=== PATIENT | female | born 1955 | race Caucasian/White ===

== ENCOUNTER 2016-08-05 02:07 | Inpatient (IN) ==
[2016-08-05 04:13] LABS: Basophils # 0.1 K/mcL (0.0-0.2); Basophils % 0.7 %; Eosinophils # 0.3 K/mcL (0.0-0.6); Eosinophils % 2.8 %; Hematocrit 41.5 % (35.3-44.9); Hemoglobin 14.1 g/dL (11.5-15.4); Immature Granulocytes % 0.6 % (0-4); Lymphocytes # 2.3 K/mcL (0.6-4.6); Lymphocytes % 19.7 %; Mean Corpuscular Hemoglobin 31.7 pg (28.0-33.3); Mean Corpuscular Volume 93.3 fL (83.0-100.0); Monocytes # 0.6 K/mcL (0.0-1.3); Monocytes % 5.1 %; Neutrophils # 8.1 K/mcL (1.6-8.9); Platelet Count 362 K/mcL (140-400); Red Blood Count 4.45 M/mcL (3.82-4.97); Red Cell Distribution Width 11.8 % (11.5-14.5); Segmented Neutrophils % 71.1 %
[2016-08-05 04:19] LABS: Prothrombin Time 10.9 Seconds (9.4-12.1)
[2016-08-05 04:21] LABS: Activated Partial Thrombo Time 27.7 Seconds (26.0-36.0)
[2016-08-05 04:28] LABS: Calcium 9.6 mg/dL (8.6-10.8); Potassium 3.6 mEq/L (3.5-4.5)
[2016-08-05] MEDS ORDERED: Ondansetron 4 MG/2 ML VIAL IVP ONE (05:15)
--- NOTE | 2016-08-05 06:29 | Emergency Department Note ---
Disposition Clinical Impression: Hematochezia, Abdominal pain, Pancreatitis, Hyponatremia, Acute kidney injury Diarrhea Qualifiers: Diarrhea type: unspecified type Qualified Code(s): R19.7 - Diarrhea, unspecified Disposition: Admitted As Inpatient Condition: Good Referrals: Kodak Bates DO [Primary Care Provider] - Forms: Work/School Release, ED Satisfaction Letter Abdominal Pain HPI - General Chief Complaint: ED Abdominal Pain Stated Complaint: BLOODY DIARRHEA Time Seen by Provider: 08/05/16 04:47 Source: patient Nursing Notes Reviewed: Yes Vital Signs Reviewed: Yes - History of Present Illness HPI Narrative: Ms. Castle, a 61-year-old female, presents from home by POV with chief complaint diarrhea with blood. Onset 1 week ago. Describes 4-7 loose bowel movements per day with gross blood in the bowl as well as bright red blood with clots on toilet tissue. States the bowel movements are foul odor, non-mucus. Associated with mild epigastric pain. Patient denies fever, chills, nausea, vomiting, dyspnea, chest pain, palpitations, lightheadedness. Denies recent antibiotic use. Patient states this has happened one time in the past in early February 2016; states she was admitted and given IV antibiotics. Patient denies current use of anticoagulation. PMH: Diabetes, hypertension, history of DKA. Pain Scale: 9 - Related Data Home Medications Medication Instructions Recorded Confirmed Alprazolam [Xanax] 0.25 mg PO QID 04/20/15 02/18/16 Aspirin Enteric Coated [Aspirin EC] 81 mg PO DAILY 04/20/15 02/18/16 Celecoxib [Celebrex] 200 mg PO BID 04/20/15 02/18/16 Enalapril Maleate [Vasotec] 10 mg PO BID 04/20/15 02/18/16 Furosemide [Lasix] 40 mg PO BID 04/20/15 02/18/16 Hydrocodone/Acetaminophen [[place] 1 tab PO Q8H 04/20/15 02/18/16 10-325 Tablet] Levothyroxine [Synthroid] 100 mcg PO QAM 04/20/15 02/18/16 [place]-3S/Dha/Epa/Fish Oil [Fish 1,200 mg PO DAILY 04/20/15 02/18/16 Oil 1,200 mg Softgel] Omeprazole [PriLOSEC] 20 mg PO DAILY 04/20/15 02/18/16 Ranitidine HCl [Zantac] 150 mg PO BID 04/20/15 02/18/16 Simvastatin [Zocor] 40 mg PO HS 04/20/15 02/18/16 SitaGLIPtin [Januvia] 100 mg PO DAILY 04/20/15 02/18/16 Spironolactone [Aldactone] 50 mg PO BID 04/20/15 02/18/16 Tizanidine [Zanaflex] 4 mg PO Q8H 04/20/15 02/18/16 Lidocaine Patch [Lidoderm 5% patch] 1 patch TP DAILY 08/30/15 02/18/16 Cyclobenzaprine HCl 5 mg PO TID 02/18/16 02/18/16 Diclofenac Sodium [Voltaren] 1 appl TP BID 02/18/16 02/18/16 Diphenoxylate/Atropine [Lomotil 1 tab PO QID 02/18/16 02/18/16 2.5 mg/0.025 mg] Gabapentin [Neurontin] 400 mg PO TID 02/18/16 02/18/16 GlipiZIDE XL (24 HR) [Glucotrol XL] 10 mg PO 0800 02/18/16 02/18/16 Insulin ASPART [Novolog Flexpen] 0 unit SQ TID 02/18/16 02/18/16 Insulin Glargine,Hum.rec.anlog 40 unit SQ BID 02/18/16 02/18/16 [Lantus Solostar] Naproxen [Naprosyn] 500 mg PO BID 02/18/16 02/18/16 Ondansetron HCl [Zofran] 4 mg PO Q4-6H PRN 02/18/16 02/18/16 Previous Rx's Medication Instructions Recorded Lidocaine Patch [Lidoderm 5% patch] 2 each TP DAILY adh..patch 02/20/16 MetroNIDAZOLE [Flagyl] 500 mg PO TID #12 tablet MDD 4 days 02/20/16 Sulfamethoxazole/Trimeth DS 1 each PO BID #8 tablet MDD 4 days 02/20/16 [Bactrim DS] Allergies Allergy/AdvReac Type Severity Reaction Status Date / Time Penicillins [PCN] Allergy Hives Verified 08/05/16 02:17 Cefadroxil AdvReac unknown Verified 08/05/16 02:17 per patient ciprofloxacin [From Cipro] AdvReac Made sugar Verified 08/05/16 02:17 jump and made patient feel drunk. ibuprofen AdvReac tacycardia Verified 08/05/16 02:17 Iodinated Contrast Media - AdvReac shortness Verified 08/05/16 02:17 Oral and of breath All systems ED: reviewed and negative except as stated. Constitutional: Denies: fever, chills Cardiovascular: Denies: chest pain, palpitations, dyspnea on exertion, edema Respiratory: Denies: cough, dyspnea, wheezes Gastrointestinal: Reports: abdominal pain, diarrhea, hematochezia. Denies: nausea, vomiting, constipation, hematemesis, melena Genitourinary: Denies: urgency, dysuria Musculoskeletal: Denies: back pain Neurological: Denies: headache, weakness, numbness, paresthesias, confusion Endocrine: Denies: fatigue Abdominal Pain PMH - Past Medical History Medical history: Reports: asthma, atrial fibrillation, COPD, diabetes, GERD, GI bleed, hypertension Female Surgical History: Reports: cholecystectomy, herniorrhaphy, hysterectomy, orthopedic, other Psychiatric history: Reports: anxiety, depression - Social History Smoking status: Current every day smoker Alcohol use: Reports: none Drug use: Reports: none, other Physical Exam General: Patient is alert, oriented, and in no acute distress. HEENT: No facial asymmetry. Head is normocephalic and atraumatic. Trachea midline. Cardiovascular: Heart regular rate and rhythm without clicks, rubs, gallops, or murmurs. No JVD. PMI nondisplaced. Respiratory: Symmetric chest rise with good respiratory effort. Prolonged expiratory phase. Bilateral breath sounds with diffuse wheezing. No crackles or rhonchi. Abdomen: Bowel sounds present normoactive -4 quadrants. Abdomen is soft, nondistended, and nontender. No organomegaly noted. Psych: Patient's affect is appropriate for situation. - General Limitations: no limitations General appearance: alert, in no apparent distress Course Course Narrative: CT abdomen. Chart check shows patient was admitted in early February for DKA with superimposed septic viral gastroenteritis which did present with profuse diarrhea. C. difficile negative at that time. Vital Signs Temperature 98.3 F 08/05/16 02:12 Pulse Rate 112 08/05/16 02:12 Respiratory Rate 18 08/05/16 02:12 Blood Pressure 134/83 08/05/16 02:12 O2 Sat by Pulse Oximetry 93 L 08/05/16 02:12 Temperature 98.3 F 08/05/16 02:12 Pulse Rate 98 08/05/16 07:35 Respiratory Rate 16 08/05/16 07:35 Blood Pressure 135/85 08/05/16 07:35 O2 Sat by Pulse Oximetry 95 08/05/16 07:35 Oxygen Delivery Oxygen Delivery Room Air Abdominal Pain - Lab Data Result diagrams: 08/05/16 03:01 08/05/16 03:01 Lab Results 08/05/16 08/05/16 08/05/16 Range/Units 03:01 03:01 03:01 WBC 11.4 H (4.3-11.1) K/mcL RBC 4.45 (3.82-4.97) M/mcL Hgb 14.1 (11.5-15.4) g/dL Hct 41.5 (35.3-44.9) % MCV 93.3 (83.0-100.0) fL MCH 31.7 (28.0-33.3) pg MCHC 34.0 (31.6-35.5) g/dL RDW 11.8 (11.5-14.5) % Plt Count 362 (140-400) K/mcL MPV 11.0 (9.4-12.4) fL Immature Gran % 0.6 (0-4) % Seg Neutrophils % 71.1 % Lymphocytes % 19.7 % Monocytes % 5.1 % Eosinophils % 2.8 % Basophils % 0.7 % Neutrophils # 8.1 (1.6-8.9) K/mcL Lymphocytes # 2.3 (0.6-4.6) K/mcL Monocytes # 0.6 (0.0-1.3) K/mcL Eosinophils # 0.3 (0.0-0.6) K/mcL Basophils # 0.1 (0.0-0.2) K/mcL PT 10.9 (9.4-12.1) Seconds INR 1.0 APTT 27.7 (26.0-36.0) Seconds Sodium 129 L (136-145) mEq/L Potassium 3.6 (3.5-4.5) mEq/L Chloride 91 L (98-109) mEq/L Carbon Dioxide 23 (19-29) mEq/L BUN 22 H (7-20) mg/dL Creatinine 1.34 H (0.57-1.11) mg/dL Est GFR ( Amer) 49 L (> 60) Est GFR (Non-Af Amer) 40 L (> 60) BUN/Creatinine Ratio 16 (6-26) Glucose 323 H (70-99) mg/dL Calculated Osmolality 284 (280-300) Lactic Acid (0.5-2.2) mmol/L Calcium 9.6 (8.6-10.8) mg/dL Stool Occult Blood (Negative) Blood Type Antibody Screen 08/05/16 08/05/16 08/05/16 Range/Units 03:01 06:48 07:14 WBC (4.3-11.1) K/mcL RBC (3.82-4.97) M/mcL Hgb (11.5-15.4) g/dL Hct (35.3-44.9) % MCV (83.0-100.0) fL MCH (28.0-33.3) pg MCHC (31.6-35.5) g/dL RDW (11.5-14.5) % Plt Count (140-400) K/mcL MPV (9.4-12.4) fL Immature Gran % (0-4) % Seg Neutrophils % % Lymphocytes % % Monocytes % % Eosinophils % % Basophils % % Neutrophils # (1.6-8.9) K/mcL Lymphocytes # (0.6-4.6) K/mcL Monocytes # (0.0-1.3) K/mcL Eosinophils # (0.0-0.6) K/mcL Basophils # (0.0-0.2) K/mcL PT (9.4-12.1) Seconds INR APTT (26.0-36.0) Seconds Sodium (136-145) mEq/L Potassium (3.5-4.5) mEq/L Chloride (98-109) mEq/L Carbon Dioxide (19-29) mEq/L BUN (7-20) mg/dL Creatinine (0.57-1.11) mg/dL Est GFR ( Amer) (> 60) Est GFR (Non-Af Amer) (> 60) BUN/Creatinine Ratio (6-26) Glucose (70-99) mg/dL Calculated Osmolality (280-300) Lactic Acid 0.9 (0.5-2.2) mmol/L Calcium (8.6-10.8) mg/dL Stool Occult Blood Positive A (Negative) Blood Type A POSITIVE Antibody Screen NEGATIVE SNav - Sheron Transition of Care: To Dr. Chang Situation: Demographics, MOA Background: Presenting Complaint, Relevant PMH, Meds, & Allergies Assessment: Vital Signs, Course and respsone to treatment, Exam Concerns, Outstanding Labs Recommendation: Barrier(s) to disposition, Recommendation based on pending studies, treatments, or consults S.B.Jason Report Given to: Dr. Charlene Holbrook Repor Time: 07:16 Attestation Statement - Attestation Attestation: I, Mauricio Subramanian MD, personally performed a history and physical exam of the patient and discussed their management with the resident. I reviewed the resident's note and agree with the documented findings, medical decision making , and plan of care. 61-year-old female presents to the emergency department with a complaint of having bloody diarrhea for 1 week prior to arrival. She describes the blood as bright red in the toilet and on the toilet tissue when she wipes. There has been some nausea but only one episode of vomiting. There is no blood in the emesis. She does complain of some epigastric abdominal pain. She has not really noticed any fever. No urinary symptoms. She does have a history of diverticulitis and some chronic diarrhea with bleeding. On examination patient is a well-developed obese female in no acute distress. She is alert and oriented 3. There is no cyanosis or diaphoresis. Breath sounds are clear and equal bilaterally. Heart regular rate and rhythm. Abdomen is soft with increased bowel sounds. There is mild epigastric tenderness. At shift change the patient is being signed out to the oncoming dayshift team, Dr. Dunn and Dr. Chang. Patient awaiting labs and CT results.
[2016-08-05] MEDS ORDERED: *HR* HYDROmorphone (PF) 1 MG/ML SYRINGE IVP ONE (07:35)
[2016-08-05] MEDS ORDERED: Ondansetron 4 MG/2 ML VIAL IV ONE (07:35)
[2016-08-05] MEDS ORDERED: 0.9 % Sodium Chloride 1,000 ML IV ONE (07:35)
--- NOTE | 2016-08-05 07:52 | Emergency Department Note ---
Disposition Clinical Impression: Hematochezia, Hyponatremia, Acute kidney injury Diarrhea Qualifiers: Diarrhea type: unspecified type Qualified Code(s): R19.7 - Diarrhea, unspecified Abdominal pain Qualifiers: Abdominal location: unspecified location Qualified Code(s): R10.9 - Unspecified abdominal pain Pancreatitis Qualifiers: Pancreatitis type: unspecified pancreatitis type Acute pancreatitis complication: unspecified Disposition: Admitted As Inpatient Condition: Good Referrals: Kodak Bates DO [Primary Care Provider] - Forms: ED Satisfaction Letter, Work/School Release Time of Disposition: 07:55 Abdominal Pain HPI - General Chief Complaint: ED Abdominal Pain Stated Complaint: BLOODY DIARRHEA Time Seen by Provider: 08/05/16 04:47 Source: patient - History of Present Illness Pain Scale: 0 - Related Data Home Medications Medication Instructions Recorded Confirmed Alprazolam [Xanax] 0.25 mg PO QID 04/20/15 02/18/16 Aspirin Enteric Coated [Aspirin EC] 81 mg PO DAILY 04/20/15 02/18/16 Celecoxib [Celebrex] 200 mg PO BID 04/20/15 02/18/16 Enalapril Maleate [Vasotec] 10 mg PO BID 04/20/15 02/18/16 Furosemide [Lasix] 40 mg PO BID 04/20/15 02/18/16 Hydrocodone/Acetaminophen [[place] 1 tab PO Q8H 04/20/15 02/18/16 10-325 Tablet] Levothyroxine [Synthroid] 100 mcg PO QAM 04/20/15 02/18/16 [place]-3S/Dha/Epa/Fish Oil [Fish 1,200 mg PO DAILY 04/20/15 02/18/16 Oil 1,200 mg Softgel] Omeprazole [PriLOSEC] 20 mg PO DAILY 04/20/15 02/18/16 Ranitidine HCl [Zantac] 150 mg PO BID 04/20/15 02/18/16 Simvastatin [Zocor] 40 mg PO HS 04/20/15 02/18/16 SitaGLIPtin [Januvia] 100 mg PO DAILY 04/20/15 02/18/16 Spironolactone [Aldactone] 50 mg PO BID 04/20/15 02/18/16 Tizanidine [Zanaflex] 4 mg PO Q8H 04/20/15 02/18/16 Lidocaine Patch [Lidoderm 5% patch] 1 patch TP DAILY 08/30/15 02/18/16 Cyclobenzaprine HCl 5 mg PO TID 02/18/16 02/18/16 Diclofenac Sodium [Voltaren] 1 appl TP BID 02/18/16 02/18/16 Diphenoxylate/Atropine [Lomotil 1 tab PO QID 02/18/16 02/18/16 2.5 mg/0.025 mg] Gabapentin [Neurontin] 400 mg PO TID 02/18/16 02/18/16 GlipiZIDE XL (24 HR) [Glucotrol XL] 10 mg PO 0800 02/18/16 02/18/16 Insulin ASPART [Novolog Flexpen] 0 unit SQ TID 02/18/16 02/18/16 Insulin Glargine,Hum.rec.anlog 40 unit SQ BID 02/18/16 02/18/16 [Lantus Solostar] Naproxen [Naprosyn] 500 mg PO BID 02/18/16 02/18/16 Ondansetron HCl [Zofran] 4 mg PO Q4-6H PRN 02/18/16 02/18/16 Previous Rx's Medication Instructions Recorded Lidocaine Patch [Lidoderm 5% patch] 2 each TP DAILY adh..patch 02/20/16 MetroNIDAZOLE [Flagyl] 500 mg PO TID #12 tablet MDD 4 days 02/20/16 Sulfamethoxazole/Trimeth DS 1 each PO BID #8 tablet MDD 4 days 02/20/16 [Bactrim DS] Allergies Allergy/AdvReac Type Severity Reaction Status Date / Time Penicillins [PCN] Allergy Hives Verified 08/05/16 02:17 Cefadroxil AdvReac unknown Verified 08/05/16 02:17 per patient ciprofloxacin [From Cipro] AdvReac Made sugar Verified 08/05/16 02:17 jump and made patient feel drunk. ibuprofen AdvReac tacycardia Verified 08/05/16 02:17 Iodinated Contrast Media - AdvReac shortness Verified 08/05/16 02:17 Oral and of breath Constitutional: Denies: fever, chills Cardiovascular: Denies: chest pain, palpitations, dyspnea on exertion, edema Respiratory: Denies: cough, dyspnea, wheezes Gastrointestinal: Reports: abdominal pain, diarrhea, hematochezia. Denies: nausea, vomiting, constipation, hematemesis, melena Genitourinary: Denies: urgency, dysuria Musculoskeletal: Denies: back pain Neurological: Denies: headache, weakness, numbness, paresthesias, confusion Endocrine: Denies: fatigue Abdominal Pain PMH - Past Medical History Medical history: Reports: asthma, atrial fibrillation, COPD, diabetes, GERD, GI bleed, hypertension Female Surgical History: Reports: cholecystectomy, herniorrhaphy, hysterectomy, orthopedic, other Psychiatric history: Reports: anxiety, depression - Social History Smoking status: Current every day smoker Alcohol use: Reports: none Drug use: Reports: none, other Physical Exam - General Limitations: no limitations General appearance: alert, in no apparent distress - Respiratory Respiratory exam: Present: normal lung sounds bilaterally - Cardiovascular Cardiovascular exam: Present: regular rate, normal rhythm, normal heart sounds - Abdominal Exam Abdominal exam: Present: soft, tenderness. Absent: Non-Tender, distention, guarding, rebound, rigidity, Tompkins's sign, Rovsing's sign, tenderness at McBurney's Point, ascites - Extremities Exam Extremities exam: Present: normal inspection, full ROM, normal capillary refill. Absent: tenderness, pedal edema Course Course Narrative: Patient signed out at [address] Limon and Dr. Subramanian. Detailed review the patient's presentation symptoms and intervention that was started prior to my arrival were discussed. Patient presents here today with complaint of diarrhea for approximately 1 week. She is saying that she has proximal 27 bowel movements a day. She also complains of generalized weakness abdominal discomfort and feels like she cannot take care of herself at home any longer. She denies fevers chills nausea vomiting chest pain shortness of breath headache or vision changes may complaint is diarrhea and blood in her stool. Hemoccult was sent down during the prior evaluation is positive. Patient's labs show a hemoglobin that is stable at 14.9. She does have a mildly elevated creatinine nothing significant at this point. The rest of the laboratory workup is indeterminate. Patient to have lipase ordered as well as lactic acid secondary to her abdominal discomfort. CT imaging was pending on my arrival. CT confirms what appears to be inflammation and swelling to the pancreatic head. This is consistent with pancreatitis. Patient does not have a gallbladder. She has had a history of pancreatitis 3 times in the past and this feels similar but not as bad as it typically is. Patient will be provided with fluids and nausea medication made nothing by mouth and then will be discussed with the hospitalist for admission. No other acute intervention needed at this time disposition pending this workup and evaluation. Vital signs are stable she is afebrile - Reevaluation(s) Reevaluation #1: Patient was discussed with the hospitalist Dr. Ca. He and I reviewed the entire course of intervention as well as medical presentation. He agrees at this time patient will be brought in for pain control nothing by mouth status and resolution of the pancreatic inflammation. Lipase is still pending but does not change the disposition based on CT scan of the abdomen. Patient is resting comfortably in bed this time for this pain medication given. We will continue to monitor until the admission process is completed. Time: 07:53 Vital Signs Temperature 98.3 F 08/05/16 02:12 Pulse Rate 112 08/05/16 02:12 Respiratory Rate 18 08/05/16 02:12 Blood Pressure 134/83 08/05/16 02:12 O2 Sat by Pulse Oximetry 93 L 08/05/16 02:12 Temperature 98.3 F 08/05/16 02:12 Pulse Rate 98 08/05/16 07:35 Respiratory Rate 16 08/05/16 07:35 Blood Pressure 135/85 08/05/16 07:35 O2 Sat by Pulse Oximetry 95 08/05/16 07:35 Oxygen Delivery Oxygen Delivery Room Air Abdominal Pain - MDM Narrative Medical decision making narrative: Pancreatitis, diarrhea, abdominal bowel pain, acute kidney injury, hyponatremia - Medical Records Medical records reviewed: Yes I reviewed the patient's medical records. - Lab Data Lab results reviewed: Yes I reviewed the patient's lab results. Result diagrams: 08/05/16 03:01 08/05/16 03:01 Lab Results 08/05/16 08/05/16 08/05/16 Range/Units 03:01 03:01 03:01 WBC 11.4 H (4.3-11.1) K/mcL RBC 4.45 (3.82-4.97) M/mcL Hgb 14.1 (11.5-15.4) g/dL Hct 41.5 (35.3-44.9) % MCV 93.3 (83.0-100.0) fL MCH 31.7 (28.0-33.3) pg MCHC 34.0 (31.6-35.5) g/dL RDW 11.8 (11.5-14.5) % Plt Count 362 (140-400) K/mcL MPV 11.0 (9.4-12.4) fL Immature Gran % 0.6 (0-4) % Seg Neutrophils % 71.1 % Lymphocytes % 19.7 % Monocytes % 5.1 % Eosinophils % 2.8 % Basophils % 0.7 % Neutrophils # 8.1 (1.6-8.9) K/mcL Lymphocytes # 2.3 (0.6-4.6) K/mcL Monocytes # 0.6 (0.0-1.3) K/mcL Eosinophils # 0.3 (0.0-0.6) K/mcL Basophils # 0.1 (0.0-0.2) K/mcL PT 10.9 (9.4-12.1) Seconds INR 1.0 APTT 27.7 (26.0-36.0) Seconds Sodium 129 L (136-145) mEq/L Potassium 3.6 (3.5-4.5) mEq/L Chloride 91 L (98-109) mEq/L Carbon Dioxide 23 (19-29) mEq/L BUN 22 H (7-20) mg/dL Creatinine 1.34 H (0.57-1.11) mg/dL Est GFR ( Amer) 49 L (> 60) Est GFR (Non-Af Amer) 40 L (> 60) BUN/Creatinine Ratio 16 (6-26) Glucose 323 H (70-99) mg/dL Calculated Osmolality 284 (280-300) Lactic Acid (0.5-2.2) mmol/L Calcium 9.6 (8.6-10.8) mg/dL Lipase (8-78) Units/L Stool Occult Blood (Negative) Blood Type Antibody Screen 08/05/16 08/05/16 08/05/16 Range/Units 03:01 06:48 07:14 WBC (4.3-11.1) K/mcL RBC (3.82-4.97) M/mcL Hgb (11.5-15.4) g/dL Hct (35.3-44.9) % MCV (83.0-100.0) fL MCH (28.0-33.3) pg MCHC (31.6-35.5) g/dL RDW (11.5-14.5) % Plt Count (140-400) K/mcL MPV (9.4-12.4) fL Immature Gran % (0-4) % Seg Neutrophils % % Lymphocytes % % Monocytes % % Eosinophils % % Basophils % % Neutrophils # (1.6-8.9) K/mcL Lymphocytes # (0.6-4.6) K/mcL Monocytes # (0.0-1.3) K/mcL Eosinophils # (0.0-0.6) K/mcL Basophils # (0.0-0.2) K/mcL PT (9.4-12.1) Seconds INR APTT (26.0-36.0) Seconds Sodium (136-145) mEq/L Potassium (3.5-4.5) mEq/L Chloride (98-109) mEq/L Carbon Dioxide (19-29) mEq/L BUN (7-20) mg/dL Creatinine (0.57-1.11) mg/dL Est GFR ( Amer) (> 60) Est GFR (Non-Af Amer) (> 60) BUN/Creatinine Ratio (6-26) Glucose (70-99) mg/dL Calculated Osmolality (280-300) Lactic Acid 0.9 (0.5-2.2) mmol/L Calcium (8.6-10.8) mg/dL Lipase (8-78) Units/L Stool Occult Blood Positive A (Negative) Blood Type A POSITIVE Antibody Screen NEGATIVE 08/05/16 Range/Units 07:14 WBC (4.3-11.1) K/mcL RBC (3.82-4.97) M/mcL Hgb (11.5-15.4) g/dL Hct (35.3-44.9) % MCV (83.0-100.0) fL MCH (28.0-33.3) pg MCHC (31.6-35.5) g/dL RDW (11.5-14.5) % Plt Count (140-400) K/mcL MPV (9.4-12.4) fL Immature Gran % (0-4) % Seg Neutrophils % % Lymphocytes % % Monocytes % % Eosinophils % % Basophils % % Neutrophils # (1.6-8.9) K/mcL Lymphocytes # (0.6-4.6) K/mcL Monocytes # (0.0-1.3) K/mcL Eosinophils # (0.0-0.6) K/mcL Basophils # (0.0-0.2) K/mcL PT (9.4-12.1) Seconds INR APTT (26.0-36.0) Seconds Sodium (136-145) mEq/L Potassium (3.5-4.5) mEq/L Chloride (98-109) mEq/L Carbon Dioxide (19-29) mEq/L BUN (7-20) mg/dL Creatinine (0.57-1.11) mg/dL Est GFR ( Amer) (> 60) Est GFR (Non-Af Amer) (> 60) BUN/Creatinine Ratio (6-26) Glucose (70-99) mg/dL Calculated Osmolality (280-300) Lactic Acid (0.5-2.2) mmol/L Calcium (8.6-10.8) mg/dL Lipase 258 H (8-78) Units/L Stool Occult Blood (Negative) Blood Type Antibody Screen - Radiology Data Radiology results reviewed: Yes I reviewed the patient's radiology results. CT imaging reviewed by myself and confirmed by radiology consistent with acute pancreatitis in the pancreatic head. No other acute pathology Critical Care Time Critical Care Time: Yes Total Critical Care Time: 30 Attestation: Independent inpatient procedures and medical management here in the emergency room Attestation Statement - Attestation Attestation: Patient was seen with resident physician. I reviewed the history, physical, assessment and plan, and agree with the findings. I also personally evaluated this patient and had [id number] time with this patient. 61-year-old female signed out to me by the resaw operator team. Please review their documentation for complete review of systems and physical. History of present illness is that patient was brought to the emergency department for chief complaint of left upper quadrant abdominal pain, and bloody diarrhea for the last week or so. She has had multiple episodes of bloody diarrhea and is concerned that this may be a problem. She has had a history of both pancreatitis in the past as well as bloody diarrhea. She has not required blood transfusions this point. She said last time she had bloody diarrhea was from infectious enteritis. On examination heart and lungs were unremarkable. Abdomen is soft but tender in the left upper quadrant there are positive bowel sounds. Extremities are unremarkable. Workup revealed a CT scan that showed evidence of pancreatitis. H&H was unremarkable. Patient appeared comfortable she was treated with pain medication and will require hospitalization for treatment of pancreatitis IV fluids and bowel rest. Hospitalist was notified. I agree with the resident physician assessment and plan.
[2016-08-05] MEDS ORDERED: Dextrose Gel 15 GM PO PRN ×2 (09:38)
[2016-08-05] MEDS ORDERED: *HR* Dextrose 50 % in Water (Syg) 50 ML SYRINGE IVP PRN (09:38)
[2016-08-05] MEDS ORDERED: Ondansetron 4 MG/2 ML VIAL IVP PRN (09:38)
[2016-08-05] MEDS ORDERED: D5% in Water 1,000 ML IV PRN (09:38)
[2016-08-05] MEDS ORDERED: Acetaminophen 325 MG TABLET PO PRN (09:38)
[2016-08-05] MEDS ORDERED: Naloxone 0.4 MG/ML INJ IVP PRN (09:38)
--- NOTE | 2016-08-05 09:51 | Internal Med History&Physical ---
Date of Encounter: 08/05/16 Time of Encounter: 09:47 Assessment and Plan (1) Pancreatitis Current visit: Yes Status: Acute Severe dehydration secondary to acute pancreatitis IV fluids, hold Lasix Morphine IV for pain, keep nothing by mouth for now Qualifiers: Pancreatitis type: unspecified pancreatitis type Acute pancreatitis complication: unspecified Qualified Code(s): K85.90 - Acute pancreatitis without necrosis or infection, unspecified (2) Diarrhea Current visit: Yes Status: Acute Acute gastroenteritis viral versus bacterial The patient cannot tolerate ciprofloxacin, we will start Flagyl IV for now and will discontinue it if it is negative for C. difficile Send a stool culture Back in February the patient was given Bactrim and Flagyl due to septic viral gastroenteritis Qualifiers: Diarrhea type: unspecified type Qualified Code(s): R19.7 - Diarrhea, unspecified (3) Fungal dermatitis Current visit: Yes Status: Acute Fungal dermatitis underneath both breasts Start nystatin cream (4) CKD (chronic kidney disease) stage 3, GFR 30-59 ml/min Current visit: Yes Status: Acute Stable (5) Diabetes Current visit: Yes Status: Acute Continue with insulin sliding scale alone Qualifiers: Diabetes mellitus type: type 2 Diabetes mellitus complication status: without complication Diabetes mellitus jail insulin use: with joint terminal attack controller use Qualified Code(s): E11.9 - Type 2 diabetes mellitus without complications ; Z79.4 - joint terminal attack controller (current) use of insulin (6) Hyponatremia Current visit: Yes Status: Acute Likely secondary to poor oral intake and Lasix Continue normal saline and monitor sodium levels (7) Hematochezia Current visit: Yes Status: Acute The patient will be admitted as inpatient, she is expected to stay more than 2 minutes. Full code. Time spent on this admission 45 minutes. High risk for dehydration and complications from gastroenteritis/pancreatitis Protonix IV for GI prophylaxis and sequential compression devices for DVT prophylaxis Internal Medicine - H&P: HPI Chief complaint: Abdominal pain and bloody diarrhea Admitted From: Emergency Dept History of present illness: Ms. Sam is a 61 year old female with a past medical history of diabetes type 2 insulin-dependent, DKA in the past, septic viral gastroenteritis in February, complaining emergency room complaining of rectal bleed and epigastric pain. Patient says that she has been having diarrhea for one week and for the past 3 days it became bloody although she told the nurse that she has not gone to the bathroom today at all. Hemoglobin is stable at 14.1. Hemoccult was positive, but the patient is not having any bowel movements today. CT scan of the abdomen shows possible pancreatitis mainly in the head of the pancreas. Lipase is 258, she has had history of pancreatitis before. Patient has been drinking only water and her sodium today is 129 but also she has history of chronic hyponatremia. She rates her epigastric pain at 10 out of 10 radiating to the back, tender to touch. Denies any cramps at the moment. We will also continue 11.4. During her last hospitalization she was given Bactrim and Flagyl IV to treat septic gastroenteritis as she cannot take ciprofloxacin as she had a reaction to it and became very confused last time. Past Med Surg Social Fam HX - Past Medical History Medical history: asthma, atrial fibrillation (Not on anticoagulation), CHF ( Systolic versus diastolic), COPD (Not oxygen dependent), diabetes (Insulin- dependent), GERD, GI bleed, hypertension, other (Hypothyroidism, DKA, tobacco use, chronic hyponatremia, enlarged adrenal gland, pancreatitis, septic viral gastroenteritis in February 2016) Psychiatric history: anxiety, depression - Past Surgical History Surgical History: appendectomy, cholecystectomy, hysterectomy, orthopedic, other (Spinal surgery 2016, laminectomy L2-L4, excision of axillary lymph nodes) , other (Left knee replacement, cataract surgery, herniorrhaphy) - Social History Smoking Status: Current every day smoker Packs per day: Half pack per day Smokeless Tobacco Status: No Alcohol use: none Drug use: none - Family History Mother Hx Family Endocrine Disorder: Yes (dm) - Additional Family History Additional family history: Father with prostate cancer and mother with diabetes Internal Medicine - H&P: Meds Alprazolam [Xanax] 0.25 mg PO QID 04/20/15 [History] Aspirin Enteric Coated [Aspirin EC] 81 mg PO DAILY 04/20/15 [History] Celecoxib [Celebrex] 200 mg PO BID 04/20/15 [History] Enalapril Maleate [Vasotec] 10 mg PO BID 04/20/15 [History] Furosemide [Lasix] 40 mg PO BID 04/20/15 [History] Hydrocodone/Acetaminophen [[place] 10-325 Tablet] 1 tab PO Q8H 04/20/15 [History] Levothyroxine [Synthroid] 100 mcg PO QAM 04/20/15 [History] [place]-3S/Dha/Epa/Fish Oil [Fish Oil 1,200 mg Softgel] 1,200 mg PO DAILY [History] Omeprazole [PriLOSEC] 20 mg PO DAILY 04/20/15 [History] Ranitidine HCl [Zantac] 150 mg PO BID 04/20/15 [History] Simvastatin [Zocor] 40 mg PO HS 04/20/15 [History] SitaGLIPtin [Januvia] 100 mg PO DAILY 04/20/15 [History] Spironolactone [Aldactone] 50 mg PO BID 04/20/15 [History] Tizanidine [Zanaflex] 4 mg PO Q8H 04/20/15 [History] Lidocaine Patch [Lidoderm 5% patch] 1 patch TP DAILY 08/30/15 [History] Cyclobenzaprine HCl 5 mg PO TID 02/18/16 [History] Diclofenac Sodium [Voltaren] 1 appl TP BID 02/18/16 [History] Diphenoxylate/Atropine [Lomotil 2.5 mg/0.025 mg] 1 tab PO QID 02/18/16 [History] Gabapentin [Neurontin] 400 mg PO TID 02/18/16 [History] GlipiZIDE XL (24 HR) [Glucotrol XL] 10 mg PO 0800 02/18/16 [History] Insulin ASPART [Novolog Flexpen] 0 unit SQ TID 02/18/16 [History] Insulin Glargine,Hum.rec.anlog [Lantus Solostar] 40 unit SQ BID 02/18/16 [ History] Naproxen [Naprosyn] 500 mg PO BID 02/18/16 [History] Ondansetron HCl [Zofran] 4 mg PO Q4-6H PRN 02/18/16 [History] Lidocaine Patch [Lidoderm 5% patch] 2 each TP DAILY adh..patch 02/20/16 [Rx] MetroNIDAZOLE [Flagyl] 500 mg PO TID #12 tablet MDD 4 days 02/20/16 [Rx] Sulfamethoxazole/Trimeth DS [Bactrim DS] 1 each PO BID #8 tablet MDD 4 days 02/27 [Rx] Allergies Penicillins [PCN] Allergy (Verified 08/05/16 02:17) Hives Cefadroxil Adverse Reaction (Verified 08/05/16 02:17) unknown per patient ciprofloxacin [From Cipro] Adverse Reaction (Verified 08/05/16 02:17) Made sugar jump and made patient feel drunk. ibuprofen Adverse Reaction (Verified 08/05/16 02:17) tacycardia Iodinated Contrast Media - Oral and Adverse Reaction (Verified 08/05/16 02:17) shortness of breath All Systems PM: A 10-system review of systems was performed and is negative for pertinent findings except as documented above in the HPI. Review of systems: Denies any shortness of breath, feels very nauseous, vomited once yesterday, complains of epigastric pain. No dysuria. Feels very weak, other systems out of the 10 reviewed were negative - Constitutional Vitals: Temp Pulse Resp BP Pulse Ox 97.6 F 92 16 133/89 98 08/05/16 08:48 08/05/16 08:48 08/05/16 08:48 08/05/16 08:48 08/05/16 08:48 General appearance: Present: A&O X 3 (Dry mucosa) - Head Head exam: Present: atraumatic, normocephalic - Eye Eye exam: Present: PERRL, conjuntiva pink, sclera anicteric Pupils: Present: PERRL - Neck Neck exam general surgery: Present: supple, trachea midline. Absent: lymphadenopathy - Respiratory Respiratory exam: Present: decreased breath sounds, CTAB. Absent: accessory muscle use, rales, rhonchi, wheezes - Cardiovascular Cardiovascular exam: Present: RRR, +S1, +S2. Absent: diastolic murmur, gallop, rubs, systolic murmur - GI/Abdominal GI/Abdominal exam: Present: distended, normal bowel sounds, soft, tenderness ( Severe epigastric tenderness), no peritoneal signs - Extremities Exam Extremities exam: Present: warm, radial pulses palpable and symetrical. Absent : calf tenderness, cyanotic, pedal edema - Neurological Exam Neurological exam: Present: CN II-XII intact, oriented X3, no focal deficits. Absent: pronater drift, facial droop, speech deficit - Skin Skin exam: Present: dry. Absent: intact (Stage I sacroiliac pressure ulcer, fungal infection underneath both breasts) Internal Med - H&P Results - Labs CBC & Chem 7: 08/05/16 03:01 08/05/16 03:01
[2016-08-05] MEDS ORDERED: ALPRAZolam 0.25 MG TABLET PO PRN (10:07)
[2016-08-05] MEDS: Nystatin Cream 15 GM TUBE TP SCH ×3 (11:58→21:22)
[2016-08-05] MEDS: Pantoprazole 40 MG VIAL IVP SCH (11:58)
[2016-08-05] MEDS: 0.9 % Sodium Chloride 1,000 ML IVC SCH ×2 (11:58→22:50)
[2016-08-05] MEDS: *HR* Morphine 2 MG/ML SYRINGE IVP PRN ×2 (11:59→21:06)
[2016-08-05] MEDS: Insulin LISPRO 300 UNITS/3 ML VIAL SQ SCH ×2 (12:45→18:06)
[2016-08-05] MEDS ORDERED: ALPRAZolam 0.25 MG TABLET PO SCH (13:00)
[2016-08-05 14:13] LABS: Hematocrit 41.7 % (35.3-44.9); Hemoglobin 13.8 g/dL (11.5-15.4)
[2016-08-05] MEDS: Gabapentin 400 MG CAPSULE PO SCH ×2 (15:04→21:06)
[2016-08-05] MEDS: MetroNIDAZOLE 500 MG/100 ML 500 MG/100 ML BAG IVPB SCH (16:56)
[2016-08-06] MEDS: 0.9 % Sodium Chloride 1,000 ML IVC SCH ×2 (00:02→06:19)
[2016-08-06] MEDS: MetroNIDAZOLE 500 MG/100 ML 500 MG/100 ML BAG IVPB SCH ×2 (00:13→08:22)
[2016-08-06] MEDS: Insulin LISPRO 300 UNITS/3 ML VIAL SQ SCH ×4 (00:14→16:34)
[2016-08-06] MEDS: *HR* Morphine 2 MG/ML SYRINGE IVP PRN ×3 (00:43→08:23)
[2016-08-06 00:51] LABS: Bilirubin,Urine Negative (Negative); Blood,Urine Large (Negative); Clarity,Urine Clear (Clear); Color,Urine Yellow (Yellow); Glucose,Urine (UA) 250 mg/dL (Normal); Ketones,Urine Trace mg/dL (Negative); Leukocyte Esterase,Urine Negative (Negative); Nitrite,Urine Negative (Negative); PH,Urine 5.5 pH Units (5.0-8.0); Protein,Urine >=300 mg/dL (Neg-Trace); Specific Gravity,Urine 1.018 (1.010-1.025); Urobilinogen,Urine Normal (Normal)
[2016-08-06 00:52] LABS: Bacteria,Urine Moderate per hpf (None-Few); Hyaline Casts,Urine None Seen per lpf (None-Few); Squamous Epithelial Cell,Urine Many per lpf (None-Few)
[2016-08-06 05:08] LABS: Hematocrit 38.7 % (35.3-44.9); Hemoglobin 12.7 g/dL (11.5-15.4); Mean Corpuscular HGB Conc 32.8 g/dL (31.6-35.5); Mean Corpuscular Hemoglobin 31.2 pg (28.0-33.3); Mean Corpuscular Volume 95.1 fL (83.0-100.0); Mean Platelet Volume 10.8 fL (9.4-12.4); Platelet Count 337 K/mcL (140-400); Red Blood Count 4.07 M/mcL (3.82-4.97); Red Cell Distribution Width 11.8 % (11.5-14.5)
[2016-08-06 05:24] LABS: BUN/Creatinine Ratio 15 (6-26); Blood Urea Nitrogen 14 mg/dL (7-20); Calcium 9.1 mg/dL (8.6-10.8); Carbon Dioxide 22 mEq/L (19-29); Chloride 101 mEq/L (98-109); Glucose 185 mg/dL (70-99); Osmolality,Calculated 285 (280-300); Potassium 3.8 mEq/L (3.5-4.5); Sodium 135 mEq/L (136-145); eGFR For African Americans > 60 (> 60); eGFR For Non-African Americans > 60 (> 60)
[2016-08-06] MEDS: Pantoprazole 40 MG VIAL IVP SCH (08:22)
[2016-08-06] MEDS: Gabapentin 400 MG CAPSULE PO SCH ×3 (08:22→20:02)
[2016-08-06] MEDS: Nystatin Cream 15 GM TUBE TP SCH ×4 (08:35→20:03)
[2016-08-06] MEDS ORDERED: *HR* HYDROcodone/Acet 10/325 mg TABLET PO PRN (13:02)
[2016-08-06] MEDS: *HR* HYDROcodone/Acet 5/325 mg TABLET PO PRN ×2 (14:22→23:33)
--- NOTE | 2016-08-06 15:08 | Internal Med Progress Note ---
Date of Encounter: 08/06/16 Time of Encounter: 12:00 - Assessment and plan (1) Pancreatitis Current Visit: Yes Status: Acute Assessment and plan: patient presents with diarrhea and she reports acute pancreatitis may present as diarrhea for her, as she had multiple prior similar episodes; CT abdomen shows e/o- pancreatitis and serum lipase is slightly elevated; try clear liquid diet today and advance as tolerated; hold IV hydration; supportive care with analgesics and antiemetics; hold Januvia due to association with pancreatitis; Qualifiers: Pancreatitis type: unspecified pancreatitis type Acute pancreatitis complication: unspecified Qualified Code(s): K85.90 - Acute pancreatitis without necrosis or infection, unspecified (2) Diarrhea Current Visit: Yes Status: Resolved Assessment and plan: Stool for c.diff toxin could not be sent; diarrhea improved at this time and no further episodes of bleeding; diet as tolerated; Qualifiers: Diarrhea type: unspecified type Qualified Code(s): R19.7 - Diarrhea, unspecified (3) COPD (chronic obstructive pulmonary disease) Current Visit: Yes Status: Chronic Assessment and plan: not in acute exacerbation; PRN bronchodilators and supplemental O2; Qualifiers: COPD type: emphysema Emphysema type: unspecified Qualified Code(s): J43.9 - Emphysema, unspecified (4) Essential hypertension Current Visit: Yes Status: Chronic (5) A-fib Current Visit: Yes Status: Chronic Assessment and plan: not on anticoagulation; continue beta-sarthak; Qualifiers: Atrial fibrillation type: paroxysmal Qualified Code(s): I48.0 - Paroxysmal atrial fibrillation (6) Diabetes Current Visit: Yes Status: Chronic Assessment and plan: continue Accucheck blood glucose monitoring with sliding scale insulin as needed ; diabetic diet; Qualifiers: Diabetes mellitus type: type 2 Diabetes mellitus complication status: without complication Diabetes mellitus penitentiary insulin use: with exterminator termite use Qualified Code(s): E11.9 - Type 2 diabetes mellitus without complications ; Z79.4 - custodial (current) use of insulin (7) Fungal dermatitis Current Visit: Yes Status: Acute Assessment and plan: intertrigo in inframammary folds; continue topical treatment with Nystatin powder; - Subjective Interval history: No nausea, vomiting, abdominal pain. Admitted with diarrhea but has had no bowel movement since being up on the floor. No chest pain, shortness of breath. Reports having significant leg swelling a few weeks back but currently noted to be improving. Reports bright red bloody bowel movements at home, did not have any since admission. - Constitutional Vitals: Temp Pulse Resp BP Pulse Ox 98.0 F 82 16 130/68 93 L 08/06/16 11:24 08/06/16 11:24 08/06/16 11:24 08/06/16 11:24 08/06/16 11:24 General appearance: Present: disheveled (Poor hygiene), A&O X 3, obese, answers questions appropriately - Head Head exam: Present: atraumatic, normocephalic - Neck Neck exam general surgery: Present: supple, trachea midline. Absent: lymphadenopathy - Respiratory Respiratory exam: Present: CTAB. Absent: accessory muscle use, rales, rhonchi, wheezes - Cardiovascular Cardiovascular exam: Present: RRR, +S1, +S2. Absent: diastolic murmur, gallop, rubs, systolic murmur - GI/Abdominal GI/Abdominal exam: Present: normal bowel sounds, soft (obese), no peritoneal signs. Absent: distended, tenderness - Extremities Exam Extremities exam: Present: warm, radial pulses palpable and symetrical. Absent : calf tenderness, cyanotic, pedal edema - Neurological Exam Neurological exam: Present: CN II-XII intact, oriented X3, no focal deficits. Absent: pronater drift, facial droop, speech deficit Internal Medicine: Result - Labs CBC & Chem 7: 08/06/16 04:11 08/06/16 04:11 Labs: Short CBC 08/06/16 Range/Units 04:11 WBC 10.2 (4.3-11.1) K/mcL Hgb 12.7 (11.5-15.4) g/dL Hct 38.7 (35.3-44.9) % Plt Count 337 (140-400) K/mcL BMP 08/06/16 04:11 Sodium 135 L Potassium 3.8 Chloride 101 Carbon Dioxide 22 BUN 14 Creatinine 0.93 Glucose 185 H Calcium 9.1 Urine 08/06/16 Range/Units 00:36 Urine Color Yellow (Yellow) Urine Clarity Clear (Clear) Urine pH 5.5 (5.0-8.0) pH Units Ur Specific [place] 1.018 (1.010-1.025) Urine Protein >=300 H (Neg-Trace) mg/dL Urine Glucose (UA) 250 H (Normal) mg/dL - ABG Interpretation ABG results: PT/INR, D-dimer PT 10.9 Seconds (9.4-12.1) 08/05/16 03:01 - VTE Documentation of Mechanical Device: Intermittent pneumatic compression device Consult Discharge Plan - Plan Referrals: Kodak Bates DO [Primary Care Provider] -
[2016-08-06] MEDS: Levofloxacin 500 MG/100 ML 500 MG/100 ML BAG IVPB SCH (16:30)
[2016-08-06] MEDS ORDERED: Insulin LISPRO 300 UNITS/3 ML VIAL SQ SCH (21:00)
[2016-08-07] MEDS: *HR* HYDROcodone/Acet 5/325 mg TABLET PO PRN (07:18)
[2016-08-07] MEDS: Insulin LISPRO 300 UNITS/3 ML VIAL SQ SCH ×2 (07:24→11:44)
[2016-08-07] MEDS: Nystatin Cream 15 GM TUBE TP SCH (07:37)
[2016-08-07] MEDS: Gabapentin 400 MG CAPSULE PO SCH (07:39)
[2016-08-07] MEDS: Pantoprazole 40 MG VIAL IVP SCH (07:40)
[2016-08-07] MEDS: Levofloxacin 500 MG/100 ML 500 MG/100 ML BAG IVPB SCH (08:25)
[2016-08-07] MEDS ORDERED: Lisinopril 20 MG TABLET PO SCH (09:00)
[2016-08-07 11:02] VITALS: BP 154/88
--- NOTE | 2016-08-07 15:13 | Discharge Summary ---
Date of Encounter: 08/07/16 Time of Encounter: 09:45 - Discharge Diagnosis (1) CKD (chronic kidney disease) stage 3, GFR 30-59 ml/min Priority: Secondary Status: Chronic (2) Hematochezia Priority: Primary Status: Resolved (3) COPD (chronic obstructive pulmonary disease) Priority: Secondary Status: Chronic Qualifiers: COPD type: emphysema Emphysema type: unspecified Qualified Code(s): J43.9 - Emphysema, unspecified (4) Diabetes Priority: Secondary Status: Chronic Qualifiers: Diabetes mellitus type: type 2 Diabetes mellitus complication status: without complication Diabetes mellitus mcfp insulin use: with mcfp use Qualified Code(s): E11.9 - Type 2 diabetes mellitus without complications ; Z79.4 - [facility] (current) use of insulin (5) Essential hypertension Priority: Secondary Status: Chronic (6) Diarrhea Priority: Secondary Status: Resolved Qualifiers: Diarrhea type: unspecified type Qualified Code(s): R19.7 - Diarrhea, unspecified (7) UTI (urinary tract infection) Priority: Primary Status: Acute Comments: Complete 4 more days of levoflox at home Urine culture is pending Qualifiers: Urinary tract infection type: acute cystitis Hematuria presence: with hematuria Qualified Code(s): N30.01 - Acute cystitis with hematuria - Discharge Medications Prescriptions: Levofloxacin 500 mg PO DAILY #4 tablet Home Medications: Alprazolam [Xanax] 0.25 mg PO QID 04/20/15 [History] Aspirin Enteric Coated [Aspirin EC] 81 mg PO DAILY 04/20/15 [History] Enalapril Maleate [Vasotec] 10 mg PO BID 04/20/15 [History] Furosemide [Lasix] 40 mg PO BID 04/20/15 [History] Hydrocodone/Acetaminophen [[place] 10-325 Tablet] 2 tab PO Q8H PRN 04/20/15 [ History] Levothyroxine [Synthroid] 100 mcg PO QAM 04/20/15 [History] [place]-3S/Dha/Epa/Fish Oil [Fish Oil 1,200 mg Softgel] 1,200 mg PO DAILY [History] Omeprazole [PriLOSEC] 20 mg PO DAILY 04/20/15 [History] Ranitidine HCl [Zantac] 150 mg PO BID 04/20/15 [History] Simvastatin [Zocor] 40 mg PO HS 10/07/15 [History] Tizanidine [Zanaflex] 4 mg PO Q8H 04/20/15 [History] Lidocaine Patch [Lidoderm 5% patch] 1 patch TP DAILY 08/30/15 [History] Cyclobenzaprine HCl 5 mg PO TID 02/18/16 [History] Diclofenac Sodium [Voltaren] 1 appl TP BID 02/18/16 [History] Diphenoxylate/Atropine [Lomotil 2.5 mg/0.025 mg] 1 tab PO QID 02/18/16 [History] Gabapentin [Neurontin] 400 mg PO TID 02/18/16 [History] Insulin ASPART [Novolog Flexpen] 2 - 12 unit SQ TID 02/18/16 [History] Insulin Glargine,Hum.rec.anlog [Lantus Solostar] 40 unit SQ BID 02/18/16 [ History] Ondansetron HCl [Zofran] 4 mg PO Q4-6H PRN 02/18/16 [History] Levofloxacin 500 mg PO DAILY #4 tablet 08/07/16 [Rx] Nystatin Cream [Mycostatin Cream] 1 appl TP TID tube 08/07/16 [Rx] Allergies/Adverse Reactions: Allergies Cefadroxil Allergy (Verified 08/05/16 14:27) Difficulty Breathing Iodinated Contrast Media - Oral and Allergy (Verified 08/05/16 14:27) shortness of breath Penicillins [PCN] Allergy (Verified 08/05/16 02:17) Hives ciprofloxacin [From Cipro] Adverse Reaction (Verified 08/05/16 02:17) Made sugar jump and made patient feel drunk. ibuprofen Adverse Reaction (Verified 08/05/16 02:17) tacycardia Date of admission: 08/05/16 10:42 Primary care physician: Jim Castellano - Patient Status Disposition: Home, Self-Care Condition: Good Functional capacity at discharge: independent ambulation Overall status at discharge: patient is back to baseline - Discharge Instructions Follow Up With: Kodak Bates DO [Primary Care Provider] - 08/14/16 1:30 pm (Please follow up as schedule!!!) - Diet and Activity Activity: resume usual activities as tolerated Diet: diabetic diet, low fat, low cholesterol, low salt diet Interval History: See below Hospital course: Ms. Sam is a 61 year old female PMH of HTN, DM, Hypothyroidism, Chronic low back pain, Chronic pancreatitis She was admitted and managed for diarrhea and acute on chronic pancreatitis She had bloody diarrhea prior to presentation, but not during admission Stool occult blood was positive, however, HB remained stable and patient reports hx of internal and external hemorrhoids Her chemistry and CBC have been stable Abdomen/Pelvis CT revealed pancreatitis with no obstructive features, she has chronic adrenal adenomas that were stable She also had frequency and UA significant for UTI. Cdiff was not done because patient did not have diarrhea in-patient. She is seen at bedside, reports improvement and has no new complains She reports improvement in color of urine She has been educated about stopping Janiva, She verbalizes understanding She may need pancreatic enzymes supplementation in the near future for her chronic pancreatitis She will discuss this with her PCP She is stable for d/c - Time Spent with Patient Total time spent providing and/or coordinating discharge services: Less than 30 minutes - Constitutional Vitals: Temp Pulse Resp BP Pulse Ox 98.6 F 95 18 154/88 95 08/07/16 11:01 08/07/16 11:01 08/07/16 11:01 08/07/16 11:01 08/07/16 11:01 General appearance: Present: A&O X 3, no acute distress, obese, answers questions appropriately - Head Head exam: Present: atraumatic, normocephalic - Eye Eye exam: Present: PERRL, conjuntiva pink, sclera anicteric Pupils: Present: PERRL - Neck Neck exam general surgery: Present: supple, trachea midline. Absent: lymphadenopathy - Respiratory Respiratory exam: Present: CTAB. Absent: accessory muscle use, rales, rhonchi, wheezes - Cardiovascular Cardiovascular exam: Present: RRR, +S1, +S2. Absent: diastolic murmur, gallop, rubs, systolic murmur - GI/Abdominal GI/Abdominal exam: Present: normal bowel sounds, soft, no peritoneal signs. Absent: distended, tenderness - Extremities Exam Extremities exam: Present: warm, radial pulses palpable and symetrical. Absent : calf tenderness, cyanotic, pedal edema - Neurological Exam Neurological exam: Present: CN II-XII intact, oriented X3, no focal deficits. Absent: pronater drift, facial droop, speech deficit - Skin Skin exam: Present: dry, intact - VTE Documentation of Mechanical Device: Intermittent pneumatic compression device
[2016-08-07] MEDS ORDERED: Insulin DETEMIR 100 UNIT/ML X5UNITS SQ SCH (21:00)
== END 2016-08-07 16:00 | disposition home or self-care (01) | DRG 439 ==
LOC: EMEROO 02:07 → 3ANU 02:07 → SUATTDRO 10:42 → 2ANU 18:42
PROVIDERS: ADMIT Internal Medicine; ATTEND Internal Medicine

== ENCOUNTER 2017-04-13 21:10 | Inpatient (IN) ==
--- NOTE | 2017-04-13 21:23 | Emergency Department Note ---
Disposition Clinical Impression: Diabetic ketosis without coma, CKD (chronic kidney disease) stage 3, GFR 30-59 ml/min Altered mental status Qualifiers: Altered mental status type: disorientation Qualified Code(s): R41.0 - Disorientation, unspecified Disposition: Admitted As Inpatient Condition: Undetermined Time of Disposition: 23:16 Altered Mental Status HPI - General Chief Complaint: ED Altered Mental Status Stated Complaint: AMS Time Seen by Provider: 04/13/17 21:14 Source: patient, EMS Mode of arrival: EMS Limitations: altered mental status Nursing Notes Reviewed: Yes Vital Signs Reviewed: Yes - History of Present Illness HPI Narrative: 62-year-old female with history of diabetes and hypertension arrives [facility] emergency department with altered mental status per the patient's family. Unknown loss well. The patient is able to answer some questions correctly or she is able to tell me that she is at [facility]. She is unable to verbalize why she is at the hospital. She is cooperative and following commands without difficulty. No focalized deficits noted this time. The patient was afebrile and was tachycardic. No hypotension noted. MD complaint: altered mental status Onset (ago): unknown Pain Severity: mild Consistency of Symptoms: waxing and waning Context: diabetes Associated symptoms: Reports: denies other symptoms Treatments prior to arrival: IV fluid - Related Data Home Medications Medication Instructions Recorded Confirmed Alprazolam [Xanax] 0.25 mg PO QID 04/20/15 08/05/16 Aspirin Enteric Coated [Aspirin EC] 81 mg PO DAILY 04/20/15 08/05/16 Enalapril Maleate [Vasotec] 10 mg PO BID 04/20/15 08/05/16 Furosemide [Lasix] 40 mg PO BID 04/20/15 08/05/16 Hydrocodone/Acetaminophen [[place] 2 tab PO Q8H PRN 04/20/15 08/05/16 10-325 Tablet] Levothyroxine [Synthroid] 100 mcg PO QAM 04/20/15 08/05/16 [place]-3S/Dha/Epa/Fish Oil [[place] 1,200 mg PO DAILY 04/20/15 08/05/16 Oil 1,200 mg Softgel] Omeprazole [PriLOSEC] 20 mg PO DAILY 04/20/15 08/05/16 Ranitidine HCl [Zantac] 150 mg PO BID 04/20/15 08/05/16 Simvastatin [Zocor] 40 mg PO HS 04/20/15 08/05/16 Tizanidine [Zanaflex] 4 mg PO Q8H 04/20/15 08/05/16 Lidocaine Patch [Lidoderm 5% patch] 1 patch TP DAILY 08/30/15 08/05/16 Cyclobenzaprine HCl 5 mg PO TID 02/18/16 08/05/16 Diclofenac Sodium [Voltaren] 1 appl TP BID 02/18/16 08/05/16 Diphenoxylate/Atropine [Lomotil 1 tab PO QID 02/18/16 08/05/16 2.5 mg/0.025 mg] Gabapentin [Neurontin] 400 mg PO TID 02/18/16 08/05/16 Insulin ASPART [Novolog Flexpen] 2 - 12 unit SQ TID 02/18/16 08/05/16 Insulin Glargine,Hum.rec.anlog 40 unit SQ BID 02/18/16 08/05/16 [Lantus Solostar] Ondansetron HCl [Zofran] 4 mg PO Q4-6H PRN 02/18/16 08/05/16 Previous Rx's Medication Instructions Recorded Nystatin Cream [Mycostatin Cream] 1 appl TP TID tube 08/07/16 levoFLOXacin [Levofloxacin] 500 mg PO DAILY #4 tablet 08/07/16 HYDROcodone/Acet 5/325 mg [[place] 1 tab PO Q6H PRN #10 tab 09/17/16 5-325 mg] Cyclobenzaprine [Flexeril] 10 mg PO TID PRN #15 tablet 03/29/17 Allergies Allergy/AdvReac Type Severity Reaction Status Date / Time Cefadroxil Allergy Difficulty Verified 03/29/17 18:11 Breathing Iodinated Contrast- Oral and Allergy shortness Verified 03/29/17 18:11 IV Dye of breath Penicillins [PCN] Allergy Hives Verified 03/29/17 18:11 ciprofloxacin [From Cipro] AdvReac Made sugar Verified 03/29/17 18:11 jump and made patient feel drunk. ibuprofen AdvReac tacycardia Verified 03/29/17 18:11 All systems ED: reviewed and negative except as stated. Constitutional: Reports: weakness. Denies: fever, chills, weight change Cardiovascular: Denies: chest pain, palpitations, dyspnea on exertion, edema, syncope Respiratory: Denies: cough, dyspnea, wheezes, hemoptysis, stridor Gastrointestinal: Denies: abdominal pain, nausea, vomiting, diarrhea, constipation, hematemesis, melena, hematochezia Musculoskeletal: Denies: back pain, neck pain, arthralgia, myalgia Integumentary: Denies: rash, abrasion, lesions Neurological: Reports: confusion. Denies: headache, weakness, numbness, paresthesias, abnormal gait, vertigo Past Medical History - Past Medical History Attestation: Yes The following information was validated with the patient. 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 - Social History Smoking Status: Current every day smoker Smokeless Tobacco Status: No Alcohol use: Reports: none Drug use: Reports: none Physical Exam - General Limitations: altered mental status General appearance: in no apparent distress - Head Head exam: atraumatic, normocephalic, normal inspection - Eye Eye exam: Present: normal appearance, PERRL, EOMI - ENT ENT exam: normal exam, normal oropharynx, mucous membranes moist - Neck Neck exam: Present: normal inspection, full ROM, trachea midline - Chest Chest inspection: Present: normal inspection, symmetric chest wall rise - Respiratory Respiratory exam: Present: other (Coarse breath sounds) - Cardiovascular Cardiovascular exam: Present: normal rhythm, tachycardia, normal heart sounds - Abdominal Exam Abdominal exam: Present: soft, Non-Tender. Absent: tenderness, distention, guarding, rebound, rigidity, Tompkins's sign, Rovsing's sign - Extremities Exam Extremities exam: Present: normal inspection, full ROM. Absent: tenderness, pedal edema - Neurological Exam Neurological exam: Present: alert, CN II-XII intact - Expanded Neurological Exam Patient oriented to: Present: person, place. Absent: time Speech: Present: fluid speech Cranial nerves: EOM function (II, III, IV, ): Normal, facial sensation (V): Normal, facial palsy (VII): Normal Motor strength - LUE: 4/5 Motor strength - RUE: 4/5 Motor strength - LLE: 4/5 Motor strength - RLE: 4/5 Coma Scale Eye Opening: Spontaneous Coma Scale Motor Response: Obeys Commands Coma Scale Verbal Response: Confused Coma Scale Total: 14 Course Vital Signs Temperature 97.6 F 04/13/17 21:13 Pulse Rate 106 04/13/17 21:13 Respiratory Rate 16 04/13/17 21:13 Blood Pressure 146/95 04/13/17 21:13 O2 Sat by Pulse Oximetry 99 04/13/17 21:13 Temperature 98.4 F 04/14/17 02:25 Pulse Rate 105 04/14/17 02:25 Respiratory Rate 17 04/14/17 02:25 Blood Pressure 160/100 04/14/17 02:25 O2 Sat by Pulse Oximetry 98 04/14/17 02:25 Oxygen Delivery Oxygen Delivery Room Air Altered Mental Status - MDM Narrative Medical decision making narrative: Since labwork demonstrates diabetic ketosis without acidosis. The patient was administered IV fluids as well as administered potassium. The patient will be started on IV insulin drip. The patient will be admitted to the hospital at this time. CT of the head and chest x-ray demonstrated no acute process. Patient does have CTD on previous history of renal function. No other acute abnormalities noted. We will admit the patient to the hospitalist. Accepted by Dr. Cornejo. - Medical Records Medical records reviewed: Yes I reviewed the patient's medical records. - Lab Data Lab results reviewed: Yes I reviewed the patient's lab results. Result diagrams: 04/14/17 02:42 04/14/17 02:42 Lab Results 04/13/17 04/13/17 04/13/17 Range/Units 21:14 22:00 22:02 WBC 8.5 (4.3-11.1) K/mcL RBC 4.69 (3.82-4.97) M/mcL Hgb 12.0 (11.5-15.4) g/dL Hct 37.3 (35.3-44.9) % MCV 79.5 L (83.0-100.0) fL MCH 25.6 L (28.0-33.3) pg MCHC 32.2 (31.6-35.5) g/dL RDW 14.3 (11.5-14.5) % Plt Count 332 (140-400) K/mcL MPV 10.1 (9.4-12.4) fL Immature Gran % 0.2 (0-4) % Seg Neutrophils % 71.0 % Lymphocytes % 21.8 % Monocytes % 6.1 % Eosinophils % 0.5 % Basophils % 0.4 % Neutrophils # 6.1 (1.6-8.9) K/mcL Lymphocytes # 1.9 (0.6-4.6) K/mcL Monocytes # 0.5 (0.0-1.3) K/mcL Eosinophils # 0.0 (0.0-0.6) K/mcL Basophils # 0.0 (0.0-0.2) K/mcL VBG pH (7.32-7.42) pH Units VBG pCO2 (41-51) mmHg VBG pO2 (25-40) mmHg VBG HCO3 (21-27) mEq/L Sodium (136-145) mEq/L Potassium (3.5-4.5) mEq/L Chloride (98-109) mEq/L Carbon Dioxide (19-29) mEq/L BUN (7-20) mg/dL Creatinine (0.57-1.11) mg/dL Est GFR ( Amer) (> 60) Est GFR (Non-Af Amer) (> 60) BUN/Creatinine Ratio (6-26) Glucose (70-99) mg/dL POC Glucose 326 H (58-89) Calculated Osmolality (280-300) Lactic Acid (0.5-2.2) mmol/L Calcium (8.6-10.8) mg/dL Total Bilirubin (0.2-1.2) mg/dL AST (5-34) Units/L ALT (0-55) Units/L Alkaline Phosphatase (38-126) Units/L Troponin I (0-0.03) ng/mL Serum Total Protein (6.0-8.3) g/dL Albumin (3.5-5.0) g/dL Globulin (2.4-3.5) g/dL Albumin/Globulin Ratio (1.1-2.2) Beta-Hydroxybutyric Acd (0.02-0.27) mmol/L Urine Color Yellow (Yellow) Urine Clarity Clear (Clear) Urine pH 6.5 (5.0-8.0) pH Units Ur Specific [place] 1.022 (1.010-1.025) Urine Protein >=300 H (Neg-Trace) mg/dL Urine Glucose (UA) >=1000 H (Normal) mg/dL Urine Ketones 40 H (Negative) mg/dL Urine Blood Moderate H (Negative) Urine Nitrite Negative (Negative) Urine Bilirubin Negative (Negative) Urine Urobilinogen Normal (Normal) mg/dL Ur Leukocyte Esterase Negative (Negative) Urine Microscopic RBC 0-3 (0-3) per hpf Urine Microscopic WBC 0-3 (0-3) per hpf Urine Bacteria Few (None-Few) per hpf Ur Culture Indicated? NO (NO) 04/13/17 04/13/17 04/13/17 Range/Units 22:02 22:02 22:02 WBC (4.3-11.1) K/mcL RBC (3.82-4.97) M/mcL Hgb (11.5-15.4) g/dL Hct (35.3-44.9) % MCV (83.0-100.0) fL MCH (28.0-33.3) pg MCHC (31.6-35.5) g/dL RDW (11.5-14.5) % Plt Count (140-400) K/mcL MPV (9.4-12.4) fL Immature Gran % (0-4) % Seg Neutrophils % % Lymphocytes % % Monocytes % % Eosinophils % % Basophils % % Neutrophils # (1.6-8.9) K/mcL Lymphocytes # (0.6-4.6) K/mcL Monocytes # (0.0-1.3) K/mcL Eosinophils # (0.0-0.6) K/mcL Basophils # (0.0-0.2) K/mcL VBG pH (7.32-7.42) pH Units VBG pCO2 (41-51) mmHg VBG pO2 (25-40) mmHg VBG HCO3 (21-27) mEq/L Sodium 133 L (136-145) mEq/L Potassium 3.6 (3.5-4.5) mEq/L Chloride 93 L (98-109) mEq/L Carbon Dioxide 24 (19-29) mEq/L BUN 20 (7-20) mg/dL Creatinine 1.08 (0.57-1.11) mg/dL Est GFR ( Amer) > 60 (> 60) Est GFR (Non-Af Amer) 51 L (> 60) BUN/Creatinine Ratio 19 (6-26) Glucose 332 H (70-99) mg/dL POC Glucose (58-89) Calculated Osmolality 292 (280-300) Lactic Acid 1.6 (0.5-2.2) mmol/L Calcium 9.8 (8.6-10.8) mg/dL Total Bilirubin 0.4 (0.2-1.2) mg/dL AST 13 (5-34) Units/L ALT 9 (0-55) Units/L Alkaline Phosphatase 134 H (38-126) Units/L Troponin I 0.03 (0-0.03) ng/mL Serum Total Protein 7.4 (6.0-8.3) g/dL Albumin 2.7 L (3.5-5.0) g/dL Globulin 4.7 H (2.4-3.5) g/dL Albumin/Globulin Ratio 0.6 L (1.1-2.2) Beta-Hydroxybutyric Acd (0.02-0.27) mmol/L Urine Color (Yellow) Urine Clarity (Clear) Urine pH (5.0-8.0) pH Units Ur Specific [place] (1.010-1.025) Urine Protein (Neg-Trace) mg/dL Urine Glucose (UA) (Normal) mg/dL Urine Ketones (Negative) mg/dL Urine Blood (Negative) Urine Nitrite (Negative) Urine Bilirubin (Negative) Urine Urobilinogen (Normal) mg/dL Ur Leukocyte Esterase (Negative) Urine Microscopic RBC (0-3) per hpf Urine Microscopic WBC (0-3) per hpf Urine Bacteria (None-Few) per hpf Ur Culture Indicated? (NO) 04/13/17 04/13/17 Range/Units 22:02 22:02 WBC (4.3-11.1) K/mcL RBC (3.82-4.97) M/mcL Hgb (11.5-15.4) g/dL Hct (35.3-44.9) % MCV (83.0-100.0) fL MCH (28.0-33.3) pg MCHC (31.6-35.5) g/dL RDW (11.5-14.5) % Plt Count (140-400) K/mcL MPV (9.4-12.4) fL Immature Gran % (0-4) % Seg Neutrophils % % Lymphocytes % % Monocytes % % Eosinophils % % Basophils % % Neutrophils # (1.6-8.9) K/mcL Lymphocytes # (0.6-4.6) K/mcL Monocytes # (0.0-1.3) K/mcL Eosinophils # (0.0-0.6) K/mcL Basophils # (0.0-0.2) K/mcL VBG pH 7.53 H (7.32-7.42) pH Units VBG pCO2 34 L (41-51) mmHg VBG pO2 54 H (25-40) mmHg VBG HCO3 28 H (21-27) mEq/L Sodium (136-145) mEq/L Potassium (3.5-4.5) mEq/L Chloride (98-109) mEq/L Carbon Dioxide (19-29) mEq/L BUN (7-20) mg/dL Creatinine (0.57-1.11) mg/dL Est GFR ( Amer) (> 60) Est GFR (Non-Af Amer) (> 60) BUN/Creatinine Ratio (6-26) Glucose (70-99) mg/dL POC Glucose (58-89) Calculated Osmolality (280-300) Lactic Acid (0.5-2.2) mmol/L Calcium (8.6-10.8) mg/dL Total Bilirubin (0.2-1.2) mg/dL AST (5-34) Units/L ALT (0-55) Units/L Alkaline Phosphatase (38-126) Units/L Troponin I (0-0.03) ng/mL Serum Total Protein (6.0-8.3) g/dL Albumin (3.5-5.0) g/dL Globulin (2.4-3.5) g/dL Albumin/Globulin Ratio (1.1-2.2) Beta-Hydroxybutyric Acd > 2.00 H (0.02-0.27) mmol/L Urine Color (Yellow) Urine Clarity (Clear) Urine pH (5.0-8.0) pH Units Ur Specific [place] (1.010-1.025) Urine Protein (Neg-Trace) mg/dL Urine Glucose (UA) (Normal) mg/dL Urine Ketones (Negative) mg/dL Urine Blood (Negative) Urine Nitrite (Negative) Urine Bilirubin (Negative) Urine Urobilinogen (Normal) mg/dL Ur Leukocyte Esterase (Negative) Urine Microscopic RBC (0-3) per hpf Urine Microscopic WBC (0-3) per hpf Urine Bacteria (None-Few) per hpf Ur Culture Indicated? (NO) - Radiology Data Radiology results reviewed: Yes I reviewed the patient's radiology results. - EKG Data EKG attestation: Yes I reviewed and interpreted this EKG. EKG results narrative: Heart rate 10 3 bpm. WI interval 1 223 ms. QTc 459 ms. Left axis Deviation. Sinus tachycardia with first-degree AV block. No ST elevation or ST depression noted. EKG otherwise similar appearance to EKG Critical Care Time Critical Care Time: Yes Total Critical Care Time: 40 Attestation: Critical care performed: Time is exclusive of separately billable procedures. Time includes: direct patient care, patient reassessment, coordination of patient care, interpretation of data (laboratory data, radiology data, and respiratory data), review of patient's medical records, medical consultation and documentation of patient care. Procedures included in critical care time: Procedures excluded from critical care time: Attestation Statement - Attestation Attestation: I, Mauricio Subramanian MD, personally evaluated this patient and discussed their management with the resident physician. I reviewed the resident's note and agree with the documented findings, medical decision making, and plan of care. 62-year-old female brought to the emergency department by EMS with a complaint of altered mental status. EMS reports that her boyfriend called because she was acting funny. Unknown onset. Here in the department the patient is awake and alert but is confused and disoriented. She is oriented to person only. She does not know where she is or why she is here. She has no specific complaints. She denies any abdominal pain or chest pain or difficulty breathing. No headache. No fever. Patient arrived to the emergency department totally naked. On examination patient is a well-developed obese female in no acute distress. She is alert and oriented to person only. There is no cyanosis or diaphoresis. No slurred speech. She is moving all 4 extremities with no focal weakness noted. Equal literary writer strength bilaterally. PERRL. Mucous membranes are dry. Neck is supple and nontender. No meningismus. Chest is nontender to palpation. Breath sounds are decreased but equal bilaterally. No rales or wheezes noted. Heart regular rate and rhythm. Abdomen is soft and nontender with bowel sounds. No pedal edema. EKG shows a normal sinus rhythm with first-degree AV block. Chest x-ray negative. Head CT negative. Labs reviewed. Patient has diabetic ketosis but is not acidotic. Insulin infusion initiated. The hospitalist was consulted and accepted admission of the patient.
[2017-04-13 22:10] LABS: VBG PH 7.53 pH Units (7.32-7.42)
[2017-04-13 22:13] LABS: Basophils % 0.4 %; Eosinophils % 0.5 %; Hematocrit 37.3 % (35.3-44.9); Immature Granulocytes % 0.2 % (0-4); Lymphocytes # 1.9 K/mcL (0.6-4.6); Lymphocytes % 21.8 %; Mean Corpuscular HGB Conc 32.2 g/dL (31.6-35.5); Mean Corpuscular Hemoglobin 25.6 pg (28.0-33.3); Mean Corpuscular Volume 79.5 fL (83.0-100.0); Mean Platelet Volume 10.1 fL (9.4-12.4); Monocytes # 0.5 K/mcL (0.0-1.3); Monocytes % 6.1 %; Neutrophils # 6.1 K/mcL (1.6-8.9); Platelet Count 332 K/mcL (140-400); Red Blood Count 4.69 M/mcL (3.82-4.97); Red Cell Distribution Width 14.3 % (11.5-14.5)
[2017-04-13 22:15] LABS: Bilirubin,Urine Negative (Negative); Blood,Urine Moderate (Negative); Clarity,Urine Clear (Clear); Color,Urine Yellow (Yellow); Glucose,Urine (UA) >=1000 mg/dL (Normal); Ketones,Urine 40 mg/dL (Negative); Leukocyte Esterase,Urine Negative (Negative); Nitrite,Urine Negative (Negative); PH,Urine 6.5 pH Units (5.0-8.0); Protein,Urine >=300 mg/dL (Neg-Trace); Specific Gravity,Urine 1.022 (1.010-1.025); Urobilinogen,Urine Normal (Normal)
[2017-04-13] MEDS ORDERED: 0.9 % Sodium Chloride 1,000 ML IVC ONE (22:20)
[2017-04-13 22:21] LABS: Bacteria,Urine Few per hpf (None-Few); RBC,Urine 0-3 per hpf (0-3); WBC,Urine 0-3 per hpf (0-3)
[2017-04-13 22:24] LABS: Alanine Aminotransferase 9 Units/L (0-55); Albumin 2.7 g/dL (3.5-5.0); Albumin/Globulin Ratio 0.6 (1.1-2.2); Alkaline Phosphatase 134 Units/L (38-126); Aspartate Amino Transferase 13 Units/L (5-34); BUN/Creatinine Ratio 19 (6-26); Bilirubin,Total 0.4 mg/dL (0.2-1.2); Blood Urea Nitrogen 20 mg/dL (7-20); Calcium 9.8 mg/dL (8.6-10.8); Carbon Dioxide 24 mEq/L (19-29); Chloride 93 mEq/L (98-109); Globulin 4.7 g/dL (2.4-3.5); Glucose 332 mg/dL (70-99); Osmolality,Calculated 292 (280-300); Potassium 3.6 mEq/L (3.5-4.5); Sodium 133 mEq/L (136-145); Total Protein 7.4 g/dL (6.0-8.3); eGFR For African Americans > 60 (> 60); eGFR For Non-African Americans 51 (> 60)
[2017-04-13] MEDS ORDERED: *HR* Dextrose 50 % in Water (Syg) 50 ML SYRINGE IVP PRN (22:55)
[2017-04-13] MEDS ORDERED: Insulin Human Regular 100 UNIT in 0.9 % Sodium Chloride 100 ML IVC SCH (23:00)
[2017-04-13] MEDS ORDERED: *HR* LORazepam 2 MG/ML VIAL IVP ONE (23:42)
[2017-04-14] MEDS ORDERED: ALPRAZolam 0.25 MG TABLET PO PRN (02:23)
[2017-04-14] MEDS ORDERED: *HR* Morphine 2 MG/ML SYRINGE IVP PRN (02:25)
[2017-04-14] MEDS ORDERED: Naloxone 0.4 MG/ML INJ IVP PRN (02:25)
[2017-04-14] MEDS ORDERED: Acetaminophen 325 MG TABLET PO PRN (02:25)
[2017-04-14] MEDS ORDERED: Insulin Regular, Human 100 UNIT/ML IV PRN ×2 (02:27→03:53)
[2017-04-14] MEDS ORDERED: *HR* Dextrose 50 % in Water (Syg) 50 ML SYRINGE IVP PRN (02:27)
[2017-04-14] MEDS ORDERED: 0.9 % Sodium Chloride 1,000 ML IVC SCH (02:30)
[2017-04-14] MEDS ORDERED: Ondansetron 4 MG/2 ML VIAL ONE (02:32)
[2017-04-14] MEDS: Ondansetron 4 MG/2 ML VIAL IVP PRN (02:42)
[2017-04-14 03:26] LABS: Basophils # 0.1 K/mcL (0.0-0.2); Basophils % 0.5 %; Eosinophils # 0.1 K/mcL (0.0-0.6); Eosinophils % 0.5 %; Hematocrit 37.6 % (35.3-44.9); Hemoglobin 11.8 g/dL (11.5-15.4); Immature Granulocytes % 0.4 % (0-4); Lymphocytes # 2.3 K/mcL (0.6-4.6); Lymphocytes % 23.3 %; Mean Corpuscular HGB Conc 31.4 g/dL (31.6-35.5); Mean Corpuscular Hemoglobin 25.3 pg (28.0-33.3); Mean Corpuscular Volume 80.7 fL (83.0-100.0); Mean Platelet Volume 10.5 fL (9.4-12.4); Monocytes # 0.5 K/mcL (0.0-1.3); Monocytes % 5.4 %; Neutrophils # 6.8 K/mcL (1.6-8.9); Platelet Count 367 K/mcL (140-400); Red Blood Count 4.66 M/mcL (3.82-4.97); Red Cell Distribution Width 14.5 % (11.5-14.5); Segmented Neutrophils % 69.9 %
[2017-04-14 03:30] LABS: Prothrombin Time 10.9 Seconds (9.4-12.1)
[2017-04-14 03:40] LABS: BUN/Creatinine Ratio 20 (6-26); Blood Urea Nitrogen 18 mg/dL (7-20); Calcium 9.9 mg/dL (8.6-10.8); Carbon Dioxide 27 mEq/L (19-29); Chloride 97 mEq/L (98-109); Glucose 234 mg/dL (70-99); Magnesium 1.5 mg/dL (1.6-2.6); Osmolality,Calculated 289 (280-300); Phosphorous 2.8 mg/dL (2.3-4.7); Potassium 3.5 mEq/L (3.5-4.5); Sodium 135 mEq/L (136-145); eGFR For African Americans > 60 (> 60); eGFR For Non-African Americans > 60 (> 60)
[2017-04-14] MEDS ORDERED: 0.9 % Sodium Chloride w KCl 20 MEQ/1,000 ML MLS IVC SCH (03:45)
[2017-04-14] MEDS ORDERED: D5% in 0.45% NACL w KCl 20 MEQ/1,000 ML MLS IVC PRN (03:53)
[2017-04-14] MEDS ORDERED: D5% in 0.45% NACL 1,000 ML IVC PRN (03:53)
[2017-04-14] MEDS ORDERED: 0.9 % Sodium Chloride 1,000 ML IVC PRN (03:53)
[2017-04-14] MEDS ORDERED: 0.45 % Sodium Chloride w/KCl 20 MEQ/1,000 ML MLS IVC PRN (03:53)
[2017-04-14 03:54] LABS: Estimated Average Glucose > 355 mg/dl; Hemoglobin A1C >= 14.1 %
[2017-04-14] MEDS ORDERED: 0.9 % Sodium Chloride w KCl 20 MEQ/1,000 ML MLS IVC PRN (03:59)
[2017-04-14] MEDS ORDERED: Insulin Human Regular 100 UNIT in 0.9 % Sodium Chloride 100 ML IVC SCH (04:00)
[2017-04-14] MEDS ORDERED: Magnesium Sulfate 2 GM in D5% in Water 100 ML IVPB ONE (04:43)
--- NOTE | 2017-04-14 05:13 | Internal Med History&Physical ---
Date of Encounter: 04/14/17 Time of Encounter: 03:00 Assessment and Plan (1) DKA (diabetic ketoacidoses) Current visit: No Status: Acute Diabetes mellitus type 2, insulin-dependent - hyperglycemia, DKA without coma Continue IV fluids, continue IV insulin as per protocol Switch to sliding scale when glucose is better controlled and anion gap is closed CT head - no acute intracranial abnormality Chest x-ray - no acute process EKG - sinus tachycardia with first-degree AV block, no acute ST-T changes Troponin - negative Beta hydroxybutyric acid > 2.0 Cardiac telemetry, pulse ox, strict I's and O's home labs in a.m., monitor closely Qualifiers: Diabetes mellitus type: type 2 Diabetes mellitus complication detail: without coma Qualified Code(s): E13.10 - Other specified diabetes mellitus with ketoacidosis without coma (2) Hypomagnesemia Current visit: No Status: Acute Mag replaced (3) Essential hypertension Current visit: No Status: Chronic Essential hypertension, uncontrolled, monitor Continue home dose of Lisinopril (4) DVT prophylaxis Current visit: Yes Status: Acute Continue heparin subcutaneous Internal Medicine - H&P: HPI Chief complaint: Altered mental status, hyperglycemia Admitted From: Emergency Dept Plans for Post Hospital Care: Home History of present illness: Ms. Sam is a 62 year old female with past medical history of diabetes,, COPD , hypertension, chronic kidney disease stage III, GERD, history of GI bleed, hypothyroidism and anxiety and depression. Patient presents to the ED with complaints of high blood glucose and altered mental status. Examination of the. Patient is awake and alert. Not in any distress. Able to provide history. No family members at bedside. Patient states she checked her blood glucose and it was greater than 400. According to ER reports patient was brought in by family for altered mental status. During my examination patient is awake and alert. Not in distress. Able to answer all questions appropriately. Patient denies chest pain or shortness of breath. Denies palpitations or headache or fever or vomiting. No diarrhea. Patient states she has had DKA in the past. She has no other complaints at this time. Initial workup in the ED is significant for hyperglycemia and serum ketones. Patient's anion gap was 16. Patient has been started on IV insulin and IV fluids. She is being admitted for diabetic ketoacidosis. CT of the head and chest x-ray are both negative. CODE STATUS full code. Past Med Surg Social Fam HX - Past Medical History Medical history: asthma, atrial fibrillation, CHF, COPD, diabetes, GERD, GI bleed, hypertension, other Psychiatric history: anxiety, depression - Past Surgical History Surgical History: appendectomy, cholecystectomy, hysterectomy, orthopedic, other (Spinal surgery 2016, laminectomy L2-L4, excision of axillary lymph nodes) , other (Left knee replacement, cataract surgery, herniorrhaphy) - Social History Smoking Status: Current every day smoker Packs per day: 1 Smokeless Tobacco Status: No Alcohol use: none Drug use: none - Family History Mother Hx Family Endocrine Disorder: Yes (dm) Internal Medicine - H&P: Meds Alprazolam [Xanax] 0.25 mg PO QID 04/20/15 [History] Aspirin Enteric Coated [Aspirin EC] 81 mg PO DAILY 04/20/15 [History] Enalapril Maleate [Vasotec] 10 mg PO BID 04/20/15 [History] Furosemide [Lasix] 40 mg PO BID 04/20/15 [History] Hydrocodone/Acetaminophen [[place] 10-325 Tablet] 2 tab PO Q8H PRN 04/20/15 [ History] Levothyroxine [Synthroid] 100 mcg PO QAM 04/20/15 [History] [place]-3S/Dha/Epa/Fish Oil [Fish Oil 1,200 mg Softgel] 1,200 mg PO DAILY [History] Omeprazole [PriLOSEC] 20 mg PO DAILY 04/20/15 [History] Ranitidine HCl [Zantac] 150 mg PO BID 04/20/15 [History] Simvastatin [Zocor] 40 mg PO HS 04/20/15 [History] Tizanidine [Zanaflex] 4 mg PO Q8H 04/20/15 [History] Lidocaine Patch [Lidoderm 5% patch] 1 patch TP DAILY 08/30/15 [History] Cyclobenzaprine HCl 5 mg PO TID 02/18/16 [History] Diclofenac Sodium [Voltaren] 1 appl TP BID 02/18/16 [History] Diphenoxylate/Atropine [Lomotil 2.5 mg/0.025 mg] 1 tab PO QID 02/18/16 [History] Gabapentin [Neurontin] 400 mg PO TID 02/18/16 [History] Insulin ASPART [Novolog Flexpen] 2 - 12 unit SQ TID 02/18/16 [History] Insulin Glargine,Hum.rec.anlog [Lantus Solostar] 40 unit SQ BID 02/18/16 [ History] Ondansetron HCl [Zofran] 4 mg PO Q4-6H PRN 02/18/16 [History] Nystatin Cream [Mycostatin Cream] 1 appl TP TID tube 08/07/16 [Rx] levoFLOXacin [Levofloxacin] 500 mg PO DAILY #4 tablet 08/07/16 [Rx] HYDROcodone/Acet 5/325 mg [[place] 5-325 mg] 1 tab PO Q6H PRN #10 tab 09/17/16 [Rx ] Cyclobenzaprine [Flexeril] 10 mg PO TID PRN #15 tablet 03/29/17 [Rx] 3 Allergy/AdvReac Type Severity Reaction Status Date / Time Cefadroxil Allergy Difficulty Verified 03/29/17 18:11 Breathing Iodinated Contrast- Oral and Allergy shortness Verified 03/29/17 18:11 IV Dye of breath Penicillins [PCN] Allergy Hives Verified 03/29/17 18:11 ciprofloxacin [From Cipro] AdvReac Made sugar Verified 03/29/17 18:11 jump and made patient feel drunk. ibuprofen AdvReac tacycardia Verified 03/29/17 18:11 All Systems PM: A 10-system review of systems was performed and is negative for pertinent findings except as documented above in the HPI. - Constitutional Constitutional: fatigue, weakness, no fever(s) - EENT Eyes: no blurry vision - Cardiovascular Cardiovascular ROS IM: no chest pain, no diaphoresis, no dyspnea, no dyspnea on exertion, no edema, no lightheadedness, no orthopnea, no palpitations, no syncope - Respiratory Respiratory: no cough, no hemoptysis, no dyspnea on exertion, no wheezing, no chest congestion - Gastrointestinal Gastrointestinal: no abdominal pain, no bloating, no cramping, no diarrhea, no hematemesis, no nausea, no vomiting - Genitourinary Genitourinary: no dysuria - Neurological Neurological ROS: confusion, no abnormal gait, no convulsions, no dizziness, no loss of vision, no tingling - Constitutional Vitals: Temp Pulse Resp BP Pulse Ox 98.4 F 105 17 160/100 98 04/14/17 02:25 04/14/17 02:25 04/14/17 02:25 04/14/17 02:25 04/14/17 02:25 General appearance: Present: A&O X 3, pleasant, no acute distress, answers questions appropriately - Head Head exam: Present: atraumatic - Eye Eye exam: Present: EOMI - ENT ENT exam: Present: mucous membranes moist - Respiratory Respiratory exam: Present: CTAB. Absent: chest wall tenderness, rhonchi, wheezes, tachypnea - Cardiovascular Cardiovascular exam: Present: RRR, +S1, +S2 - GI/Abdominal GI/Abdominal exam: Present: soft. Absent: distended, firm, guarding, tenderness - Extremities Exam Extremities exam: Present: radial pulses palpable and symmetrical. Absent: calf tenderness, cyanotic, pedal edema - Neurological Exam Neurological exam: Present: alert, oriented X3, no focal deficits. Absent: facial droop, speech deficit Internal Med - H&P Results - Labs CBC & Chem 7: 04/14/17 02:42 04/14/17 02:42 Labs: Short CBC 04/14/17 Range/Units 02:42 WBC 9.7 (4.3-11.1) K/mcL Hgb 11.8 (11.5-15.4) g/dL Hct 37.6 (35.3-44.9) % Plt Count 367 (140-400) K/mcL Neutrophils # 6.8 (1.6-8.9) K/mcL BMP 04/14/17 02:42 Sodium 135 L Potassium 3.5 Chloride 97 L Carbon Dioxide 27 BUN 18 Creatinine 0.89 Glucose 234 H Calcium 9.9
[2017-04-14] MEDS ORDERED: *HR* Labetalol 20 MG/4 ML SYRINGE IVP PRN (05:31)
[2017-04-14] MEDS: *HR* Heparin 5,000 UNIT/ML VIAL SQ SCH ×2 (05:36→16:54)
[2017-04-14] MEDS: Aspirin Enteric Coated 81 MG Tablet PO SCH (07:15)
[2017-04-14] MEDS: Gabapentin 400 MG CAPSULE PO SCH ×3 (07:15→20:59)
[2017-04-14] MEDS: (Omega-3s/Dha/Epa/Fish Oil [Fish Oil 1,200 Mg Softgel]) PO SCH (07:15)
[2017-04-14] MEDS: Lisinopril 20 MG TABLET PO SCH ×2 (07:16→20:59)
[2017-04-14] MEDS: Nystatin Cream 15 GM TUBE TP SCH ×3 (07:24→21:03)
[2017-04-14] MEDS: Pantoprazole 40 MG VIAL IVP SCH (07:24)
[2017-04-14 08:22] LABS: BUN/Creatinine Ratio 17 (6-26); Blood Urea Nitrogen 15 mg/dL (7-20); Calcium 9.6 mg/dL (8.6-10.8); Carbon Dioxide 29 mEq/L (19-29); Chloride 99 mEq/L (98-109); Glucose 215 mg/dL (70-99); Osmolality,Calculated 287 (280-300); Potassium 3.9 mEq/L (3.5-4.5); Sodium 135 mEq/L (136-145); eGFR For African Americans > 60 (> 60); eGFR For Non-African Americans > 60 (> 60)
[2017-04-14] MEDS: *HR* LORazepam 2 MG/ML VIAL IVP PRN ×3 (09:22→21:05)
[2017-04-14] MEDS ORDERED: Dextrose Gel 15 GM PO PRN ×2 (10:00)
[2017-04-14] MEDS ORDERED: D5% in Water 1,000 ML IVC PRN (10:00)
[2017-04-14] MEDS: Insulin LISPRO 300 UNITS/3 ML VIAL SQ SCH ×5 (11:06→20:59)
[2017-04-14] MEDS: Insulin DETEMIR 100 UNIT/ML X5UNITS SQ SCH ×2 (11:06→21:00)
--- NOTE | 2017-04-14 19:09 | Electrocardiograph Report ---
[address] [address] Test Date: 2017-04-13 Pat Name: Estefany Sam Department: 103 Room: 2N05 Gender: F Foil Spinner: : [id number] Requested By: Kodak Ramirez Order Number: [id number] Reading MD: Aleks Adams MD Measurements Intervals [place] Rate: 103 P: 50 GA: 223 QRS: -47 QRSD: 88 T: 61 QT: 400 QTc: 459 Interpretive Statements SINUS TACHYCARDIA WITH FIRST DEGREE AV BLOCK MARKED LEFT AXIS DEVIATION BASELINE ARTIFACT Electronically Signed On 04-14-2017 19:07:40 EDT by Aleks Adams MD
[2017-04-15] MEDS: *HR* LORazepam 2 MG/ML VIAL IVP PRN (01:53)
[2017-04-15 04:47] LABS: Hematocrit 36.1 % (35.3-44.9); Hemoglobin 11.5 g/dL (11.5-15.4); Mean Corpuscular HGB Conc 31.9 g/dL (31.6-35.5); Mean Corpuscular Hemoglobin 26.3 pg (28.0-33.3); Mean Corpuscular Volume 82.6 fL (83.0-100.0); Mean Platelet Volume 10.6 fL (9.4-12.4); Platelet Count 307 K/mcL (140-400); Red Blood Count 4.37 M/mcL (3.82-4.97); Red Cell Distribution Width 14.8 % (11.5-14.5)
[2017-04-15 05:02] LABS: BUN/Creatinine Ratio 14 (6-26); Blood Urea Nitrogen 11 mg/dL (7-20); Calcium 9.4 mg/dL (8.6-10.8); Carbon Dioxide 26 mEq/L (19-29); Chloride 101 mEq/L (98-109); Glucose 174 mg/dL (70-99); Osmolality,Calculated 286 (280-300); Sodium 136 mEq/L (136-145); eGFR For African Americans > 60 (> 60); eGFR For Non-African Americans > 60 (> 60)
[2017-04-15 07:37] LABS: Bilirubin,Urine Negative (Negative); Blood,Urine Moderate (Negative); Clarity,Urine Turbid (Clear); Color,Urine Yellow (Yellow); Glucose,Urine (UA) 250 mg/dL (Normal); Ketones,Urine 15 mg/dL (Negative); Leukocyte Esterase,Urine Negative (Negative); Nitrite,Urine Negative (Negative); PH,Urine 5.5 pH Units (5.0-8.0); Protein,Urine >=1000 mg/dL (Neg-Trace); Urobilinogen,Urine Normal (Normal)
[2017-04-15 07:39] LABS: Bacteria,Urine Many per hpf (None-Few); Hyaline Casts,Urine Few per lpf (None-Few); RBC,Urine 0-3 per hpf (0-3); Squamous Epithelial Cell,Urine Moderate per lpf (None-Few)
[2017-04-15] MEDS: *HR* Heparin 5,000 UNIT/ML VIAL SQ SCH ×2 (07:53→17:03)
--- NOTE | 2017-04-15 08:09 | Internal Med Progress Note ---
Date of Encounter: 04/15/17 Time of Encounter: 08:07 - Assessment and plan (1) Acute metabolic encephalopathy Current Visit: Yes Status: Acute Assessment and plan: Acute metabolic encephalopathy secondary to urinary tract infection Start Levaquin, await final report of culture (2) DKA (diabetic ketoacidoses) Current Visit: No Status: Acute Assessment and plan: Possible DKA triggered by UTI versus acute gastroenteritis which has resolved The patient is very noncompliant with her insulin, hemoglobin A1c was more than 14.1 She is currently on Levemir 25 units twice a day plus lispro 10 units 3 times a day and insulin sliding scale Qualifiers: Diabetes mellitus type: type 2 Diabetes mellitus complication detail: without coma Qualified Code(s): E13.10 - Other specified diabetes mellitus with ketoacidosis without coma (3) CKD (chronic kidney disease) stage 3, GFR 30-59 ml/min Current Visit: Yes Status: Chronic (4) COPD (chronic obstructive pulmonary disease) Current Visit: No Status: Chronic Assessment and plan: Stable, not exacerbation Qualifiers: COPD type: emphysema Emphysema type: unspecified Qualified Code(s): J43.9 - Emphysema, unspecified (5) Essential hypertension Current Visit: No Status: Chronic (6) UTI (urinary tract infection) Current Visit: No Status: Acute Assessment and plan: Start Levaquin Qualifiers: Urinary tract infection type: acute cystitis Hematuria presence: with hematuria Qualified Code(s): N30.01 - Acute cystitis with hematuria - Subjective Interval history: still confused but less than yesterday, denies SOB, no CP , no fever, no adominal pain , had diarrhea 2 days ago, has mild dysuria - Constitutional Vitals: Temp Pulse Resp BP Pulse Ox 98.2 F 98 19 159/81 98 04/15/17 04:13 04/15/17 04:30 04/15/17 04:13 04/15/17 04:13 04/15/17 04:13 General appearance: Present: A&O X 3 (but confused at times), morbidly obese, pleasant, no acute distress, answers questions appropriately - Head Head exam: Present: atraumatic, normocephalic - Eye Eye exam: Present: PERRL, conjuntiva pink, sclera anicteric Pupils: Present: PERRL - Neck Neck exam general surgery: Present: supple, trachea midline. Absent: lymphadenopathy - Respiratory Respiratory exam: Present: CTAB, rhonchi. Absent: accessory muscle use, rales, wheezes - Cardiovascular Cardiovascular exam: Present: RRR, +S1, +S2. Absent: diastolic murmur, gallop, rubs, systolic murmur - GI/Abdominal GI/Abdominal exam: Present: distended, normal bowel sounds, soft, no peritoneal signs. Absent: tenderness - Extremities Exam Extremities exam: Present: warm, radial pulses palpable and symmetrical. Absent : calf tenderness, cyanotic, pedal edema - Neurological Exam Neurological exam: Present: CN II-XII intact, oriented X3, no focal deficits. Absent: pronater drift, facial droop, speech deficit - Skin Skin exam: Present: dry, intact Internal Medicine: Result - Labs CBC & Chem 7: 04/15/17 04:06 04/15/17 04:06 Labs: Short CBC 04/15/17 Range/Units 04:06 WBC 7.0 (4.3-11.1) K/mcL Hgb 11.5 (11.5-15.4) g/dL Hct 36.1 (35.3-44.9) % Plt Count 307 (140-400) K/mcL BMP 04/14/17 04/15/17 08:02 04:06 Sodium 135 L 136 Potassium 3.9 4.0 Chloride 99 101 Carbon Dioxide 29 26 BUN 15 11 Creatinine 0.86 0.81 Glucose 215 H 174 H Calcium 9.6 9.4 Urine 04/15/17 Range/Units 06:45 Urine Color Yellow (Yellow) Urine Clarity Turbid A (Clear) Urine pH 5.5 (5.0-8.0) pH Units Ur Specific [place] 1.020 (1.010-1.025) Urine Protein >=1000 H (Neg-Trace) mg/dL Urine Glucose (UA) 250 H (Normal) mg/dL - ABG Interpretation ABG results: PT/INR, D-dimer PT 10.9 Seconds (9.4-12.1) 04/14/17 02:42 Consult Discharge Plan - Plan Referrals: Kodak Bates DO [Primary Care Provider] -
[2017-04-15] MEDS: Aspirin Enteric Coated 81 MG Tablet PO SCH (08:29)
[2017-04-15] MEDS: Lisinopril 20 MG TABLET PO SCH ×2 (08:30→21:46)
[2017-04-15] MEDS: Pantoprazole 40 MG VIAL IVP SCH (08:30)
[2017-04-15] MEDS: Gabapentin 400 MG CAPSULE PO SCH ×3 (08:30→21:46)
[2017-04-15] MEDS: Insulin LISPRO 300 UNITS/3 ML VIAL SQ SCH ×6 (08:31→17:05)
[2017-04-15] MEDS: Insulin DETEMIR 100 UNIT/ML X5UNITS SQ SCH ×2 (08:34→21:46)
[2017-04-15] MEDS ORDERED: Levofloxacin 500 MG/100 ML 500 MG/100 ML BAG IVPB SCH (09:00)
[2017-04-15] MEDS: Ondansetron 4 MG/2 ML VIAL IVP PRN (11:31)
[2017-04-15] MEDS: 0.9 % Sodium Chloride 1,000 ML IVC SCH (12:15)
[2017-04-15] MEDS: Nystatin Cream 15 GM TUBE TP SCH ×3 (12:16→21:47)
[2017-04-15] MEDS: (Omega-3s/Dha/Epa/Fish Oil [Fish Oil 1,200 Mg Softgel]) PO SCH (12:16)
[2017-04-15 12:21] LABS: C.difficile Toxin A/B by PCR Not detected (Not detect); Campylobacter by PCR Not detected (Not detect); Enteroaggregative E.coli(EAEC) Not detected (Not detect); Enteropathogenic E.coli(EPEC) Not detected (Not detect); Plesiomonas shigelloides PCR Not detected (Not detect); Salmonella PCR Not detected (Not detect); Vibrio PCR Not detected (Not detect); Vibrio cholerae PCR Not detected (Not detect); Yersinia enterocolitica PCR Not detected (Not detect)
[2017-04-15 12:22] LABS: Adenovirus F 40/41 PCR Not detected (Not detect); Astrovirus PCR Not detected (Not detect); Cryptosporidium by PCR Not detected (Not detect); Cyclospora cayetanensis PCR Not detected (Not detect); E. coli O157 by PCR Not detected (Not detect); Entamoeba histolytica PCR Not detected (Not detect); Enterotoxigenic E.coli (ETEC) Not detected (Not detect); Giardia lamblia PCR Not detected (Not detect); Norovirus GI/GII PCR Not detected (Not detect); Rotavirus A PCR Not detected (Not detect); Sapovirus PCR Not detected (Not detect); Shig/EnteroinvasiveE coli EIEC Not detected (Not detect); Shigalike tox-prod E coli STEC Not detected (Not detect)
[2017-04-15] MEDS: Ertapenem 1,000 MG in 0.9 % Sodium Chloride Mini Bag 100 ML IVPB SCH (14:36)
[2017-04-16] MEDS: Insulin LISPRO 300 UNITS/3 ML VIAL SQ SCH ×4 (00:08→11:35)
[2017-04-16 04:33] LABS: Hematocrit 35.4 % (35.3-44.9); Hemoglobin 10.8 g/dL (11.5-15.4); Mean Corpuscular HGB Conc 30.5 g/dL (31.6-35.5); Mean Corpuscular Hemoglobin 25.4 pg (28.0-33.3); Mean Corpuscular Volume 83.3 fL (83.0-100.0); Mean Platelet Volume 10.4 fL (9.4-12.4); Platelet Count 299 K/mcL (140-400); Red Blood Count 4.25 M/mcL (3.82-4.97); Red Cell Distribution Width 14.6 % (11.5-14.5)
[2017-04-16 04:57] LABS: BUN/Creatinine Ratio 15 (6-26); Blood Urea Nitrogen 13 mg/dL (7-20); Calcium 9.1 mg/dL (8.6-10.8); Carbon Dioxide 24 mEq/L (19-29); Chloride 102 mEq/L (98-109); Glucose 103 mg/dL (70-99); Osmolality,Calculated 282 (280-300); Potassium 3.7 mEq/L (3.5-4.5); Sodium 136 mEq/L (136-145); eGFR For African Americans > 60 (> 60); eGFR For Non-African Americans > 60 (> 60)
[2017-04-16] MEDS: *HR* Heparin 5,000 UNIT/ML VIAL SQ SCH (05:45)
[2017-04-16] MEDS: Gabapentin 400 MG CAPSULE PO SCH (07:40)
[2017-04-16] MEDS: Aspirin Enteric Coated 81 MG Tablet PO SCH (07:40)
[2017-04-16] MEDS: Insulin DETEMIR 100 UNIT/ML X5UNITS SQ SCH (07:40)
[2017-04-16] MEDS: Lisinopril 20 MG TABLET PO SCH (07:40)
[2017-04-16] MEDS: 0.9 % Sodium Chloride 1,000 ML IVC SCH (07:41)
[2017-04-16] MEDS: Pantoprazole 40 MG VIAL IVP SCH (07:41)
[2017-04-16] MEDS: (Omega-3s/Dha/Epa/Fish Oil [Fish Oil 1,200 Mg Softgel]) PO SCH (07:41)
[2017-04-16] MEDS: Nystatin Cream 15 GM TUBE TP SCH (07:42)
[2017-04-16] MEDS: Ertapenem 1,000 MG in 0.9 % Sodium Chloride Mini Bag 100 ML IVPB SCH (07:45)
[2017-04-16 11:26] VITALS: BP 143/85
[2017-04-16] MEDS ORDERED: Insulin LISPRO 300 UNITS/3 ML VIAL SQ SCH (12:00)
--- NOTE | 2017-04-16 14:21 | Discharge Summary ---
Date of Encounter: 04/16/17 Time of Encounter: 14:16 - Discharge Diagnosis (1) Acute metabolic encephalopathy Priority: Primary Status: Acute Comments: Acute metabolic encephalopathy secondary to urinary tract infection (2) DKA (diabetic ketoacidoses) Priority: Primary Status: Acute Comments: Possible DKA triggered by UTI versus acute gastroenteritis which has resolved Qualifiers: Diabetes mellitus type: type 2 Diabetes mellitus complication detail: without coma Qualified Code(s): E13.10 - Other specified diabetes mellitus with ketoacidosis without coma (3) CKD (chronic kidney disease) stage 3, GFR 30-59 ml/min Priority: Secondary Status: Chronic (4) COPD (chronic obstructive pulmonary disease) Priority: Secondary Status: Chronic Qualifiers: COPD type: emphysema Emphysema type: unspecified Qualified Code(s): J43.9 - Emphysema, unspecified (5) Essential hypertension Priority: Secondary Status: Chronic (6) UTI (urinary tract infection) Priority: Primary Status: Acute Qualifiers: Urinary tract infection type: acute cystitis Hematuria presence: with hematuria Qualified Code(s): N30.01 - Acute cystitis with hematuria - Discharge Medications Prescriptions: Insulin ASPART [Novolog Flexpen] 15 unit SQ TID 30 Days #2 insuln.pen Insulin Glargine,Hum.rec.anlog [Lantus Solostar] 25 unit SQ BID 30 Days #2 insuln.pen Nitrofurantoin (BID) [Macrobid] 100 mg PO BIDWM #14 capsule Home Medications: Alprazolam [Xanax] 0.25 mg PO QID 04/20/15 [History] Aspirin Enteric Coated [Aspirin EC] 162 mg PO DAILY 04/20/15 [History] Enalapril Maleate [Vasotec] 10 mg PO BID 04/20/15 [History] Furosemide [Lasix] 40 mg PO BID 04/20/15 [History] Hydrocodone/Acetaminophen [[place] 10-325 Tablet] 1 tab PO Q4H PRN 04/20/15 [ History] [place]-3S/Dha/Epa/Fish Oil [Fish Oil 1,200 mg Softgel] 1,200 mg PO DAILY [History] Omeprazole [PriLOSEC] 20 mg PO DAILY 04/20/15 [History] Ranitidine HCl [Zantac] 150 mg PO BID 04/20/15 [History] Simvastatin [Zocor] 40 mg PO HS 04/20/15 [History] Tizanidine [Zanaflex] 4 mg PO Q8H 04/20/15 [History] Gabapentin [Neurontin] 400 mg PO BID 02/18/16 [History] Cyclobenzaprine [Flexeril] 10 mg PO TID PRN #15 tablet 03/29/17 [Rx] FLUoxetine HCl [Prozac] 40 mg PO DAILY 04/15/17 [History] Levothyroxine Sodium 200 mcg PO DAILY 04/15/17 [History] Spironolactone [Aldactone] 50 mg PO BID 04/15/17 [History] Insulin ASPART [Novolog Flexpen] 15 unit SQ TID 30 Days #2 insuln.pen 04/16/17 [ Rx] Insulin Glargine,Hum.rec.anlog [Lantus Solostar] 25 unit SQ BID 30 Days #2 insuln.pen 04/16/17 [Rx] Nitrofurantoin (BID) [Macrobid] 100 mg PO BIDWM #14 capsule 04/16/17 [Rx] Allergies/Adverse Reactions: 3 Allergy/AdvReac Type Severity Reaction Status Date / Time Cefadroxil Allergy Difficulty Verified 04/15/17 13:52 Breathing Iodinated Contrast- Oral and Allergy shortness Verified 04/15/17 13:52 IV Dye of breath Penicillins [PCN] Allergy Hives Verified 04/15/17 13:52 ciprofloxacin [From Cipro] AdvReac Made sugar Verified 04/15/17 13:52 jump and made patient feel drunk. ibuprofen AdvReac tacycardia Verified 04/15/17 13:52 levofloxacin [From Levaquin] AdvReac Vomiting Verified 04/15/17 13:52 Date of admission: 04/14/17 02:25 Primary care physician: Jim Castellano Consults: 04/15/17 13:00 Consult to Occupational Therapy [CONS] Routine Comment: Evaluate, develop and implement POC Reason for Consult: eval and treat. Consult to Physical Therapy [CONS] Routine Comment: Evaluate, develop and implement POC Reason for Consult: falls - Patient Status Disposition: Home Health Service Condition: Good Overall status at discharge: patient is progressing back to baseline - Discharge Instructions Follow Up With: Yessenia Rg MD [Partnered Physician] - 04/22/17 1:30 pm Additional Instructions: Follow-up with primary care physician within the next 7 days. Complete 7 days of nitrofurantoin. Switch insulin schedule as follows: Lantus 25 units twice a day and a fixed dose of lispro at 15 units 3 times a day without the sliding scale. Check glucose daily. - Diet and Activity Activity: increase activity as tolerated Diet: diabetic diet Hospital course: Ms. Sam is a 62 year old female with past medical history of diabetes insulin -dependent, COPD oxygen dependent, hypertension, chronic kidney disease stage III, GERD, atrial fibrillation not on anticoagulation, diastolic CHF history of GI bleed, hypothyroidism and anxiety and depression. Patient presented to the ED with complaints of high blood glucose and altered mental status. Patient stated she checked her blood glucose and it was greater than 400. According to ER reported patient was brought in by family for altered mental status. . Patient states she has had DKA in the past. Initial workup in the ED is significant for hyperglycemia and serum ketones. Patient's anion gap was 16. Beta hydroxybutyric acid was more than 2 CT of the head and chest x-ray were both negative. The patient was started on an insulin drip, her altered mental status did not improve, the first UA did not show any possible infection but the second one showed many bacteria, the patient was started on Levaquin but unfortunately she developed a rash, was switched to meropenem, her mentation improved dramatically. She was started on subcutaneous insulin. The patient is feeling much better today and mentions that her insulin schedule is too confusing with a sliding scale and prefers not to have it. Hemoglobin A1c was more than 14.1. She has been stable on Levemir 25 units twice a day +10 units of lispro 3 times a day with insulin sliding scale, is willing to try Lantus 25 units twice a day and a fixed dose of lispro at 15 units 3 times a day without the sliding scale Time spent discussing smoking cessation with patient: 3 to 10 minutes - Time Spent with Patient Total time spent providing and/or coordinating discharge services: Greater than 30 minutes (40 min) - Constitutional Vitals: Temp Pulse Resp BP Pulse Ox 98.4 F 76 14 143/85 95 04/16/17 11:21 04/16/17 11:21 04/16/17 11:21 04/16/17 11:21 04/16/17 11:21 General appearance: Present: A&O X 3 (but confused at times), morbidly obese, pleasant, no acute distress, answers questions appropriately - Head Head exam: Present: atraumatic, normocephalic - Eye Eye exam: Present: PERRL, conjuntiva pink, sclera anicteric Pupils: Present: PERRL - Neck Neck exam general surgery: Present: supple, trachea midline. Absent: lymphadenopathy - Respiratory Respiratory exam: Present: CTAB. Absent: accessory muscle use, rales, rhonchi, wheezes - Cardiovascular Cardiovascular exam: Present: RRR, +S1, +S2. Absent: diastolic murmur, gallop, rubs, systolic murmur - GI/Abdominal GI/Abdominal exam: Present: normal bowel sounds, soft, no peritoneal signs. Absent: distended, tenderness - Extremities Exam Extremities exam: Present: warm, radial pulses palpable and symmetrical. Absent : calf tenderness, cyanotic, pedal edema - Neurological Exam Neurological exam: Present: CN II-XII intact, oriented X3, no focal deficits. Absent: pronater drift, facial droop, speech deficit - Skin Skin exam: Present: dry, intact
--- NOTE | 2017-04-16 14:29 | Physician Discharge Referral ---
Home Health/Hosp Referral Info Transfer to: Home Health Provider in Charge Post Discharge: PCP - Diagnosis (1) Acute metabolic encephalopathy Status: Acute (2) DKA (diabetic ketoacidoses) Status: Acute (3) CKD (chronic kidney disease) stage 3, GFR 30-59 ml/min Status: Chronic (4) COPD (chronic obstructive pulmonary disease) Status: Chronic (5) Essential hypertension Status: Chronic (6) UTI (urinary tract infection) Status: Acute - Respiratory Orders Smoking Cessation: Smoking cessation has been advised. For more information, call the [place] Tobacco Quit Line at 1-773-AIVD-NOW. - Diet/Nutrition Diet/Nutrition: List: Diabetes diet - Services Needed Following services are medically necessary services: Nursing, Home Health Aide, Physical Therapy Home Care Orders: Follow-up with primary care physician within the next 7 days. Complete 7 days of nitrofurantoin. Switch insulin schedule as follows: Lantus 25 units twice a day and a fixed dose of lispro at 15 units 3 times a day without the sliding scale. Check glucose daily. - Transfer Medications Prescriptions: Insulin ASPART [Novolog Flexpen] 15 unit SQ TID 30 Days #2 insuln.pen Insulin Glargine,Hum.rec.anlog [Lantus Solostar] 25 unit SQ BID 30 Days #2 insuln.pen Nitrofurantoin (BID) [Macrobid] 100 mg PO BIDWM #14 capsule Home Medications: Alprazolam [Xanax] 0.25 mg PO QID 04/20/15 [History] Aspirin Enteric Coated [Aspirin EC] 162 mg PO DAILY 04/20/15 [History] Enalapril Maleate [Vasotec] 10 mg PO BID 04/20/15 [History] Furosemide [Lasix] 40 mg PO BID 04/20/15 [History] Hydrocodone/Acetaminophen [[place] 10-325 Tablet] 1 tab PO Q4H PRN 04/20/15 [ History] [place]-3S/Dha/Epa/Fish Oil [Fish Oil 1,200 mg Softgel] 1,200 mg PO DAILY [History] Omeprazole [PriLOSEC] 20 mg PO DAILY 04/20/15 [History] Ranitidine HCl [Zantac] 150 mg PO BID 04/20/15 [History] Simvastatin [Zocor] 40 mg PO HS 04/20/15 [History] Tizanidine [Zanaflex] 4 mg PO Q8H 04/20/15 [History] Gabapentin [Neurontin] 400 mg PO BID 02/18/16 [History] Cyclobenzaprine [Flexeril] 10 mg PO TID PRN #15 tablet 03/29/17 [Rx] FLUoxetine HCl [Prozac] 40 mg PO DAILY 04/15/17 [History] Levothyroxine Sodium 200 mcg PO DAILY 04/15/17 [History] Spironolactone [Aldactone] 50 mg PO BID 04/15/17 [History] Insulin ASPART [Novolog Flexpen] 15 unit SQ TID 30 Days #2 insuln.pen 04/16/17 [ Rx] Insulin Glargine,Hum.rec.anlog [Lantus Solostar] 25 unit SQ BID 30 Days #2 insuln.pen 04/16/17 [Rx] Nitrofurantoin (BID) [Macrobid] 100 mg PO BIDWM #14 capsule 04/16/17 [Rx] Allergies/Adverse Reactions: 3 Allergy/AdvReac Type Severity Reaction Status Date / Time Cefadroxil Allergy Difficulty Verified 04/15/17 13:52 Breathing Iodinated Contrast- Oral and Allergy shortness Verified 04/15/17 13:52 IV Dye of breath Penicillins [PCN] Allergy Hives Verified 04/15/17 13:52 ciprofloxacin [From Cipro] AdvReac Made sugar Verified 04/15/17 13:52 jump and made patient feel drunk. ibuprofen AdvReac tacycardia Verified 04/15/17 13:52 levofloxacin [From Levaquin] AdvReac Vomiting Verified 04/15/17 13:52 Certification: Further, I certify that my clinical findings support that this patient is homebound (i.e. absences from home require considerable and taxing effort and are for medical reasons or baptism services or infrequently or short duration when for other reasons) because: Homebound Reason: Patient requires assistance of a person or device to safely leave home Attestation: My signature below is to certify that this patient is under my care and that I, or nurse practitioner, or a physician's assistant grocery working with me, has a face-to -face encounter with this patient.
[2017-04-17] MEDS ORDERED: Nitrofurantoin (BID) 100 MG CAPSULE PO SCH ×2 (07:00→08:00)
== END 2017-04-16 15:11 | disposition home health service (06) | DRG 637 ==
LOC: 2NNU 21:10 → EMEROO 21:10 → 2NNU 04-14 00:33 → SUATTDRO 04-14 02:25 → 2ANU 04-15 16:18
PROVIDERS: ADMIT Hospitalist; ATTEND Internal Medicine

== ENCOUNTER 2017-04-27 10:32 | Observation (INO) ==
[2017-04-27] MEDS ORDERED: 0.9 % Sodium Chloride 500 ML IVC ONE ×2 (10:47→11:53)
[2017-04-27 11:07] LABS: Basophils # 0.1 K/mcL (0.0-0.2); Basophils % 0.8 %; Eosinophils # 0.4 K/mcL (0.0-0.6); Eosinophils % 5.2 %; Hematocrit 32.3 % (35.3-44.9); Immature Granulocytes % 0.3 % (0-4); Immature Platelets 2.9 % (1.1-6.1); Lymphocytes # 2.8 K/mcL (0.6-4.6); Lymphocytes % 37.1 %; Mean Corpuscular Volume 84.1 fL (83.0-100.0); Mean Platelet Volume 9.6 fL (9.4-12.4); Monocytes # 0.5 K/mcL (0.0-1.3); Monocytes % 6.1 %; Neutrophils # 3.8 K/mcL (1.6-8.9); Platelet Count 323 K/mcL (140-400); Red Blood Count 3.84 M/mcL (3.82-4.97); Red Cell Distribution Width 14.7 % (11.5-14.5); Segmented Neutrophils % 50.5 %
[2017-04-27 11:21] LABS: Albumin 2.6 g/dL (3.5-5.0); Albumin/Globulin Ratio 0.7 (1.1-2.2); Bilirubin,Total 0.2 mg/dL (0.2-1.2); Calcium 9.4 mg/dL (8.6-10.8); Globulin 3.8 g/dL (2.4-3.5); Total Protein 6.4 g/dL (6.0-8.3)
--- NOTE | 2017-04-27 11:27 | Emergency Department Note ---
Disposition Clinical Impression: Dehydration Disposition: Admitted As Inpatient Dizziness HPI - General Chief Complaint: ED Dizziness Stated Complaint: Hypotension Time Seen by Provider: 04/27/17 10:40 Source: patient, family Limitations: no limitations Nursing Notes Reviewed: Yes Vital Signs Reviewed: Yes - History of Present Illness HPI Narrative: Patient was recently admitted for urinary tract infection and dehydration. Patient states the past day or so she has had dizziness and weakness. She states that the blood pressure taken at home systolic he was in the 70s. Patient denies chest pain denies shortness of breath. Patient denies bowel or bladder dysfunction. Family at the bedside notes the patient does drink a great deal of water and she denies changes in her urinary habits. Patient denies any new medications or any sick contacts. - Related Data Home Medications Medication Instructions Recorded Confirmed Alprazolam [Xanax] 0.25 mg PO QID 04/20/15 04/27/17 Aspirin Enteric Coated [Aspirin EC] 162 mg PO DAILY 04/20/15 04/27/17 Enalapril Maleate [Vasotec] 10 mg PO BID 04/20/15 04/27/17 Furosemide [Lasix] 40 mg PO BID 04/20/15 04/27/17 Hydrocodone/Acetaminophen [[place] 1 tab PO Q4H PRN 04/20/15 04/27/17 10-325 Tablet] [place]-3S/Dha/Epa/Fish Oil [Fish 1,200 mg PO DAILY 04/20/15 04/27/17 Oil 1,200 mg Softgel] Omeprazole [PriLOSEC] 20 mg PO DAILY 04/20/15 04/27/17 Ranitidine HCl [Zantac] 150 mg PO BID 04/20/15 04/27/17 Simvastatin [Zocor] 40 mg PO HS 04/20/15 04/27/17 Tizanidine [Zanaflex] 4 mg PO Q8H 04/20/15 04/27/17 Gabapentin [Neurontin] 400 mg PO BID 02/18/16 04/27/17 FLUoxetine HCl [Prozac] 40 mg PO DAILY 04/15/17 04/27/17 Levothyroxine Sodium 200 mcg PO DAILY 04/15/17 04/27/17 Previous Rx's Medication Instructions Recorded Cyclobenzaprine [Flexeril] 10 mg PO TID PRN #15 tablet 03/29/17 Insulin ASPART [Novolog Flexpen] 15 unit SQ TID 30 Days #2 04/16/17 insuln.pen Insulin Glargine,Hum.rec.anlog 25 unit SQ BID 30 Days #2 04/16/17 [Lantus Solostar] insuln.pen Allergies Allergy/AdvReac Type Severity Reaction Status Date / Time Cefadroxil Allergy Difficulty Verified 04/27/17 10:41 Breathing Iodinated Contrast- Oral and Allergy shortness Verified 04/27/17 17:30 IV Dye of breath Penicillins [PCN] Allergy Hives Verified 04/27/17 10:41 ciprofloxacin [From Cipro] AdvReac Itching Verified 04/27/17 17:30 ibuprofen AdvReac tacycardia Verified 04/27/17 10:41 levofloxacin [From Levaquin] AdvReac Vomiting Verified 04/27/17 10:41 All systems ED: reviewed and negative except as stated. Past Medical History - Past Medical History Source: patient Medical history: Reports: asthma, atrial fibrillation, CHF, COPD, diabetes, GERD , GI bleed, hypertension, other Surgical history: Reports: appendectomy, cholecystectomy, hysterectomy, orthopedic, other (Spinal surgery 2016, laminectomy L2-L4, excision of axillary lymph nodes), other (Left knee replacement, cataract surgery, herniorrhaphy) Psychiatric history: Reports: anxiety, depression APPLICATIONS SYSTEMS ENGINEER history: Reports: no APPLICATIONS SYSTEMS ENGINEER history - Social History Smoking Status: Current every day smoker Smokeless Tobacco Status: No Alcohol use: Reports: none Drug use: Reports: none Physical Exam - General Limitations: no limitations General appearance: alert, in no apparent distress - Head Head exam: atraumatic, normocephalic, normal inspection - Eye Eye exam: Present: normal appearance, PERRL, EOMI - ENT ENT exam: mucous membranes dry, TM's normal bilaterally, normal external ear exam - Neck Neck exam: Present: normal inspection, full ROM, trachea midline - Chest Chest inspection: Present: normal inspection, symmetric chest wall rise - Respiratory Respiratory exam: Present: normal lung sounds bilaterally - Cardiovascular Cardiovascular exam: Present: regular rate, normal rhythm, normal heart sounds - Abdominal Exam Abdominal exam: Present: soft, Non-Tender. Absent: tenderness, distention, guarding, rebound, rigidity - Extremities Exam Extremities exam: Present: normal inspection, full ROM. Absent: tenderness, pedal edema - Back Exam Back exam: Present: normal inspection, full ROM. Absent: tenderness - Neurological Exam Neurological exam: Present: alert, oriented X3 - Psychiatric Psychiatric exam: Present: normal affect, normal mood - Skin Skin exam: Present: warm, dry, intact, normal color Course Vital Signs Temperature 97.7 F 04/27/17 10:33 Pulse Rate 61 04/27/17 10:33 Respiratory Rate 18 04/27/17 10:33 Blood Pressure 102/68 04/27/17 10:33 O2 Sat by Pulse Oximetry 93 04/27/17 10:33 Temperature 97.9 F 04/27/17 18:23 Pulse Rate 96 04/27/17 18:23 Respiratory Rate 16 04/27/17 18:23 Blood Pressure 165/82 04/27/17 18:23 O2 Sat by Pulse Oximetry 92 04/27/17 18:23 Oxygen Delivery Oxygen Delivery Room Air Dizziness - MDM Narrative Medical decision making narrative: Dehydration, [place], sepsis of urinary tract infection, electrolyte abnormality - Differential Diagnosis Likely: vertebral basilar insufficiency, cerebrovascular accident, transient cerebral ischemia, cerebellar infarct - Lab Data Result diagrams: 04/27/17 11:00 04/27/17 11:00 Lab Results 04/27/17 04/27/17 04/27/17 Range/Units 11:00 11:00 11:00 WBC 7.6 (4.3-11.1) K/mcL RBC 3.84 (3.82-4.97) M/mcL Hgb 10.0 L (11.5-15.4) g/dL Hct 32.3 L (35.3-44.9) % MCV 84.1 (83.0-100.0) fL MCH 26.0 L (28.0-33.3) pg MCHC 31.0 L (31.6-35.5) g/dL RDW 14.7 H (11.5-14.5) % Plt Count 323 (140-400) K/mcL MPV 9.6 (9.4-12.4) fL Immature Gran % 0.3 (0-4) % Seg Neutrophils % 50.5 % Lymphocytes % 37.1 % Monocytes % 6.1 % Eosinophils % 5.2 % Basophils % 0.8 % Neutrophils # 3.8 (1.6-8.9) K/mcL Lymphocytes # 2.8 (0.6-4.6) K/mcL Monocytes # 0.5 (0.0-1.3) K/mcL Eosinophils # 0.4 (0.0-0.6) K/mcL Basophils # 0.1 (0.0-0.2) K/mcL Immature Plt Fraction 2.9 (1.1-6.1) % Sodium 135 L (136-145) mEq/L Potassium 4.0 (3.5-4.5) mEq/L Chloride 98 (98-109) mEq/L Carbon Dioxide 29 (19-29) mEq/L BUN 30 H (7-20) mg/dL Creatinine 1.17 H (0.57-1.11) mg/dL Est GFR ( Amer) 57 L (> 60) Est GFR (Non-Af Amer) 47 L (> 60) BUN/Creatinine Ratio 26 (6-26) Glucose 90 (70-99) mg/dL Calculated Osmolality 286 (280-300) Lactic Acid 2.1 (0.5-2.2) mmol/L Calcium 9.4 (8.6-10.8) mg/dL Total Bilirubin 0.2 (0.2-1.2) mg/dL AST 14 (5-34) Units/L ALT 13 (0-55) Units/L Alkaline Phosphatase 111 (38-126) Units/L Troponin I (0-0.03) ng/mL Serum Total Protein 6.4 (6.0-8.3) g/dL Albumin 2.6 L (3.5-5.0) g/dL Globulin 3.8 H (2.4-3.5) g/dL Albumin/Globulin Ratio 0.7 L (1.1-2.2) TSH 0.046 L (0.350-4.840) mcIU/mL Ur Specimen Adequacy Urine Color (Yellow) Urine Clarity (Clear) Urine pH (5.0-8.0) pH Units Ur Specific [place] (1.010-1.025) Urine Protein (Neg-Trace) mg/dL Urine Glucose (UA) (Normal) mg/dL Urine Ketones (Negative) mg/dL Urine Blood (Negative) Urine Nitrite (Negative) Urine Bilirubin (Negative) Urine Urobilinogen (Normal) mg/dL Ur Leukocyte Esterase (Negative) Urine Microscopic RBC (0-3) per hpf Urine Microscopic WBC (0-3) per hpf Ur Squamous Epith Cells (None-Few) per lpf Urine Bacteria (None-Few) per hpf Hyaline Casts (None-Few) per lpf Urine Yeast (None Seen) per hpf 04/27/17 04/27/17 Range/Units 11:00 12:59 WBC (4.3-11.1) K/mcL RBC (3.82-4.97) M/mcL Hgb (11.5-15.4) g/dL Hct (35.3-44.9) % MCV (83.0-100.0) fL MCH (28.0-33.3) pg MCHC (31.6-35.5) g/dL RDW (11.5-14.5) % Plt Count (140-400) K/mcL MPV (9.4-12.4) fL Immature Gran % (0-4) % Seg Neutrophils % % Lymphocytes % % Monocytes % % Eosinophils % % Basophils % % Neutrophils # (1.6-8.9) K/mcL Lymphocytes # (0.6-4.6) K/mcL Monocytes # (0.0-1.3) K/mcL Eosinophils # (0.0-0.6) K/mcL Basophils # (0.0-0.2) K/mcL Immature Plt Fraction (1.1-6.1) % Sodium (136-145) mEq/L Potassium (3.5-4.5) mEq/L Chloride (98-109) mEq/L Carbon Dioxide (19-29) mEq/L BUN (7-20) mg/dL Creatinine (0.57-1.11) mg/dL Est GFR ( Amer) (> 60) Est GFR (Non-Af Amer) (> 60) BUN/Creatinine Ratio (6-26) Glucose (70-99) mg/dL Calculated Osmolality (280-300) Lactic Acid (0.5-2.2) mmol/L Calcium (8.6-10.8) mg/dL Total Bilirubin (0.2-1.2) mg/dL AST (5-34) Units/L ALT (0-55) Units/L Alkaline Phosphatase (38-126) Units/L Troponin I 0.02 (0-0.03) ng/mL Serum Total Protein (6.0-8.3) g/dL Albumin (3.5-5.0) g/dL Globulin (2.4-3.5) g/dL Albumin/Globulin Ratio (1.1-2.2) TSH (0.350-4.840) mcIU/mL Ur Specimen Adequacy See below A Urine Color Yellow (Yellow) Urine Clarity Cloudy A (Clear) Urine pH 6.0 (5.0-8.0) pH Units Ur Specific [place] 1.013 (1.010-1.025) Urine Protein 100 H (Neg-Trace) mg/dL Urine Glucose (UA) 250 H (Normal) mg/dL Urine Ketones Negative (Negative) mg/dL Urine Blood Trace H (Negative) Urine Nitrite Negative (Negative) Urine Bilirubin Negative (Negative) Urine Urobilinogen Normal (Normal) mg/dL Ur Leukocyte Esterase Small H (Negative) Urine Microscopic RBC 0-3 (0-3) per hpf Urine Microscopic WBC 50-100 H (0-3) per hpf Ur Squamous Epith Cells Many H (None-Few) per lpf Urine Bacteria Few (None-Few) per hpf Hyaline Casts None Seen (None-Few) per lpf Urine Yeast Many H (None Seen) per hpf
[2017-04-27 11:43] LABS: Thyroid Stimulating Hormone 0.046 mcIU/mL (0.350-4.840)
[2017-04-27 13:05] LABS: Bilirubin,Urine Negative (Negative); Blood,Urine Trace (Negative); Clarity,Urine Cloudy (Clear); Color,Urine Yellow (Yellow); Glucose,Urine (UA) 250 mg/dL (Normal); Ketones,Urine Negative (Negative); Leukocyte Esterase,Urine Small (Negative); Nitrite,Urine Negative (Negative); Protein,Urine 100 mg/dL (Neg-Trace); Specific Gravity,Urine 1.013 (1.010-1.025); Urobilinogen,Urine Normal (Normal)
[2017-04-27 13:07] LABS: Bacteria,Urine Few per hpf (None-Few); Hyaline Casts,Urine None Seen per lpf (None-Few); Squamous Epithelial Cell,Urine Many per lpf (None-Few); WBC,Urine 50-100 per hpf (0-3)
[2017-04-27 13:16] LABS: Yeast,Urine Many per hpf (None Seen)
[2017-04-27 13:17] LABS: RBC,Urine 0-3 per hpf (0-3)
[2017-04-27] MEDS ORDERED: Naloxone 0.4 MG/ML INJ IVP PRN (15:46)
[2017-04-27] MEDS ORDERED: D5% in Water 1,000 ML IVC PRN (15:50)
[2017-04-27] MEDS ORDERED: *HR* Dextrose 50 % in Water (Syg) 50 ML SYRINGE IVP PRN (15:50)
[2017-04-27] MEDS ORDERED: Dextrose Gel 15 GM PO PRN ×2 (15:50)
--- NOTE | 2017-04-27 16:17 | Internal Med History&Physical ---
<Geo Li - Last Filed: 04/27/17 16:18> Date of Encounter: 04/27/17 Time of Encounter: 16:13 Assessment and Plan (1) Dehydration with hyponatremia Current visit: Yes Status: Acute Presents dizziness, and hypotension which began this morning around 0600. She was recently diagnosed and treated with a multi-day course of ATB for UTI and has had diarrhea. There is some concern for C-diff. The patient appears to have dehydration and hyponatremia. Hypotension improved following a fluid bolus in the ED. Continue to correct dehydration and hyponatremia with 0.9% NS at 125 ml/hr. Continuous tele CBC, BMP in am (2) Hypotension Current visit: Yes Status: Acute The patient was hypotensive upon arrival to the ED SBP in the 70's. Responded adequately to an IV fluid bolus. She is likely hypotensive d/t dehydration associated with UTI and diarrhea. Continue IVF replacement with 0.9% NS at 125ml/hr. Hold home antihypertensives, and PUBLIC ADDRESS SYSTEM MECHANIC depressants until hypotension completely resolves. Qualifiers: Hypotension type: unspecified hypotension type Qualified Code(s): I95.9 - Hypotension, unspecified (3) Dizziness Current visit: Yes Status: Acute see above. (4) UTI (urinary tract infection) Current visit: Yes Status: Acute Recently treated for UTI, denies any current urinary symptoms but presents with trace leuks upon UA. Will start her on IV ciprofloxaci while inpatient and transition to oral fluoroquinolone upon discharge. Qualifiers: Urinary tract infection type: acute cystitis Hematuria presence: with hematuria Qualified Code(s): N30.01 - Acute cystitis with hematuria (5) Acute kidney injury Current visit: Yes Status: Acute Secondary to dehydration. She is continuing to urinate without issues and denies flank pain. 0.9% NS at 125ml/hr, recheck BMP in am. (6) Diabetes Current visit: Yes Status: Chronic Patient has chronic type 2 diabetes and is on long-acting and short-acting insulin at home. We will continue basal dose of insulin, start sliding scale insulin coverage before meals and at bedtime diabetic/cardiac diet. 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 Resting comfortably on room air. Continue to monitor. Qualifiers: COPD type: emphysema Emphysema type: unspecified Qualified Code(s): J43.9 - Emphysema, unspecified (8) Diarrhea Current visit: Yes Status: Acute Had one episode of diarrhea, patient appears to be dehydrated. Was recently diagnosed and treated for UTI. I am concerned she may have C-diff although she does not appear toxic. C-diff PCR. If diarrhea continues add antidiarrheal medications. Qualifiers: Diarrhea type: unspecified type Qualified Code(s): R19.7 - Diarrhea, unspecified (9) DVT prophylaxis Current visit: No Status: Acute Internal Medicine - H&P: HPI Chief complaint: dizziness, hypotension Admitted From: Home Plans for Post Hospital Care: Home History of present illness: Ms. Sam is a 62 year old female with a PMH of asthma, A. fib, CHF, COPD, DM II, GERD, GI bleed, hypertension, anxiety and depression reasons to [facility] today with this and hypotension. Patient reports that beginning around 6 AM this morning she began feeling dizzy. Her significant other was with her and checked her blood pressure and she was found to be hypotensive systolic blood pressure in the 70s. She admits this morning that she had taken her antihypertensive medication prior to taking her blood pressure. She admits to dizziness, and 1 episode of diarrhea. Denies chest pain, SOB, syncope,fever, chills, aches, fatigue, nausea, vomiting or appetite change. She has been maintaining adequate oral intake. She mentions that 2 weeks ago she was treated for a UTI. She is currently denying any dysuria, urinary frequency or urgency. Workup in the ED reveals a slight increase in her creatinine from baseline and stable chronic anemia. CT of the head was negative. UA reveals small leuks. Past Med Surg Social Fam HX - Past Medical History Medical history: asthma, atrial fibrillation, CHF, COPD, diabetes, GERD, GI bleed, hypertension, other Psychiatric history: anxiety, depression - Past Surgical History Surgical History: appendectomy, cholecystectomy, hysterectomy, orthopedic, other (Spinal surgery 2016, laminectomy L2-L4, excision of axillary lymph nodes) , other (Left knee replacement, cataract surgery, herniorrhaphy) - Social History Smoking Status: Current every day smoker Smokeless Tobacco Status: No Alcohol use: none Drug use: none - Family History Mother Hx Family Endocrine Disorder: Yes (dm) Internal Medicine - H&P: Meds Alprazolam [Xanax] 0.25 mg PO QID 04/20/15 [History] Aspirin Enteric Coated [Aspirin EC] 162 mg PO DAILY 04/20/15 [History] Enalapril Maleate [Vasotec] 10 mg PO BID 04/20/15 [History] Furosemide [Lasix] 40 mg PO BID 04/20/15 [History] Hydrocodone/Acetaminophen [[place] 10-325 Tablet] 1 tab PO Q4H PRN 04/20/15 [ History] [place]-3S/Dha/Epa/Fish Oil [Fish Oil 1,200 mg Softgel] 1,200 mg PO DAILY [History] Omeprazole [PriLOSEC] 20 mg PO DAILY 04/20/15 [History] Ranitidine HCl [Zantac] 150 mg PO BID 04/20/15 [History] Simvastatin [Zocor] 40 mg PO HS 04/20/15 [History] Tizanidine [Zanaflex] 4 mg PO Q8H 04/20/15 [History] Gabapentin [Neurontin] 400 mg PO BID 02/18/16 [History] Cyclobenzaprine [Flexeril] 10 mg PO TID PRN #15 tablet 03/29/17 [Rx] FLUoxetine HCl [Prozac] 40 mg PO DAILY 04/15/17 [History] Levothyroxine Sodium 200 mcg PO DAILY 04/15/17 [History] Insulin ASPART [Novolog Flexpen] 15 unit SQ TID 30 Days #2 insuln.pen 04/16/17 [ Rx] Insulin Glargine,Hum.rec.anlog [Lantus Solostar] 25 unit SQ BID 30 Days #2 insuln.pen 04/16/17 [Rx] 3 Allergy/AdvReac Type Severity Reaction Status Date / Time Cefadroxil Allergy Difficulty Verified 04/27/17 10:41 Breathing Iodinated Contrast- Oral and Allergy shortness Verified 04/27/17 17:30 IV Dye of breath Penicillins [PCN] Allergy Hives Verified 04/27/17 10:41 ciprofloxacin [From Cipro] AdvReac Itching Verified 04/27/17 17:30 ibuprofen AdvReac tacycardia Verified 04/27/17 10:41 levofloxacin [From Levaquin] AdvReac Vomiting Verified 04/27/17 10:41 All Systems PM: A 10-system review of systems was performed and is negative for pertinent findings except as documented above in the HPI. - Constitutional Constitutional: no chills, no fatigue, no fever(s), no night sweats, no weight gain, no weight loss - EENT Eyes: no change in vision, no discharge, no pain, no photophobia Ears: no ear discharge, no ear pain, no tinnitus Nose, mouth and throat: no dysphagia, no nasal discharge, no neck pain, no sore throat - Cardiovascular Cardiovascular ROS IM: no chest pain, no diaphoresis, no dyspnea, no lightheadedness, no palpitations, no syncope - Respiratory Respiratory: no cough, no dyspnea, no wheezing, no excessive phlegm production - Gastrointestinal Gastrointestinal: as per HPI, diarrhea, no abdominal pain, no hematemesis, no hematochezia, no melena, no nausea, no vomiting - Genitourinary Genitourinary: no change in urinary stream, no dysuria, no flank pain, no hematuria - Musculoskeletal Musculoskeletal ROS IM: no numbness, no tingling - Integumentary Integumentary IM: no rash, no unusual bruising - Neurological Neurological ROS: as per HPI, dizziness, no confusion, no convulsions, no focal weakness, no numbness, no tingling, no tremor(s) - Hematologic/Lymphatic Hematologic/Lymphatic: no easy bruising - Constitutional Vitals: Temp Pulse Resp BP Pulse Ox 97.7 F 89 16 144/82 93 04/27/17 10:33 04/27/17 15:18 04/27/17 15:18 04/27/17 15:18 04/27/17 15:18 General appearance: Present: cooperative, A&O X 3, no acute distress, answers questions appropriately - Head Head exam: Present: atraumatic, normocephalic - Eye Eye exam: Present: EOMI, PERRL, conjuntiva pink, sclera anicteric Pupils: Present: PERRL - Neck Neck exam general surgery: Present: supple, trachea midline. Absent: lymphadenopathy - Respiratory Respiratory exam: Present: CTAB. Absent: accessory muscle use, rales, rhonchi, wheezes - Cardiovascular Cardiovascular exam: Present: RRR, +S1, +S2. Absent: diastolic murmur, gallop, rubs, systolic murmur - GI/Abdominal GI/Abdominal exam: Present: normal bowel sounds, soft, no peritoneal signs. Absent: distended, tenderness - Extremities Exam Extremities exam: Present: warm, radial pulses palpable and symmetrical. Absent : calf tenderness, cyanotic, pedal edema - Neurological Exam Neurological exam: Present: CN II-XII intact, oriented X3, no focal deficits. Absent: pronater drift, facial droop, speech deficit - Skin Skin exam: Present: dry, intact Internal Med - H&P Results - Labs CBC & Chem 7: 04/27/17 11:00 04/27/17 11:00 - Diagnostic Studies CT scan - head Status: image reviewed by me Additional comments: No acute intracranial process Chest x-ray Status: image reviewed by me Additional comments: No acute pulmonary process <Wade Vance - Last Filed: 04/27/17 18:06> Date of Encounter: 04/27/17 Internal Medicine - H&P: HPI History of present illness: Ms. Sam is a 62 year old female All Systems PM: A 10-system review of systems was performed and is negative for pertinent findings except as documented above in the HPI. - Constitutional Vitals: Temp Pulse Resp BP Pulse Ox 97.6 F 99 19 151/70 95 04/27/17 16:56 04/27/17 16:56 04/27/17 16:56 04/27/17 16:56 04/27/17 16:56 Internal Med - H&P Results - Labs CBC & Chem 7: 04/27/17 11:00 04/27/17 11:00 - Impressions ITS Impressions Brain MRI 04/27/17 15:43 IMPRESSION: Mild small vessel ischemic changes without acute infarct, mass or hemorrhage. D/ / Hugh Frias / Hugh Frias Interpreting Provider: Hugh Frias - Attending Attestation I examined this patient and my medical decision-making was reviewed with the Resident Physician. I agree with the documented findings, disposition and treatment plan as described except to the extent set forth below. I have personally examined this patient in the emergency room along with TRAVELING SALES EXECUTIVE Mr. Poe Patient was in room #22. This is a elderly patient who has multiple medical issues. She was recently discharged from the hospital. It was noted that patient was dehydrated at home secondary to likely episode of diarrhea. Patient was brought to the hospital, evaluated in the emergency room, was started on IV fluids. Her blood pressure is within acceptable range. Possible etiology for hypertension is multifactorial. Plan: Will continue present treatment. Close observation.
[2017-04-27] MEDS: Insulin LISPRO 300 UNITS/3 ML VIAL SQ SCH ×2 (17:12→20:45)
[2017-04-27] MEDS: ALPRAZolam 0.25 MG TABLET PO SCH ×2 (17:19→20:44)
[2017-04-27] MEDS: Furosemide 40 MG TABLET PO SCH (17:19)
[2017-04-27] MEDS: 0.9 % Sodium Chloride 1,000 ML IVC SCH ×2 (17:21→17:34)
[2017-04-27] MEDS: *HR* HYDROcodone/Acet 10/325 mg TABLET PO PRN (17:38)
[2017-04-27] MEDS: Sulfamethoxazole/Trimeth DS 1 EACH TABLET PO SCH (20:44)
[2017-04-27] MEDS: Famotidine 20 MG TABLET PO SCH (20:44)
[2017-04-27] MEDS: Insulin DETEMIR 100 UNIT/ML X5UNITS SQ SCH (20:45)
[2017-04-27] MEDS: Gabapentin 400 MG CAPSULE PO SCH (20:45)
[2017-04-28] MEDS: *HR* HYDROcodone/Acet 10/325 mg TABLET PO PRN ×4 (03:21→22:24)
[2017-04-28] MEDS: 0.9 % Sodium Chloride 1,000 ML IVC SCH ×4 (03:21→22:13)
[2017-04-28 05:29] LABS: Basophils # 0.1 K/mcL (0.0-0.2); Basophils % 0.7 %; Eosinophils # 0.4 K/mcL (0.0-0.6); Eosinophils % 5.4 %; Hematocrit 33.4 % (35.3-44.9); Hemoglobin 10.4 g/dL (11.5-15.4); Immature Granulocytes % 0.3 % (0-4); Lymphocytes # 1.8 K/mcL (0.6-4.6); Lymphocytes % 25.6 %; Mean Corpuscular HGB Conc 31.1 g/dL (31.6-35.5); Mean Corpuscular Hemoglobin 26.1 pg (28.0-33.3); Mean Corpuscular Volume 83.9 fL (83.0-100.0); Mean Platelet Volume 10.8 fL (9.4-12.4); Monocytes # 0.3 K/mcL (0.0-1.3); Monocytes % 4.4 %; Neutrophils # 4.5 K/mcL (1.6-8.9); Platelet Count 309 K/mcL (140-400); Red Blood Count 3.98 M/mcL (3.82-4.97); Red Cell Distribution Width 14.6 % (11.5-14.5); Segmented Neutrophils % 63.6 %
[2017-04-28 05:52] LABS: BUN/Creatinine Ratio 23 (6-26); Blood Urea Nitrogen 23 mg/dL (7-20); Carbon Dioxide 26 mEq/L (19-29); Chloride 102 mEq/L (98-109); Glucose 168 mg/dL (70-99); Osmolality,Calculated 292 (280-300); Potassium 4.2 mEq/L (3.5-4.5); Sodium 137 mEq/L (136-145); eGFR For African Americans > 60 (> 60); eGFR For Non-African Americans 55 (> 60)
[2017-04-28] MEDS: *HR* Enoxaparin 40 MG/0.4 ML SYRINGE SQ SCH (06:38)
[2017-04-28] MEDS: Insulin LISPRO 300 UNITS/3 ML VIAL SQ SCH ×4 (09:02→21:12)
[2017-04-28] MEDS: Aspirin Enteric Coated 81 MG Tablet PO SCH (09:03)
[2017-04-28] MEDS: FLUoxetine 20 MG CAPSULE PO SCH (09:03)
[2017-04-28] MEDS: Furosemide 40 MG TABLET PO SCH ×2 (09:03→17:52)
[2017-04-28] MEDS: ALPRAZolam 0.25 MG TABLET PO SCH ×4 (09:03→20:07)
[2017-04-28] MEDS: Famotidine 20 MG TABLET PO SCH ×2 (09:03→20:07)
[2017-04-28] MEDS: Gabapentin 400 MG CAPSULE PO SCH ×2 (09:03→20:07)
[2017-04-28] MEDS: Sulfamethoxazole/Trimeth DS 1 EACH TABLET PO SCH ×2 (09:04→20:07)
[2017-04-28] MEDS: Insulin DETEMIR 100 UNIT/ML X5UNITS SQ SCH ×2 (10:30→20:32)
--- NOTE | 2017-04-28 12:10 | Electrocardiograph Report ---
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
--- NOTE | 2017-04-28 17:52 | Internal Med Progress Note ---
Date of Encounter: 04/28/17 Time of Encounter: 13:50 - Assessment and plan (1) Dehydration with hyponatremia Current Visit: Yes Status: Acute Assessment and plan: Presents to emergency department with dizziness, and hypotension which began this morning around 0600. She was recently diagnosed and treated with a multi- day course of ATB for UTI and has had one episode of diarrhea. There is some concern for C-diff. The patient appears to have dehydration and hyponatremia. Hypotension improved following a fluid bolus in the ED. Continue to correct dehydration and hyponatremia with 0.9% NS at 125 ml/hr. Continuous tele CBC, BMP in am She most likely can be discharged in the morning if she remains stable. (2) Diarrhea Current Visit: Yes Status: Acute Assessment and plan: Patient had one episode of diarrhea. Continue to monitor for fluids and electrolyte status. Qualifiers: Diarrhea type: unspecified type Qualified Code(s): R19.7 - Diarrhea, unspecified (3) Acute kidney injury Current Visit: Yes Status: Acute Assessment and plan: Labs have returned to normal limits. We will continue to monitor and avoid nephrotoxins. Enalapril has been held currently. (4) COPD (chronic obstructive pulmonary disease) Current Visit: Yes Status: Chronic Assessment and plan: No acute exacerbation at this time. Titrate oxygen as needed to maintain sats greater than 92%. Continue home medications, inhalers. Doing nebs as needed. Qualifiers: COPD type: emphysema Emphysema type: unspecified Qualified Code(s): J43.9 - Emphysema, unspecified (5) Essential hypertension Current Visit: Yes Status: Chronic Assessment and plan: Patient's blood pressure is borderline. At home, she only takes enalapril which has been held due to MARGOTH. I have added metoprolol 12.5 mg by mouth twice a day. Patient's pulse is around 100, she is able to tolerate a beta sarthak low dose at this time. Continue to monitor (6) UTI (urinary tract infection) Current Visit: Yes Status: Acute Assessment and plan: Patient was recently treated outpatient for UTI. She returns with dizziness and urinary tract infection on exam. Urine with a trace of blood, small amount of leukocyte esterase, few bacteria, 50-100 microscopic white cells. Many yeast. Culture was not ordered at time, it has been ordered since that time and is pending. She will continue being treated with IV antibiotics. Her abdomen is soft and nontender bowel sounds are present. She denies any deepali hematuria or flank pain. Qualifiers: Urinary tract infection type: acute cystitis Hematuria presence: with hematuria Qualified Code(s): N30.01 - Acute cystitis with hematuria (7) Diabetes Current Visit: Yes Status: Chronic Assessment and plan: Poorly controlled diabetes. A1c was greater than 14.1 on 04/14/2017. Patient will need continuous follow-up with primary care provider. Continue sliding scale insulin, diabetic diet for what it is worth, and Accu- Cheks before meals at bedtime. Qualifiers: Diabetes mellitus type: type 2 Diabetes mellitus complication status: without complication Diabetes mellitus bedspread cutter insulin use: with bedspread cutter use Qualified Code(s): E11.9 - Type 2 diabetes mellitus without complications ; Z79.4 - nursing home (current) use of insulin; Z79.4 - tube balancer (current) use of insulin; Z79.4 - nursing home (current) use of insulin; Z79.4 - tube balancer ( current) use of insulin (8) Dizziness Current Visit: Yes Status: Acute Assessment and plan: Patient denies dizziness today. On admission she reported dizziness, hypotension that began yesterday morning at 6 AM. She was recently treated with bionics for urinary tract infection and had one episode of diarrhea. Patient had an echocardiogram in December showed an LVEF of 70% with mild LV hypertrophy, mild LVEDD and no evidence of pulmonary hypertension. No evidence of valvular dysfunction. Continue telemetry. Continue to monitor labs and vital signs. (9) DVT prophylaxis Current Visit: No Status: Acute Assessment and plan: Lovenox subcutaneous. - Time Spent With Patient less than 15 minutes - Subjective Interval history: Patient was seen and assessed at 1350. Meals is her bedside. Patient states that she feels better. She denies any nausea, vomiting, diarrhea, headache, blurred vision, dizziness, abdominal pain. - Constitutional Vitals: Temp Pulse Resp BP Pulse Ox 98.2 F 90 18 176/93 93 04/28/17 15:46 04/28/17 15:46 04/28/17 15:46 04/28/17 15:46 04/28/17 15:46 General appearance: Present: cooperative, A&O X 3, no acute distress, answers questions appropriately - Head Head exam: Present: atraumatic, normal inspection, normocephalic - Eye Eye exam: Present: normal appearance, PERRL, conjuntiva pink, sclera anicteric Pupils: Present: PERRL - Neck Neck exam general surgery: Present: supple, trachea midline. Absent: lymphadenopathy, tenderness - Respiratory Respiratory exam: Present: CTAB. Absent: accessory muscle use, chest wall tenderness, rales, respiratory distress, rhonchi, wheezes - Cardiovascular Cardiovascular exam: Present: RRR, +S1, +S2. Absent: diastolic murmur, gallop, rubs, systolic murmur - GI/Abdominal GI/Abdominal exam: Present: normal bowel sounds, soft, no peritoneal signs. Absent: distended, hepatomegaly, tenderness - Extremities Exam Extremities exam: Present: normal capillary refill, warm, radial pulses palpable and symmetrical. Absent: calf tenderness, cyanotic, joint swelling, pedal edema, tenderness - Neurological Exam Neurological exam: Present: alert, oriented X3, no focal deficits. Absent: facial droop, speech deficit - Skin Skin exam: Present: dry, intact, normal color, warm. Absent: rash Internal Medicine: Result - Labs CBC & Chem 7: 04/28/17 03:43 04/28/17 03:43 Labs: Short CBC 04/28/17 Range/Units 03:43 WBC 7.1 (4.3-11.1) K/mcL Hgb 10.4 L (11.5-15.4) g/dL Hct 33.4 L (35.3-44.9) % Plt Count 309 (140-400) K/mcL Neutrophils # 4.5 (1.6-8.9) K/mcL BMP 04/28/17 03:43 Sodium 137 Potassium 4.2 Chloride 102 Carbon Dioxide 26 BUN 23 H Creatinine 1.02 Glucose 168 H Calcium 9.0 Cardiac Enzymes 04/27/17 Range/Units 17:10 Troponin I 0.01 (0-0.03) ng/mL Consult Discharge Plan - Plan Referrals: Kodak Bates DO [Primary Care Provider] -
[2017-04-29] MEDS: *HR* HYDROcodone/Acet 10/325 mg TABLET PO PRN (04:18)
[2017-04-29] MEDS: 0.9 % Sodium Chloride 1,000 ML IVC SCH (04:18)
[2017-04-29 04:31] LABS: Basophils # 0.1 K/mcL (0.0-0.2); Basophils % 0.7 %; Eosinophils # 0.5 K/mcL (0.0-0.6); Eosinophils % 6.9 %; Hematocrit 37.3 % (35.3-44.9); Hemoglobin 11.4 g/dL (11.5-15.4); Immature Granulocytes % 0.1 % (0-4); Lymphocytes # 2.6 K/mcL (0.6-4.6); Lymphocytes % 35.6 %; Mean Corpuscular HGB Conc 30.6 g/dL (31.6-35.5); Mean Corpuscular Hemoglobin 25.7 pg (28.0-33.3); Mean Platelet Volume 9.7 fL (9.4-12.4); Monocytes # 0.4 K/mcL (0.0-1.3); Monocytes % 5.5 %; Neutrophils # 3.8 K/mcL (1.6-8.9); Platelet Count 308 K/mcL (140-400); Red Blood Count 4.44 M/mcL (3.82-4.97); Red Cell Distribution Width 14.7 % (11.5-14.5); Segmented Neutrophils % 51.2 %
[2017-04-29 04:49] LABS: BUN/Creatinine Ratio 15 (6-26); Blood Urea Nitrogen 13 mg/dL (7-20); Calcium 9.6 mg/dL (8.6-10.8); Carbon Dioxide 29 mEq/L (19-29); Chloride 101 mEq/L (98-109); Glucose 85 mg/dL (70-99); Osmolality,Calculated 287 (280-300); Potassium 3.9 mEq/L (3.5-4.5); Sodium 139 mEq/L (136-145); eGFR For African Americans > 60 (> 60); eGFR For Non-African Americans > 60 (> 60)
[2017-04-29] MEDS: *HR* Enoxaparin 40 MG/0.4 ML SYRINGE SQ SCH (05:58)
[2017-04-29 08:08] VITALS: BP 169/97
[2017-04-29] MEDS: Insulin LISPRO 300 UNITS/3 ML VIAL SQ SCH (08:27)
[2017-04-29] MEDS: Aspirin Enteric Coated 81 MG Tablet PO SCH (09:22)
[2017-04-29] MEDS: FLUoxetine 20 MG CAPSULE PO SCH (09:22)
[2017-04-29] MEDS: Furosemide 40 MG TABLET PO SCH (09:22)
[2017-04-29] MEDS: ALPRAZolam 0.25 MG TABLET PO SCH (09:22)
[2017-04-29] MEDS: Famotidine 20 MG TABLET PO SCH (09:22)
[2017-04-29] MEDS: Gabapentin 400 MG CAPSULE PO SCH (09:22)
[2017-04-29] MEDS: Sulfamethoxazole/Trimeth DS 1 EACH TABLET PO SCH (09:22)
--- NOTE | 2017-04-29 09:28 | Discharge Summary ---
Date of Encounter: 04/29/17 Time of Encounter: 09:00 - Discharge Diagnosis (1) Dehydration with hyponatremia Priority: Primary Status: Acute Comments: Presents to emergency department with dizziness, and hypotension which began morning of admission at around 0600. She was recently diagnosed and treated with a multi-day course of ATB for UTI with Macrobid, and has had one episode of diarrhea. There is some concern for C-diff. The patient appears to have dehydration and hyponatremia. Hypotension improved following a fluid bolus in the ED. Pt appears to be euvolemic and states that she feels "much better" Pt reports poor po intake due to not feeling well and states that she was just too tired to get up to eat or drink. Na+ has improved to 139, all other lytes WNL. Pt denies n/v/d, headache, blurred vision, abdominal or flank pain,fever, or chills. (2) Diarrhea Priority: Secondary Status: Acute Comments: Pt had one episode of diarrhea prior to admission. None since. Abd is soft and non-tender, bs present. Pt is able to handle regular diet without difficulty. Labs WNL. VSS Qualifiers: Diarrhea type: unspecified type Qualified Code(s): R19.7 - Diarrhea, unspecified (3) Acute kidney injury Priority: Secondary Status: Resolved Comments: Resolved. Due to dehydration and poor po intake. Encourage adequate fluid intake on discharge. (4) COPD (chronic obstructive pulmonary disease) Priority: Secondary Status: Chronic Comments: No acute exacerbation. Pt is not requiring supplemental 02. Lungs are clear and diminished throughout, no wheezing, rales, ronchi, or respiratory distress. Continue home medications. Qualifiers: COPD type: emphysema Emphysema type: unspecified Qualified Code(s): J43.9 - Emphysema, unspecified (5) Essential hypertension Priority: Secondary Status: Chronic Comments: Pt has been borderline hypertensive/above goal since arrival. Will continue Lasix and increase Enalapril to daily. (6) UTI (urinary tract infection) Priority: Secondary Status: Acute Comments: Pt was admitted earlier this month and diagnosed with UTI. She was discharged with Macrobid. She states that she finished the prescription. Urine on admission was cloudy, with a trace of blood, small amount of leukocyte esterase , 50-100 microscopic white cells, few bacteria. Urine culture has been ordered , has not resulted yet. I will send patient home with Bactrim this time. Patient denies any urinary symptoms. Patient states that for the last month or so she feels urgency, but she increases her water intake and states that it resolves on its own. Qualifiers: Urinary tract infection type: acute cystitis Hematuria presence: with hematuria Qualified Code(s): N30.01 - Acute cystitis with hematuria (7) Diabetes Priority: Secondary Status: Chronic Comments: Poorly controlled diabetes. A1c was greater than 14.1 on 04/14/2017. Patient will need close follow-up with primary care provider. Continue sliding scale insulin, diabetic diet for what it is worth, and Accu- Cheks before meals at bedtime. 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 (9) DVT prophylaxis Priority: Secondary Status: Acute Comments: Lovenox subcutaneous. - Discharge Medications Prescriptions: Enalapril Maleate [Vasotec] 15 mg PO BID #45 tablet Metoprolol [Lopressor] 12.5 mg PO BID #30 tablet Sulfamethoxazole/Trimeth DS [Bactrim Ds] 1 each PO BID #14 tablet Home Medications: Alprazolam [Xanax] 0.25 mg PO QID 04/20/15 [History] Aspirin Enteric Coated [Aspirin EC] 162 mg PO DAILY 04/20/15 [History] Furosemide [Lasix] 40 mg PO BID 04/20/15 [History] Hydrocodone/Acetaminophen [[place] 10-325 Tablet] 1 tab PO Q4H PRN 04/20/15 [ History] [place]-3S/Dha/Epa/Fish Oil [Fish Oil 1,200 mg Softgel] 1,200 mg PO DAILY [History] Omeprazole [PriLOSEC] 20 mg PO DAILY 04/20/15 [History] Ranitidine HCl [Zantac] 150 mg PO BID 04/20/15 [History] Simvastatin [Zocor] 40 mg PO HS 04/20/15 [History] Tizanidine [Zanaflex] 4 mg PO Q8H 04/20/15 [History] Gabapentin [Neurontin] 400 mg PO BID 02/18/16 [History] Cyclobenzaprine [Flexeril] 10 mg PO TID PRN #15 tablet 03/29/17 [Rx] FLUoxetine HCl [Prozac] 40 mg PO DAILY 04/15/17 [History] Levothyroxine Sodium 200 mcg PO DAILY 04/15/17 [History] Insulin ASPART [Novolog Flexpen] 15 unit SQ TID 30 Days #2 insuln.pen 04/16/17 [ Rx] Insulin Glargine,Hum.rec.anlog [Lantus Solostar] 25 unit SQ BID 30 Days #2 insuln.pen 04/16/17 [Rx] Enalapril Maleate [Vasotec] 15 mg PO BID #45 tablet 04/29/17 [Rx] Metoprolol [Lopressor] 12.5 mg PO BID #30 tablet 04/29/17 [Rx] Sulfamethoxazole/Trimeth DS [Bactrim Ds] 1 each PO BID #14 tablet 04/29/17 [Rx] Allergies/Adverse Reactions: 3 Allergy/AdvReac Type Severity Reaction Status Date / Time Cefadroxil Allergy Difficulty Verified 04/27/17 10:41 Breathing Iodinated Contrast- Oral and Allergy shortness Verified 04/27/17 17:30 IV Dye of breath Penicillins [PCN] Allergy Hives Verified 04/27/17 10:41 ciprofloxacin [From Cipro] AdvReac Itching Verified 04/27/17 17:30 ibuprofen AdvReac tacycardia Verified 04/27/17 10:41 levofloxacin [From Levaquin] AdvReac Vomiting Verified 04/27/17 10:41 Procedures/tests Complete & Pending: Procedures Performed prior 72 hours Category Date Time Status MR head/brain wo con [MR] Stat MRI 04/27/17 15:43 Completed Date of admission: 04/27/17 15:37 Primary care physician: Jim Castellano Consults: 04/27/17 17:55 Consult to Epic Will[facility] Analyst [CONS] Routine Reason for SW Consult: home health Discharging clinician: Emily Mak Anticipated date of discharge: 04/29/17 - Patient Status Disposition: Home, Self-Care Condition: Good Functional capacity at discharge: independent ambulation Overall status at discharge: patient is back to baseline - Discharge Instructions Follow Up With: Kodak Bates DO [Primary Care Provider] - Additional Instructions: Follow-up with primary care in the next 7-10 days for recheck. Return to the emergency department if symptoms worsen or return, or for any other problems or concerns. Take your normal home medications. Start 2 new blood pressure medications later today Bactrim is your antibiotic, you will need to take it every 12 hours until it is gone. Make sure you are drinking a full glass of water with each tablet. Return to normal activities as tolerated. - Diet and Activity Activity: increase activity as tolerated Diet: diabetic diet Hospital course: Ms. Sam is a 62 year old female with past medical history of lumbar stenosis , DKA, septic gastroenteritis, a KI, pancreatitis, CK D stage III, A. fib, COPD , UTI, DKA without coma, diabetes. Patient presented to the emergency department with complaints of feeling dizzy, hypotension and one episode of diarrhea. She denied chest pain shortness of breath, syncope, fever, chills, aches, fatigue, nausea, vomiting, diarrhea, headache or vision changes. She states that morning she had taken her blood pressure medicine prior to taking her blood pressure. She tells the admitting physician that she had been maintaining adequate oral intake, today however she tells me that she had been feeling very tired she had not been eating or drinking well. Patient was recently treated with urinary tract infection in early April. She was sent home with Macrobid. She returns with UTI per lab, but is asymptomatic. She says that occasionally she has urgency, will drink glass of water and resolve spontaneously. Patient will be sent home with Bactrim DS by mouth twice a day 7 days. Patient's labs have returned to normal. She is borderline hypertensive , during stay metoprolol 12.5 mg by mouth twice a day was added, I will also increase her enalapril to 15 mg by mouth twice a day. She will need to continue to monitor her blood pressure and follow-up with primary care for continued evaluation medication changes. Patient also has TSH which is low. She will continue her dose of levothyroxine at home, she should follow up for repeat lab with primary care after she is no longer acutely ill. Patient states that she has to go home this morning due to passport coming for their initial set up a visit this morning. Patient is stable and appropriate for discharge. Time spent discussing smoking cessation with patient: 3 to 10 minutes - Time Spent with Patient Total time spent providing and/or coordinating discharge services: Less than 30 minutes - Constitutional Vitals: Temp Pulse Resp BP Pulse Ox 97.8 F 52 16 169/97 93 04/29/17 08:06 04/29/17 08:06 04/29/17 08:06 04/29/17 08:06 04/29/17 08:06 General appearance: Present: cooperative, A&O X 3, no acute distress, answers questions appropriately - Head Head exam: Present: atraumatic, normal inspection, normocephalic - Eye Eye exam: Present: normal appearance, conjuntiva pink, sclera anicteric - Neck Neck exam general surgery: Present: supple, trachea midline. Absent: lymphadenopathy - Respiratory Respiratory exam: Present: CTAB. Absent: accessory muscle use, rales, rhonchi, wheezes - Cardiovascular Cardiovascular exam: Present: RRR, +S1, +S2. Absent: diastolic murmur, gallop, rubs, systolic murmur - GI/Abdominal GI/Abdominal exam: Present: normal bowel sounds, soft. Absent: distended, hepatomegaly, tenderness - Extremities Exam Extremities exam: Present: normal capillary refill, warm, radial pulses palpable and symmetrical. Absent: calf tenderness, cyanotic, pedal edema - Neurological Exam Neurological exam: Present: alert, CN II-XII intact, oriented X3, no focal deficits, strengths equal and symetr throughout - Skin Skin exam: Present: dry, intact, normal color, warm. Absent: rash
== END 2017-04-29 10:57 | disposition home or self-care (01) ==
LOC: EMEROO 10:32 → 3BNU 10:32
PROVIDERS: ADMIT Nurse Practitioner; ATTEND Registered Nurse

== ENCOUNTER 2017-06-11 09:32 | Inpatient (IN) ==
[2017-06-11 10:06] LABS: Basophils % 0.4 %; Eosinophils # 0.2 K/mcL (0.0-0.6); Eosinophils % 2.2 %; Hemoglobin 9.4 g/dL (11.5-15.4); Immature Granulocytes % 0.4 % (0-4); Lymphocytes # 2.5 K/mcL (0.6-4.6); Lymphocytes % 24.7 %; Mean Corpuscular HGB Conc 31.3 g/dL (31.6-35.5); Mean Corpuscular Hemoglobin 27.1 pg (28.0-33.3); Mean Corpuscular Volume 86.5 fL (83.0-100.0); Mean Platelet Volume 9.7 fL (9.4-12.4); Monocytes # 0.7 K/mcL (0.0-1.3); Monocytes % 6.7 %; Neutrophils # 6.5 K/mcL (1.6-8.9); Platelet Count 252 K/mcL (140-400); Red Blood Count 3.47 M/mcL (3.82-4.97); Segmented Neutrophils % 65.6 %
[2017-06-11 10:13] LABS: INR 1.5; Prothrombin Time 15.8 Seconds (9.4-12.1)
[2017-06-11] MEDS ORDERED: 0.9 % Sodium Chloride 1,000 ML ONE (10:14)
[2017-06-11] MEDS ORDERED: 0.9 % Sodium Chloride 1,000 ML IVC ONE (10:15)
[2017-06-11 10:16] LABS: Activated Partial Thrombo Time 28.5 Seconds (26.0-36.0)
[2017-06-11 10:29] LABS: Calcium 8.8 mg/dL (8.6-10.8); Potassium 4.5 mEq/L (3.5-4.5)
--- NOTE | 2017-06-11 10:36 | Emergency Department Note ---
Disposition Clinical Impression: Leg edema Hypotension Qualifiers: Hypotension type: unspecified hypotension type Qualified Code(s): I95.9 - Hypotension, unspecified DVT of lower extremity (deep venous thrombosis) Qualifiers: Affected thrombotic vein of extremity: unspecified vein of extremity Chronicity : acute Laterality: left Qualified Code(s): I82.402 - Acute embolism and thrombosis of unspecified deep veins of left lower extremity Disposition: Admitted As Inpatient Condition: Good Time of Disposition: 11:00 General Adult HPI - General Chief complaint: ED General Medical Stated complaint: multiple complaints Time Seen by Provider: 06/11/17 09:47 Source: patient Mode of arrival: ambulatory Limitations: no limitations Nursing Notes Reviewed: Yes Vital Signs Reviewed: Yes - History of Present Illness HPI Narrative: 62-year-old female presents emergency Department with multiple complaints. Patient states that she has noted increased swelling to the bilateral lower extremities over the past few weeks but worsened over the past 2 days. Patient denies recent changes in her medications. Patient also notes that she had a near syncopal episode today where she fell and struck her head on the ground. Patient noted blood pressure to be hypotensive prior to EMS arrival. EMS states that he be had been 94 systolic on their initial evaluation. Patient states that she often becomes hypotensive with treatment of her high blood pressure medications Pain Scale: 5 - Related Data Home Medications Medication Instructions Recorded Confirmed Alprazolam [Xanax] 0.25 mg PO QID 04/20/15 06/11/17 Aspirin Enteric Coated [Aspirin EC] 162 mg PO DAILY 04/20/15 06/11/17 Furosemide [Lasix] 40 mg PO BID 04/20/15 06/11/17 Hydrocodone/Acetaminophen [[place] 1 tab PO Q4H PRN 04/20/15 06/11/17 10-325 Tablet] [place]-3S/Dha/Epa/Fish Oil [Fish 1,200 mg PO DAILY 04/20/15 06/11/17 Oil 1,200 mg Softgel] Omeprazole [PriLOSEC] 20 mg PO DAILY 04/20/15 06/11/17 Ranitidine HCl [Zantac] 150 mg PO BID 04/20/15 06/11/17 Simvastatin [Zocor] 40 mg PO HS 04/20/15 06/11/17 Tizanidine [Zanaflex] 4 mg PO Q8H 04/20/15 06/11/17 Gabapentin [Neurontin] 400 mg PO BID 02/18/16 06/11/17 FLUoxetine HCl [Prozac] 40 mg PO DAILY 04/15/17 06/11/17 Levothyroxine Sodium 200 mcg PO DAILY 04/15/17 06/11/17 Cyclobenzaprine HCl 5 mg PO TID 06/11/17 06/11/17 Ondansetron ODT [Zofran ODT] 4 mg SL Q8HR PRN 06/11/17 06/11/17 Previous Rx's Medication Instructions Recorded Insulin ASPART [Novolog Flexpen] 15 unit SQ TID 30 Days #2 04/16/17 insuln.pen Insulin Glargine,Hum.rec.anlog 25 unit SQ BID 30 Days #2 04/16/17 [Lantus Solostar] insuln.pen Enalapril Maleate [Vasotec] 15 mg PO BID #45 tablet 04/29/17 Metoprolol [Lopressor] 12.5 mg PO BID #30 tablet 04/29/17 Allergies Allergy/AdvReac Type Severity Reaction Status Date / Time Cefadroxil Allergy Difficulty Verified 04/27/17 10:41 Breathing Iodinated Contrast- Oral and Allergy shortness Verified 04/27/17 17:30 IV Dye of breath Penicillins [PCN] Allergy Hives Verified 04/27/17 10:41 ciprofloxacin [From Cipro] AdvReac Itching Verified 04/27/17 17:30 ibuprofen AdvReac tacycardia Verified 04/27/17 10:41 levofloxacin [From Levaquin] AdvReac Vomiting Verified 04/27/17 10:41 All systems ED: reviewed and negative except as stated. Review of Systems: As Per HPI Constitutional: Reports: weakness. Denies: fever, chills Cardiovascular: Denies: chest pain, palpitations, dyspnea on exertion, orthopnea , syncope, paroxysmal nocturnal dyspnea Respiratory: Denies: cough, dyspnea, wheezes, hemoptysis Gastrointestinal: Denies: abdominal pain, nausea, vomiting Musculoskeletal: Reports: neck pain Neurological: Denies: weakness, numbness, paresthesias, abnormal gait, vertigo Past Medical History - Past Medical History Attestation: Yes The following information was validated with the patient. Source: patient, nursing notes reviewed Medical history: Reports: asthma, atrial fibrillation, CHF, COPD, diabetes, GERD , GI bleed, hypertension, other Surgical history: Reports: appendectomy, cholecystectomy, hysterectomy, orthopedic, other (Spinal surgery 2016, laminectomy L2-L4, excision of axillary lymph nodes), other (Left knee replacement, cataract surgery, herniorrhaphy) Psychiatric history: Reports: anxiety, depression PYTHON CONSULTANT history: Reports: no PYTHON CONSULTANT history - Social History Smoking Status: Current every day smoker Smokeless Tobacco Status: No Alcohol use: Reports: none Drug use: Reports: none Physical Exam General: Alert and in no acute distress Skin: Warm, dry, intact Head: Normocephalic and atraumatic Neck: Supple, trachea midline and no tenderness Cardiovascular: RRR, no murmur, normal perfusion Respiratory: CTAB, no wheezing, cough, or respiratory distress Musculoskeletal: Normal strength, patient has +1 pitting edema to the bilateral lower extremity. GI: Soft, nontender, nondistended. Bowel sounds present Neuro: A&O to person, place, time and situation. No focal deficits noted on exam Psychiatric: cooperative and appropriate mood and affect. - General Limitations: no limitations General appearance: alert, in no apparent distress Course Vital Signs Temperature 98.4 F 06/11/17 09:34 Pulse Rate 66 06/11/17 09:34 Respiratory Rate 18 06/11/17 09:34 Blood Pressure 94/53 06/11/17 09:34 O2 Sat by Pulse Oximetry 97 06/11/17 09:34 Temperature 98.4 F 06/11/17 09:34 Pulse Rate 91 06/11/17 15:16 Respiratory Rate 17 06/11/17 15:16 Blood Pressure 157/81 06/11/17 15:16 O2 Sat by Pulse Oximetry 90 06/11/17 15:16 Oxygen Delivery Oxygen Delivery Room Air Medical Decision Making - MDM Narrative Medical decision making narrative: Patient became hypotensive during our evaluation the emergency department. She was given a liter of IV fluids with improvement of her blood pressure. Ultrasound of the left lower extremity shows DVT in the left peroneal vein. VQ scan of the chest shows low likelihood of PE. Patient feels comfortable with the admission for admission to the hospital for further care and evaluation. - Medical Records Medical records reviewed: Yes I reviewed the patient's medical records. - Lab Data Lab results reviewed: Yes I reviewed the patient's lab results. Result diagrams: 06/11/17 09:48 06/11/17 09:48 Lab Results 06/11/17 06/11/17 06/11/17 Range/Units 09:48 09:48 09:48 WBC 10.0 (4.3-11.1) K/mcL RBC 3.47 L (3.82-4.97) M/mcL Hgb 9.4 L (11.5-15.4) g/dL Hct 30.0 L (35.3-44.9) % MCV 86.5 (83.0-100.0) fL MCH 27.1 L (28.0-33.3) pg MCHC 31.3 L (31.6-35.5) g/dL RDW 16.0 H (11.5-14.5) % Plt Count 252 (140-400) K/mcL MPV 9.7 (9.4-12.4) fL Immature Gran % 0.4 (0-4) % Seg Neutrophils % 65.6 % Lymphocytes % 24.7 % Monocytes % 6.7 % Eosinophils % 2.2 % Basophils % 0.4 % Neutrophils # 6.5 (1.6-8.9) K/mcL Lymphocytes # 2.5 (0.6-4.6) K/mcL Monocytes # 0.7 (0.0-1.3) K/mcL Eosinophils # 0.2 (0.0-0.6) K/mcL Basophils # 0.0 (0.0-0.2) K/mcL PT 15.8 H (9.4-12.1) Seconds INR 1.5 APTT 28.5 (26.0-36.0) Seconds D-Dimer 1392 H (0-500) ng/mLFEU Sodium 133 L (136-145) mEq/L Potassium 4.5 (3.5-4.5) mEq/L Chloride 94 L (98-109) mEq/L Carbon Dioxide 30 H (19-29) mEq/L BUN 27 H (7-20) mg/dL Creatinine 1.30 H (0.57-1.11) mg/dL Est GFR ( Amer) 50 L (> 60) Est GFR (Non-Af Amer) 42 L (> 60) BUN/Creatinine Ratio 21 (6-26) Glucose 166 H (70-99) mg/dL Calculated Osmolality 285 (280-300) Lactic Acid (0.5-2.2) mmol/L Calcium 8.8 (8.6-10.8) mg/dL Troponin I (0-0.03) ng/mL 06/11/17 06/11/17 Range/Units 09:48 13:28 WBC (4.3-11.1) K/mcL RBC (3.82-4.97) M/mcL Hgb (11.5-15.4) g/dL Hct (35.3-44.9) % MCV (83.0-100.0) fL MCH (28.0-33.3) pg MCHC (31.6-35.5) g/dL RDW (11.5-14.5) % Plt Count (140-400) K/mcL MPV (9.4-12.4) fL Immature Gran % (0-4) % Seg Neutrophils % % Lymphocytes % % Monocytes % % Eosinophils % % Basophils % % Neutrophils # (1.6-8.9) K/mcL Lymphocytes # (0.6-4.6) K/mcL Monocytes # (0.0-1.3) K/mcL Eosinophils # (0.0-0.6) K/mcL Basophils # (0.0-0.2) K/mcL PT (9.4-12.1) Seconds INR APTT (26.0-36.0) Seconds D-Dimer (0-500) ng/mLFEU Sodium (136-145) mEq/L Potassium (3.5-4.5) mEq/L Chloride (98-109) mEq/L Carbon Dioxide (19-29) mEq/L BUN (7-20) mg/dL Creatinine (0.57-1.11) mg/dL Est GFR ( Amer) (> 60) Est GFR (Non-Af Amer) (> 60) BUN/Creatinine Ratio (6-26) Glucose (70-99) mg/dL Calculated Osmolality (280-300) Lactic Acid 1.3 (0.5-2.2) mmol/L Calcium (8.6-10.8) mg/dL Troponin I 0.02 (0-0.03) ng/mL - Radiology Data Radiology results reviewed: Yes I reviewed the patient's radiology results. - EKG Data EKG #1 EKG attestation: Yes I reviewed and interpreted this EKG. EKG results narrative: ECG - interpreted by ED physician. Rate 59 sinus bradycardia,no STEMI, FL, QT intervals, and QRS within normal limits
[2017-06-11] MEDS ORDERED: *HR* Heparin 5,000 UNIT/ML VIAL IVP ONE (12:36)
[2017-06-11] MEDS ORDERED: *HR* Heparin 5,000 UNIT/ML VIAL IVP PRN (12:36)
[2017-06-11] MEDS ORDERED: Heparin 25,000 UNIT/500 ML D5W 25,000 UNIT/500 ML MLS IVC SCH (12:45)
[2017-06-11] MEDS ORDERED: Dextrose Gel 15 GM PO PRN ×2 (14:08)
[2017-06-11] MEDS ORDERED: *HR* Dextrose 50 % in Water (Syg) 50 ML SYRINGE IVP PRN (14:08)
[2017-06-11] MEDS ORDERED: D5% in Water 1,000 ML IVC PRN (14:08)
--- NOTE | 2017-06-11 14:24 | Internal Med History&Physical ---
Addendum entered and electronically signed by Geo Li 06/11/17 18:48: Chronic anemia; no active bleeding, has been anemic since 04/30, continue to monitor. Recheck CBC in the morning. Original Note: <Geo Li - Last Filed: 06/11/17 18:33> Date of Encounter: 06/11/17 Time of Encounter: 14:13 Assessment and Plan (1) DVT of lower extremity (deep venous thrombosis) Current visit: Yes Status: Acute She is being admitted as inpatient d/t n new diagnosis of DVT, She is reporting ongoing BLE swelling, erythema, and LLE pain/tenderness. No prior h/o DVT. My examination reveals likely venous stasis. She has multiple risk factors including venous stasis, prolonged immobility, and a h/o heart disease. Additionally she has a Wells score of 4.5 indicating a moderate risk for DVT, and her D-dimer is 1392. A venous US was suspicious for DVT in the deep left vein; still awaiting official read. Given the exam findings and clinical presentation she is being admitted for a DVT and for anticoagulation therapy. Heparing gtt started in the ED. LLE maintains adequate circulation. She is not hypoxic, or tachycardic and remains hemodynamically stable and is therefore a low risk for PE; VQ scan completed and indicates low risk. Continue heparin drip and adjust per heparin protocol APTT per protocol Assess for bleeding per protocol Qualifiers: Affected thrombotic vein of extremity: unspecified vein of extremity Laterality: left Qualified Code(s): I82.402 - Acute embolism and thrombosis of unspecified deep veins of left lower extremity (2) Leg edema Current visit: Yes Status: Acute LLE edema and cellulitis appears to be caused by venous stasis, patient has DVT left lower extremity. See plan above (3) Hypotension Current visit: Yes Status: Acute Patient was hypotensive upon arrival to the emergency department. She reports that she is often hypotensive with systolic blood pressures running in high 90s and low 100s due to antihypertensive medications. Additionally, she appears to be dehydrated, reporting a poor oral intake. Hypotension improved with a 1 L fluid bolus. Hold oral antihypertensives for now, consider restarting when blood pressure improves Continue to rehydrate with 0.9% normal saline Qualifiers: Hypotension type: unspecified hypotension type Qualified Code(s): I95.9 - Hypotension, unspecified (4) Dehydration with hyponatremia Current visit: Yes Status: Acute Acutely dehydrated; denies any vomiting or diarrhea but reports a less than adequate oral intake. Chemistry reveals hyponatremia, and she was hypotensive upon arrival. She was given a 1 L fluid bolus in the emergency department and hypertension improved. See plan above (5) Bradycardia Current visit: Yes Status: Acute Continues to be bradycardic. She reports that her heart rate is normally in the low to mid 50s. She is currently asymptomatic, she is on a beta sarthak at home and is likely the cause of her bradycardia. Continuous telemetry monitoring while inpatient (6) Multiple falls Current visit: Yes Status: Acute Reports history of multiple falls. She also mentions she has had a decline in functional capacity increasing over the last year. She reports that she is primarily wheelchair bound and intermittently uses a walker to assist with ambulation around the house. She reports it is becoming more difficult to walk with a walker due to bilateral extremity weakness and numbness and tingling. She reports having fallen 15 times in a 1 month month period. She denies ever being syncopal, however, she does admit that she is frequently hypotensive and bradycardic due to blood pressure medications and this could be contributing. PT/OT consult to assess functional status learning support services director consult-may need short-term rehabilitation placement if she is agreeable Out of bed With assist only (7) Acute kidney injury Current visit: Yes Status: Resolved Patient presents with dehydration and was hypotensive. Has a history of chronic kidney disease, however, worsening in serum creatinine since last admission. Hold nephrotoxic agents 0.9% normal saline at 100 mL per hour Recheck serum creatinine in the morning (8) Diabetes Current visit: Yes Status: Chronic History of type 2 diabetes, glucose of 166, per chem panel. She reports that this result is her average. She is on long-term subcutaneous insulin at home. Continue glargine at home dose starting tonight Start LSSIC with AC/HS Accu-Cheks and diabetic diet Qualifiers: Diabetes mellitus type: type 2 Diabetes mellitus complication status: without complication Diabetes mellitus roasterman insulin use: with roasterman use Qualified Code(s): E11.9 - Type 2 diabetes mellitus without complications ; N18.2 - Chronic kidney disease, stage 2 (mild); N18.2 - Chronic kidney disease , stage 2 (mild); Z79.4 - snf (current) use of insulin; Z79.4 - ferry terminal agent (current) use of insulin; Z79.4 - snf (current) use of insulin; Z79.4 - snf (current) use of insulin Internal Medicine - H&P: HPI Chief complaint: BLE swelling, LLE pain, falls Admitted From: Home Plans for Post Hospital Care: Home History of present illness: Ms. Sam is a 62 year old female with a PMH of asthma, afib, CHF, COPD, DM, GERD, GI bleed, and HTN. She presents today to [facility] for a C/O BLE swelling, LLE pain, and multiple falls. She states that for the last few weeks she has noticed an increase in swelling in her BLE. Additionally, she notes BLE redness increasing over the last few days. She is also reporting some mild intermittent dull pain in her LLE. She also reports that she fell this morning while trying to go to the restroom and struck her head on the ground. She states that she falls all of the time; reporting a decline in functional capacity throughout the last year. She is not on any blood thinners. She was noted to be hypotensive via EMS, and was hypotensive upon arrival to ED. She reports that she is often hypotensive d/t her BP medications. She denies any CP , SOB, syncope, claudication, tachycardia, palpitations, fevers, chills, dizziness, h/a or vision changes. She has an elevated D-dimer. She is being admitted for further observation and evaluation d/t falls and BLE swelling. Past Med Surg Social Fam HX - Past Medical History Medical history: asthma, atrial fibrillation, CHF, COPD, diabetes, GERD, GI bleed, hypertension, other Psychiatric history: anxiety, depression - Past Surgical History Surgical History: appendectomy, cholecystectomy, hysterectomy, orthopedic, other (Spinal surgery 2016, laminectomy L2-L4, excision of axillary lymph nodes) , other (Left knee replacement, cataract surgery, herniorrhaphy) - Social History Smoking Status: Current every day smoker Smokeless Tobacco Status: No Alcohol use: none Drug use: none - Family History Mother Hx Family Endocrine Disorder: Yes (dm) Internal Medicine - H&P: Meds Alprazolam [Xanax] 0.25 mg PO QID 04/20/15 [History] Aspirin Enteric Coated [Aspirin EC] 162 mg PO DAILY 04/20/15 [History] Furosemide [Lasix] 40 mg PO BID 04/20/15 [History] Hydrocodone/Acetaminophen [[place] 10-325 Tablet] 1 tab PO Q4H PRN 04/20/15 [ History] [place]-3S/Dha/Epa/Fish Oil [Fish Oil 1,200 mg Softgel] 1,200 mg PO DAILY [History] Omeprazole [PriLOSEC] 20 mg PO DAILY 04/20/15 [History] Ranitidine HCl [Zantac] 150 mg PO BID 04/20/15 [History] Simvastatin [Zocor] 40 mg PO HS 04/20/15 [History] Tizanidine [Zanaflex] 4 mg PO Q8H 04/20/15 [History] Gabapentin [Neurontin] 400 mg PO BID 02/18/16 [History] FLUoxetine HCl [Prozac] 40 mg PO DAILY 04/15/17 [History] Levothyroxine Sodium 200 mcg PO DAILY 04/15/17 [History] Insulin ASPART [Novolog Flexpen] 15 unit SQ TID 30 Days #2 insuln.pen 04/16/17 [ Rx] Insulin Glargine,Hum.rec.anlog [Lantus Solostar] 25 unit SQ BID 30 Days #2 insuln.pen 04/16/17 [Rx] Enalapril Maleate [Vasotec] 15 mg PO BID #45 tablet 04/29/17 [Rx] Metoprolol [Lopressor] 12.5 mg PO BID #30 tablet 04/29/17 [Rx] Cyclobenzaprine HCl 5 mg PO TID 06/11/17 [History] Ondansetron ODT [Zofran ODT] 4 mg SL Q8HR PRN 06/11/17 [History] 3 Allergy/AdvReac Type Severity Reaction Status Date / Time Cefadroxil Allergy Difficulty Verified 04/27/17 10:41 Breathing Iodinated Contrast- Oral and Allergy shortness Verified 04/27/17 17:30 IV Dye of breath Penicillins [PCN] Allergy Hives Verified 04/27/17 10:41 ciprofloxacin [From Cipro] AdvReac Itching Verified 04/27/17 17:30 ibuprofen AdvReac tacycardia Verified 04/27/17 10:41 levofloxacin [From Levaquin] AdvReac Vomiting Verified 04/27/17 10:41 All Systems PM: A 10-system review of systems was performed and is negative for pertinent findings except as documented above in the HPI. - Constitutional Constitutional: fatigue (chronic), weakness (chronic), no chills, no fever(s), no night sweats, no weight gain, no weight loss - EENT Eyes: no blurry vision, no change in vision, no loss of vision - Cardiovascular Cardiovascular ROS IM: edema (BLE), no chest pain, no claudication, no diaphoresis, no dyspnea, no dyspnea on exertion, no irregular heart rhythm, no lightheadedness, no orthopnea, no palpitations, no syncope - Respiratory Respiratory: no cough, no dyspnea on exertion, no wheezing, no pain on inspiration, no chest congestion - Gastrointestinal Gastrointestinal: no abdominal pain, no diarrhea, no nausea, no vomiting - Genitourinary Genitourinary: no change in urinary stream, no dysuria, no flank pain, no hematuria - Musculoskeletal Musculoskeletal ROS IM: no numbness, no tingling - Integumentary Integumentary IM: no rash, no unusual bruising - Neurological Neurological ROS: frequent falls, numbness (has h/o neuropathy), tingling (has h /o neuropathy), no disequilibrium, no dizziness, no focal weakness, no headache( s), no lack of coordination, no loss of vision - Constitutional Vitals: Temp Pulse Resp BP Pulse Ox 98.4 F 69 18 99/60 95 06/11/17 09:34 06/11/17 11:30 06/11/17 11:30 06/11/17 11:30 06/11/17 11:30 General appearance: Present: cooperative, A&O X 3, no acute distress, answers questions appropriately - Head Head exam: Present: atraumatic, normocephalic - Eye Pupils: Present: PERRL - Neck Neck exam general surgery: Present: supple, trachea midline. Absent: lymphadenopathy - Respiratory Respiratory exam: Present: decreased breath sounds, CTAB. Absent: accessory muscle use, rales, rhonchi, wheezes - Cardiovascular Cardiovascular exam: Present: bradycardia, RRR, +S1, +S2. Absent: diastolic murmur, systolic murmur - GI/Abdominal GI/Abdominal exam: Present: hernia, normal bowel sounds, soft, no peritoneal signs. Absent: distended, tenderness Additional comments: Umbilical hernia - Extremities Exam Extremities exam: Present: calf tenderness (LLE), pedal edema, tenderness, warm , radial pulses palpable and symmetrical. Absent: normal inspection - Expanded Lower Extremities Exam Ankle exam: Present: erythema, swelling, tenderness Foot/Toe exam: Present: erythema, swelling, tenderness Gait: Present: not tested/not observed - Neurological Exam Neurological exam: Present: alert, oriented X3 - Skin Skin exam: Present: erythema Internal Med - H&P Results - Labs CBC & Chem 7: 06/11/17 09:48 06/11/17 09:48 Labs: Short CBC 06/11/17 Range/Units 09:48 WBC 10.0 (4.3-11.1) K/mcL Hgb 9.4 L (11.5-15.4) g/dL Hct 30.0 L (35.3-44.9) % Plt Count 252 (140-400) K/mcL Neutrophils # 6.5 (1.6-8.9) K/mcL BMP 06/11/17 09:48 Sodium 133 L Potassium 4.5 Chloride 94 L Carbon Dioxide 30 H BUN 27 H Creatinine 1.30 H Glucose 166 H Calcium 8.8 Cardiac Enzymes 06/11/17 Range/Units 09:48 Troponin I 0.02 (0-0.03) ng/mL - EKG Data -: EKG Interpreted by Myself EKG shows normal: sinus rhythm Rate: bradycardia - EKG Data EKG comments: sinus bradycardia rate of 59 06/11/17 14:31 - Impressions ITS Impressions Chest X-Ray 06/11/17 09:53 IMPRESSION: Stable exam with no acute abnormality. D/ / 06/11/2017 10:56:40 Tavo Mathews MD / [facility] Interpreting Provider: Tavo Mathews MD Cervical Spine CT 06/11/17 09:54 IMPRESSION: No acute abnormality of the cervical spine. D/ / 06/11/2017 11:23:00 Blas Hatch MD / [facility] Interpreting Provider: Blas Hatch MD Head CT 06/11/17 09:54 IMPRESSION: No acute intracranial abnormality. D/ / 06/11/2017 11:17:17 Blas Hatch MD / [facility] Interpreting Provider: Blas Hatch MD Pulmonary Perfusion Imaging 06/11/17 11:21 IMPRESSION: Low Probability for Pulmonary Embolus. D/ / Ashu Grant MD / Ashu Grant MD Interpreting Provider: Ashu Grant MD <Wade Vance P - Last Filed: 06/12/17 19:44> Date of Encounter: 06/12/17 Internal Medicine - H&P: HPI History of present illness: Ms. Sam is a 62 year old female All Systems PM: A 10-system review of systems was performed and is negative for pertinent findings except as documented above in the HPI. - Constitutional Vitals: Temp Pulse Resp BP Pulse Ox 97.9 F 81 14 173/86 95 06/12/17 15:46 06/12/17 15:46 06/12/17 15:46 06/12/17 15:46 06/12/17 15:46 Internal Med - H&P Results - Labs CBC & Chem 7: 06/12/17 04:56 06/12/17 04:56 Labs: Short CBC 06/12/17 Range/Units 04:56 WBC 6.5 (4.3-11.1) K/mcL Hgb 10.1 L (11.5-15.4) g/dL Hct 32.2 L (35.3-44.9) % Plt Count 265 (140-400) K/mcL Neutrophils # 3.9 (1.6-8.9) K/mcL BMP 06/12/17 04:56 Sodium 139 Potassium 4.0 Chloride 101 Carbon Dioxide 30 H BUN 20 Creatinine 0.91 Glucose 154 H Calcium 8.8 Liver Function 06/12/17 Range/Units 04:56 Total Bilirubin < 0.2 L (0.2-1.2) mg/dL AST 12 (5-34) Units/L ALT 11 (0-55) Units/L Alkaline Phosphatase 102 (38-126) Units/L Albumin 2.2 L (3.5-5.0) g/dL - Attending Attestation I examined this patient and my medical decision-making was reviewed with the Resident Physician/MANAGER RESEARCH AND DEVELOPMENT. I agree with the documented findings, disposition and treatment plan as described except to the extent set forth below. Patient seen and examined. Chart reviewed. Agree with the assessment and plan of BOGDAN Li
[2017-06-11] MEDS ORDERED: 0.9 % Sodium Chloride 1,000 ML IVC SCH (15:00)
[2017-06-11] MEDS: ALPRAZolam 0.25 MG TABLET PO SCH ×2 (17:00→22:18)
[2017-06-11] MEDS ORDERED: Naloxone 0.4 MG/ML INJ IVP PRN (18:37)
[2017-06-11] MEDS: *HR* OxyCODONE/APAP 10/325 TABLET PO SCH (19:01)
[2017-06-11] MEDS ORDERED: Furosemide 40 MG TABLET PO SCH (21:00)
[2017-06-11] MEDS: Insulin LISPRO 300 UNITS/3 ML VIAL SQ SCH ×2 (22:07→22:09)
[2017-06-11] MEDS: *HR* Heparin 5,000 UNIT/ML VIAL IVP PRN (22:15)
[2017-06-11] MEDS: Gabapentin 400 MG CAPSULE PO SCH (22:17)
[2017-06-11] MEDS: Famotidine 20 MG TABLET PO SCH (22:17)
[2017-06-11] MEDS: Insulin DETEMIR 100 UNIT/ML X5UNITS SQ SCH (22:19)
[2017-06-11] MEDS: 0.9 % Sodium Chloride 1,000 ML IVC SCH (22:19)
[2017-06-12 05:13] LABS: Basophils % 0.6 %; Eosinophils # 0.2 K/mcL (0.0-0.6); Eosinophils % 3.1 %; Hematocrit 32.2 % (35.3-44.9); Hemoglobin 10.1 g/dL (11.5-15.4); Immature Granulocytes % 0.3 % (0-4); Lymphocytes # 1.9 K/mcL (0.6-4.6); Lymphocytes % 29.9 %; Mean Corpuscular HGB Conc 31.4 g/dL (31.6-35.5); Mean Corpuscular Volume 86.1 fL (83.0-100.0); Mean Platelet Volume 9.9 fL (9.4-12.4); Monocytes # 0.4 K/mcL (0.0-1.3); Monocytes % 5.4 %; Neutrophils # 3.9 K/mcL (1.6-8.9); Platelet Count 265 K/mcL (140-400); Red Blood Count 3.74 M/mcL (3.82-4.97); Segmented Neutrophils % 60.7 %
[2017-06-12 05:37] LABS: Alanine Aminotransferase 11 Units/L (0-55); Albumin 2.2 g/dL (3.5-5.0); Albumin/Globulin Ratio 0.5 (1.1-2.2); Alkaline Phosphatase 102 Units/L (38-126); Aspartate Amino Transferase 12 Units/L (5-34); BUN/Creatinine Ratio 22 (6-26); Bilirubin,Total < 0.2 mg/dL (0.2-1.2); Blood Urea Nitrogen 20 mg/dL (7-20); Calcium 8.8 mg/dL (8.6-10.8); Carbon Dioxide 30 mEq/L (19-29); Chloride 101 mEq/L (98-109); Globulin 4.1 g/dL (2.4-3.5); Glucose 154 mg/dL (70-99); Osmolality,Calculated 294 (280-300); Sodium 139 mEq/L (136-145); Total Protein 6.3 g/dL (6.0-8.3); eGFR For African Americans > 60 (> 60); eGFR For Non-African Americans > 60 (> 60)
[2017-06-12] MEDS: *HR* OxyCODONE/APAP 10/325 TABLET PO SCH ×2 (06:23)
[2017-06-12] MEDS: *HR* Heparin 5,000 UNIT/ML VIAL IVP PRN (06:24)
[2017-06-12] MEDS: Famotidine 20 MG TABLET PO SCH ×2 (09:32→22:14)
[2017-06-12] MEDS: Gabapentin 400 MG CAPSULE PO SCH ×2 (09:32→22:14)
[2017-06-12] MEDS: FLUoxetine 20 MG CAPSULE PO SCH (09:32)
[2017-06-12] MEDS: ALPRAZolam 0.25 MG TABLET PO SCH ×4 (09:32→22:15)
[2017-06-12] MEDS: Aspirin Enteric Coated 81 MG Tablet PO SCH (09:32)
[2017-06-12] MEDS ORDERED: Heparin 25,000 UNIT/500 ML D5W 25,000 UNIT/500 ML MLS IVC SCH (11:00)
[2017-06-12] MEDS: Insulin LISPRO 300 UNITS/3 ML VIAL SQ SCH ×4 (11:32→22:15)
[2017-06-12] MEDS: 0.9 % Sodium Chloride 1,000 ML IVC SCH (11:33)
[2017-06-12] MEDS: Insulin DETEMIR 100 UNIT/ML X5UNITS SQ SCH ×2 (11:33→22:15)
--- NOTE | 2017-06-12 17:33 | Internal Med Progress Note ---
Date of Encounter: 06/12/17 Time of Encounter: 14:30 - Assessment and plan (1) DVT of lower extremity (deep venous thrombosis) Current Visit: Yes Status: Acute Assessment and plan: Acute DVT involving the left deep peroneal vein. On anticoagulation. Patient prefers to take Coumadin for anticoagulation. We will plan on transitioning her to Lovenox and start Coumadin tonight. Qualifiers: Affected thrombotic vein of extremity: unspecified vein of extremity Laterality: left Qualified Code(s): I82.402 - Acute embolism and thrombosis of unspecified deep veins of left lower extremity (2) MARGOTH (acute kidney injury) Current Visit: Yes Status: Acute Assessment and plan: Patient does have underlying chronic kidney disease stage II/III. Renal function has normalized. (3) Bradycardia Current Visit: Yes Status: Resolved Assessment and plan: Heart rate is normal at this time. We will resume beta sarthak. (4) Diabetes Current Visit: Yes Status: Chronic Assessment and plan: Well-controlled. Continue sliding scale insulin Qualifiers: Diabetes mellitus type: type 2 Diabetes mellitus complication status: with kidney complications Diabetes mellitus complication detail: with chronic kidney disease Diabetes mellitus long term care phlebotomist insulin use: with mcc use Chronic kidney disease stage: stage 2 (mild) Qualified Code(s): E11.22 - Type 2 diabetes mellitus with diabetic chronic kidney disease; N18.2 - Chronic kidney disease, stage 2 (mild); N18.2 - Chronic kidney disease, stage 2 (mild); Z79.4 - FPC (current) use of insulin; Z79.4 - intermission coordinator (current) use of insulin; Z79.4 - FPC (current) use of insulin; Z79.4 - FPC (current ) use of insulin (5) Hyponatremia Current Visit: Yes Status: Resolved Assessment and plan: Likely hypovolemic. Now resolved (6) Hypotension Current Visit: Yes Status: Resolved Assessment and plan: due to dehydration and medications. Now resolved. Qualifiers: Hypotension type: unspecified hypotension type Qualified Code(s): I95.9 - Hypotension, unspecified (7) Leg edema Current Visit: Yes Status: Acute Assessment and plan: Most likely due to venous stasis and DVT. Improving (8) Multiple falls Current Visit: Yes Status: Acute Assessment and plan: Patient has been evaluated by physical therapy. Has not been recommended placement at this time. (9) Essential hypertension Current Visit: Yes Status: Chronic Assessment and plan: Uncontrolled. Resume home medications. - Subjective Interval history: Patient is awake and alert. No new complaints at this time. She has chronic lower extremity pain but is worse in the left lower extremity currently. Denies any shortness of breath. No chest pain. - Constitutional Vitals: Temp Pulse Resp BP Pulse Ox 97.9 F 81 14 173/86 95 06/12/17 15:46 06/12/17 15:46 06/12/17 15:46 06/12/17 15:46 06/12/17 15:46 General appearance: Present: cooperative, A&O X 3, no acute distress, answers questions appropriately - Neck Neck exam general surgery: Present: supple, trachea midline. Absent: lymphadenopathy - Cardiovascular Cardiovascular exam: Present: RRR, +S1, +S2. Absent: diastolic murmur, gallop, rubs, systolic murmur - GI/Abdominal GI/Abdominal exam: Present: normal bowel sounds, soft, no peritoneal signs. Absent: distended, tenderness - Extremities Exam Extremities exam: Present: pedal edema (Left greater than right), warm, radial pulses palpable and symmetrical. Absent: calf tenderness, cyanotic Internal Medicine: Result - Labs CBC & Chem 7: 06/12/17 04:56 06/12/17 04:56 Labs: Short CBC 06/12/17 Range/Units 04:56 WBC 6.5 (4.3-11.1) K/mcL Hgb 10.1 L (11.5-15.4) g/dL Hct 32.2 L (35.3-44.9) % Plt Count 265 (140-400) K/mcL Neutrophils # 3.9 (1.6-8.9) K/mcL BMP 06/12/17 04:56 Sodium 139 Potassium 4.0 Chloride 101 Carbon Dioxide 30 H BUN 20 Creatinine 0.91 Glucose 154 H Calcium 8.8 Liver Function 06/12/17 Range/Units 04:56 Total Bilirubin < 0.2 L (0.2-1.2) mg/dL AST 12 (5-34) Units/L ALT 11 (0-55) Units/L Alkaline Phosphatase 102 (38-126) Units/L Albumin 2.2 L (3.5-5.0) g/dL - ABG Interpretation ABG results: PT/INR, D-dimer PT 15.8 Seconds (9.4-12.1) H 06/11/17 09:48 D-Dimer 1392 ng/mLFEU (0-500) H 06/11/17 09:48 Consult Discharge Plan - Plan
[2017-06-12] MEDS ORDERED: Warfarin perPT PO PRN (18:00)
[2017-06-12] MEDS ORDERED: *HR* Warfarin 5 MG TABLET PO ONE (18:00)
[2017-06-12] MEDS: *HR* Enoxaparin 100 MG/ML SYRINGE SQ SCH (18:21)
[2017-06-12] MEDS ORDERED: Lisinopril 20 MG TABLET PO SCH (21:00)
[2017-06-12] MEDS: *HR* HYDROcodone/Acet 10/325 mg TABLET PO PRN (22:15)
[2017-06-13] MEDS: *HR* HYDROcodone/Acet 10/325 mg TABLET PO PRN (03:37)
[2017-06-13 05:17] LABS: Prothrombin Time 11.1 Seconds (9.4-12.1)
[2017-06-13] MEDS: *HR* Enoxaparin 100 MG/ML SYRINGE SQ SCH (05:46)
[2017-06-13] MEDS: Insulin LISPRO 300 UNITS/3 ML VIAL SQ SCH ×2 (08:33→12:10)
[2017-06-13] MEDS: Gabapentin 400 MG CAPSULE PO SCH (08:45)
[2017-06-13] MEDS: Aspirin Enteric Coated 81 MG Tablet PO SCH (08:45)
[2017-06-13] MEDS: FLUoxetine 20 MG CAPSULE PO SCH (08:45)
[2017-06-13] MEDS: ALPRAZolam 0.25 MG TABLET PO SCH (08:45)
[2017-06-13] MEDS: Famotidine 20 MG TABLET PO SCH (08:45)
[2017-06-13] MEDS: Insulin DETEMIR 100 UNIT/ML X5UNITS SQ SCH (10:53)
[2017-06-13 11:15] VITALS: BP 156/75
--- NOTE | 2017-06-13 11:45 | Discharge Summary ---
Date of Encounter: 06/13/17 Time of Encounter: 11:39 - Discharge Diagnosis (1) DVT of lower extremity (deep venous thrombosis) Priority: Primary Status: Acute Qualifiers: Affected thrombotic vein of extremity: unspecified vein of extremity Chronicity: acute Laterality: left Qualified Code(s): I82.402 - Acute embolism and thrombosis of unspecified deep veins of left lower extremity (2) MARGOTH (acute kidney injury) Priority: Secondary Status: Resolved (3) Bradycardia Priority: Secondary Status: Resolved (4) Diabetes Priority: Secondary Status: Chronic Qualifiers: Diabetes mellitus type: type 2 Diabetes mellitus complication status: with kidney complications Diabetes mellitus complication detail: with chronic kidney disease Diabetes mellitus mcc insulin use: with exterminator helper use Chronic kidney disease stage: stage 2 (mild) Qualified Code(s): E11.22 - Type 2 diabetes mellitus with diabetic chronic kidney disease; N18.2 - Chronic kidney disease, stage 2 (mild); N18.2 - Chronic kidney disease, stage 2 (mild); Z79.4 - intermediate manager (current) use of insulin; Z79.4 - intermediate manager (current) use of insulin; Z79.4 - intermediate manager (current) use of insulin; Z79.4 - intermediate manager (current ) use of insulin (5) Hyponatremia Priority: Secondary Status: Resolved (6) Hypotension Priority: Secondary Status: Resolved Qualifiers: Hypotension type: unspecified hypotension type Qualified Code(s): I95.9 - Hypotension, unspecified (7) Leg edema Priority: Secondary Status: Acute (8) Multiple falls Priority: Secondary Status: Acute (9) Essential hypertension Priority: Secondary Status: Chronic - Discharge Medications Prescriptions: Enoxaparin [Lovenox] 90 mg SQ Q12HCO #10 syringe Warfarin [Coumadin] 5 mg PO 1800 #30 tablet Home Medications: Alprazolam [Xanax] 0.25 mg PO QID 04/20/15 [History] Aspirin Enteric Coated [Aspirin EC] 162 mg PO DAILY 04/20/15 [History] Furosemide [Lasix] 40 mg PO BID 04/20/15 [History] Hydrocodone/Acetaminophen [[place] 10-325 Tablet] 1 tab PO Q4H PRN 04/20/15 [ History] [place]-3S/Dha/Epa/Fish Oil [Fish Oil 1,200 mg Softgel] 1,200 mg PO DAILY [History] Omeprazole [PriLOSEC] 20 mg PO DAILY 04/20/15 [History] Ranitidine HCl [Zantac] 150 mg PO BID 04/20/15 [History] Simvastatin [Zocor] 40 mg PO HS 04/20/15 [History] Tizanidine [Zanaflex] 4 mg PO Q8H 04/20/15 [History] Gabapentin [Neurontin] 400 mg PO BID 02/18/16 [History] FLUoxetine HCl [Prozac] 40 mg PO DAILY 04/15/17 [History] Levothyroxine Sodium 200 mcg PO DAILY 04/15/17 [History] Insulin ASPART [Novolog Flexpen] 15 unit SQ TID 30 Days #2 insuln.pen 04/16/17 [ Rx] Insulin Glargine,Hum.rec.anlog [Lantus Solostar] 25 unit SQ BID 30 Days #2 insuln.pen 04/16/17 [Rx] Enalapril Maleate [Vasotec] 15 mg PO BID #45 tablet 04/29/17 [Rx] Metoprolol [Lopressor] 12.5 mg PO BID #30 tablet 04/29/17 [Rx] Ondansetron ODT [Zofran ODT] 4 mg SL Q8HR PRN 06/11/17 [History] Enoxaparin [Lovenox] 90 mg SQ Q12HCO #10 syringe 06/13/17 [Rx] Warfarin [Coumadin] 5 mg PO 1800 #30 tablet 06/13/17 [Rx] Allergies/Adverse Reactions: 3 Allergy/AdvReac Type Severity Reaction Status Date / Time Cefadroxil Allergy Difficulty Verified 04/27/17 10:41 Breathing Iodinated Contrast- Oral and Allergy shortness Verified 04/27/17 17:30 IV Dye of breath Penicillins [PCN] Allergy Hives Verified 04/27/17 10:41 ciprofloxacin [From Cipro] AdvReac Itching Verified 04/27/17 17:30 ibuprofen AdvReac tacycardia Verified 04/27/17 10:41 levofloxacin [From Levaquin] AdvReac Vomiting Verified 04/27/17 10:41 Date of admission: 06/11/17 20:01 Primary care physician: Jim Castellano Discharging clinician: Noelle Gurrola Anticipated date of discharge: 06/13/17 - Patient Status Disposition: Home Health Service Condition: Good Functional capacity at discharge: uses cane/walker Overall status at discharge: patient is progressing back to baseline - Discharge Instructions Instructions: Warfarin (By mouth), Enoxaparin (Injection), Deep Venous Thrombosis (DC), Diabetes Mellitus Type 2 in Adults (DC), Bradycardia (DC) Follow Up With: Kodak Bates DO [Primary Care Provider] - 06/21/17 2:45 pm (in 1 week) Forms: ED Satisfaction Letter, Work/School Release Additional Instructions: Follow-up with Coumadin clinic in 2-3 days Appointment with coumadin clinic Saturday06-17-17 at 2:45 pm Take all medications to the coumadin clinic appointment, arrive 15minutes early , expect appointment to last 1 hour. - Diet and Activity Activity: increase activity as tolerated Diet: diabetic diet, low fat, low cholesterol, low salt diet Hospital course: Ms. Sam is a 62 year old female patient with history of CHF, COPD, gastroesophageal reflux disease, prior GI bleed, atrial fibrillation and hypertension presented to the ER with complaints of increased swelling in her lower bilateral lower extremities with some intermittent pain in the left leg. Venous Doppler of left lower extremity show presence of peroneal vein thrombus. As such she was started on anticoagulation for this. Given her prior history of GI bleed, her blood counts were closely followed. She was started on IV heparin and then transitioned to subcutaneous Lovenox and Coumadin. Her blood counts have remained stable here. Patient had symptoms of hypotension and dehydration on initial presentation. She received gentle IV hydration with improvement in her symptoms. She also had episodes of intermittent bradycardia and so her metoprolol was held. She however developed significant hypertension soon after. Her heart rate also improved. So she was started back on metoprolol. Her heart rate has remained good since this medication has been restarted but occasionally drops down to high 40s. Patient is asymptomatic during these episodes. She will need to follow up with cardiology as outpatient for further evaluation and management. She is on the lowest dose of metoprolol at 12.5 mg twice a day. Patient had reported multiple falls at home. And this is likely multifactorial as patient is on multiple psychotropic medications and narcotic medications which can cause her to have excess sedation. I explained this to the patient and she wants to discuss this further with her primary care provider to cut down on some of the medications. She was also evaluated the physical therapy and did not require placement to skilled rehabilitation. At this time, she is stable to be discharged home and we will arrange for home health and physical therapy for her. She will be discharged on Lovenox and Coumadin. She will follow up with Coumadin clinic for further management and titration of her Coumadin dosage. Patient also had a VQ scan done which showed low probability for pulmonary embolism. - Time Spent with Patient Total time spent providing and/or coordinating discharge services: Greater than 30 minutes (35 min) - Constitutional Vitals: Temp Pulse Resp BP Pulse Ox 97.8 F 63 18 156/75 95 06/13/17 11:11 06/13/17 11:11 06/13/17 11:11 06/13/17 11:11 06/13/17 11:11 General appearance: Present: cooperative, A&O X 3, no acute distress, answers questions appropriately - Respiratory Respiratory exam: Present: CTAB. Absent: accessory muscle use, rales, rhonchi, wheezes - Cardiovascular Cardiovascular exam: Present: RRR, +S1, +S2. Absent: diastolic murmur, gallop, rubs, systolic murmur - GI/Abdominal GI/Abdominal exam: Present: normal bowel sounds, soft, no peritoneal signs. Absent: distended, tenderness - Extremities Exam Extremities exam: Present: warm, radial pulses palpable and symmetrical. Absent : calf tenderness, cyanotic, pedal edema - Neurological Exam Neurological exam: Present: alert, oriented X3, no focal deficits. Absent: facial droop, speech deficit - Skin Skin exam: Present: dry, intact
--- NOTE | 2017-06-13 11:47 | Physician Discharge Referral ---
Home Health/Hosp Referral Info Transfer to: Home Health Provider in Charge Post Discharge: PCP - Diagnosis (1) DVT of lower extremity (deep venous thrombosis) Priority: Primary Status: Acute (2) MARGOTH (acute kidney injury) Priority: Secondary Status: Resolved (3) Bradycardia Priority: Secondary Status: Resolved (4) Diabetes Priority: Secondary Status: Chronic (5) Hyponatremia Priority: Secondary Status: Resolved (6) Hypotension Priority: Secondary Status: Resolved (7) Leg edema Priority: Secondary Status: Acute (8) Multiple falls Priority: Secondary Status: Acute (9) Essential hypertension Priority: Secondary Status: Chronic - Respiratory Orders Smoking Cessation: Smoking cessation has been advised. For more information, call the [place] Tobacco Quit Line at 5-367-FEFZ-NOW. - Diet/Nutrition Diet/Nutrition Orders: Cardiac, No Concentrated Sweets (diabetic) - Activity Activity Orders: Walker - Services Needed Following services are medically necessary services: Home Health Aide, Physical Therapy, Occupational Therapy, Med Social Work - Transfer Medications Prescriptions: Enoxaparin [Lovenox] 90 mg SQ Q12HCO #10 syringe Warfarin [Coumadin] 5 mg PO 1800 #30 tablet Home Medications: Alprazolam [Xanax] 0.25 mg PO QID 04/20/15 [History] Aspirin Enteric Coated [Aspirin EC] 162 mg PO DAILY 04/20/15 [History] Furosemide [Lasix] 40 mg PO BID 04/20/15 [History] Hydrocodone/Acetaminophen [[place] 10-325 Tablet] 1 tab PO Q4H PRN 04/20/15 [ History] [place]-3S/Dha/Epa/Fish Oil [Fish Oil 1,200 mg Softgel] 1,200 mg PO DAILY [History] Omeprazole [PriLOSEC] 20 mg PO DAILY 04/20/15 [History] Ranitidine HCl [Zantac] 150 mg PO BID 04/20/15 [History] Simvastatin [Zocor] 40 mg PO HS 04/20/15 [History] Tizanidine [Zanaflex] 4 mg PO Q8H 04/20/15 [History] Gabapentin [Neurontin] 400 mg PO BID 02/18/16 [History] FLUoxetine HCl [Prozac] 40 mg PO DAILY 04/15/17 [History] Levothyroxine Sodium 200 mcg PO DAILY 04/15/17 [History] Insulin ASPART [Novolog Flexpen] 15 unit SQ TID 30 Days #2 insuln.pen 04/16/17 [ Rx] Insulin Glargine,Hum.rec.anlog [Lantus Solostar] 25 unit SQ BID 30 Days #2 insuln.pen 04/16/17 [Rx] Enalapril Maleate [Vasotec] 15 mg PO BID #45 tablet 04/29/17 [Rx] Metoprolol [Lopressor] 12.5 mg PO BID #30 tablet 04/29/17 [Rx] Ondansetron ODT [Zofran ODT] 4 mg SL Q8HR PRN 06/11/17 [History] Enoxaparin [Lovenox] 90 mg SQ Q12HCO #10 syringe 06/13/17 [Rx] Warfarin [Coumadin] 5 mg PO 1800 #30 tablet 06/13/17 [Rx] Allergies/Adverse Reactions: 3 Allergy/AdvReac Type Severity Reaction Status Date / Time Cefadroxil Allergy Difficulty Verified 04/27/17 10:41 Breathing Iodinated Contrast- Oral and Allergy shortness Verified 04/27/17 17:30 IV Dye of breath Penicillins [PCN] Allergy Hives Verified 04/27/17 10:41 ciprofloxacin [From Cipro] AdvReac Itching Verified 04/27/17 17:30 ibuprofen AdvReac tacycardia Verified 04/27/17 10:41 levofloxacin [From Levaquin] AdvReac Vomiting Verified 04/27/17 10:41 Certification: Further, I certify that my clinical findings support that this patient is homebound (i.e. absences from home require considerable and taxing effort and are for medical reasons or amish services or infrequently or short duration when for other reasons) because: Homebound Reason: Patient requires assistance of a person or device to safely leave home Attestation: My signature below is to certify that this patient is under my care and that I, or nurse practitioner, or a physician's sugar laboratory assistant working with me, has a face-to -face encounter with this patient.
[2017-06-13] MEDS ORDERED: *HR* Warfarin 5 MG TABLET PO ONE (14:23)
--- NOTE | 2017-06-14 15:44 | Electrocardiograph Report ---
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
== END 2017-06-13 15:25 | disposition home health service (06) | DRG 300 ==
LOC: EMEROO 09:32 → 2NENU 09:32
PROVIDERS: ADMIT Nurse Practitioner; ATTEND Internal Medicine

== ENCOUNTER 2017-08-07 08:00 | Inpatient (IN) ==
[2017-08-07] MEDS ORDERED: 0.9 % Sodium Chloride 500 ML ONE (08:13)
[2017-08-07] MEDS ORDERED: 0.9 % Sodium Chloride 500 ML IVC ONE (08:16)
--- NOTE | 2017-08-07 08:18 | Emergency Department Note ---
Disposition Clinical Impression: Bradycardia, Acute kidney injury, Hyperglycemia Hypotension Qualifiers: Hypotension type: unspecified hypotension type Qualified Code(s): I95.9 - Hypotension, unspecified Disposition: Admitted As Inpatient Condition: Fair Time of Disposition: 09:53 General Adult HPI - General Chief complaint: ED Dizziness Stated complaint: Hypotension Time Seen by Provider: 08/07/17 08:07 Source: patient, family Mode of arrival: wheelchair Limitations: no limitations Nursing Notes Reviewed: Yes Vital Signs Reviewed: Yes - History of Present Illness HPI Narrative: 62-year-old female with extensive history of A. fib, DVT in her lower legs on anticoagulation with Coumadin, congestive heart failure, COPD presents for evaluation of low blood pressure. Patient states that she took her blood pressure medications this morning and then noted to be her blood pressure of 67/ 48. Patient states that her only symptom is slight disorientation. Patient denies any fevers or dyspnea. Patient reports a cough that she was getting a cold. Patient denies any chest pain. Abdominal pain. Patient denies any recent changes in her medications. Patient denies any dysuria. No difficulty urinating. Pain Scale: 0 - Related Data Home Medications Medication Instructions Recorded Confirmed Alprazolam [Xanax] 0.25 mg PO QID 04/20/15 08/07/17 Aspirin Enteric Coated [Aspirin EC] 162 mg PO DAILY 04/20/15 08/07/17 Furosemide [Lasix] 40 mg PO BID 04/20/15 08/07/17 Hydrocodone/Acetaminophen [[place] 1 tab PO Q4H PRN 04/20/15 08/07/17 10-325 Tablet] [place]-3S/Dha/Epa/Fish Oil [Fish 1,200 mg PO DAILY 04/20/15 08/07/17 Oil 1,200 mg Softgel] Omeprazole [PriLOSEC] 20 mg PO DAILY 04/20/15 08/07/17 Ranitidine HCl [Zantac] 150 mg PO BID 04/20/15 08/07/17 Simvastatin [Zocor] 40 mg PO HS 04/20/15 08/07/17 Tizanidine [Zanaflex] 4 mg PO Q8H 04/20/15 08/07/17 Gabapentin [Neurontin] 400 mg PO BID 02/18/16 08/07/17 FLUoxetine HCl [Prozac] 40 mg PO DAILY 04/15/17 08/07/17 Levothyroxine Sodium 200 mcg PO DAILY 04/15/17 08/07/17 Ondansetron ODT [Zofran ODT] 4 mg SL Q8HR PRN 06/11/17 08/07/17 Previous Rx's Medication Instructions Recorded Insulin ASPART [Novolog Flexpen] 15 unit SQ TID 30 Days #2 04/16/17 insuln.pen Insulin Glargine,Hum.rec.anlog 25 unit SQ BID 30 Days #2 04/16/17 [Lantus Solostar] insuln.pen Enalapril Maleate [Vasotec] 15 mg PO BID #45 tablet 04/29/17 Warfarin [Coumadin] 5 mg PO 1800 #30 tablet 06/13/17 Allergies Allergy/AdvReac Type Severity Reaction Status Date / Time Cefadroxil Allergy Difficulty Verified 08/07/17 08:05 Breathing Iodinated Contrast- Oral and Allergy shortness Verified 08/07/17 08:05 IV Dye of breath Penicillins [PCN] Allergy Hives Verified 08/07/17 08:05 ciprofloxacin [From Cipro] AdvReac Itching Verified 08/07/17 08:05 ibuprofen AdvReac tacycardia Verified 08/07/17 08:05 levofloxacin [From Levaquin] AdvReac Vomiting Verified 08/07/17 08:05 All systems ED: reviewed and negative except as stated. Constitutional: Reports: as per HPI. Denies: fever Eyes: Reports: as per HPI ENT ED: Reports: as per HPI Cardiovascular: Reports: as per HPI. Denies: chest pain Respiratory: Reports: as per HPI, cough Gastrointestinal: Reports: as per HPI. Denies: abdominal pain, nausea, vomiting Genitourinary: Reports: as per HPI Musculoskeletal: Reports: as per HPI Integumentary: Reports: as per HPI Neurological: Reports: as per HPI Psychiatric: Reports: as per HPI Endocrine: Reports: as per HPI Hematological/Lymphatic: Reports: as per HPI Past Medical History - Past Medical History Source: patient Medical history: Reports: asthma, atrial fibrillation, CHF, COPD, DVT, diabetes , GERD, GI bleed, hypertension, other Surgical history: Reports: appendectomy, cholecystectomy, hysterectomy, orthopedic, other (Spinal surgery 2016, laminectomy L2-L4, excision of axillary lymph nodes), other (Left knee replacement, cataract surgery, herniorrhaphy) Psychiatric history: Reports: anxiety, depression ORTHOTIC FITTER history: Reports: no ORTHOTIC FITTER history - Social History Smoking Status: Current every day smoker Smokeless Tobacco Status: No Alcohol use: Reports: none Drug use: Reports: none Physical Exam - General Limitations: no limitations General appearance: alert, in no apparent distress - Head Head exam: atraumatic, normocephalic, normal inspection - Eye Eye exam: Present: normal appearance - ENT ENT exam: normal exam, normal oropharynx, mucous membranes moist - Neck Neck exam: Present: normal inspection - Chest Chest inspection: Present: normal inspection - Respiratory Respiratory exam: Present: wheezes. Absent: respiratory distress, accessory muscle use - Cardiovascular Cardiovascular exam: Present: regular rate - Abdominal Exam Abdominal exam: Present: soft, Non-Tender - Extremities Exam Extremities exam: Present: normal inspection, pedal edema - Expanded Lower Extremity Exam Neurovascular/Tendon exam: Present: normal capillary refill - Back Exam Back exam: Present: normal inspection - Neurological Exam Neurological exam: Present: alert, oriented X3, CN II-XII intact - Skin Skin exam: Present: warm, dry, intact, normal color Course Course Narrative: Patient seen and examined. Patient is alert and oriented 3. Patient does have notable hypotension initially on exam. His lab work 500 mL bolus as well as chest x-ray and screening for signs of infection in the chest as well as the urine. Disposition likely admission. Patient does take metoprolol which could explain her bradycardia as well as enaparil. - Reevaluation(s) Reevaluation #1: Seen and examined. Patient's in no acute distress. Patient's blood pressure is 98 systolic. Awaiting labs and urinalysis. Time: 09:07 Vital Signs Temperature 97.7 F 08/07/17 08:01 Pulse Rate 64 08/07/17 08:01 Respiratory Rate 16 08/07/17 08:01 Blood Pressure 67/48 08/07/17 08:01 O2 Sat by Pulse Oximetry 98 08/07/17 08:01 Temperature 97.8 F 08/07/17 10:34 Pulse Rate 75 08/07/17 10:34 Respiratory Rate 20 08/07/17 10:34 Blood Pressure 137/85 08/07/17 10:34 O2 Sat by Pulse Oximetry 93 08/07/17 12:40 Oxygen Delivery Oxygen Delivery Room Air Medical Decision Making - MDM Narrative Medical decision making narrative: Patient presents at triage with a blood pressure of 67/48. Patient stated she did take her blood pressure medications this morning. Patient's only complaint was that she felt disoriented but was alert and appropriate on exam. In denying chest pain towards of breath. Has been having a cough. Is on Coumadin for DVT. Patient had IV fluids. Patient's labs reveal acute kidney injury. The acute kidney injury possibly caused decreased metabolism or excretion of her blood pressure medications. Patient does not appear taken more than her scheduled medications. Patient was bradycardic consistent with her Lopressor. Patient is on an SYED inhibitor. Patient would benefit from inpatient admission to ensure electrolytes as well as blood pressure monitoring. Will possibly need closer monitoring with her blood pressure medications. - Lab Data Lab results reviewed: Yes I reviewed the patient's lab results. Result diagrams: 08/07/17 08:24 08/07/17 08:23 Lab Results 08/07/17 08/07/17 08/07/17 Range/Units 08:23 08:23 08:23 WBC (4.3-11.1) K/mcL RBC (3.82-4.97) M/mcL Hgb (11.5-15.4) g/dL Hct (35.3-44.9) % MCV (83.0-100.0) fL MCH (28.0-33.3) pg MCHC (31.6-35.5) g/dL RDW (11.5-14.5) % Plt Count (140-400) K/mcL MPV (9.4-12.4) fL Immature Gran % (0-4) % Seg Neutrophils % % Lymphocytes % % Monocytes % % Eosinophils % % Basophils % % Neutrophils # (1.6-8.9) K/mcL Lymphocytes # (0.6-4.6) K/mcL Monocytes # (0.0-1.3) K/mcL Eosinophils # (0.0-0.6) K/mcL Basophils # (0.0-0.2) K/mcL PT 26.0 H (9.4-12.1) Seconds INR 2.4 Sodium 128 L (136-145) mEq/L Potassium 4.6 (3.5-5.1) mEq/L Chloride 91 L (98-107) mEq/L Carbon Dioxide 30 H (23-29) mEq/L BUN 40 H (8-23) mg/dL Creatinine 1.52 H (0.60-1.20) mg/dL Est GFR ( Amer) 42 L (> 60) Est GFR (Non-Af Amer) 35 L (> 60) BUN/Creatinine Ratio 26 (6-26) Glucose 374 H (70-105) mg/dL Calculated Osmolality 291 (280-300) Lactic Acid (0.5-2.2) mmol/L Calcium 9.0 (8.6-10.3) mg/dL Troponin I < 0.03 (< 0.04) ng/mL 08/07/17 08/07/17 Range/Units 08:24 08:39 WBC 7.2 (4.3-11.1) K/mcL RBC 4.22 (3.82-4.97) M/mcL Hgb 11.7 (11.5-15.4) g/dL Hct 37.1 (35.3-44.9) % MCV 87.9 (83.0-100.0) fL MCH 27.7 L (28.0-33.3) pg MCHC 31.5 L (31.6-35.5) g/dL RDW 15.0 H (11.5-14.5) % Plt Count 273 (140-400) K/mcL MPV 10.5 (9.4-12.4) fL Immature Gran % 0.4 (0-4) % Seg Neutrophils % 63.4 % Lymphocytes % 26.7 % Monocytes % 7.0 % Eosinophils % 1.8 % Basophils % 0.7 % Neutrophils # 4.6 (1.6-8.9) K/mcL Lymphocytes # 1.9 (0.6-4.6) K/mcL Monocytes # 0.5 (0.0-1.3) K/mcL Eosinophils # 0.1 (0.0-0.6) K/mcL Basophils # 0.1 (0.0-0.2) K/mcL PT (9.4-12.1) Seconds INR Sodium (136-145) mEq/L Potassium (3.5-5.1) mEq/L Chloride (98-107) mEq/L Carbon Dioxide (23-29) mEq/L BUN (8-23) mg/dL Creatinine (0.60-1.20) mg/dL Est GFR ( Amer) (> 60) Est GFR (Non-Af Amer) (> 60) BUN/Creatinine Ratio (6-26) Glucose (70-105) mg/dL Calculated Osmolality (280-300) Lactic Acid 1.8 (0.5-2.2) mmol/L Calcium (8.6-10.3) mg/dL Troponin I (< 0.04) ng/mL - Radiology Data Radiology results reviewed: Yes I reviewed the patient's radiology results. Chest X-Ray 08/07/17 08:15 IMPRESSION: 1. No radiographic abnormality to account for patient's cough. D/ / Robert Alvarez MD / Robetr Alvarez MD Interpreting Provider: Robert Alvarez MD - EKG Data EKG #1 EKG attestation: Yes I reviewed and interpreted this EKG. EKG shows normal: sinus rhythm Rate: bradycardia T wave inversions noted in: aVR QRS morphology: poor R-wave progression Interpretation: no acute changes, unchanged when compared to prior tracing (date ) Sheron - Sheron Situation: Demographics Background: Presenting Complaint Assessment: Vital Signs, Patient/Family Expectation Recommendation: Barrier(s) to disposition, Recommendation based on pending studies, treatments, or consults S.B.Jason Report Given to: Dr. Wandy Holbrook Repor Time: 09:50 Attestation Statement - Attestation Attestation: I examined this patient and my medical decision-making was reviewed with the Resident Physician. I agree with the documented findings, disposition and treatment plan as described except to the extent set forth below. Asymptomatic with low normal BP at time of my evaluation.
[2017-08-07] MEDS ORDERED: Ipratropium/Albuterol Neb 3 ML IH ONE (08:25)
[2017-08-07 08:38] LABS: Basophils # 0.1 K/mcL (0.0-0.2); Basophils % 0.7 %; Eosinophils # 0.1 K/mcL (0.0-0.6); Eosinophils % 1.8 %; Hematocrit 37.1 % (35.3-44.9); Hemoglobin 11.7 g/dL (11.5-15.4); Immature Granulocytes % 0.4 % (0-4); Lymphocytes # 1.9 K/mcL (0.6-4.6); Lymphocytes % 26.7 %; Mean Corpuscular HGB Conc 31.5 g/dL (31.6-35.5); Mean Corpuscular Hemoglobin 27.7 pg (28.0-33.3); Mean Corpuscular Volume 87.9 fL (83.0-100.0); Mean Platelet Volume 10.5 fL (9.4-12.4); Monocytes # 0.5 K/mcL (0.0-1.3); Neutrophils # 4.6 K/mcL (1.6-8.9); Platelet Count 273 K/mcL (140-400); Red Blood Count 4.22 M/mcL (3.82-4.97); Segmented Neutrophils % 63.4 %
[2017-08-07 08:48] LABS: INR 2.4
[2017-08-07 09:00] LABS: Potassium 4.6 mEq/L (3.5-5.1)
[2017-08-07] MEDS ORDERED: Ondansetron ODT 4 MG TAB.RAPDIS SL PRN (10:11)
[2017-08-07] MEDS ORDERED: Acetaminophen 325 MG TABLET PO PRN (10:12)
[2017-08-07] MEDS ORDERED: Naloxone 0.4 MG/ML INJ IVP PRN (10:12)
[2017-08-07] MEDS ORDERED: 0.9 % Sodium Chloride 1,000 ML IVC SCH (10:15)
[2017-08-07 10:19] LABS: Bilirubin,Urine Negative (Negative); Blood,Urine Large (Negative); Clarity,Urine Clear (Clear); Color,Urine Yellow (Yellow); Glucose,Urine (UA) 250 mg/dL (Normal); Ketones,Urine Negative (Negative); Leukocyte Esterase,Urine Negative (Negative); Nitrite,Urine Negative (Negative); PH,Urine 6.5 pH Units (5.0-8.0); Protein,Urine >=300 mg/dL (Neg-Trace); Specific Gravity,Urine 1.011 (1.010-1.025); Urobilinogen,Urine Normal (Normal)
[2017-08-07 10:21] LABS: Bacteria,Urine None Seen per hpf (None-Few); Hyaline Casts,Urine None Seen per lpf (None-Few); RBC,Urine TNTC per hpf (0-3); Squamous Epithelial Cell,Urine Many per lpf (None-Few); WBC,Urine 0-3 per hpf (0-3)
[2017-08-07] MEDS ORDERED: *HR* Dextrose 50 % in Water (Syg) 50 ML SYRINGE IVP PRN (10:48)
[2017-08-07] MEDS ORDERED: D5% in Water 1,000 ML IVC PRN (10:48)
[2017-08-07] MEDS ORDERED: Dextrose Gel 15 GM/37.5 ML TUBE PO PRN ×2 (10:48)
--- NOTE | 2017-08-07 10:53 | Internal Med History&Physical ---
Date of Encounter: 08/07/17 Time of Encounter: 11:04 Assessment and Plan (1) Hypotension Current visit: Yes Status: Acute Multifactorial: Due to blood pressure medications, also patient's on narcotics and other sedating medications. Hypotension resolved with intravenous fluid administration in the ER. At time of review blood pressure was systolic 130s and diastolic 80s. Controlled intravenous fluid hydration. Continue to follow up with home medications and resume when necessary. Qualifiers: Hypotension type: unspecified hypotension type Qualified Code(s): I95.9 - Hypotension, unspecified (2) Umbte-zz-uilwswy kidney injury Current visit: Yes Status: Acute Acute non-oliguric, pre-renal Patient with known chronic kidney disease stage III, with proteinuria, presented with GFR less than 35 to her baseline is greater than 40. Creatinine is also elevated. She also has contraction alkalosis, evidence of dehydration, as well as possible ATN from hypotension She is also taking lasix and ACEI at home Obtain renal ultrasound. Urine analysis noted for significant proteinuria. Hold Enalapril, Lasix, and continue fluid hydration. Strict intake/output measurement Avoid nephrotoxins No current indication for nephrology consultation Qualifiers: Acute renal failure type: unspecified Chronic kidney disease stage: stage 3 (moderate) Qualified Code(s): N17.9 - Acute kidney failure, unspecified; N18.3 - Chronic kidney disease, stage 3 (moderate); N18.3 - Chronic kidney disease, stage 3 (moderate) (3) A-fib Current visit: Yes Status: Chronic HR currently controlled INR therapeutic Continue Warfarin, monitor PT Continue BB Qualifiers: Atrial fibrillation type: chronic Qualified Code(s): I48.2 - Chronic atrial fibrillation (4) COPD (chronic obstructive pulmonary disease) Current visit: Yes Status: Chronic Patient is not wheezing, CXR unremarkable, she did complain of cough, possibly viral bronchitis Duonebs prn No indications for steroids or antibiotics at this time Qualifiers: COPD type: unspecified COPD Qualified Code(s): J44.9 - Chronic obstructive pulmonary disease, unspecified (5) Diabetes Current visit: Yes Status: Chronic Uncontrolled, with hyperglycemia on presentation Check A1C Started on basal, prandial and correctional insulin FSACHS ADA diet Qualifiers: Diabetes mellitus type: type 2 Diabetes mellitus complication status: with kidney complications Diabetes mellitus complication detail: with chronic kidney disease 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 Chronic kidney disease stage: stage 3 (moderate) Qualified Code(s): E11.22 - Type 2 diabetes mellitus with diabetic chronic kidney disease; N18.3 - Chronic kidney disease, stage 3 (moderate); N18.3 - Chronic kidney disease, stage 3 ( moderate); Z79.4 - longterm (current) use of insulin; Z79.4 - longterm ( current) use of insulin; Z79.4 - medical terminologist (current) use of insulin; Z79.4 - longterm (current) use of insulin (6) Essential hypertension Current visit: Yes Status: Chronic Hypotensive on arrival, continue to monitor, hold meds (7) Hyponatremia Current visit: Yes Status: Acute Pseudohyponatremia due to hyperglycemia, corrected glucose is at patient's baseline Internal Medicine - H&P: HPI Chief complaint: My blood pressure has been low Admitted From: Home Plans for Post Hospital Care: Home History of present illness: Ms. Sam is a 62 year old female with medical history of atrial fibrillation, COPD, DVT, CHF with preserved ejection fraction. Chronic pain on multiple sedating medications. Patient was seen and evaluated at the bedside in the emergency room. The patient reports she checked her blood pressure this morning, and discovered her blood pressure was low, with systolic blood pressure in the 60s. She states that she noted this after taking her medications. She denies poor oral intake. She denies any recent changes in the medications. She notes compliance with her medications. She has not noticed any changes in her urinary output, she has no nausea or vomiting, appetite is same, she has no abdominal pain no diarrhea. She has no chest pain, shortness of breath, no confusion. She has no leg edema She however reports that she has been coughing recently. No fever or chills, no sick contact, no sore throat, myalgias and no rhinorrhea. Upon arrival to the ER, her systolic blood pressure was in the 60s. She responded quickly to intravenous fluids. At time of review, fingerstick was 336, and the patient was drowsy but arousable. Workup in the ER revealed Pseudohyponatremia with sodium of 124, INR is therapeutic at 2.4, complete blood count is unremarkable, she has metabolic alkalosis contraction, and activities normal, troponin is normal chest x-rays unremarkable for any infiltrates. Past Med Surg Social Fam HX - Past Medical History Medical history: asthma, atrial fibrillation, CHF, COPD, DVT, diabetes, GERD, GI bleed, hypertension, other Psychiatric history: anxiety, depression - Past Surgical History Surgical History: appendectomy, cholecystectomy, hysterectomy, orthopedic, other (Spinal surgery 2016, laminectomy L2-L4, excision of axillary lymph nodes) , other (Left knee replacement, cataract surgery, herniorrhaphy) - Social History Smoking Status: Current every day smoker Smokeless Tobacco Status: No Alcohol use: none Drug use: none - Family History Mother Adopted: No Hx Family Endocrine Disorder: Yes (dm) Internal Medicine - H&P: Meds Alprazolam [Xanax] 0.25 mg PO QID 04/20/15 [History] Aspirin Enteric Coated [Aspirin EC] 162 mg PO DAILY 04/20/15 [History] Furosemide [Lasix] 40 mg PO BID 04/20/15 [History] Hydrocodone/Acetaminophen [[place] 10-325 Tablet] 1 tab PO Q4H PRN 04/20/15 [ History] [place]-3S/Dha/Epa/Fish Oil [Fish Oil 1,200 mg Softgel] 1,200 mg PO DAILY [History] Omeprazole [PriLOSEC] 20 mg PO DAILY 04/20/15 [History] Ranitidine HCl [Zantac] 150 mg PO BID 04/20/15 [History] Simvastatin [Zocor] 40 mg PO HS 04/20/15 [History] Tizanidine [Zanaflex] 4 mg PO Q8H 04/20/15 [History] Gabapentin [Neurontin] 400 mg PO BID 02/18/16 [History] FLUoxetine HCl [Prozac] 40 mg PO DAILY 04/15/17 [History] Levothyroxine Sodium 200 mcg PO DAILY 04/15/17 [History] Insulin ASPART [Novolog Flexpen] 15 unit SQ TID 30 Days #2 insuln.pen 04/16/17 [ Rx] Insulin Glargine,Hum.rec.anlog [Lantus Solostar] 25 unit SQ BID 30 Days #2 insuln.pen 04/16/17 [Rx] Enalapril Maleate [Vasotec] 15 mg PO BID #45 tablet 04/29/17 [Rx] Ondansetron ODT [Zofran ODT] 4 mg SL Q8HR PRN 06/11/17 [History] Warfarin [Coumadin] 5 mg PO 1800 #30 tablet 06/13/17 [Rx] 3 Allergy/AdvReac Type Severity Reaction Status Date / Time Cefadroxil Allergy Difficulty Verified 08/07/17 08:05 Breathing Iodinated Contrast- Oral and Allergy shortness Verified 08/07/17 08:05 IV Dye of breath Penicillins [PCN] Allergy Hives Verified 08/07/17 08:05 ciprofloxacin [From Cipro] AdvReac Itching Verified 08/07/17 08:05 ibuprofen AdvReac tacycardia Verified 08/07/17 08:05 levofloxacin [From Levaquin] AdvReac Vomiting Verified 08/07/17 08:05 All Systems PM: A 10-system review of systems was performed and is negative for pertinent findings except as documented above in the HPI. - Constitutional Constitutional: as per HPI - EENT Eyes: as per HPI Ears: as per HPI Nose, mouth and throat: as per HPI - Cardiovascular Cardiovascular ROS IM: as per HPI - Respiratory Respiratory: as per HPI - Gastrointestinal Gastrointestinal: as per HPI - Genitourinary Genitourinary: as per HPI - Musculoskeletal Musculoskeletal ROS IM: as per HPI - Integumentary Integumentary IM: as per HPI - Neurological Neurological ROS: as per HPI - Hematologic/Lymphatic Hematologic/Lymphatic: as per HPI - Constitutional Vitals: Temp Pulse Resp BP Pulse Ox 97.8 F 75 20 137/85 93 08/07/17 10:34 08/07/17 10:34 08/07/17 10:34 08/07/17 10:34 08/07/17 10:34 General appearance: Present: A&O X 3 (sleeping but rousable, ), no acute distress, obese - Head Head exam: Present: atraumatic, normocephalic - Eye Eye exam: Present: PERRL, conjuntiva pink, sclera anicteric Pupils: Present: PERRL - Neck Neck exam general surgery: Present: supple, trachea midline. Absent: lymphadenopathy - Respiratory Additional comments: inspiratory crackles, clears with cough - Cardiovascular Cardiovascular exam: Present: RRR, +S1, +S2. Absent: diastolic murmur, gallop, rubs, systolic murmur - GI/Abdominal GI/Abdominal exam: Present: normal bowel sounds, soft, no peritoneal signs. Absent: distended, tenderness - Extremities Exam Extremities exam: Present: warm, radial pulses palpable and symmetrical. Absent : calf tenderness, cyanotic, pedal edema - Neurological Exam Neurological exam: Present: alert, CN II-XII intact, oriented X3, no focal deficits. Absent: pronater drift, facial droop, speech deficit - Skin Skin exam: Present: dry, intact Internal Med - H&P Results - Labs CBC & Chem 7: 08/07/17 08:24 08/07/17 08:23 Labs: Urine 08/07/17 Range/Units 10:06 Urine Color Yellow (Yellow) Urine Clarity Clear (Clear) Urine pH 6.5 (5.0-8.0) pH Units Ur Specific [place] 1.011 (1.010-1.025) Urine Protein >=300 H (Neg-Trace) mg/dL Urine Glucose (UA) 250 H (Normal) mg/dL
[2017-08-07] MEDS ORDERED: Ipratropium/Albuterol Neb 3 ML IH PRN (11:14)
[2017-08-07] MEDS: ALPRAZolam 0.25 MG TABLET PO SCH ×3 (11:57→22:00)
[2017-08-07] MEDS: tiZANidine 4 MG TABLET PO SCH ×2 (11:57→22:00)
[2017-08-07] MEDS: Insulin LISPRO 300 UNITS/3 ML VIAL SQ SCH ×4 (11:58→16:55)
[2017-08-07] MEDS: Insulin DETEMIR 100 UNIT/ML X5UNITS SQ SCH ×2 (14:49→22:00)
--- NOTE | 2017-08-07 17:25 | Electrocardiograph Report ---
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
[2017-08-07] MEDS ORDERED: *HR* Warfarin 5 MG TABLET PO SCH (18:00)
[2017-08-07] MEDS: *HR* HYDROcodone/Acet 10/325 mg TABLET PO PRN ×2 (19:44→23:59)
[2017-08-07] MEDS ORDERED: Insulin LISPRO 300 UNITS/3 ML VIAL SQ SCH (21:00)
[2017-08-07] MEDS: Gabapentin 400 MG CAPSULE PO SCH (21:59)
[2017-08-07] MEDS: Nystatin POWDER 30 GM BOTTLE TP SCH (22:02)
[2017-08-08] MEDS: *HR* HYDROcodone/Acet 10/325 mg TABLET PO PRN ×2 (04:42→09:47)
[2017-08-08 05:19] LABS: Basophils # 0.1 K/mcL (0.0-0.2); Basophils % 0.8 %; Eosinophils # 0.2 K/mcL (0.0-0.6); Eosinophils % 3.8 %; Hematocrit 39.3 % (35.3-44.9); Hemoglobin 12.8 g/dL (11.5-15.4); Immature Granulocytes % 0.2 % (0-4); Lymphocytes # 2.1 K/mcL (0.6-4.6); Lymphocytes % 33.7 %; Mean Corpuscular HGB Conc 32.6 g/dL (31.6-35.5); Mean Corpuscular Hemoglobin 28.4 pg (28.0-33.3); Mean Corpuscular Volume 87.3 fL (83.0-100.0); Mean Platelet Volume 10.3 fL (9.4-12.4); Monocytes # 0.5 K/mcL (0.0-1.3); Monocytes % 8.3 %; Neutrophils # 3.4 K/mcL (1.6-8.9); Platelet Count 268 K/mcL (140-400); Red Cell Distribution Width 14.7 % (11.5-14.5); Segmented Neutrophils % 53.2 %
[2017-08-08 05:30] LABS: Hemoglobin A1C 10.5 %
[2017-08-08 05:34] LABS: INR 2.6; Prothrombin Time 28.9 Seconds (9.4-12.1)
[2017-08-08 05:36] LABS: Activated Partial Thrombo Time 38.3 Seconds (26.0-36.0)
[2017-08-08] MEDS: tiZANidine 4 MG TABLET PO SCH ×2 (05:54→14:18)
[2017-08-08 05:59] LABS: BUN/Creatinine Ratio 32 (6-26); Blood Urea Nitrogen 30 mg/dL (8-23); Carbon Dioxide 32 mEq/L (23-29); Chloride 98 mEq/L (98-107); Glucose 148 mg/dL (70-105); Osmolality,Calculated 291 (280-300); Potassium 3.9 mEq/L (3.5-5.1); Sodium 136 mEq/L (136-145); eGFR For African Americans > 60 (> 60); eGFR For Non-African Americans > 60 (> 60)
[2017-08-08] MEDS ORDERED: DHA PO SCH (09:00)
[2017-08-08] MEDS ORDERED: OMEGA PO SCH (09:00)
[2017-08-08] MEDS ORDERED: Famotidine 20 MG TABLET PO SCH (09:00)
[2017-08-08] MEDS ORDERED: FISH OIL PO SCH (09:00)
[2017-08-08] MEDS ORDERED: Aspirin Enteric Coated 81 MG Tablet PO SCH (09:00)
[2017-08-08] MEDS ORDERED: FLUoxetine 20 MG CAPSULE PO SCH (09:00)
[2017-08-08] MEDS ORDERED: EPA PO SCH (09:00)
[2017-08-08] MEDS: ALPRAZolam 0.25 MG TABLET PO SCH ×2 (09:47→14:18)
[2017-08-08] MEDS: Insulin LISPRO 300 UNITS/3 ML VIAL SQ SCH ×4 (09:48→12:09)
[2017-08-08] MEDS: Gabapentin 400 MG CAPSULE PO SCH (09:50)
[2017-08-08] MEDS: Insulin DETEMIR 100 UNIT/ML X5UNITS SQ SCH (12:08)
[2017-08-08] MEDS: Nystatin POWDER 30 GM BOTTLE TP SCH (14:19)
[2017-08-08 16:17] VITALS: BP 132/82
--- NOTE | 2017-08-08 18:16 | Discharge Summary ---
Procedures/tests Complete & Pending: Procedures Performed prior 72 hours Category Date Time Status Retroperitoneal Ultrasound - Complete [US Exams 08/07/17 15:00 Completed retroperitoneal comp] [US] Routine Date of Encounter: 08/08/17 Time of Encounter: 16:00 - Discharge Diagnosis (1) Hypotension Priority: Primary Status: Resolved Comments: Multifactorial: Due to blood pressure medications, also patient's on narcotics and other sedating medications. Hypotension resolved with intravenous fluid administration in the ER. Cont home BP medications except SYED Qualifiers: Hypotension type: unspecified hypotension type Qualified Code(s): I95.9 - Hypotension, unspecified (2) Uumrr-nt-dnocvjn kidney injury Priority: Primary Status: Acute Comments: Acute non-oliguric, pre-renal Patient with known chronic kidney disease stage III, with proteinuria, presented with GFR less than 35 to her baseline is greater than 40. Creatinine is also elevated. She also has contraction alkalosis, evidence of dehydration, as well as possible ATN from hypotension. Renal function returned to near baseline at time of discahrge. Cont holding home SYED. Follow-up with Nephrology outpatient Qualifiers: Acute renal failure type: unspecified Chronic kidney disease stage: stage 3 (moderate) Qualified Code(s): N17.9 - Acute kidney failure, unspecified; N18.3 - Chronic kidney disease, stage 3 (moderate); N18.3 - Chronic kidney disease, stage 3 (moderate) (3) Hyponatremia Priority: Secondary Status: Acute Comments: Pseudohyponatremia due to hyperglycemia, corrected glucose is at patient's baseline (4) COPD (chronic obstructive pulmonary disease) Priority: Secondary Status: Chronic Comments: per hx. patient is not wheezing, CXR unremarkable. No indications for steroids or antibiotics at this time Qualifiers: COPD type: unspecified COPD Qualified Code(s): J44.9 - Chronic obstructive pulmonary disease, unspecified (5) A-fib Priority: Secondary Status: Chronic Comments: HR currently controlled INR therapeutic Continue Warfarin Continue BB Qualifiers: Atrial fibrillation type: chronic Qualified Code(s): I48.2 - Chronic atrial fibrillation (6) CKD (chronic kidney disease) stage 3, GFR 30-59 ml/min Priority: Secondary Status: Chronic (7) Diabetes Priority: Secondary Status: Chronic Comments: Uncontrolled, with hyperglycemia on presentation Check A1C Started on basal, prandial and correctional insulin FSACHS ADA diet Qualifiers: Diabetes mellitus type: type 2 Diabetes mellitus complication status: with kidney complications Diabetes mellitus complication detail: with chronic kidney disease 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 termite renewal inspector use Chronic kidney disease stage: stage 3 (moderate) Qualified Code(s): E11.22 - Type 2 diabetes mellitus with diabetic chronic kidney disease; N18.3 - Chronic kidney disease, stage 3 (moderate); N18.3 - Chronic kidney disease, stage 3 ( moderate); Z79.4 - termination clerk (current) use of insulin; Z79.4 - nursing home ( current) use of insulin; Z79.4 - nursing home (current) use of insulin; Z79.4 - nursing home (current) use of insulin Hospital course: See assessment and plan for hospital course - Time Spent with Patient Total time spent providing and/or coordinating discharge services: - Discharge Medications Home Medications: Alprazolam [Xanax] 0.25 mg PO QID 04/20/15 [History] Aspirin Enteric Coated [Aspirin EC] 162 mg PO DAILY 04/20/15 [History] Furosemide [Lasix] 40 mg PO BID 04/20/15 [History] Hydrocodone/Acetaminophen [[place] 10-325 Tablet] 1 tab PO Q4H PRN 04/20/15 [ History] [place] [employer]-3S/Dha/Epa/Fish Oil [Fish Oil 1,200 mg Softgel] 1,200 mg PO DAILY [History] Omeprazole [PriLOSEC] 20 mg PO DAILY 04/20/15 [History] Ranitidine HCl [Zantac] 150 mg PO BID 04/20/15 [History] Simvastatin [Zocor] 40 mg PO HS 04/20/15 [History] Tizanidine [Zanaflex] 4 mg PO Q8H 04/20/15 [History] Gabapentin [Neurontin] 400 mg PO BID 02/18/16 [History] FLUoxetine HCl [Prozac] 40 mg PO DAILY 04/15/17 [History] Levothyroxine Sodium 200 mcg PO DAILY 04/15/17 [History] Insulin ASPART [Novolog Flexpen] 15 unit SQ TID 30 Days #2 insuln.pen 04/16/17 [ Rx] Insulin Glargine,Hum.rec.anlog [Lantus Solostar] 25 unit SQ BID 30 Days #2 insuln.pen 04/16/17 [Rx] Ondansetron ODT [Zofran ODT] 4 mg SL Q8HR PRN 06/11/17 [History] Warfarin [Coumadin] 5 mg PO 1800 #30 tablet 06/13/17 [Rx] Allergies/Adverse Reactions: 3 Allergy/AdvReac Type Severity Reaction Status Date / Time Cefadroxil Allergy Difficulty Verified 08/07/17 08:05 Breathing Iodinated Contrast- Oral and Allergy shortness Verified 08/07/17 08:05 IV Dye of breath Penicillins [PCN] Allergy Hives Verified 08/07/17 08:05 ciprofloxacin [From Cipro] AdvReac Itching Verified 08/07/17 08:05 ibuprofen AdvReac tacycardia Verified 08/07/17 08:05 levofloxacin [From Levaquin] AdvReac Vomiting Verified 08/07/17 08:05 Date of admission: 08/07/17 10:04 Primary care physician: Jim Castellano Consults: 08/07/17 11:02 Consult to Slip Cover Cutter [CONS] Routine Reason for SW Consult: multiple fall history. Discharging clinician: Skylar Baumann Anticipated date of discharge: 08/08/17 - Constitutional Vitals: Temp Pulse Resp BP Pulse Ox 98.5 F 77 16 132/82 93 08/08/17 15:00 08/08/17 15:00 08/08/17 15:00 08/08/17 15:00 08/08/17 15:00 General appearance: Present: A&O X 3 (sleeping but rousable, ), no acute distress, obese - Head Head exam: Present: atraumatic, normocephalic - Eye Eye exam: Present: PERRL, conjuntiva pink, sclera anicteric Pupils: Present: PERRL - Neck Neck exam general surgery: Present: supple, trachea midline. Absent: lymphadenopathy - Respiratory Respiratory exam: Present: CTAB. Absent: accessory muscle use, rales, rhonchi, wheezes - Cardiovascular Cardiovascular exam: Present: RRR, +S1, +S2. Absent: diastolic murmur, gallop, rubs, systolic murmur - GI/Abdominal GI/Abdominal exam: Present: normal bowel sounds, soft, no peritoneal signs. Absent: distended, tenderness - Extremities Exam Extremities exam: Present: warm, radial pulses palpable and symmetrical. Absent : calf tenderness, cyanotic, pedal edema - Neurological Exam Neurological exam: Present: CN II-XII intact, oriented X3, no focal deficits. Absent: pronater drift, facial droop, speech deficit - Skin Skin exam: Present: dry, intact - Patient Status Disposition: Home, Self-Care Condition: Good Functional capacity at discharge: independent ambulation Overall status at discharge: patient is back to baseline - Discharge Instructions Follow Up With: Kodak Bates DO [Primary Care Provider] - 08/21/17 2:45 pm Additional Instructions: Do not take any blood pressure medications. If blood pressure is above 140 then contact your physician. - Diet and Activity Activity: increase activity as tolerated Diet: diabetic diet, low fat, low cholesterol
== END 2017-08-08 19:02 | disposition home or self-care (01) | DRG 683 ==
LOC: EMEROO 08:00 → 2SOUTHHOLD 10:04 → 3BNU 17:50
PROVIDERS: ADMIT Internal Medicine; ATTEND Family Medicine

== ENCOUNTER 2017-09-05 11:04 | Inpatient (IN) ==
[2017-09-05] MEDS ORDERED: 0.9 % Sodium Chloride 1,000 ML IVC ONE ×3 (11:11→12:12)
[2017-09-05 11:42] LABS: Basophils % 0.5 %; Eosinophils # 0.1 K/mcL (0.0-0.6); Eosinophils % 1.4 %; Hematocrit 35.4 % (35.3-44.9); Hemoglobin 11.3 g/dL (11.5-15.4); Immature Granulocytes % 0.4 % (0-4); Lymphocytes % 23.8 %; Mean Corpuscular HGB Conc 31.9 g/dL (31.6-35.5); Mean Corpuscular Hemoglobin 28.4 pg (28.0-33.3); Mean Corpuscular Volume 88.9 fL (83.0-100.0); Monocytes # 0.5 K/mcL (0.0-1.3); Monocytes % 6.3 %; Neutrophils # 5.7 K/mcL (1.6-8.9); Platelet Count 372 K/mcL (140-400); Red Blood Count 3.98 M/mcL (3.82-4.97); Red Cell Distribution Width 13.7 % (11.5-14.5); Segmented Neutrophils % 67.6 %
--- NOTE | 2017-09-05 11:46 | Emergency Department Note ---
START Narrative - START START: I examined this patient and my medical decision-making was reviewed with the emergency medicine resident. I agree with the documented findings, disposition and treatment plan as described except to the extent set forth below. Patient seen with emergency medicine resident Dr. SEUN DAMON, Please see a copy of his note for details of the H&P, ED evaluation, management and disposition. I have independently evaluated the patient and confirmed appropriate portions of the history and physical exam. Briefly: 60-year-old female by EMS for decreased responsiveness. Patient was seen at home yesterday by EMS were "unresponsiveness" she had a low blood sugar. The got a reading of 80. Her mentation improved and happened again today. Upon arrival in the ED her blood sugar was actually 385, she was seems somnolent but is able to maintain her airway and answers some questions but was able to follow commands but with minimal strength in all of her extremities due to fatigue. Patient's significant other grandson right bedside. Stated that she has a DO NOT RESUSCITATE paper at home. That they will get later. Patient's blood pressures about 80/50% recent sepsis or shock present. Patient will get IV fluids patient will get screening labs including a randomized cortisol level she will then get a stress dose of travel. Admission to the unit is anticipated she is to large-bore peripheral IVs at this time. Provided 45 minutes of critical care service for this patient.
[2017-09-05 11:47] LABS: Bilirubin,Urine Negative (Negative); Blood,Urine Large (Negative); Clarity,Urine Clear (Clear); Color,Urine Yellow (Yellow); Glucose,Urine (UA) >=1000 mg/dL (Normal); Ketones,Urine Negative (Negative); Leukocyte Esterase,Urine Negative (Negative); Nitrite,Urine Negative (Negative); PH,Urine 6.5 pH Units (5.0-8.0); Protein,Urine >=300 mg/dL (Neg-Trace); Urobilinogen,Urine Normal (Normal)
[2017-09-05 11:49] LABS: Ethanol < 10 mg/dL (0-10)
[2017-09-05 11:50] LABS: Bacteria,Urine None Seen per hpf (None-Few); Hyaline Casts,Urine None Seen per lpf (None-Few); RBC,Urine TNTC per hpf (0-3); Squamous Epithelial Cell,Urine Moderate per lpf (None-Few); WBC,Urine 0-3 per hpf (0-3)
[2017-09-05 11:54] LABS: Activated Partial Thrombo Time 51.8 Seconds (26.0-36.0)
[2017-09-05 11:57] LABS: INR 4.6; Prothrombin Time 51.6 Seconds (9.4-12.1)
[2017-09-05] MEDS ORDERED: methylPREDNISolone 125 MG/2 ML VIAL IVP ONE (11:58)
--- NOTE | 2017-09-05 12:02 | Emergency Department Note ---
Disposition Clinical Impression: Acute encephalopathy, Hyperglycemia, Supratherapeutic INR, Hyponatremia Aqsoo-fs-sryybsw kidney injury Qualifiers: Acute renal failure type: unspecified Chronic kidney disease stage: stage 3 ( moderate) Qualified Code(s): N17.9 - Acute kidney failure, unspecified Disposition: Admitted As Inpatient Condition: Good Time of Disposition: 14:07 Altered Mental Status HPI - General Chief Complaint: ED Altered Mental Status Stated Complaint: AMS Time Seen by Provider: 09/05/17 11:06 Source: patient, family Limitations: altered mental status Nursing Notes Reviewed: Yes Vital Signs Reviewed: Yes - History of Present Illness HPI Narrative: 60-year-old female presents with history diabetes, by EMS for symptoms of confusion, last dose yesterday evening, the paramedics went to their house found to be hypoglycemic, treat her with some fluids and candy, she felt better , but this morning she woke up not remember what happened, her grandson and her significant other brought her to the emergency department she was weak and confused. No focal deficits, the patient is able to give some history however some history is obtained from the family at the bedside. Basic that she is worse in her baseline, but she has had episodes of confusion though responsive to fluid rehydration the past. No history of CVA she is on Coumadin for atrial fibrillation. Patient denies chest pain, abdominal pain, headache. Denies trauma. MD complaint: altered mental status, confusion Onset (ago): hour(s) Timing confirmed by: spouse, family member Pain Severity: mild Consistency of Symptoms: waxing and waning, getting worse Context: diabetes Associated symptoms: Reports: malaise, weakness. Denies: chest pain, cough, diaphoresis, headaches, nausea/vomiting, shortness of breath, foul smelling urine Treatments prior to arrival: IV fluid - Related Data Home Medications Medication Instructions Recorded Confirmed Alprazolam [Xanax] 0.25 mg PO QID 04/20/15 09/05/17 Aspirin Enteric Coated [Aspirin EC] 162 mg PO DAILY 04/20/15 09/05/17 Furosemide [Lasix] 40 mg PO BID 04/20/15 09/05/17 Hydrocodone/Acetaminophen [[place] 1 tab PO Q4H PRN 04/20/15 09/05/17 10-325 Tablet] Kimberly-3S/Dha/Epa/Fish Oil [Fish 1,200 mg PO DAILY 04/20/15 09/05/17 Oil 1,200 mg Softgel] Omeprazole [PriLOSEC] 20 mg PO DAILY 04/20/15 09/05/17 Ranitidine HCl [Zantac] 150 mg PO BID 04/20/15 09/05/17 Simvastatin [Zocor] 40 mg PO HS 04/20/15 09/05/17 Tizanidine [Zanaflex] 4 mg PO Q8H 04/20/15 09/05/17 Gabapentin [Neurontin] 400 mg PO BID 02/18/16 09/05/17 FLUoxetine HCl [Prozac] 40 mg PO DAILY 04/15/17 09/05/17 Levothyroxine Sodium 200 mcg PO DAILY 04/15/17 09/05/17 Ondansetron ODT [Zofran ODT] 4 mg SL Q8HR PRN 06/11/17 09/05/17 Cyclobenzaprine HCl 5 mg PO TID 09/05/17 09/05/17 Insulin ASPART [Novolog Flexpen] 20 - 30 unit SQ TID 09/05/17 09/05/17 Warfarin [Coumadin] 5 mg PO MOWETHSA 09/05/17 09/05/17 Warfarin [Coumadin] 7.5 mg PO SUTUFR 09/05/17 09/05/17 Previous Rx's Medication Instructions Recorded Insulin Glargine,Hum.rec.anlog 25 unit SQ BID 30 Days #2 04/16/17 [Lantus Solostar] insuln.pen Allergies Allergy/AdvReac Type Severity Reaction Status Date / Time Cefadroxil Allergy Difficulty Verified 09/05/17 11:13 Breathing Iodinated Contrast- Oral and Allergy shortness Verified 09/05/17 11:13 IV Dye of breath Penicillins [PCN] Allergy Hives Verified 09/05/17 11:13 ciprofloxacin [From Cipro] AdvReac Itching Verified 09/05/17 11:13 ibuprofen AdvReac tacycardia Verified 09/05/17 11:13 levofloxacin [From Levaquin] AdvReac Vomiting Verified 09/05/17 11:13 All systems ED: reviewed and negative except as stated. Review of Systems: As Per HPI Limitations: ROS unobtainable due to patients medical condition (review of systems limited secondary to patients condition) Constitutional: Denies: fever Cardiovascular: Denies: chest pain Respiratory: Denies: cough, dyspnea Gastrointestinal: Denies: abdominal pain Musculoskeletal: Denies: back pain Neurological: Denies: headache Past Medical History - Past Medical History Attestation: Yes The following information was validated with the patient. Source: patient Medical history: Reports: asthma, atrial fibrillation, CHF, COPD, DVT, diabetes , GERD, GI bleed, hypertension, other Surgical history: Reports: appendectomy, cholecystectomy, hysterectomy, orthopedic, other (Spinal surgery 2016, laminectomy L2-L4, excision of axillary lymph nodes), other (Left knee replacement, cataract surgery, herniorrhaphy) Psychiatric history: Reports: anxiety, depression VISUALIZER history: Reports: no VISUALIZER history - Social History Smoking Status: Current every day smoker Smokeless Tobacco Status: No Alcohol use: Reports: none Drug use: Reports: none Physical Exam - General Limitations: altered mental status General appearance: lethargic - Head Head exam: other (right superficial hematoma at hairline) - Eye Eye exam: Present: PERRL, miosis - ENT ENT exam: mucous membranes dry - Neck Neck exam: Present: normal inspection, full ROM - Chest Chest inspection: Present: normal inspection - Respiratory Respiratory exam: Present: normal lung sounds bilaterally. Absent: respiratory distress - Cardiovascular Cardiovascular exam: Present: regular rate, normal rhythm - Abdominal Exam Abdominal exam: Present: soft. Absent: Non-Tender - Extremities Exam Extremities exam: Present: normal inspection, full ROM - Neurological Exam Neurological exam: Present: oriented X3 (2), CN II-XII intact. Absent: alert - Expanded Neurological Exam Motor strength - LUE: 5/5 Motor strength - RUE: 5/5 Motor strength - LLE: 5/5 Motor strength - RLE: 5/5 Coma Scale Eye Opening: To Voice Coma Scale Motor Response: Obeys Commands Coma Scale Verbal Response: Confused Coma Scale Total: 13 - Psychiatric Psychiatric exam: Present: normal affect - Skin Skin exam: Present: dry Course Course Narrative: 60-year-old female presents with confusion, emergency cyst she has her eyes closed but she is somewhat of a reliable historian, patient expresses DNR CCA wishes, however her daughter was on initially available she did a lot of bedside and this was confirmed. DNR CCA, the patient was hypotensive and bradycardic sinus bradycardia, she is on beta sarthak, concern for myxedema coma [place] adrenal suppression, stroke CVA troponin CBC BMP, complete metabolic pale basic lab work including TSH ammonia drug screen ethanol level ordered. Immediate 2 L of fluid resuscitation was also ordered. Her blood glucose is 374 - Reevaluation(s) Reevaluation #1: 2 18-gauge IVs were placed, the patient was adequately fluid resuscitated to blood pressure 130/80 with still another half of a liter going, should normal thyroid, no evidence of infectious process, no anion gap, limited for lethargy acute encephalopathy, and hyperglycemia, the patient has no anion gap does not required a insulin drip, she does have a supra therapeutic INR, and a right total scalp hematoma, sits possible that she did have a trauma and she has concussed. But she has no evidence of ICH. Admitted to Dr Soares Time: 14:07 Vital Signs Temperature 98.1 F 09/05/17 11:07 Pulse Rate 59 09/05/17 11:07 Respiratory Rate 16 09/05/17 11:07 Blood Pressure 72/44 09/05/17 11:07 O2 Sat by Pulse Oximetry 89 09/05/17 11:07 Temperature 98.1 F 09/05/17 11:07 Pulse Rate 64 09/05/17 13:00 Respiratory Rate 16 09/05/17 13:00 Blood Pressure 131/69 09/05/17 13:00 O2 Sat by Pulse Oximetry 100 09/05/17 13:00 Oxygen Delivery Oxygen Delivery Nasal Cannula Altered Mental Status - Differential Diagnosis Likely: alcoholic intoxication, altered mental status, delirium, hypoglycemia, hyponatremia - Medical Records Medical records reviewed: Yes I reviewed the patient's medical records. - Lab Data Lab results reviewed: Yes I reviewed the patient's lab results. Result diagrams: 09/05/17 11:17 09/05/17 11:17 Lab Results 09/05/17 09/05/17 09/05/17 Range/Units 11:08 11:17 11:17 WBC 8.4 (4.3-11.1) K/mcL RBC 3.98 (3.82-4.97) M/mcL Hgb 11.3 L (11.5-15.4) g/dL Hct 35.4 (35.3-44.9) % MCV 88.9 (83.0-100.0) fL MCH 28.4 (28.0-33.3) pg MCHC 31.9 (31.6-35.5) g/dL RDW 13.7 (11.5-14.5) % Plt Count 372 (140-400) K/mcL MPV 10.0 (9.4-12.4) fL Immature Gran % 0.4 (0-4) % Seg Neutrophils % 67.6 % Lymphocytes % 23.8 % Monocytes % 6.3 % Eosinophils % 1.4 % Basophils % 0.5 % Neutrophils # 5.7 (1.6-8.9) K/mcL Lymphocytes # 2.0 (0.6-4.6) K/mcL Monocytes # 0.5 (0.0-1.3) K/mcL Eosinophils # 0.1 (0.0-0.6) K/mcL Basophils # 0.0 (0.0-0.2) K/mcL PT (9.4-12.1) Seconds INR APTT (26.0-36.0) Seconds VBG pH (7.32-7.42) pH Units VBG pCO2 (41-51) mmHg VBG pO2 (25-50) mmHg VBG HCO3 (21-27) mEq/L Sodium (136-145) mEq/L Potassium (3.5-5.1) mEq/L Chloride (98-107) mEq/L Carbon Dioxide (23-29) mEq/L BUN (8-23) mg/dL Creatinine (0.60-1.20) mg/dL Est GFR ( Amer) (> 60) Est GFR (Non-Af Amer) (> 60) BUN/Creatinine Ratio (6-26) Glucose (70-105) mg/dL POC Glucose 378 H (58-89) Calculated Osmolality (280-300) Lactic Acid (0.5-2.2) mmol/L Calcium (8.6-10.3) mg/dL Phosphorus (2.7-4.5) mg/dL Magnesium (1.6-2.6) mg/dL Total Bilirubin (0.3-1.0) mg/dL Direct Bilirubin (0.0-0.2) mg/dL Indirect Bilirubin (0.0-1.2) mg/dL AST (13-39) Units/L ALT (7-52) Units/L Alkaline Phosphatase (34-104) Units/L Ammonia 50 (16-53) mcmol/L Creatine Kinase (30-223) Units/L Serum Total Protein (6.4-8.9) g/dL Albumin (3.5-5.7) g/dL Globulin (2.4-3.5) g/dL Albumin/Globulin Ratio (1.1-2.2) Beta-Hydroxybutyric Acd (0.02-0.27) mmol/L TSH (0.340-5.600) mcIU/mL Random Cortisol mcg/dl Urine Color (Yellow) Urine Clarity (Clear) Urine pH (5.0-8.0) pH Units Ur Specific [place] (1.010-1.025) Urine Protein (Neg-Trace) mg/dL Urine Glucose (UA) (Normal) mg/dL Urine Ketones (Negative) mg/dL Urine Blood (Negative) Urine Nitrite (Negative) Urine Bilirubin (Negative) Urine Urobilinogen (Normal) mg/dL Ur Leukocyte Esterase (Negative) Urine Microscopic RBC (0-3) per hpf Urine Microscopic WBC (0-3) per hpf Ur Squamous Epith Cells (None-Few) per lpf Urine Bacteria (None-Few) per hpf Hyaline Casts (None-Few) per lpf Ur Culture Indicated? (NO) Urine Opiates Screen (Tuutja=570) ng/mL Ur Barbiturates Screen (Jwpwpv=318) ng/mL Ur Phencyclidine Scrn (Cutoff=25) ng/mL Ur Amphetamines Screen (Ktjgbr=0818) ng/mL U Benzodiazepines Scrn (Xnqwmj=399) ng/mL Urine Cocaine Screen (Cutoff= 300) ng/mL U Marijuana (THC) Screen (Cutoff = 50) ng/mL Ethyl Alcohol (0-10) mg/dL 09/05/17 09/05/17 09/05/17 Range/Units 11:17 11:17 11:26 WBC (4.3-11.1) K/mcL RBC (3.82-4.97) M/mcL Hgb (11.5-15.4) g/dL Hct (35.3-44.9) % MCV (83.0-100.0) fL MCH (28.0-33.3) pg MCHC (31.6-35.5) g/dL RDW (11.5-14.5) % Plt Count (140-400) K/mcL MPV (9.4-12.4) fL Immature Gran % (0-4) % Seg Neutrophils % % Lymphocytes % % Monocytes % % Eosinophils % % Basophils % % Neutrophils # (1.6-8.9) K/mcL Lymphocytes # (0.6-4.6) K/mcL Monocytes # (0.0-1.3) K/mcL Eosinophils # (0.0-0.6) K/mcL Basophils # (0.0-0.2) K/mcL PT 51.6 H* (9.4-12.1) Seconds INR 4.6 H* APTT 51.8 H (26.0-36.0) Seconds VBG pH (7.32-7.42) pH Units VBG pCO2 (41-51) mmHg VBG pO2 (25-50) mmHg VBG HCO3 (21-27) mEq/L Sodium 126 L (136-145) mEq/L Potassium 4.3 (3.5-5.1) mEq/L Chloride 93 L (98-107) mEq/L Carbon Dioxide 26 (23-29) mEq/L BUN 41 H (8-23) mg/dL Creatinine 1.16 (0.60-1.20) mg/dL Est GFR ( Amer) 57 L (> 60) Est GFR (Non-Af Amer) 47 L (> 60) BUN/Creatinine Ratio 35 H (6-26) Glucose 421 H (70-105) mg/dL POC Glucose (58-89) Calculated Osmolality 290 (280-300) Lactic Acid (0.5-2.2) mmol/L Calcium 8.4 L (8.6-10.3) mg/dL Phosphorus (2.7-4.5) mg/dL Magnesium (1.6-2.6) mg/dL Total Bilirubin 0.2 L (0.3-1.0) mg/dL Direct Bilirubin 0.0 (0.0-0.2) mg/dL Indirect Bilirubin 0.2 (0.0-1.2) mg/dL AST 14 (13-39) Units/L ALT 7 (7-52) Units/L Alkaline Phosphatase 122 H (34-104) Units/L Ammonia (16-53) mcmol/L Creatine Kinase 105 (30-223) Units/L Serum Total Protein 6.2 L (6.4-8.9) g/dL Albumin 2.9 L (3.5-5.7) g/dL Globulin 3.3 (2.4-3.5) g/dL Albumin/Globulin Ratio 0.9 L (1.1-2.2) Beta-Hydroxybutyric Acd (0.02-0.27) mmol/L TSH 0.247 L (0.340-5.600) mcIU/mL Random Cortisol 7.4 mcg/dl Urine Color (Yellow) Urine Clarity (Clear) Urine pH (5.0-8.0) pH Units Ur Specific [place] (1.010-1.025) Urine Protein (Neg-Trace) mg/dL Urine Glucose (UA) (Normal) mg/dL Urine Ketones (Negative) mg/dL Urine Blood (Negative) Urine Nitrite (Negative) Urine Bilirubin (Negative) Urine Urobilinogen (Normal) mg/dL Ur Leukocyte Esterase (Negative) Urine Microscopic RBC (0-3) per hpf Urine Microscopic WBC (0-3) per hpf Ur Squamous Epith Cells (None-Few) per lpf Urine Bacteria (None-Few) per hpf Hyaline Casts (None-Few) per lpf Ur Culture Indicated? (NO) Urine Opiates Screen Positive H (Jqqjqu=073) ng/mL Ur Barbiturates Screen Negative (Voptya=305) ng/mL Ur Phencyclidine Scrn Negative (Cutoff=25) ng/mL Ur Amphetamines Screen Negative (Lqlhyg=4712) ng/mL U Benzodiazepines Scrn Positive H (Kbjkko=060) ng/mL Urine Cocaine Screen Negative (Cutoff= 300) ng/mL U Marijuana (THC) Screen Negative (Cutoff = 50) ng/mL Ethyl Alcohol < 10 (0-10) mg/dL 09/05/17 09/05/17 09/05/17 Range/Units 11:36 12:35 12:35 WBC (4.3-11.1) K/mcL RBC (3.82-4.97) M/mcL Hgb (11.5-15.4) g/dL Hct (35.3-44.9) % MCV (83.0-100.0) fL MCH (28.0-33.3) pg MCHC (31.6-35.5) g/dL RDW (11.5-14.5) % Plt Count (140-400) K/mcL MPV (9.4-12.4) fL Immature Gran % (0-4) % Seg Neutrophils % % Lymphocytes % % Monocytes % % Eosinophils % % Basophils % % Neutrophils # (1.6-8.9) K/mcL Lymphocytes # (0.6-4.6) K/mcL Monocytes # (0.0-1.3) K/mcL Eosinophils # (0.0-0.6) K/mcL Basophils # (0.0-0.2) K/mcL PT (9.4-12.1) Seconds INR APTT (26.0-36.0) Seconds VBG pH (7.32-7.42) pH Units VBG pCO2 (41-51) mmHg VBG pO2 (25-50) mmHg VBG HCO3 (21-27) mEq/L Sodium (136-145) mEq/L Potassium (3.5-5.1) mEq/L Chloride (98-107) mEq/L Carbon Dioxide (23-29) mEq/L BUN (8-23) mg/dL Creatinine (0.60-1.20) mg/dL Est GFR ( Amer) (> 60) Est GFR (Non-Af Amer) (> 60) BUN/Creatinine Ratio (6-26) Glucose (70-105) mg/dL POC Glucose (58-89) Calculated Osmolality (280-300) Lactic Acid 1.1 (0.5-2.2) mmol/L Calcium (8.6-10.3) mg/dL Phosphorus 2.7 (2.7-4.5) mg/dL Magnesium 1.7 (1.6-2.6) mg/dL Total Bilirubin (0.3-1.0) mg/dL Direct Bilirubin (0.0-0.2) mg/dL Indirect Bilirubin (0.0-1.2) mg/dL AST (13-39) Units/L ALT (7-52) Units/L Alkaline Phosphatase (34-104) Units/L Ammonia (16-53) mcmol/L Creatine Kinase (30-223) Units/L Serum Total Protein (6.4-8.9) g/dL Albumin (3.5-5.7) g/dL Globulin (2.4-3.5) g/dL Albumin/Globulin Ratio (1.1-2.2) Beta-Hydroxybutyric Acd (0.02-0.27) mmol/L TSH (0.340-5.600) mcIU/mL Random Cortisol mcg/dl Urine Color Yellow (Yellow) Urine Clarity Clear (Clear) Urine pH 6.5 (5.0-8.0) pH Units Ur Specific [place] 1.020 (1.010-1.025) Urine Protein >=300 H (Neg-Trace) mg/dL Urine Glucose (UA) >=1000 H (Normal) mg/dL Urine Ketones Negative (Negative) mg/dL Urine Blood Large H (Negative) Urine Nitrite Negative (Negative) Urine Bilirubin Negative (Negative) Urine Urobilinogen Normal (Normal) mg/dL Ur Leukocyte Esterase Negative (Negative) Urine Microscopic RBC TNTC H (0-3) per hpf Urine Microscopic WBC 0-3 (0-3) per hpf Ur Squamous Epith Cells Moderate H (None-Few) per lpf Urine Bacteria None Seen (None-Few) per hpf Hyaline Casts None Seen (None-Few) per lpf Ur Culture Indicated? NO (NO) Urine Opiates Screen (Hucdul=948) ng/mL Ur Barbiturates Screen (Bivcvj=059) ng/mL Ur Phencyclidine Scrn (Cutoff=25) ng/mL Ur Amphetamines Screen (Ozzncu=3384) ng/mL U Benzodiazepines Scrn (Snoplz=421) ng/mL Urine Cocaine Screen (Cutoff= 300) ng/mL U Marijuana (THC) Screen (Cutoff = 50) ng/mL Ethyl Alcohol (0-10) mg/dL 09/05/17 09/05/17 Range/Units 12:35 12:46 WBC (4.3-11.1) K/mcL RBC (3.82-4.97) M/mcL Hgb (11.5-15.4) g/dL Hct (35.3-44.9) % MCV (83.0-100.0) fL MCH (28.0-33.3) pg MCHC (31.6-35.5) g/dL RDW (11.5-14.5) % Plt Count (140-400) K/mcL MPV (9.4-12.4) fL Immature Gran % (0-4) % Seg Neutrophils % % Lymphocytes % % Monocytes % % Eosinophils % % Basophils % % Neutrophils # (1.6-8.9) K/mcL Lymphocytes # (0.6-4.6) K/mcL Monocytes # (0.0-1.3) K/mcL Eosinophils # (0.0-0.6) K/mcL Basophils # (0.0-0.2) K/mcL PT (9.4-12.1) Seconds INR APTT (26.0-36.0) Seconds VBG pH 7.36 (7.32-7.42) pH Units VBG pCO2 51 (41-51) mmHg VBG pO2 118 H (25-50) mmHg VBG HCO3 29 H (21-27) mEq/L Sodium (136-145) mEq/L Potassium (3.5-5.1) mEq/L Chloride (98-107) mEq/L Carbon Dioxide (23-29) mEq/L BUN (8-23) mg/dL Creatinine (0.60-1.20) mg/dL Est GFR ( Amer) (> 60) Est GFR (Non-Af Amer) (> 60) BUN/Creatinine Ratio (6-26) Glucose (70-105) mg/dL POC Glucose (58-89) Calculated Osmolality (280-300) Lactic Acid (0.5-2.2) mmol/L Calcium (8.6-10.3) mg/dL Phosphorus (2.7-4.5) mg/dL Magnesium (1.6-2.6) mg/dL Total Bilirubin (0.3-1.0) mg/dL Direct Bilirubin (0.0-0.2) mg/dL Indirect Bilirubin (0.0-1.2) mg/dL AST (13-39) Units/L ALT (7-52) Units/L Alkaline Phosphatase (34-104) Units/L Ammonia (16-53) mcmol/L Creatine Kinase (30-223) Units/L Serum Total Protein (6.4-8.9) g/dL Albumin (3.5-5.7) g/dL Globulin (2.4-3.5) g/dL Albumin/Globulin Ratio (1.1-2.2) Beta-Hydroxybutyric Acd < 0.10 (0.02-0.27) mmol/L TSH (0.340-5.600) mcIU/mL Random Cortisol mcg/dl Urine Color (Yellow) Urine Clarity (Clear) Urine pH (5.0-8.0) pH Units Ur Specific [place] (1.010-1.025) Urine Protein (Neg-Trace) mg/dL Urine Glucose (UA) (Normal) mg/dL Urine Ketones (Negative) mg/dL Urine Blood (Negative) Urine Nitrite (Negative) Urine Bilirubin (Negative) Urine Urobilinogen (Normal) mg/dL Ur Leukocyte Esterase (Negative) Urine Microscopic RBC (0-3) per hpf Urine Microscopic WBC (0-3) per hpf Ur Squamous Epith Cells (None-Few) per lpf Urine Bacteria (None-Few) per hpf Hyaline Casts (None-Few) per lpf Ur Culture Indicated? (NO) Urine Opiates Screen (Blafby=529) ng/mL Ur Barbiturates Screen (Txmvhh=996) ng/mL Ur Phencyclidine Scrn (Cutoff=25) ng/mL Ur Amphetamines Screen (Rmyqul=0420) ng/mL U Benzodiazepines Scrn (Cimmuw=188) ng/mL Urine Cocaine Screen (Cutoff= 300) ng/mL U Marijuana (THC) Screen (Cutoff = 50) ng/mL Ethyl Alcohol (0-10) mg/dL - Radiology Data Radiology results reviewed: Yes I reviewed the patient's radiology results. Chest X-Ray 09/05/17 11:12 IMPRESSION: No acute process. D/ / Anton Dale MD / Anton Dale MD Interpreting Provider: Anton Dale MD Head CT 09/05/17 11:12 IMPRESSION: No acute intracranial abnormality. Mild right frontal scalp hematoma. D/ / Bishnu Campbell MD / Bishnu Campbell MD Interpreting Provider: Bishnu Campbell MD - EKG Data EKG attestation: Yes I reviewed and interpreted this EKG. EKG shows normal: sinus rhythm Rate: bradycardia (53bpm) Rhythm: NSR [place]/QRS: normal When compared to previous EKG there are: no significant changes Interpretation: no acute changes - Core Measures AMI Core Measures Followed: No TPA Checklist - LKW: 3-4.5 hrs Add. Warnings/Precautions Patient/family understanding: The patient/family members have been counseled and understood the risk, benefit , and alternatives of treatment.
[2017-09-05 12:12] LABS: Thyroid Stimulating Hormone 0.247 mcIU/mL (0.340-5.600)
[2017-09-05] MEDS ORDERED: Hydrocortisone Sodium Succ 100 MG/2 ML VIAL IVP ONE (12:18)
[2017-09-05 12:30] LABS: Alanine Aminotransferase 7 Units/L (7-52); Albumin 2.9 g/dL (3.5-5.7); Albumin/Globulin Ratio 0.9 (1.1-2.2); Alkaline Phosphatase 122 Units/L (34-104); Aspartate Amino Transferase 14 Units/L (13-39); BUN/Creatinine Ratio 35 (6-26); Bilirubin,Indirect 0.2 mg/dL (0.0-1.2); Bilirubin,Total 0.2 mg/dL (0.3-1.0); Blood Urea Nitrogen 41 mg/dL (8-23); Calcium 8.4 mg/dL (8.6-10.3); Carbon Dioxide 26 mEq/L (23-29); Chloride 93 mEq/L (98-107); Creatine Kinase 105 Units/L (30-223); Globulin 3.3 g/dL (2.4-3.5); Glucose 421 mg/dL (70-105); Osmolality,Calculated 290 (280-300); Potassium 4.3 mEq/L (3.5-5.1); Sodium 126 mEq/L (136-145); Total Protein 6.2 g/dL (6.4-8.9); eGFR For African Americans 57 (> 60); eGFR For Non-African Americans 47 (> 60)
[2017-09-05 12:47] LABS: Amphetamine Screen,Urine Negative ng/mL (Cutoff=1000); Barbiturate Screen,Urine Negative ng/mL (Cutoff=200); Benzodiazepines Screen,Urine Positive ng/mL (Cutoff=200); Cannabinoid Screen,Urine Negative ng/mL (Cutoff = 50); Cocaine Screen,Urine Negative ng/mL (Cutoff= 300); Opiate Screen,Urine Positive ng/mL (Cutoff=300); Phencyclidine Screen,Urine Negative ng/mL (Cutoff=25)
[2017-09-05 12:49] LABS: VBG HCO3 29 mEq/L (21-27); VBG PCO2 51 mmHg (41-51); VBG PH 7.36 pH Units (7.32-7.42); VBG PO2 118 mmHg (25-50)
[2017-09-05 13:06] LABS: Magnesium 1.7 mg/dL (1.6-2.6); Phosphorous 2.7 mg/dL (2.7-4.5)
[2017-09-05] MEDS ORDERED: *HR* Dextrose 50 % in Water (Syg) 50 ML SYRINGE IVP PRN (13:07)
[2017-09-05] MEDS ORDERED: Dextrose Gel 15 GM/37.5 ML TUBE PO PRN ×2 (13:07)
[2017-09-05] MEDS ORDERED: D5% in Water 1,000 ML IVC PRN (13:07)
[2017-09-05] MEDS ORDERED: Naloxone 0.4 MG/ML INJ IVP PRN (13:08)
[2017-09-05] MEDS ORDERED: Acetaminophen 325 MG TABLET PO PRN (13:08)
--- NOTE | 2017-09-05 13:23 | Internal Med History&Physical ---
Date of Encounter: 09/05/17 Time of Encounter: 13:09 Assessment and Plan (1) Acute encephalopathy Current visit: Yes Status: Acute Possibly from dehydration. creatinine is mildly above baseline and hypotensive on admission. CTH negative. Better with IVF now. Will continue that. Other possibilties include overmedication with sedatives including cyclobenzaprine, Neurontin, xanax, or prozac. No hypoglycemic episode. No signs of infection other than low BP. Will continue to monitor for now as she is showing signs of improvement already. Seems that she had a similar presentation last month too. (2) Hyponatremia Current visit: Yes Status: Acute pseudohyponatremia mostly due to elevated glucose. Will manage with IVF for now. (3) Supratherapeutic INR Current visit: Yes Status: Acute Hold coumadin. No signs of bleeding (4) Essential hypertension Current visit: No Status: Chronic hold antihypertensives today. (5) Hypotension Current visit: No Status: Resolved Qualifiers: Hypotension type: other hypotension type Qualified Code(s): I95.89 - Other hypotension (6) Acute kidney injury Current visit: No Status: Acute c/w IVF. check labs in am. avoid nephrotoxins (7) DVT prophylaxis Current visit: No Status: Acute supratherpautic on coumadin. (8) Diabetes Current visit: No Status: Chronic Will put on SSI. one time dose of 10 units levemir for now. c/w accucheks. 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 Sam is a 62 year old female with PMH of DM, COPD, DVT, CHF with preserved ejection fraction, chroni pain, who is brought by her grandson due to altered mental status. The patient at baseline according to family is alert and oriented 3. Yesterday evening she started showing signs of confusion and lethargy and squad were called and she was found to have glucose of 80 and was told to eat something and was not brought to the hospital. This morning her significant other noticed that she was unable to pour water into a cup and she was very lethargic. He called her grandson who brought her into the hospital. In the emergency department she was found hypotensive with systolic blood pressure in the 70s. She was given IV fluids boluses 2. She was given IV Solu -Cortef. She underwent a workup that included a CT head which was unremarkable. Laboratory workup showed mild elevated creatinine above baseline as well as mild hyponatremia. She was actually hypoglycemic this time with a glucose in the 300s. Her mental status did improve with a 2 boluses. She was sleeping when I went to evaluate the patient was able to wake her up and she stated her name and recognized her significant other and daughter at bedside. She was still lethargic. She could not tell me where she is at. Otherwise the patient denies any history of fever, chills, nausea, vomiting, headache, chest pain, shortness of breath, abdominal pain, urinary symptoms, or neurological symptoms other than the confusion. The patient at baseline is walker dependent. Past Med Surg Social Fam HX - Past Medical History Medical history: asthma, atrial fibrillation, CHF, COPD, DVT, diabetes, GERD, GI bleed, hypertension, other Psychiatric history: anxiety, depression - Past Surgical History Surgical History: appendectomy, cholecystectomy, hysterectomy, orthopedic, other (Spinal surgery 2016, laminectomy L2-L4, excision of axillary lymph nodes) , other (Left knee replacement, cataract surgery, herniorrhaphy) - Social History Smoking Status: Current every day smoker Smokeless Tobacco Status: No Alcohol use: none Drug use: none - Family History Mother Adopted: No Hx Family Endocrine Disorder: Yes (dm) Internal Medicine - H&P: Meds Alprazolam [Xanax] 0.25 mg PO QID 04/20/15 [History] Aspirin Enteric Coated [Aspirin EC] 162 mg PO DAILY 04/20/15 [History] Furosemide [Lasix] 40 mg PO BID 04/20/15 [History] Hydrocodone/Acetaminophen [[place] 10-325 Tablet] 1 tab PO Q4H PRN 04/20/15 [ History] [place]-3S/Dha/Epa/Fish Oil [Fish Oil 1,200 mg Softgel] 1,200 mg PO DAILY [History] Omeprazole [PriLOSEC] 20 mg PO DAILY 04/20/15 [History] Ranitidine HCl [Zantac] 150 mg PO BID 04/20/15 [History] Simvastatin [Zocor] 40 mg PO HS 04/20/15 [History] Tizanidine [Zanaflex] 4 mg PO Q8H 04/20/15 [History] Gabapentin [Neurontin] 400 mg PO BID 02/18/16 [History] FLUoxetine HCl [Prozac] 40 mg PO DAILY 04/15/17 [History] Levothyroxine Sodium 200 mcg PO DAILY 04/15/17 [History] Insulin Glargine,Hum.rec.anlog [Lantus Solostar] 25 unit SQ BID 30 Days #2 insuln.pen 04/16/17 [Rx] Ondansetron ODT [Zofran ODT] 4 mg SL Q8HR PRN 06/11/17 [History] Cyclobenzaprine HCl 5 mg PO TID 09/05/17 [History] Insulin ASPART [Novolog Flexpen] 20 - 30 unit SQ TID 09/05/17 [History] Warfarin [Coumadin] 5 mg PO MOWETHSA 09/05/17 [History] Warfarin [Coumadin] 7.5 mg PO SUTUFR 09/05/17 [History] 3 Allergy/AdvReac Type Severity Reaction Status Date / Time Cefadroxil Allergy Difficulty Verified 09/05/17 11:13 Breathing Iodinated Contrast- Oral and Allergy shortness Verified 09/05/17 11:13 IV Dye of breath Penicillins [PCN] Allergy Hives Verified 09/05/17 11:13 ciprofloxacin [From Cipro] AdvReac Itching Verified 09/05/17 11:13 ibuprofen AdvReac tacycardia Verified 09/05/17 11:13 levofloxacin [From Levaquin] AdvReac Vomiting Verified 09/05/17 11:13 All Systems PM: A 10-system review of systems was performed and is negative for pertinent findings except as documented above in the HPI. Review of systems: All systems reviewed are negative except what is mentioned above - Constitutional Vitals: Temp Pulse Resp BP Pulse Ox 98.1 F 62 16 130/66 100 09/05/17 11:07 09/05/17 12:28 09/05/17 12:28 09/05/17 12:28 09/05/17 12:28 Exam: GEN: NAD, lethargic, alert and oriented 1. Only alert to self EENT: AT, NC, No cyanosis, oral mucosa is moist, No JVD Lymphatics: No lymphadenoapthy Eyes: Extrocular muscles intact, anicteric CVS:RRR. S1, S2, No m/r/g RESP: CTAB ABD: Soft, NT, ND, +BS EXT: No edema, No rashes, 2+ DP NEURO: Nonfocal, CN II-XII intact, 4/5 strength in b/l upper extremities. 3/5 in LE bilaterally Psych: Cooperative, Not anxious or depressed Internal Med - H&P Results - Labs CBC & Chem 7: 09/05/17 11:17 09/05/17 11:17 Labs: Short CBC 09/05/17 Range/Units 11:17 WBC 8.4 (4.3-11.1) K/mcL Hgb 11.3 L (11.5-15.4) g/dL Hct 35.4 (35.3-44.9) % Plt Count 372 (140-400) K/mcL Neutrophils # 5.7 (1.6-8.9) K/mcL BMP 09/05/17 11:17 Sodium 126 L Potassium 4.3 Chloride 93 L Carbon Dioxide 26 BUN 41 H Creatinine 1.16 Glucose 421 H Calcium 8.4 L Liver Function 09/05/17 Range/Units 11:17 Total Bilirubin 0.2 L (0.3-1.0) mg/dL Direct Bilirubin 0.0 (0.0-0.2) mg/dL AST 14 (13-39) Units/L ALT 7 (7-52) Units/L Alkaline Phosphatase 122 H (34-104) Units/L Albumin 2.9 L (3.5-5.7) g/dL Urine 09/05/17 Range/Units 11:36 Urine Color Yellow (Yellow) Urine Clarity Clear (Clear) Urine pH 6.5 (5.0-8.0) pH Units Ur Specific Hugo 1.020 (1.010-1.025) Urine Protein >=300 H (Neg-Trace) mg/dL Urine Glucose (UA) >=1000 H (Normal) mg/dL - ABG Interpretation ABG results: 09/05/17 12:46 VBG pH 7.36 VBG pCO2 51 VBG pO2 118 H VBG HCO3 29 H - Impressions ITS Impressions Chest X-Ray 09/05/17 11:12 IMPRESSION: No acute process. D/ / Anton Dale MD / Anton Dale MD Interpreting Provider: Anton Dale MD Head CT 09/05/17 11:12 IMPRESSION: No acute intracranial abnormality. Mild right frontal scalp hematoma. D/ / Bishnu Campbell MD / Bishnu Campbell MD Interpreting Provider: Bishnu Campbell MD
[2017-09-05 13:44] LABS: Hemoglobin A1C 11.3 %
[2017-09-05] MEDS: 0.9 % Sodium Chloride 1,000 ML IVC SCH (14:25)
[2017-09-05 14:35] LABS: Triiodothyronine (T3) Free 2.66 pg/mL (2.50-3.90)
[2017-09-05 14:40] LABS: Triiodothyronine (T3) Total 0.53 ng/mL (0.87-1.78)
[2017-09-05] MEDS ORDERED: Insulin DETEMIR 100 UNIT/ML X5UNITS SQ ONE (16:16)
[2017-09-05] MEDS: Insulin LISPRO 300 UNITS/3 ML VIAL SQ SCH (16:25)
[2017-09-05] MEDS: *HR* HYDROcodone/Acet 10/325 mg TABLET PO PRN (20:24)
[2017-09-05] MEDS ORDERED: Insulin LISPRO 300 UNITS/3 ML VIAL SQ SCH (21:00)
[2017-09-05] MEDS ORDERED: Famotidine 20 MG TABLET PO SCH (21:00)
[2017-09-06] MEDS: 0.9 % Sodium Chloride 1,000 ML IVC SCH (04:06)
[2017-09-06 04:18] LABS: Basophils # 0.1 K/mcL (0.0-0.2); Basophils % 0.6 %; Eosinophils # 0.2 K/mcL (0.0-0.6); Eosinophils % 1.9 %; Hematocrit 35.9 % (35.3-44.9); Hemoglobin 11.7 g/dL (11.5-15.4); Immature Granulocytes % 0.3 % (0-4); Lymphocytes # 2.7 K/mcL (0.6-4.6); Lymphocytes % 30.6 %; Mean Corpuscular HGB Conc 32.6 g/dL (31.6-35.5); Mean Corpuscular Hemoglobin 28.5 pg (28.0-33.3); Mean Corpuscular Volume 87.3 fL (83.0-100.0); Mean Platelet Volume 9.8 fL (9.4-12.4); Monocytes # 0.5 K/mcL (0.0-1.3); Monocytes % 5.2 %; Neutrophils # 5.4 K/mcL (1.6-8.9); Platelet Count 357 K/mcL (140-400); Red Blood Count 4.11 M/mcL (3.82-4.97); Red Cell Distribution Width 13.8 % (11.5-14.5); Segmented Neutrophils % 61.4 %
[2017-09-06 04:28] LABS: INR 3.3; Prothrombin Time 36.7 Seconds (9.4-12.1)
[2017-09-06 04:47] LABS: BUN/Creatinine Ratio 31 (6-26); Blood Urea Nitrogen 24 mg/dL (8-23); Calcium 8.8 mg/dL (8.6-10.3); Carbon Dioxide 31 mEq/L (23-29); Chloride 102 mEq/L (98-107); Glucose 125 mg/dL (70-105); Magnesium 1.7 mg/dL (1.6-2.6); Osmolality,Calculated 296 (280-300); Potassium 3.2 mEq/L (3.5-5.1); Sodium 140 mEq/L (136-145); eGFR For African Americans > 60 (> 60); eGFR For Non-African Americans > 60 (> 60)
[2017-09-06] MEDS: *HR* HYDROcodone/Acet 10/325 mg TABLET PO PRN (06:04)
[2017-09-06] MEDS: Insulin LISPRO 300 UNITS/3 ML VIAL SQ SCH ×2 (07:28→11:53)
--- NOTE | 2017-09-06 07:51 | Electrocardiograph Report ---
[facility] [employer] Test Date: 2017-09-05 Pat Name: Estefany Sam Department: 103 Room: 2A33 Gender: F Rn Ortho: : 1955 Requested By: Ez Jameson Order Number: [id number] Reading MD: Kodak Bates DO Measurements Intervals [place] Rate: 53 P: 31 MT: 178 QRS: -31 QRSD: 98 T: 24 QT: 438 QTc: 420 Interpretive Statements SINUS BRADYCARDIA WITH SINUS ARRHYTHMIA MARKED LEFT AXIS DEVIATION [QRS AXIS < -30] INTERPRETATION BASED ON A DEFAULT AGE OF 40 YEARS Electronically Signed On 09-06-2017 7:49:41 EST by Kodak Bates DO
[2017-09-06] MEDS ORDERED: Aspirin Enteric Coated 81 MG Tablet PO SCH (09:00)
[2017-09-06 11:42] VITALS: BP 182/83
--- NOTE | 2017-09-06 12:00 | Discharge Summary ---
<Chente Cervantes - Last Filed: 09/06/17 11:58> Orders not resulted at time of discharge: Pending orders 09/07/17 04:00 PT/INR [Prothrombin Time INR] [COAG] AM 0400 09/08/17 04:00 PT/INR [Prothrombin Time INR] [COAG] AM 0400 09/09/17 04:00 PT/INR [Prothrombin Time INR] [COAG] AM 0400 Date of Encounter: 09/06/17 Time of Encounter: 09:00 - Discharge Diagnosis (1) Acute encephalopathy Priority: Primary Status: Acute Comments: Acute encephalopathy most likely secondary from dehydration. Creatinine was s mildly above baseline and hypotensive on admission. CT Head negative. PAtient improved with IVF. Other possibilties include overmedication with sedatives including cyclobenzaprine, Neurontin, xanax, or prozac. No hypoglycemic episode. No signs of infection other than low BP. Patient is improved and mental status returned to baseline. (2) Hyponatremia Priority: Secondary Status: Acute Comments: Resolved (3) Diabetes Priority: Secondary Status: Chronic Qualifiers: Diabetes mellitus type: type 2 Diabetes mellitus complication status: with kidney complications Diabetes mellitus complication detail: with chronic kidney disease Diabetes mellitus intermediate insulin use: with marine oil terminal superintendent use Chronic kidney disease stage: stage 3 (moderate) Qualified Code(s): E11.22 - Type 2 diabetes mellitus with diabetic chronic kidney disease; N18.3 - Chronic kidney disease, stage 3 (moderate); N18.3 - Chronic kidney disease, stage 3 ( moderate); Z79.4 - alf (current) use of insulin; Z79.4 - laborer marine terminal ( 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 Sam is a 62 year old female with PMH of DM, COPD, DVT, CHF with preserved ejection fraction, chronic pain, who was admitted on 09/05/17 for altered mental status most likely secondary to dehydration. The patient at baseline according to family and is alert and oriented 3. Prior to admission, the patient had an episode where the patient showed signs of confusion and lethargy. The squad were called and she was found to have glucose of 80 and was told to eat something and was not brought to the hospital. The morning of the day she was admitted, her significant other noticed that she was unable to pour water into a cup and she was very lethargic. He called her grandson who brought her into the hospital. In the emergency department, she was found hypotensive with systolic blood pressure in the 70s. She was given IV fluids boluses 2 and was given IV Solu-Cortef. She underwent a workup that included a CT head which was unremarkable. Laboratory workup showed mild elevated creatinine above baseline as well as mild hyponatremia. She was hyperglycemic in the ED with a glucose in the 300s. Her mental status appear to improve with a 2 boluses. Today the patient was able to wake her up and she stated her name , place, and time. Otherwise the patient denies any history of fever, chills, nausea, vomiting, headache, chest pain, shortness of breath, abdominal pain, urinary symptoms, or neurological symptoms other than the confusion. The patient at baseline is walker dependent. - Time Spent with Patient Total time spent providing and/or coordinating discharge services: Greater than 30 minutes - Discharge Medications Home Medications: Alprazolam [Xanax] 0.25 mg PO QID 04/20/15 [History] Aspirin Enteric Coated [Aspirin EC] 162 mg PO DAILY 04/20/15 [History] Furosemide [Lasix] 40 mg PO BID 04/20/15 [History] Hydrocodone/Acetaminophen [[place] 10-325 Tablet] 1 tab PO Q4H PRN 04/20/15 [ History] [place]-3S/Dha/Epa/Fish Oil [Fish Oil 1,200 mg Softgel] 1,200 mg PO DAILY [History] Omeprazole [PriLOSEC] 20 mg PO DAILY 04/20/15 [History] Ranitidine HCl [Zantac] 150 mg PO BID 04/20/15 [History] Simvastatin [Zocor] 40 mg PO HS 04/20/15 [History] Tizanidine [Zanaflex] 4 mg PO Q8H 04/20/15 [History] Gabapentin [Neurontin] 400 mg PO BID 02/18/16 [History] FLUoxetine HCl [Prozac] 40 mg PO DAILY 04/15/17 [History] Levothyroxine Sodium 200 mcg PO DAILY 04/15/17 [History] Insulin Glargine,Hum.rec.anlog [Lantus Solostar] 25 unit SQ BID 30 Days #2 insuln.pen 04/16/17 [Rx] Ondansetron ODT [Zofran ODT] 4 mg SL Q8HR PRN 06/11/17 [History] Cyclobenzaprine HCl 5 mg PO TID 09/05/17 [History] Insulin ASPART [Novolog Flexpen] 20 - 30 unit SQ TID 09/05/17 [History] Warfarin [Coumadin] 5 mg PO MOWETHSA 09/05/17 [History] Warfarin [Coumadin] 7.5 mg PO SUTUFR 09/05/17 [History] Allergies/Adverse Reactions: 3 Allergy/AdvReac Type Severity Reaction Status Date / Time Cefadroxil Allergy Difficulty Verified 09/05/17 11:13 Breathing Iodinated Contrast- Oral and Allergy shortness Verified 09/05/17 11:13 IV Dye of breath Penicillins [PCN] Allergy Hives Verified 09/05/17 11:13 ciprofloxacin [From Cipro] AdvReac Itching Verified 09/05/17 11:13 ibuprofen AdvReac tacycardia Verified 09/05/17 11:13 levofloxacin [From Levaquin] AdvReac Vomiting Verified 09/05/17 11:13 Date of admission: 09/05/17 13:26 Primary care physician: Jim Castellano Discharging clinician: Chente Cervantes Anticipated date of discharge: 09/06/17 - Constitutional Vitals: Temp Pulse Resp BP Pulse Ox 98.4 F 92 18 182/83 95 09/06/17 11:39 09/06/17 11:39 09/06/17 11:39 09/06/17 11:39 09/06/17 11:39 General appearance: Present: cooperative, A&O X 3, no acute distress - Head Head exam: Present: atraumatic, normocephalic - Eye Eye exam: Present: EOMI, PERRL, conjuntiva pink, sclera anicteric Pupils: Present: PERRL - Neck Neck exam general surgery: Present: supple, trachea midline. Absent: lymphadenopathy, tenderness - Respiratory Respiratory exam: Present: CTAB. Absent: accessory muscle use, rales, rhonchi, wheezes - Cardiovascular Cardiovascular exam: Present: RRR, +S1, +S2. Absent: diastolic murmur, gallop, rubs, systolic murmur - GI/Abdominal GI/Abdominal exam: Present: normal bowel sounds, soft, no peritoneal signs. Absent: distended, tenderness - Extremities Exam Extremities exam: Present: calf tenderness (Tender to palpation. Patient state it is due to her DVT that she is on Coumadin.), warm, radial pulses palpable and symmetrical - Neurological Exam Neurological exam: Present: CN II-XII intact, oriented X3, no focal deficits. Absent: pronater drift, facial droop, speech deficit - Skin Skin exam: Present: dry, intact - Patient Status Disposition: Home, Self-Care Condition: Good Overall status at discharge: patient is progressing back to baseline - Discharge Instructions Instructions: Dehydration (DC), Elevated INR (DC) Follow Up With: Kodak Bates DO [Primary Care Provider] - 09/11/17 1:45 pm Additional Instructions: 1. Please follow up with your PCP within one week. 2. Continue to take all your medications as prescribed. 3. Please return to the hospital for any worsening or new symptoms or any other concerns. - Diet and Activity Activity: as per physical therapy, increase activity as tolerated Diet: diabetic diet <Tiago Thurston - Last Filed: 09/06/17 18:08> Date of Encounter: 09/06/17 - Discharge Diagnosis (1) Acute metabolic encephalopathy Priority: Primary Status: Resolved (2) Hypotension Priority: Secondary Status: Resolved Qualifiers: Hypotension type: other hypotension type Qualified Code(s): I95.89 - Other hypotension (3) Essential hypertension Status: Chronic (4) Dehydration Priority: Primary Status: Acute (5) Tobacco abuse Priority: Secondary Status: Chronic Hospital course: Ms. Sam is a 62 year old female - Time Spent with Patient Total time spent providing and/or coordinating discharge services: Date of admission: 09/05/17 13:26 Primary care physician: Jim Castellano - Constitutional Vitals: Temp Pulse Resp BP Pulse Ox 98.4 F 92 18 182/83 95 09/06/17 11:39 09/06/17 11:39 09/06/17 11:39 09/06/17 11:39 09/06/17 11:39 - Attending Attestation I examined this patient and my medical decision-making was reviewed with the Resident Physician on 09/06/17. I agree with the documented findings, disposition and treatment plan as described except to the extent set forth below. Ms Sam has been admitted for acute encephalopathy. She has returned to baseline after fluids. Her blood sugar has improved. She is afebrile with stable vitals and ready for discharge home. Exam alert Comfortable Mucus membrane dry Heart reg No wheeze abd soft Plan D/C home today Pt has been in inpatient status as she was quite encephalopathic on admission. It was thought that she would require 2 midnights in the hospital at that time. She has returned to baseline very quickly and is ready for discharge at this time.
[2017-09-06] MEDS ORDERED: Furosemide 40 MG TABLET PO SCH (17:00)
[2017-09-06] MEDS ORDERED: Warfarin perPT PO PRN (18:00)
[2017-09-06] MEDS ORDERED: *HR* Warfarin 2.5 MG TABLET PO ONE (18:00)
[2017-09-07] MEDS ORDERED: FLUoxetine 20 MG CAPSULE PO SCH (09:00)
== END 2017-09-06 12:42 | disposition home or self-care (01) | DRG 682 ==
LOC: EMEROO 11:04 → 2ANU 13:26 → SUATTDRO 13:26 → 2ANU 13:56
PROVIDERS: ADMIT Internal Medicine; ATTEND Internal Medicine

== ENCOUNTER 2017-09-14 12:36 | Observation (INO) ==
[2017-09-14] MEDS ORDERED: Naloxone 0.4 MG/ML INJ IVP ONE (12:38)
[2017-09-14] MEDS ORDERED: 0.9 % Sodium Chloride 1,000 ML IVC ONE (12:38)
--- NOTE | 2017-09-14 12:48 | Emergency Department Note ---
Disposition Clinical Impression: Polypharmacy, Bradycardia, Hyponatremia Hypotension Qualifiers: Hypotension type: unspecified hypotension type Qualified Code(s): I95.9 - Hypotension, unspecified Altered mental status Qualifiers: Altered mental status type: unspecified Qualified Code(s): R41.82 - Altered mental status, unspecified Disposition: Admitted As Inpatient Condition: Good Time of Disposition: 17:32 Altered Mental Status HPI - General Chief Complaint: ED Altered Mental Status Stated Complaint: confusion Time Seen by Provider: 09/14/17 12:38 Source: EMS Mode of arrival: EMS Limitations: altered mental status Nursing Notes Reviewed: Yes Vital Signs Reviewed: Yes - History of Present Illness HPI Narrative: 62-year-old female presents by EMS to the emergency room for evaluation of altered mentation. Patient took her home medications which included Xanax and Percocet. She has this happen everyday when she takes her medications. Currently denying any symptoms prior to coming in except for confusion. She has been seen in this facility multiple times for multiple different medical issues. 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 Timing confirmed by: spouse, family member Consistency of Symptoms: waxing and waning Context: change in medication, history of similar presentation Associated symptoms: Reports: denies other symptoms Treatments prior to arrival: IV fluid, EMS treatment/medication - Related Data Home Medications Medication Instructions Recorded Confirmed Alprazolam [Xanax] 0.25 mg PO QID 04/20/15 09/05/17 Aspirin Enteric Coated [Aspirin EC] 162 mg PO DAILY 04/20/15 09/05/17 Furosemide [Lasix] 40 mg PO BID 04/20/15 09/05/17 Hydrocodone/Acetaminophen [[place] 1 tab PO Q4H PRN 04/20/15 09/05/17 10-325 Tablet] [place]-3S/Dha/Epa/Fish Oil [Fish 1,200 mg PO DAILY 04/20/15 09/05/17 Oil 1,200 mg Softgel] Omeprazole [PriLOSEC] 20 mg PO DAILY 04/20/15 09/05/17 Ranitidine HCl [Zantac] 150 mg PO BID 04/20/15 09/05/17 Simvastatin [Zocor] 40 mg PO HS 04/20/15 09/05/17 Tizanidine [Zanaflex] 4 mg PO Q8H 04/20/15 09/05/17 Gabapentin [Neurontin] 400 mg PO BID 02/18/16 09/05/17 FLUoxetine HCl [Prozac] 40 mg PO DAILY 04/15/17 09/05/17 Levothyroxine Sodium 200 mcg PO DAILY 04/15/17 09/05/17 Ondansetron ODT [Zofran ODT] 4 mg SL Q8HR PRN 06/11/17 09/05/17 Cyclobenzaprine HCl 5 mg PO TID 09/05/17 09/05/17 Insulin ASPART [Novolog Flexpen] 20 - 30 unit SQ TID 09/05/17 09/05/17 Warfarin [Coumadin] 5 mg PO MOWETHSA 09/05/17 09/05/17 Warfarin [Coumadin] 7.5 mg PO SUTUFR 09/05/17 09/05/17 Previous Rx's Medication Instructions Recorded Insulin Glargine,Hum.rec.anlog 25 unit SQ BID 30 Days #2 04/16/17 [Lantus Solostar] insuln.pen Allergies Allergy/AdvReac Type Severity Reaction Status Date / Time Cefadroxil Allergy Difficulty Verified 09/05/17 11:13 Breathing Iodinated Contrast- Oral and Allergy shortness Verified 09/05/17 11:13 IV Dye of breath Penicillins [PCN] Allergy Hives Verified 09/05/17 11:13 ciprofloxacin [From Cipro] AdvReac Itching Verified 09/05/17 11:13 ibuprofen AdvReac tacycardia Verified 09/05/17 11:13 levofloxacin [From Levaquin] AdvReac Vomiting Verified 09/05/17 11:13 All systems ED: reviewed and negative except as stated. Review of Systems: As Per HPI Constitutional: Denies: fever, chills Cardiovascular: Denies: chest pain, palpitations, dyspnea on exertion, orthopnea Respiratory: Reports: dyspnea. Denies: cough, wheezes, hemoptysis, stridor, sputum production Gastrointestinal: Denies: abdominal pain, nausea, vomiting, diarrhea Genitourinary: Denies: urgency, dysuria, frequency Musculoskeletal: Denies: back pain, neck pain Neurological: Denies: headache Past Medical History - Past Medical History Attestation: Yes The following information was validated with the patient. Source: patient Medical history: Reports: asthma, atrial fibrillation, CHF, COPD, DVT, diabetes , GERD, GI bleed, hypertension, other Surgical history: Reports: appendectomy, cholecystectomy, hysterectomy, orthopedic, other (Spinal surgery 2016, laminectomy L2-L4, excision of axillary lymph nodes), other (Left knee replacement, cataract surgery, herniorrhaphy) Psychiatric history: Reports: anxiety, depression WIRELESS TECHNICIAN history: Reports: no WIRELESS TECHNICIAN history - Social History Smoking Status: Current every day smoker Smokeless Tobacco Status: No Alcohol use: Reports: none Drug use: Reports: none Physical Exam - General Limitations: altered mental status General appearance: appears intoxicated - Head Head exam: atraumatic, normocephalic, normal inspection - Eye Eye exam: Present: normal appearance, PERRL, EOMI. Absent: miosis - ENT ENT exam: normal exam, normal oropharynx, mucous membranes moist - Neck Neck exam: Present: normal inspection, full ROM, trachea midline. Absent: tenderness - Chest Chest inspection: Present: normal inspection, symmetric chest wall rise. Absent : tenderness - Respiratory Respiratory exam: Present: normal lung sounds bilaterally. Absent: respiratory distress, wheezes - Cardiovascular Cardiovascular exam: Present: regular rate, normal rhythm, normal heart sounds - Abdominal Exam Abdominal exam: Present: soft, Non-Tender, normal bowel sounds. Absent: tenderness, distention, guarding, rebound, rigidity, Tompkins's sign, Rovsing's sign, tenderness at McBurney's Point - Extremities Exam Extremities exam: Present: normal inspection, full ROM, normal capillary refill. Absent: tenderness - Back Exam Back exam: Present: normal inspection, full ROM. Absent: tenderness - Neurological Exam Neurological exam: Present: alert, CN II-XII intact, normal gait - Skin Skin exam: Present: warm, dry, intact, normal color Course Course Narrative: Patient seen and examined the time of arrival by EMS. See history of present illness. 62-year-old female presents in the care of EMS with the family. Patient presented here today after taking her home medications which included Xanax and and opioid pain medication. She says and the family discloses that appeared after taking her medications. Patient denies chest pain shortness of breath headache vision changes nausea vomiting or diarrhea prior to the events. Patient does follow commands and answers questions but is somnolent. Patient is concerning for possible drug ingestion overdose of unintentional etiology. Family denies any other concerns or issues. She has had this happen multiple times since taking her Xanax and pain medication. On physical exam patient is resting in the bed. Her pupils are slightly pinpoint. She does follow commands but is somnolent. She does not slur speech or showing signs of acute asymmetric neurologic deficit. Patient's heart rate was 45 and transit. Blood pressure was stable. Accu-Chek was collected and elevated but not low. Patient has not had any new medication changes or trauma noted according to the family. Concern is noted for altered mentation of unknown etiology. Narcan will be given along with fluids and resuscitative measures started this time. CT imaging of the head and neck will be ordered secondary to a fall with a non- syncopal presentation according to family. EKG labs: Urinalysis and urine culture will be added on. Disposition will be determined once the workup and treatment course are established completed. Patient does not require any other imaging modalities at this time. Patient is clinically stable despite having a low blood pressure and some slight confusion. She is maintaining her airway but no acute signs of aspiration concern at this point. Continue to monitor closely and determine whether the patient needs respiratory support for possible intubation. Clinically she does not require that at this point. Disposition pending treatment course and evaluation. Initial blood pressure was mildly hypotensive and 1 L of fluids will be given. Narcan evaluation will be completed after the medication is given - Reevaluation(s) Reevaluation #1: Patient responded to the Narcan her heart rate is now in the 60s and her blood pressure stabilized at 113/68. Pulse ox is 100%. She sleeping but maintain protecting her airway appropriately. Time: 13:52 Reevaluation #2: Patient is positive for opioids in her system. She does have prescriptions for hydrocodone and alprazolam. Patient is waking up easier at this time despite being still sleepy. Patient's vital signs as well as laboratory workup and imaging all unremarkable. Clinically patient has what appears to be polypharmacy with potential overindulgence of her benzodiazepine medication. We will continue to monitor his treatment course establishes itself. Time: 15:33 Reevaluation #3: Patient is still somnolent the bedside. Vital signs are stable. She does have mild vascular congestion on chest x-ray. She does have appears to be hypercarbia as well as hypoxia based on ABG. She has hyponatremia along with anemia which appears to be an exacerbation of chronic issues. Patient is too weak to ambulate here in the emergency room. There was concern for possible decompensation home and inability to manage and take care of herself. Admission process would be completed at this time. Time: 16:44 Additional Reevaluation(s): Patient accepted by hospitalist Kodak Bonds for evaluation of somnolence, possible polypharmacy, hyponatremia, hypotension, bradycardia. Detailed review the presentation symptoms medical intervention evaluation were discussed at length. No other recommendations or concerns. Patient will be admitted for further evaluation and management. Altered Mental Status - MDM Narrative Medical decision making narrative: Altered mentation, somnolence, polypharmacy, hypotension, bradycardia - Medical Records Medical records reviewed: Yes I reviewed the patient's medical records. - Lab Data Lab results reviewed: Yes I reviewed the patient's lab results. - Radiology Data Radiology results reviewed: Yes I reviewed the patient's radiology results. Chest x-ray stable mild pulmonary congestion but no visible signs of infection or atelectasis. - EKG Data EKG attestation: Yes I reviewed and interpreted this EKG. EKG results narrative: Patient has sinus bradycardia with no acute signs of ST segment elevation or abnormality. No acute signs of WPW or Brugada syndrome. Ventricular rate of 45 initially. QRS duration of 98. ID interval 176. QTC of 461. [place] is normal TPA Checklist - LKW: 3-4.5 hrs Add. Warnings/Precautions Patient/family understanding: The patient/family members have been counseled and understood the risk, benefit , and alternatives of treatment.
[2017-09-14 13:08] LABS: Basophils # 0.1 K/mcL (0.0-0.2); Basophils % 0.6 %; Eosinophils # 0.2 K/mcL (0.0-0.6); Eosinophils % 1.8 %; Hematocrit 31.4 % (35.3-44.9); Immature Granulocytes % 0.5 % (0-4); Lymphocytes # 1.6 K/mcL (0.6-4.6); Lymphocytes % 15.9 %; Mean Corpuscular HGB Conc 31.8 g/dL (31.6-35.5); Mean Corpuscular Hemoglobin 28.3 pg (28.0-33.3); Mean Platelet Volume 10.4 fL (9.4-12.4); Monocytes # 0.6 K/mcL (0.0-1.3); Monocytes % 6.1 %; Neutrophils # 7.6 K/mcL (1.6-8.9); Platelet Count 359 K/mcL (140-400); Red Blood Count 3.53 M/mcL (3.82-4.97); Red Cell Distribution Width 13.7 % (11.5-14.5); Segmented Neutrophils % 75.1 %
[2017-09-14 13:14] LABS: INR 2.6; Prothrombin Time 28.4 Seconds (9.4-12.1)
[2017-09-14 13:18] LABS: Activated Partial Thrombo Time 33.2 Seconds (26.0-36.0)
[2017-09-14 13:37] LABS: Alanine Aminotransferase 10 Units/L (7-52); Albumin 2.8 g/dL (3.5-5.7); Alkaline Phosphatase 107 Units/L (34-104); Aspartate Amino Transferase 18 Units/L (13-39); BUN/Creatinine Ratio 20 (6-26); Bilirubin,Indirect 0.3 mg/dL (0.0-1.2); Bilirubin,Total 0.3 mg/dL (0.3-1.0); Blood Urea Nitrogen 22 mg/dL (8-23); Calcium 8.4 mg/dL (8.6-10.3); Carbon Dioxide 27 mEq/L (23-29); Chloride 96 mEq/L (98-107); Creatine Kinase 118 Units/L (30-223); Globulin 2.8 g/dL (2.4-3.5); Glucose 303 mg/dL (70-105); Osmolality,Calculated 287 (280-300); Potassium 3.8 mEq/L (3.5-5.1); Sodium 131 mEq/L (136-145); Total Protein 5.6 g/dL (6.4-8.9); Troponin I 0.03 ng/mL (< 0.04); eGFR For African Americans > 60 (> 60); eGFR For Non-African Americans 50 (> 60)
[2017-09-14 14:29] LABS: Bilirubin,Urine Negative (Negative); Blood,Urine Large (Negative); Clarity,Urine Clear (Clear); Color,Urine Yellow (Yellow); Glucose,Urine (UA) 100 mg/dL (Normal); Ketones,Urine Negative (Negative); Leukocyte Esterase,Urine Negative (Negative); Nitrite,Urine Negative (Negative); PH,Urine 6.5 pH Units (5.0-8.0); Protein,Urine >=300 mg/dL (Neg-Trace); Specific Gravity,Urine 1.009 (1.010-1.025); Urobilinogen,Urine Normal (Normal)
[2017-09-14 14:31] LABS: Bacteria,Urine None Seen per hpf (None-Few); Hyaline Casts,Urine None Seen per lpf (None-Few); RBC,Urine 30-50 per hpf (0-3); Squamous Epithelial Cell,Urine Moderate per lpf (None-Few); WBC,Urine 0-3 per hpf (0-3)
[2017-09-14 14:37] LABS: Amphetamine Screen,Urine Negative ng/mL (Cutoff=1000); Barbiturate Screen,Urine Negative ng/mL (Cutoff=200); Benzodiazepines Screen,Urine Negative ng/mL (Cutoff=200); Cannabinoid Screen,Urine Negative ng/mL (Cutoff = 50); Cocaine Screen,Urine Negative ng/mL (Cutoff= 300); Opiate Screen,Urine Positive ng/mL (Cutoff=300); Phencyclidine Screen,Urine Negative ng/mL (Cutoff=25)
[2017-09-14 14:55] LABS: ABG Base Excess 4 mEq/L (-2 to 3); ABG HCO3 29 mEq/L (21-27); ABG Oxygen Saturation 95 % (95-98); ABG PCO2 50 mmHg (35-45); ABG PH 7.38 pH Units (7.32-7.45); ABG PO2 78 mmHg (85-104); ABG TCO2 31 mEq/L (20-26)
[2017-09-14] MEDS ORDERED: Furosemide 20 MG/2 ML VIAL IVP ONE (16:44)
[2017-09-14] MEDS ORDERED: Naloxone 0.4 MG/ML INJ IVP PRN (20:46)
[2017-09-14] MEDS ORDERED: Acetaminophen 325 MG TABLET PO PRN (20:46)
[2017-09-14] MEDS ORDERED: *HR* Dextrose 50 % in Water (Syg) 50 ML SYRINGE IVP PRN (20:49)
[2017-09-14] MEDS ORDERED: Dextrose Gel 15 GM/37.5 ML TUBE PO PRN ×2 (20:49)
[2017-09-14] MEDS ORDERED: D5% in Water 1,000 ML IVC PRN (20:49)
[2017-09-14] MEDS ORDERED: Insulin LISPRO 300 UNITS/3 ML VIAL SQ SCH (21:00)
--- NOTE | 2017-09-14 22:07 | Internal Med History&Physical ---
Date of Encounter: 09/14/17 Time of Encounter: 20:00 Assessment and Plan (1) Polypharmacy Current visit: Yes Status: Acute Patient has chronic back pain, on opioid medication. Patient also has anxiety on Xanax. We will hold both medication and consult pharmacy for medication education. (2) Acute encephalopathy Current visit: No Status: Acute Most likely due to polypharmacy. Will hold pain medication at this point. - Place the patient on cardiac monitoring and pulse oximetry monitoring - Narcan IV as needed (3) DVT prophylaxis Current visit: No Status: Acute Patient is on Coumadin, INR is therapeutic (4) Diabetes Current visit: No Status: Chronic Continue basal and sliding scale insulin coverage Qualifiers: Diabetes mellitus type: type 2 Diabetes mellitus complication status: with kidney complications Diabetes mellitus complication detail: with chronic kidney disease Diabetes mellitus long term care administrator insulin use: with long term care administrator use Chronic kidney disease stage: stage 2 (mild) Qualified Code(s): E11.22 - Type 2 diabetes mellitus with diabetic chronic kidney disease; N18.2 - Chronic kidney disease, stage 2 (mild); N18.2 - Chronic kidney disease, stage 2 (mild); Z79.4 - jail (current) use of insulin; Z79.4 - jail (current) use of insulin; Z79.4 - emt intermediate (current) use of insulin; Z79.4 - emt intermediate (current ) use of insulin (5) Essential hypertension Current visit: No Status: Chronic Continue home medications (6) Fall Current visit: Yes Status: Acute Patient has frequent fall at home. On Home physical therapy already, will continue Qualifiers: Encounter type: initial encounter Qualified Code(s): W19.XXXA - Unspecified fall, initial encounter (7) DVT (deep venous thrombosis) Current visit: Yes Status: Acute Continue home medication Coumadin, follow-up PT/INR Qualifiers: DVT location: lower extremity Affected thrombotic vein of extremity: unspecified vein of extremity Chronicity: chronic Laterality: unspecified laterality Qualified Code(s): I82.509 - Chronic embolism and thrombosis of unspecified deep veins of unspecified lower extremity Internal Medicine - H&P: HPI Chief complaint: Altered mental status Admitted From: Home Plans for Post Hospital Care: Home History of present illness: Ms. Sam is a 62 year old female with history of diabetes, chronic back pain, DVT on Coumadin, hypertension, sent to ER by EMS for altered mental status. Patient took her pain medication hydrocodone and Xanax this morning. Around 11: 40 AM, family found her very sleepy, difficult to wake up. Patient has fall 2 , denies loss of consciousness, denies head injury or any body injury. Patient was checked glucose level by family, which shows 125. Patient denies fever, cough, or shortness of breath. In emergency room, she was found BP at lower side and was given IV fluid. Patient was also given Narcan 0.4 mg. Her mental status has improved to her baseline. When I saw her, she is awake alert and oriented 3. I have discussed CODE STATUS with patient. She clearly told me she does not want CPR or intubation, DNR/DNI placed. Past Med Surg Social Fam HX - Past Medical History Medical history: asthma, atrial fibrillation, CHF, COPD, DVT, diabetes, GERD, GI bleed, hypertension, other Psychiatric history: anxiety, depression - Past Surgical History Surgical History: appendectomy, cholecystectomy, hysterectomy, orthopedic, other , other - Social History Smoking Status: Current every day smoker Smokeless Tobacco Status: No Alcohol use: none Drug use: none - Family History Mother Adopted: No Hx Family Endocrine Disorder: Yes (dm) Internal Medicine - H&P: Meds Alprazolam [Xanax] 0.25 mg PO QID 04/20/15 [History] Aspirin Enteric Coated [Aspirin EC] 162 mg PO DAILY 04/20/15 [History] Furosemide [Lasix] 40 mg PO BID 04/20/15 [History] Hydrocodone/Acetaminophen [[place] 10-325 Tablet] 1 tab PO Q4H PRN 04/20/15 [ History] [place]-3S/Dha/Epa/Fish Oil [Fish Oil 1,200 mg Softgel] 1,200 mg PO DAILY [History] Omeprazole [PriLOSEC] 20 mg PO DAILY 04/20/15 [History] Ranitidine HCl [Zantac] 150 mg PO BID 04/20/15 [History] Simvastatin [Zocor] 40 mg PO HS 04/20/15 [History] Tizanidine [Zanaflex] 4 mg PO Q8H 04/20/15 [History] Gabapentin [Neurontin] 400 mg PO BID 02/18/16 [History] FLUoxetine HCl [Prozac] 40 mg PO DAILY 04/15/17 [History] Levothyroxine Sodium 200 mcg PO DAILY 04/15/17 [History] Insulin Glargine,Hum.rec.anlog [Lantus Solostar] 25 unit SQ BID 30 Days #2 insuln.pen 04/16/17 [Rx] Ondansetron ODT [Zofran ODT] 4 mg SL Q8HR PRN 06/11/17 [History] Cyclobenzaprine HCl 5 mg PO TID 09/05/17 [History] Insulin ASPART [Novolog Flexpen] 20 - 30 unit SQ TID 09/05/17 [History] Warfarin [Coumadin] 5 mg PO MOWETHSA 09/05/17 [History] Warfarin [Coumadin] 7.5 mg PO SUTUFR 09/05/17 [History] 3 Allergy/AdvReac Type Severity Reaction Status Date / Time Cefadroxil Allergy Difficulty Verified 09/05/17 11:13 Breathing Iodinated Contrast- Oral and Allergy shortness Verified 09/05/17 11:13 IV Dye of breath Penicillins [PCN] Allergy Hives Verified 09/05/17 11:13 ciprofloxacin [From Cipro] AdvReac Itching Verified 09/05/17 11:13 ibuprofen AdvReac tacycardia Verified 09/05/17 11:13 levofloxacin [From Levaquin] AdvReac Vomiting Verified 09/05/17 11:13 All Systems PM: A 10-system review of systems was performed and is negative for pertinent findings except as documented above in the HPI. - Constitutional Vitals: Temp Pulse Resp BP Pulse Ox 98.0 F 69 16 150/84 94 09/14/17 18:40 09/14/17 18:40 09/14/17 18:40 09/14/17 18:40 09/14/17 18:40 General appearance: Present: A&O X 3, no acute distress, answers questions appropriately - Head Head exam: Present: atraumatic, normocephalic - Eye Eye exam: Present: PERRL, conjuntiva pink, sclera anicteric Pupils: Present: PERRL - Neck Neck exam general surgery: Present: supple, trachea midline. Absent: lymphadenopathy - Respiratory Respiratory exam: Present: CTAB. Absent: accessory muscle use, rales, rhonchi, wheezes - Cardiovascular Cardiovascular exam: Present: RRR, +S1, +S2. Absent: diastolic murmur, gallop, rubs, systolic murmur - GI/Abdominal GI/Abdominal exam: Present: normal bowel sounds, soft, no peritoneal signs. Absent: distended, tenderness - Extremities Exam Extremities exam: Present: warm, radial pulses palpable and symmetrical. Absent : calf tenderness, cyanotic, pedal edema - Neurological Exam Neurological exam: Present: CN II-XII intact, oriented X3, no focal deficits. Absent: pronater drift, facial droop, speech deficit - Skin Skin exam: Present: dry, intact Internal Med - H&P Results - Labs CBC & Chem 7: 09/14/17 12:53 09/14/17 12:53
[2017-09-14] MEDS: Furosemide 40 MG TABLET PO SCH (22:27)
[2017-09-14] MEDS: Insulin DETEMIR 100 UNIT/ML X5UNITS SQ SCH (23:14)
[2017-09-15 05:20] LABS: Basophils % 0.5 %; Eosinophils # 0.3 K/mcL (0.0-0.6); Eosinophils % 3.4 %; Hematocrit 34.9 % (35.3-44.9); Hemoglobin 11.3 g/dL (11.5-15.4); Immature Platelets 3.5 % (1.1-6.1); Lymphocytes # 1.5 K/mcL (0.6-4.6); Mean Corpuscular HGB Conc 32.4 g/dL (31.6-35.5); Mean Corpuscular Hemoglobin 28.5 pg (28.0-33.3); Mean Corpuscular Volume 88.1 fL (83.0-100.0); Mean Platelet Volume 10.7 fL (9.4-12.4); Monocytes # 0.5 K/mcL (0.0-1.3); Neutrophils # 5.6 K/mcL (1.6-8.9); Platelet Count 344 K/mcL (140-400); Red Blood Count 3.96 M/mcL (3.82-4.97); Red Cell Distribution Width 13.7 % (11.5-14.5); Segmented Neutrophils % 70.1 %
[2017-09-15 05:22] LABS: BUN/Creatinine Ratio 18 (6-26); Blood Urea Nitrogen 18 mg/dL (8-23); Calcium 8.6 mg/dL (8.6-10.3); Carbon Dioxide 32 mEq/L (23-29); Chloride 96 mEq/L (98-107); Glucose 257 mg/dL (70-105); Magnesium 1.4 mg/dL (1.6-2.6); Osmolality,Calculated 295 (280-300); Potassium 3.1 mEq/L (3.5-5.1); Sodium 137 mEq/L (136-145); eGFR For African Americans > 60 (> 60); eGFR For Non-African Americans 56 (> 60)
[2017-09-15 05:27] LABS: INR 2.4; Prothrombin Time 26.5 Seconds (9.4-12.1)
[2017-09-15] MEDS: Insulin LISPRO 300 UNITS/3 ML VIAL SQ SCH ×2 (07:42→12:07)
[2017-09-15] MEDS: Furosemide 40 MG TABLET PO SCH (07:42)
[2017-09-15] MEDS ORDERED: Aspirin Enteric Coated 81 MG Tablet PO SCH (09:00)
[2017-09-15] MEDS ORDERED: FLUoxetine 20 MG CAPSULE PO SCH (09:00)
[2017-09-15] MEDS: Insulin DETEMIR 100 UNIT/ML X5UNITS SQ SCH (09:08)
[2017-09-15 12:15] VITALS: BP 163/86
--- NOTE | 2017-09-15 15:33 | Discharge Summary ---
- NOTES TO OUTPATIENT PROVIDER Notes to Outpatient Provider: Pain medication and anxiety medicine reevaluation to polypharmacy Date of Encounter: 09/15/17 Time of Encounter: 11:00 - Discharge Diagnosis (1) Polypharmacy Priority: Primary Status: Acute (2) Acute encephalopathy Priority: Primary Status: Acute Hospital course: Patient is a 62-year-old female with past medical history significant for opiate medications for chronic back pain, hypertension and DVT who presented to the ER on 09/14/17 due to altered mental status. Patient took her pain medication, hydrocodone, and Xanax the morning of admission. Around 11:40 AM, family found her very sleepy, difficult to wake up. In emergency room, she was found BP at lower side and was given IV fluid. Patient was also given Narcan 0.4 mg. Her mental status has improved to her baseline; she was awake alert and oriented 3 on admission. During hospital stay patient remained alert and oriented 3 in no further episodes of confusion. Patient has had admissions for polypharmacy in the past. Education was given and patient to follow-up with primary care provider. - Time Spent with Patient Total time spent providing and/or coordinating discharge services: Less than 30 minutes - Discharge Medications Home Medications: Alprazolam [Xanax] 0.25 mg PO QID 04/20/15 [History] Aspirin Enteric Coated [Aspirin EC] 162 mg PO DAILY 04/20/15 [History] Furosemide [Lasix] 40 mg PO BID 04/20/15 [History] Hydrocodone/Acetaminophen [[place] 10-325 Tablet] 1 tab PO Q4H PRN 04/20/15 [ History] [place]-3S/Dha/Epa/Fish Oil [Fish Oil 1,200 mg Softgel] 1,200 mg PO DAILY [History] Omeprazole [PriLOSEC] 20 mg PO DAILY 04/20/15 [History] Ranitidine HCl [Zantac] 150 mg PO BID 04/20/15 [History] Simvastatin [Zocor] 40 mg PO HS 04/20/15 [History] Tizanidine [Zanaflex] 4 mg PO Q8H 04/20/15 [History] Gabapentin [Neurontin] 400 mg PO BID 02/18/16 [History] FLUoxetine HCl [Prozac] 40 mg PO DAILY 04/15/17 [History] Levothyroxine Sodium 200 mcg PO DAILY 04/15/17 [History] Ondansetron ODT [Zofran ODT] 4 mg SL Q8HR PRN 06/11/17 [History] Cyclobenzaprine HCl 5 mg PO TID 09/05/17 [History] Insulin ASPART [Novolog Flexpen] 20 - 30 unit SQ TID 09/05/17 [History] Warfarin [Coumadin] 5 mg PO MOWETHSA 09/05/17 [History] Warfarin [Coumadin] 7.5 mg PO SUTUFR 09/05/17 [History] Enalapril Maleate [Vasotec] 10 mg PO BID 09/15/17 [History] Insulin Glargine,Hum.rec.anlog [Lantus Solostar] 30 unit SQ BID 09/15/17 [ History] Allergies/Adverse Reactions: 3 Allergy/AdvReac Type Severity Reaction Status Date / Time Cefadroxil Allergy Difficulty Verified 09/05/17 11:13 Breathing Iodinated Contrast- Oral and Allergy shortness Verified 09/05/17 11:13 IV Dye of breath Penicillins [PCN] Allergy Hives Verified 09/05/17 11:13 ciprofloxacin [From Cipro] AdvReac Itching Verified 09/05/17 11:13 ibuprofen AdvReac tacycardia Verified 09/05/17 11:13 levofloxacin [From Levaquin] AdvReac Vomiting Verified 09/05/17 11:13 Date of admission: 09/14/17 17:55 Primary care physician: Jim Castellano Consults: 09/14/17 22:17 Consult for Pharmacy Education [CONS] Routine Reason for Consult: Polypharmacy, opioid overdose Call Completed: No - Constitutional Vitals: Temp Pulse Resp BP Pulse Ox 97.3 F L 97 18 163/86 94 09/15/17 12:13 09/15/17 12:13 09/15/17 12:13 09/15/17 12:13 09/15/17 12:13 General appearance: Present: A&O X 3, no acute distress, answers questions appropriately - Respiratory Respiratory exam: Present: CTAB. Absent: accessory muscle use, rales, rhonchi, wheezes - Cardiovascular Cardiovascular exam: Present: RRR, +S1, +S2. Absent: diastolic murmur, gallop, rubs, systolic murmur - Patient Status Disposition: Home, Self-Care Condition: Good - Discharge Instructions Follow Up With: Kodak Bates DO [Primary Care Provider] -
[2017-09-15] MEDS ORDERED: *HR* Warfarin 7.5 MG TABLET PO ONE (18:00)
[2017-09-15] MEDS ORDERED: Warfarin perPT PO PRN (18:00)
--- NOTE | 2017-09-17 20:00 | Electrocardiograph Report ---
[place] [id number] Test Date: 2017-09-14 Pat Name: Estefany Sam Department: 103 Room: 2A37 Gender: F Health Care Technician: [facility] : 1955 Requested By: Murtaza Chang Order Number: [id number] Reading MD: Ruth Uribe Measurements Intervals [place] Rate: 45 P: 39 MA: 176 QRS: -26 QRSD: 98 T: 38 QT: 505 QTc: 461 Interpretive Statements SINUS BRADYCARDIA WITH SINUS ARRHYTHMIA BORDERLINE LEFT AXIS DEVIATION [QRS AXIS < -20] Electronically Signed On 09-17-2017 19:59:16 EST by Ruth Uribe
== END 2017-09-15 16:04 | disposition home or self-care (01) ==
LOC: 2ANU 12:36 → EMEROO 12:36 → 2ANU 18:13
PROVIDERS: ADMIT Internal Medicine; ATTEND Hospitalist

== ENCOUNTER 2021-01-07 07:23 | Observation (INO) ==
[2021-01-07] MEDS ORDERED: Gadolinium Contrast Agent (WT Based) IV PRN (08:03)
[2021-01-07 08:04] LABS: Prothrombin Time 11.5 Seconds (9.4-12.1)
[2021-01-07 08:06] LABS: Hematocrit 34.1 % (35.3-44.9); Hemoglobin 10.2 g/dL (11.5-15.4); Mean Corpuscular HGB Conc 29.9 g/dL (31.6-35.5); Mean Corpuscular Hemoglobin 28.3 pg (28.0-33.3); Mean Corpuscular Volume 94.5 fL (83.0-100.0); Mean Platelet Volume 11.1 fL (9.4-12.4); Platelet Count 226 K/mcL (140-400); Red Blood Count 3.61 M/mcL (3.82-4.97); Red Cell Distribution Width 17.7 % (11.5-14.5); White Blood Count 7.3 K/mcL (4.3-11.1)
[2021-01-07 08:07] LABS: Activated Partial Thrombo Time 29.1 Seconds (26.0-36.0)
[2021-01-07 08:33] LABS: Alanine Aminotransferase 8 Units/L (7-52); Albumin 2.9 g/dL (3.5-5.7); Albumin/Globulin Ratio 0.9 (1.1-2.2); Alkaline Phosphatase 90 Units/L (34-104); Aspartate Amino Transferase 11 Units/L (13-39); BUN/Creatinine Ratio 23 (6-26); Bilirubin,Indirect 0.3 mg/dL (0.0-1.0); Bilirubin,Total 0.3 mg/dL (0.3-1.0); Blood Urea Nitrogen 34 mg/dL (8-23); Calcium 8.5 mg/dL (8.6-10.3); Carbon Dioxide 24 mEq/L (23-29); Chloride 104 mEq/L (98-107); Globulin 3.2 g/dL (2.4-3.5); Glucose 144 mg/dL (70-105); Osmolality,Calculated 288 (280-300); Potassium 5.1 mEq/L (3.5-5.1); Sodium 134 mEq/L (136-145); Total Protein 6.1 g/dL (6.4-8.9); Troponin I < 0.03 ng/mL (< 0.04); eGFR For African Americans 43 (> 60); eGFR For Non-African Americans 36 (> 60)
[2021-01-07] MEDS ORDERED: Naloxone 0.4 MG/ML INJ IVP PRN (14:13)
[2021-01-07] MEDS ORDERED: Ondansetron 4 MG/2 ML VIAL IVP PRN (14:13)
[2021-01-07] MEDS ORDERED: D5% in Water 1,000 ML IVC PRN (14:23)
[2021-01-07] MEDS ORDERED: Dextrose Gel 15 GM/37.5 ML TUBE PO PRN ×2 (14:23)
[2021-01-07] MEDS ORDERED: *HR* Dextrose 50 % in Water (Vial) 50 ML VIAL IVP PRN (14:23)
[2021-01-07] MEDS: Furosemide 20 MG/2 ML VIAL IVP SCH ×2 (15:39→17:58)
[2021-01-07] MEDS: Insulin LISPRO 300 UNITS/3 ML VIAL SUBQ SCH (15:48)
[2021-01-07 16:29] LABS: Chol/HDL Ratio 2.1 (0-4.9); Magnesium 1.6 mg/dL (1.6-2.6)
[2021-01-07 16:49] LABS: Thyroid Stimulating Hormone 2.823 mcIU/mL (0.340-5.600)
[2021-01-07 16:54] LABS: Folate 10.8 ng/mL (3.0-16.0)
[2021-01-07] MEDS: *HR* HYDROcodone/Acet 10/325 mg TABLET PO PRN (17:57)
[2021-01-07 18:04] LABS: Estimated Average Glucose 143 mg/dl; Hemoglobin A1C 6.6 %
[2021-01-07] MEDS: Aspirin Enteric Coated 81 MG Tablet PO SCH (18:09)
[2021-01-07] MEDS ORDERED: Insulin LISPRO 300 UNITS/3 ML VIAL SUBQ SCH (21:00)
[2021-01-07] MEDS ORDERED: Insulin DETEMIR 100 UNIT/ML X5UNITS SUBQ SCH (21:00)
[2021-01-07] MEDS: *HR* Heparin 5,000 UNIT/ML VIAL SQ SCH (21:08)
[2021-01-07] MEDS: tiZANidine 4 MG TABLET PO SCH (21:08)
[2021-01-07] MEDS: Gabapentin 400 MG CAPSULE PO SCH (21:08)
[2021-01-08] MEDS: *HR* Heparin 5,000 UNIT/ML VIAL SQ SCH (05:17)
[2021-01-08] MEDS: *HR* HYDROcodone/Acet 10/325 mg TABLET PO PRN (05:21)
[2021-01-08 07:22] LABS: Basophils # 0.1 K/mcL (0.0-0.2); Basophils % 0.9 %; Eosinophils # 0.3 K/mcL (0.0-0.6); Eosinophils % 4.7 %; Hematocrit 34.8 % (35.3-44.9); Hemoglobin 10.9 g/dL (11.5-15.4); Immature Granulocytes % 0.2 % (0-4); Lymphocytes % 30.5 %; Mean Corpuscular HGB Conc 31.3 g/dL (31.6-35.5); Mean Corpuscular Volume 92.6 fL (83.0-100.0); Monocytes # 0.5 K/mcL (0.0-1.3); Neutrophils # 3.7 K/mcL (1.6-8.9); Platelet Count 231 K/mcL (140-400); Red Blood Count 3.76 M/mcL (3.82-4.97); Red Cell Distribution Width 17.2 % (11.5-14.5); Segmented Neutrophils % 56.7 %; White Blood Count 6.4 K/mcL (4.3-11.1)
[2021-01-08 07:28] VITALS: BP 143/89
[2021-01-08 07:33] LABS: Calcium 8.8 mg/dL (8.6-10.3); Potassium 4.7 mEq/L (3.5-5.1)
[2021-01-08] MEDS: Gabapentin 400 MG CAPSULE PO SCH (07:55)
[2021-01-08] MEDS: Aspirin Enteric Coated 81 MG Tablet PO SCH (07:55)
[2021-01-08] MEDS: tiZANidine 4 MG TABLET PO SCH (07:55)
[2021-01-08] MEDS: Furosemide 20 MG/2 ML VIAL IVP SCH (07:56)
[2021-01-08] MEDS: Insulin LISPRO 300 UNITS/3 ML VIAL SUBQ SCH (08:19)
[2021-01-08] MEDS ORDERED: lisinopriL 10 MG TABLET PO SCH (09:00)
[2021-01-08] MEDS ORDERED: Spironolactone 25 MG TABLET PO SCH (09:00)
== END 2021-01-08 10:37 | disposition home or self-care (01) ==
LOC: 3BNU 07:23 → EMEROOARM 07:23 → 3BNU 14:46
PROVIDERS: ADMIT Internal Medicine; ATTEND Internal Medicine

== ENCOUNTER 2021-03-28 09:44 | Inpatient (IN) ==
[2021-03-28] MEDS ORDERED: 0.9 % Sodium Chloride 1,000 ML IVC ONE (10:12)
[2021-03-28 11:06] LABS: Bacteria,Urine Moderate per hpf (None-Few); Bilirubin,Urine Negative (Negative); Blood,Urine Trace (Negative); Clarity,Urine Turbid (Clear); Color,Urine Light-Yellow (Yellow); Glucose,Urine (UA) Normal (Normal); Ketones,Urine Negative (Negative); Leukocyte Esterase,Urine Moderate (Negative); Mucus,Urine Few per lpf (None-Few); Nitrite,Urine Negative (Negative); Protein,Urine 200 mg/dL (Neg-Trace); Specific Gravity,Urine 1.008 (1.010-1.025); Squamous Epithelial Cell,Urine Few per hpf (None-Few); Urobilinogen,Urine Normal (Normal); WBC,Urine TNTC per hpf (0-3)
[2021-03-28 11:15] LABS: Basophils # 0.1 K/mcL (0.0-0.2); Basophils % 0.8 %; Eosinophils # 0.2 K/mcL (0.0-0.6); Eosinophils % 2.1 %; Hematocrit 51.5 % (35.3-44.9); Hemoglobin 16.5 g/dL (11.5-15.4); Immature Granulocytes % 0.6 % (0-4); Lymphocytes # 2.6 K/mcL (0.6-4.6); Lymphocytes % 27.7 %; Mean Corpuscular Hemoglobin 30.5 pg (28.0-33.3); Mean Corpuscular Volume 95.2 fL (83.0-100.0); Mean Platelet Volume 11.5 fL (9.4-12.4); Monocytes # 0.2 K/mcL (0.0-1.3); Monocytes % 2.5 %; Neutrophils # 6.2 K/mcL (1.6-8.9); Platelet Count 269 K/mcL (140-400); Red Blood Count 5.41 M/mcL (3.82-4.97); Red Cell Distribution Width 14.3 % (11.5-14.5); Segmented Neutrophils % 66.3 %; White Blood Count 9.3 K/mcL (4.3-11.1)
[2021-03-28 11:25] LABS: Alanine Aminotransferase 7 Units/L (7-52); Albumin 2.7 g/dL (3.5-5.7); Albumin/Globulin Ratio 0.8 (1.1-2.2); Alkaline Phosphatase 124 Units/L (34-104); Aspartate Amino Transferase 19 Units/L (13-39); BUN/Creatinine Ratio 14 (6-26); Bilirubin,Total 0.3 mg/dL (0.3-1.0); Blood Urea Nitrogen 26 mg/dL (8-23); Calcium 8.6 mg/dL (8.6-10.3); Carbon Dioxide 21 mEq/L (23-29); Chloride 104 mEq/L (98-107); Globulin 3.3 g/dL (2.4-3.5); Glucose 186 mg/dL (70-105); Osmolality,Calculated 290 (280-300); Potassium 4.3 mEq/L (3.5-5.1); Sodium 135 mEq/L (136-145); Troponin I < 0.03 ng/mL (< 0.04); eGFR For African Americans 33 (> 60); eGFR For Non-African Americans 27 (> 60)
[2021-03-28] MEDS ORDERED: Calcium Gluconate 1gm/50mL 1 GM/50 ML BAG IVPB ONE (11:42)
[2021-03-28 11:51] LABS: Adenovirus F 40/41 PCR Not detected (Not detect); Astrovirus PCR Not detected (Not detect); C.difficile Toxin A/B Gene PCR Not detected (Not detect); Campylobacter by PCR Not detected (Not detect); Cryptosporidium by PCR Not detected (Not detect); Cyclospora cayetanensis PCR Not detected (Not detect); E. coli O157 by PCR Not detected (Not detect); Entamoeba histolytica PCR Not detected (Not detect); Enteroaggregative E.coli(EAEC) Not detected (Not detect); Enteropathogenic E.coli(EPEC) Not detected (Not detect); Enterotoxigenic E.coli (ETEC) Not detected (Not detect); Giardia lamblia PCR Not detected (Not detect); Norovirus GI/GII PCR Not detected (Not detect); Plesiomonas shigelloides PCR Not detected (Not detect); Rotavirus A PCR Not detected (Not detect); Salmonella PCR Not detected (Not detect); Sapovirus PCR Not detected (Not detect); Shig/EnteroinvasiveE coli EIEC Not detected (Not detect); Shigalike tox-prod E coli STEC Not detected (Not detect); Vibrio PCR Not detected (Not detect); Vibrio cholerae PCR Not detected (Not detect); Yersinia enterocolitica PCR Not detected (Not detect)
[2021-03-28] MEDS ORDERED: 0.9 % Sodium Chloride 500 ML IVC ONE (11:55)
[2021-03-28] MEDS ORDERED: Lidocaine -MPF 1% 5 ML AMPUL INFILT ONE (11:59)
[2021-03-28 12:01] LABS: Influenza A PCR Negative (Negative); Influenza B PCR Negative (Negative); Resp. Syncytial Virus PCR Negative (Negative)
[2021-03-28] MEDS ORDERED: levoFLOXacin 750 MG/150 ML 750 MG/150 ML BAG IVPB ONE (12:14)
[2021-03-28] MEDS ORDERED: Ondansetron 4 MG/2 ML VIAL IVP ONE (12:14)
[2021-03-28 12:22] LABS: SARS-CoV-2 by PCR (In House) Negative (Negative)
[2021-03-28] MEDS ORDERED: Ondansetron 4 MG/2 ML VIAL IVP PRN (13:12)
[2021-03-28] MEDS ORDERED: Acetaminophen 325 MG TABLET PO PRN (13:12)
[2021-03-28] MEDS ORDERED: Ringers Solution, Lactated 1,000 ML IVC SCH (13:15)
[2021-03-28] MEDS ORDERED: Dextrose Gel 15 GM/37.5 ML TUBE PO PRN ×2 (15:17)
[2021-03-28] MEDS ORDERED: D5% in Water 1,000 ML IVC PRN (15:17)
[2021-03-28] MEDS ORDERED: *HR* Dextrose 50 % in Water (Vial) 50 ML VIAL IVP PRN (15:17)
[2021-03-28] MEDS: MetroNIDAZOLE 500 MG/100 ML 500 MG/100 ML BAG IVPB SCH ×2 (18:12→23:11)
[2021-03-28] MEDS: Ringers Solution, Lactated 1,000 ML IVC SCH (18:12)
[2021-03-28] MEDS: Insulin LISPRO 300 UNITS/3 ML VIAL SUBQ SCH ×2 (18:12→20:49)
[2021-03-28] MEDS: *HR* HYDROcodone/Acet 5/325 mg TABLET PO PRN (18:26)
[2021-03-29] MEDS: Ringers Solution, Lactated 1,000 ML IVC SCH ×2 (03:57→14:02)
[2021-03-29] MEDS: *HR* HYDROcodone/Acet 5/325 mg TABLET PO PRN ×3 (03:57→21:32)
[2021-03-29 05:49] LABS: Hematocrit 38.5 % (35.3-44.9); Mean Corpuscular HGB Conc 31.7 g/dL (31.6-35.5); Mean Corpuscular Hemoglobin 30.3 pg (28.0-33.3); Mean Corpuscular Volume 95.8 fL (83.0-100.0); Mean Platelet Volume 11.7 fL (9.4-12.4); Platelet Count 216 K/mcL (140-400); Red Blood Count 4.02 M/mcL (3.82-4.97); Red Cell Distribution Width 14.1 % (11.5-14.5); White Blood Count 10.5 K/mcL (4.3-11.1)
[2021-03-29 05:59] LABS: Hemoglobin 12.2 g/dL (11.5-15.4)
[2021-03-29 06:08] LABS: Calcium 7.6 mg/dL (8.6-10.3); Potassium 3.9 mEq/L (3.5-5.1)
[2021-03-29] MEDS: Insulin LISPRO 300 UNITS/3 ML VIAL SUBQ SCH ×4 (07:44→21:31)
[2021-03-29] MEDS: MetroNIDAZOLE 500 MG/100 ML 500 MG/100 ML BAG IVPB SCH ×3 (07:44→23:33)
[2021-03-29] MEDS ORDERED: tiZANidine 4 MG TABLET PO PRN (08:52)
[2021-03-29] MEDS: Gabapentin 400 MG CAPSULE PO SCH ×2 (09:50→21:33)
[2021-03-29] MEDS: Aspirin Enteric Coated 81 MG Tablet PO SCH (09:51)
[2021-03-30] MEDS: Ringers Solution, Lactated 1,000 ML IVC SCH (00:57)
[2021-03-30 07:05] VITALS: BP 179/94; PULSE 94; TEMP 98.3; O2SAT 93
[2021-03-30] MEDS: Insulin LISPRO 300 UNITS/3 ML VIAL SUBQ SCH (07:19)
[2021-03-30] MEDS: Aspirin Enteric Coated 81 MG Tablet PO SCH (07:41)
[2021-03-30] MEDS: Gabapentin 400 MG CAPSULE PO SCH (07:41)
[2021-03-30] MEDS: *HR* HYDROcodone/Acet 5/325 mg TABLET PO PRN (07:44)
[2021-03-30] MEDS: MetroNIDAZOLE 500 MG/100 ML 500 MG/100 ML BAG IVPB SCH (07:44)
[2021-03-30 09:11] LABS: Hematocrit 36.3 % (35.3-44.9); Hemoglobin 11.2 g/dL (11.5-15.4); Mean Corpuscular HGB Conc 30.9 g/dL (31.6-35.5); Mean Corpuscular Hemoglobin 29.9 pg (28.0-33.3); Mean Corpuscular Volume 97.1 fL (83.0-100.0); Mean Platelet Volume 11.3 fL (9.4-12.4); Platelet Count 179 K/mcL (140-400); Red Blood Count 3.74 M/mcL (3.82-4.97); Red Cell Distribution Width 14.4 % (11.5-14.5); White Blood Count 10.4 K/mcL (4.3-11.1)
[2021-03-30 10:02] LABS: Phosphorous 2.4 mg/dL (2.7-4.5)
[2021-03-30 10:03] LABS: BUN/Creatinine Ratio 18 (6-26); Blood Urea Nitrogen 19 mg/dL (8-23); Calcium 7.9 mg/dL (8.6-10.3); Carbon Dioxide 20 mEq/L (23-29); Chloride 106 mEq/L (98-107); Glucose 79 mg/dL (70-105); Osmolality,Calculated 281 (280-300); Potassium 4.1 mEq/L (3.5-5.1); Sodium 135 mEq/L (136-145); eGFR For African Americans > 60 (> 60); eGFR For Non-African Americans 51 (> 60)
[2021-03-30] MEDS ORDERED: Furosemide 40 MG/4 ML VIAL IVP ONE (10:29)
[2021-03-30] MEDS ORDERED: levoFLOXacin 750 MG/150 ML 750 MG/150 ML BAG IVPB SCH (12:00)
== END 2021-03-30 11:15 | disposition home or self-care (01) | DRG 393 ==
LOC: 2ANU 09:44 → EMEROOARM 09:44 → 2ANU 17:31 → SUATTDRO 03-29 12:55
PROVIDERS: ADMIT Internal Medicine; ATTEND Internal Medicine

== ENCOUNTER 2021-11-24 12:23 | Inpatient (IN) ==
[2021-11-24 13:30] LABS: Basophils # 0.1 K/mcL (0.0-0.2); Basophils % 0.9 %; Eosinophils # 0.2 K/mcL (0.0-0.6); Eosinophils % 3.9 %; Hematocrit 26.4 % (35.3-44.9); Immature Granulocytes % 0.4 % (0-4); Lymphocytes # 1.4 K/mcL (0.6-4.6); Lymphocytes % 25.3 %; Mean Corpuscular HGB Conc 30.3 g/dL (31.6-35.5); Mean Corpuscular Hemoglobin 29.1 pg (28.0-33.3); Mean Platelet Volume 10.4 fL (9.4-12.4); Monocytes # 0.4 K/mcL (0.0-1.3); Monocytes % 7.7 %; Neutrophils # 3.4 K/mcL (1.6-8.9); Platelet Count 237 K/mcL (140-400); Red Blood Count 2.75 M/mcL (3.82-4.97); Segmented Neutrophils % 61.8 %; White Blood Count 5.4 K/mcL (4.3-11.1)
[2021-11-24 13:51] LABS: Albumin 2.7 g/dL (3.5-5.7); Albumin/Globulin Ratio 0.9 (1.1-2.2); Bilirubin,Indirect 0.3 mg/dL (0.0-1.0); Bilirubin,Total 0.3 mg/dL (0.3-1.0); Calcium 8.3 mg/dL (8.6-10.3); Potassium 4.9 mEq/L (3.5-5.1); Total Protein 5.7 g/dL (6.4-8.9)
[2021-11-24] MEDS ORDERED: cefTRIAXone 1,000 MG in 0.9 % Sodium Chloride Mini Bag 100 ML IVPB ONE (13:51)
[2021-11-24] MEDS ORDERED: Azithromycin 500 MG in 0.9 % Sodium Chloride 250 ML IVPB ONE (13:51)
[2021-11-24 13:56] LABS: Troponin I 1.03 ng/mL (< 0.04)
[2021-11-24] MEDS ORDERED: *HR* Heparin 5,000 UNIT/ML VIAL IVP ONE (13:56)
[2021-11-24] MEDS ORDERED: *HR* Heparin 5,000 UNIT/ML VIAL IVP PRN (13:56)
[2021-11-24] MEDS ORDERED: Naloxone 0.4 MG/ML INJ IVP PRN (14:10)
[2021-11-24 14:40] LABS: Hematocrit 25.8 % (35.3-44.9); Hemoglobin 7.6 g/dL (11.5-15.4); Mean Corpuscular HGB Conc 29.5 g/dL (31.6-35.5); Mean Corpuscular Hemoglobin 28.4 pg (28.0-33.3); Mean Corpuscular Volume 96.3 fL (83.0-100.0); Mean Platelet Volume 10.6 fL (9.4-12.4); Platelet Count 247 K/mcL (140-400); Red Blood Count 2.68 M/mcL (3.82-4.97); Red Cell Distribution Width 14.8 % (11.5-14.5); White Blood Count 5.7 K/mcL (4.3-11.1)
[2021-11-24 14:48] LABS: Heparin anti-factor XA UFH < 0.04 IU/mL (0.30-0.70)
[2021-11-24 14:49] LABS: INR 1.1; Prothrombin Time 12.8 Seconds (9.4-12.1)
[2021-11-24] MEDS ORDERED: Perflutren Lipid Microsphere 1.3 ML in 0.9 % Sodium Chloride 8.7 ML IVP PRN ×2 (14:51→19:59)
[2021-11-24] MEDS ORDERED: Albumin 25% 25gram/100mL 25 GM/100 ML IV.SOLN IVPB ONE (15:27)
[2021-11-24 16:05] LABS: Adenovirus Not Detected (Not Detect); Bordetella Pertussis Not Detected (Not Detect); Chlamydophila pneumoniae Not Detected (Not Detect); Coronavirus 229E Not Detected (Not Detect); Coronavirus HKU1 Not Detected (Not Detect); Coronavirus NL63 Not Detected (Not Detect); Coronavirus OC43 Not Detected (Not Detect); Human Metapneumovirus Not Detected (Not Detect); Human Rhinovirus/Enterovirus Not Detected (Not Detect); Influenza A Subtype 2009 H1 Not Detected (Not Detect); Influenza B Not Detected (Not Detect); Mycoplasma pneumoniae Not Detected (Not Detect); Parainfluenza Virus 1 Not Detected (Not Detect); Parainfluenza Virus 2 Not Detected (Not Detect); Parainfluenza Virus 3 Not Detected (Not Detect); Parainfluenza Virus 4 Not Detected (Not Detect); Respiratory Syncytial Virus Not Detected (Not Detect); SARS-CoV-2 Not Detected (Not Detect)
[2021-11-24] MEDS ORDERED: *HR* Dextrose 50 % in Water (Syg) 50 ML SYRINGE IVP PRN (16:38)
[2021-11-24] MEDS ORDERED: Dextrose 4 GM Chewable Tablets PO PRN ×2 (16:38)
[2021-11-24] MEDS ORDERED: D5% in Water 1,000 ML IVC PRN (16:38)
[2021-11-24] MEDS ORDERED: Furosemide 40 MG/4 ML VIAL IVP ONE (17:00)
[2021-11-24] MEDS: Heparin 25,000UNIT/250ML 1/2NS 25,000 UNIT/250 ML IV.SOLN IVC SCH (17:14)
[2021-11-24] MEDS: Insulin LISPRO 300 UNITS/3 ML VIAL SUBQ SCH ×2 (17:21→20:58)
[2021-11-24] MEDS: Pantoprazole 40 MG VIAL IVP SCH (18:20)
[2021-11-24] MEDS: Doxycycline 100 MG in 0.9 % Sodium Chloride Mini Bag 100 ML IVPB SCH (18:20)
[2021-11-24] MEDS: *HR* HYDROcodone/Acet 5/325 mg TABLET PO PRN (20:57)
[2021-11-24] MEDS: *HR* Heparin 5,000 UNIT/ML VIAL IVP PRN (23:30)
[2021-11-25 00:50] LABS: Basophils # 0.1 K/mcL (0.0-0.2); Basophils % 0.8 %; Eosinophils # 0.3 K/mcL (0.0-0.6); Eosinophils % 3.7 %; Hematocrit 30.4 % (35.3-44.9); Hemoglobin 9.1 g/dL (11.5-15.4); Immature Granulocytes % 0.3 % (0-4); Lymphocytes # 1.4 K/mcL (0.6-4.6); Lymphocytes % 18.5 %; Mean Corpuscular HGB Conc 29.9 g/dL (31.6-35.5); Mean Corpuscular Hemoglobin 28.7 pg (28.0-33.3); Mean Corpuscular Volume 95.9 fL (83.0-100.0); Mean Platelet Volume 10.5 fL (9.4-12.4); Monocytes # 0.5 K/mcL (0.0-1.3); Monocytes % 6.9 %; Neutrophils # 5.3 K/mcL (1.6-8.9); Platelet Count 303 K/mcL (140-400); Red Blood Count 3.17 M/mcL (3.82-4.97); Red Cell Distribution Width 14.7 % (11.5-14.5); Segmented Neutrophils % 69.8 %; White Blood Count 7.6 K/mcL (4.3-11.1)
[2021-11-25 01:10] LABS: Calcium 8.6 mg/dL (8.6-10.3); Magnesium 1.7 mg/dL (1.6-2.6); Potassium 4.6 mEq/L (3.5-5.1)
[2021-11-25 01:30] LABS: Folate 13.1 ng/mL (3.0-16.0)
[2021-11-25 02:46] LABS: Estimated Average Glucose 151 mg/dl; Hemoglobin A1C 6.9 %
[2021-11-25] MEDS: Doxycycline 100 MG in 0.9 % Sodium Chloride Mini Bag 100 ML IVPB SCH ×2 (05:39→17:14)
[2021-11-25] MEDS: Pantoprazole 40 MG VIAL IVP SCH ×2 (05:40→17:15)
[2021-11-25] MEDS: *HR* Heparin 5,000 UNIT/ML VIAL IVP PRN (06:43)
[2021-11-25] MEDS ORDERED: Cyanocobalamin (B-12) 1,000 MCG/ML VIAL SQ ONE (07:22)
[2021-11-25] MEDS: Insulin LISPRO 300 UNITS/3 ML VIAL SUBQ SCH ×4 (08:10→21:07)
[2021-11-25] MEDS: Iron Sucrose Complex 250 MG in 0.9 % Sodium Chloride 250 ML IVPB SCH (09:38)
[2021-11-25] MEDS: Aspirin Enteric Coated 81 MG Tablet PO SCH (09:39)
[2021-11-25] MEDS: Nicotine 14 MG PATCH.TD24 TD SCH (09:46)
[2021-11-25] MEDS ORDERED: Furosemide 40 MG/4 ML VIAL IVP ONE (09:57)
[2021-11-25] MEDS ORDERED: Albumin 25% 25gram/100mL 25 GM/100 ML IV.SOLN IVPB ONE (10:00)
[2021-11-25] MEDS ORDERED: *HR* LORazepam 2 MG/ML VIAL IVP ONE (12:38)
[2021-11-25] MEDS ORDERED: Morphine Sulfate 2 MG/ML SYRINGE IVP STA (12:42)
[2021-11-25] MEDS: Heparin 25,000UNIT/250ML 1/2NS 25,000 UNIT/250 ML IV.SOLN IVC SCH (16:49)
[2021-11-25] MEDS: carvediloL 6.25 MG TABLET PO SCH (17:15)
[2021-11-25] MEDS ORDERED: Furosemide 40 MG/4 ML VIAL IVP SCH (21:00)
[2021-11-25] MEDS: Gabapentin 400 MG CAPSULE PO SCH (21:08)
[2021-11-25] MEDS: *HR* HYDROcodone/Acet 5/325 mg TABLET PO PRN (21:08)
[2021-11-26 05:38] LABS: Basophils # 0.1 K/mcL (0.0-0.2); Basophils % 0.9 %; Eosinophils # 0.2 K/mcL (0.0-0.6); Hematocrit 28.2 % (35.3-44.9); Hemoglobin 8.5 g/dL (11.5-15.4); Immature Granulocytes % 0.5 % (0-4); Lymphocytes # 1.4 K/mcL (0.6-4.6); Lymphocytes % 21.4 %; Mean Corpuscular HGB Conc 30.1 g/dL (31.6-35.5); Mean Corpuscular Hemoglobin 29.1 pg (28.0-33.3); Mean Corpuscular Volume 96.6 fL (83.0-100.0); Mean Platelet Volume 10.7 fL (9.4-12.4); Monocytes # 0.6 K/mcL (0.0-1.3); Monocytes % 8.3 %; Neutrophils # 4.4 K/mcL (1.6-8.9); Platelet Count 284 K/mcL (140-400); Red Blood Count 2.92 M/mcL (3.82-4.97); Red Cell Distribution Width 14.9 % (11.5-14.5); Segmented Neutrophils % 65.9 %; White Blood Count 6.6 K/mcL (4.3-11.1)
[2021-11-26 05:57] LABS: Calcium 8.8 mg/dL (8.6-10.3); Magnesium 1.5 mg/dL (1.6-2.6); Potassium 4.2 mEq/L (3.5-5.1)
[2021-11-26] MEDS: *HR* HYDROcodone/Acet 5/325 mg TABLET PO PRN ×2 (06:15→22:21)
[2021-11-26] MEDS: Doxycycline 100 MG in 0.9 % Sodium Chloride Mini Bag 100 ML IVPB SCH (06:15)
[2021-11-26] MEDS: Insulin LISPRO 300 UNITS/3 ML VIAL SUBQ SCH ×4 (07:27→22:23)
[2021-11-26] MEDS: calcitrioL 0.25 MCG CAPSULE PO SCH (07:52)
[2021-11-26] MEDS: Gabapentin 400 MG CAPSULE PO SCH ×2 (07:52→22:23)
[2021-11-26] MEDS: Furosemide 40 MG/4 ML VIAL IVP SCH ×2 (07:52→22:20)
[2021-11-26] MEDS: Aspirin Enteric Coated 81 MG Tablet PO SCH (07:52)
[2021-11-26] MEDS: carvediloL 6.25 MG TABLET PO SCH ×2 (07:52→16:35)
[2021-11-26] MEDS: Nicotine 14 MG PATCH.TD24 TD SCH (07:53)
[2021-11-26] MEDS: Iron Sucrose Complex 250 MG in 0.9 % Sodium Chloride 250 ML IVPB SCH (07:53)
[2021-11-26] MEDS: Pantoprazole 40 MG VIAL IVP SCH (07:53)
[2021-11-26] MEDS ORDERED: Albumin 25% 25gram/100mL 25 GM/100 ML IV.SOLN IVPB SCH (12:15)
[2021-11-26] MEDS: *HR* Heparin 5,000 UNIT/ML VIAL SQ SCH ×2 (16:35→22:22)
[2021-11-26] MEDS: Albumin 25% 25gram/100mL 25 GM/100 ML IV.SOLN IVPB SCH (16:35)
[2021-11-26] MEDS ORDERED: predniSONE 20 MG TABLET PO ONE (21:00)
[2021-11-26] MEDS: Doxycycline 100 MG CAPSULE PO SCH (22:21)
[2021-11-27] MEDS: Albumin 25% 25gram/100mL 25 GM/100 ML IV.SOLN IVPB SCH ×3 (00:16→16:35)
[2021-11-27] MEDS: *HR* Heparin 5,000 UNIT/ML VIAL SQ SCH ×3 (05:51→20:02)
[2021-11-27] MEDS ORDERED: predniSONE 20 MG TABLET PO ONE ×2 (07:26→21:00)
[2021-11-27] MEDS: Aspirin Enteric Coated 81 MG Tablet PO SCH (08:10)
[2021-11-27] MEDS: Doxycycline 100 MG CAPSULE PO SCH ×2 (08:10→20:02)
[2021-11-27] MEDS: Gabapentin 400 MG CAPSULE PO SCH ×2 (08:11→20:02)
[2021-11-27] MEDS: calcitrioL 0.25 MCG CAPSULE PO SCH (08:11)
[2021-11-27] MEDS: Nicotine 14 MG PATCH.TD24 TD SCH (08:11)
[2021-11-27] MEDS: carvediloL 6.25 MG TABLET PO SCH ×2 (08:11→16:35)
[2021-11-27] MEDS: Furosemide 40 MG/4 ML VIAL IVP SCH (08:11)
[2021-11-27] MEDS: Insulin LISPRO 300 UNITS/3 ML VIAL SUBQ SCH ×4 (08:21→20:03)
[2021-11-27 08:46] LABS: Basophils % 0.4 %; Hematocrit 29.8 % (35.3-44.9); Hemoglobin 8.9 g/dL (11.5-15.4); Immature Granulocytes % 1.2 % (0-4); Lymphocytes # 0.4 K/mcL (0.6-4.6); Lymphocytes % 7.1 %; Mean Corpuscular HGB Conc 29.9 g/dL (31.6-35.5); Mean Corpuscular Hemoglobin 28.6 pg (28.0-33.3); Mean Corpuscular Volume 95.8 fL (83.0-100.0); Mean Platelet Volume 10.9 fL (9.4-12.4); Monocytes # 0.1 K/mcL (0.0-1.3); Monocytes % 1.4 %; Neutrophils # 4.4 K/mcL (1.6-8.9); Platelet Count 277 K/mcL (140-400); Red Blood Count 3.11 M/mcL (3.82-4.97); Red Cell Distribution Width 14.9 % (11.5-14.5); Segmented Neutrophils % 89.9 %; White Blood Count 4.9 K/mcL (4.3-11.1)
[2021-11-27 08:51] LABS: Calcium 9.2 mg/dL (8.6-10.3); Potassium 4.8 mEq/L (3.5-5.1)
[2021-11-27] MEDS: Furosemide 40 MG TABLET PO SCH (16:35)
[2021-11-27] MEDS: ALPRAZolam 0.25 MG TABLET PO PRN (21:29)
[2021-11-28] MEDS: Albumin 25% 25gram/100mL 25 GM/100 ML IV.SOLN IVPB SCH ×3 (00:08→14:39)
[2021-11-28] MEDS: *HR* Heparin 5,000 UNIT/ML VIAL SQ SCH ×3 (04:27→21:57)
[2021-11-28 06:06] LABS: Hematocrit 27.2 % (35.3-44.9); Hemoglobin 8.2 g/dL (11.5-15.4); Mean Corpuscular HGB Conc 30.1 g/dL (31.6-35.5); Mean Corpuscular Hemoglobin 28.5 pg (28.0-33.3); Mean Corpuscular Volume 94.4 fL (83.0-100.0); Mean Platelet Volume 11.2 fL (9.4-12.4); Platelet Count 272 K/mcL (140-400); Red Blood Count 2.88 M/mcL (3.82-4.97); Red Cell Distribution Width 15.1 % (11.5-14.5); White Blood Count 7.2 K/mcL (4.3-11.1)
[2021-11-28 07:46] LABS: Calcium 9.2 mg/dL (8.6-10.3); Potassium 4.9 mEq/L (3.5-5.1)
[2021-11-28] MEDS: Furosemide 40 MG TABLET PO SCH (07:48)
[2021-11-28] MEDS: carvediloL 6.25 MG TABLET PO SCH ×2 (07:48→16:54)
[2021-11-28] MEDS: Aspirin Enteric Coated 81 MG Tablet PO SCH (07:48)
[2021-11-28] MEDS: Insulin LISPRO 300 UNITS/3 ML VIAL SUBQ SCH ×4 (07:49→21:59)
[2021-11-28] MEDS: Doxycycline 100 MG CAPSULE PO SCH ×2 (07:49→21:57)
[2021-11-28] MEDS: calcitrioL 0.25 MCG CAPSULE PO SCH (07:49)
[2021-11-28] MEDS: Gabapentin 400 MG CAPSULE PO SCH ×2 (07:49→21:57)
[2021-11-28] MEDS: Nicotine 14 MG PATCH.TD24 TD SCH (07:50)
[2021-11-29 02:20] LABS: Hematocrit 28.5 % (35.3-44.9); Hemoglobin 8.4 g/dL (11.5-15.4); Mean Corpuscular HGB Conc 29.5 g/dL (31.6-35.5); Mean Corpuscular Hemoglobin 28.2 pg (28.0-33.3); Mean Corpuscular Volume 95.6 fL (83.0-100.0); Mean Platelet Volume 10.8 fL (9.4-12.4); Platelet Count 273 K/mcL (140-400); Red Blood Count 2.98 M/mcL (3.82-4.97); Red Cell Distribution Width 15.4 % (11.5-14.5); White Blood Count 9.9 K/mcL (4.3-11.1)
[2021-11-29 02:30] LABS: Calcium 9.3 mg/dL (8.6-10.3); Potassium 4.4 mEq/L (3.5-5.1)
[2021-11-29] MEDS: *HR* Heparin 5,000 UNIT/ML VIAL SQ SCH ×3 (05:46→22:03)
[2021-11-29] MEDS: Aspirin Enteric Coated 81 MG Tablet PO SCH (08:23)
[2021-11-29] MEDS: Insulin LISPRO 300 UNITS/3 ML VIAL SUBQ SCH ×4 (08:24→22:05)
[2021-11-29] MEDS: Doxycycline 100 MG CAPSULE PO SCH ×2 (08:24→22:05)
[2021-11-29] MEDS: Gabapentin 400 MG CAPSULE PO SCH ×2 (08:24→22:04)
[2021-11-29] MEDS: calcitrioL 0.25 MCG CAPSULE PO SCH (08:24)
[2021-11-29] MEDS: carvediloL 6.25 MG TABLET PO SCH ×2 (08:24→16:39)
[2021-11-29] MEDS: Nicotine 14 MG PATCH.TD24 TD SCH (08:25)
[2021-11-29 12:43] LABS: Uric Acid 8.8 mg/dL (2.3-7.6)
[2021-11-29 13:50] LABS: Protein/Creatinine Ratio,Urine 16.18 mg/mg (0.00-0.20); Sodium, Urine 18.4 mEq/L
[2021-11-29 13:52] LABS: Bilirubin,Urine Negative (Negative); Blood,Urine Trace (Negative); Clarity,Urine Turbid (Clear); Color,Urine Yellow (Yellow); Glucose,Urine (UA) 200 mg/dL (Normal); Ketones,Urine Negative (Negative); Leukocyte Esterase,Urine Negative (Negative); Mucus,Urine Few per lpf (None-Few); Nitrite,Urine Negative (Negative); Protein,Urine >=600 mg/dL (Neg-Trace); RBC,Urine 0-3 per hpf (0-3); Specific Gravity,Urine 1.021 (1.010-1.025); Transitional Epi Cells,Urine Few per hpf (None-Few); Urobilinogen,Urine Normal (Normal); WBC,Urine 0-3 per hpf (0-3)
[2021-11-29] MEDS: Albumin 25% 25gram/100mL 25 GM/100 ML IV.SOLN IVPB SCH (15:44)
[2021-11-29] MEDS: Furosemide 40 MG/4 ML VIAL IVP SCH (16:38)
[2021-11-29] MEDS: Ipratropium/Albuterol Neb 3 ML IH PRN (16:40)
[2021-11-29 20:11] LABS: ABG Base Excess -2 mEq/L (-2 to 3); ABG HCO3 25 mEq/L (21-27); ABG Oxygen Saturation 91 % (95-98); ABG PCO2 51 mmHg (35-45); ABG PO2 68 mmHg (85-104); ABG TCO2 27 mEq/L (20-26)
[2021-11-29 22:11] LABS: ABG Base Excess -3 mEq/L (-2 to 3); ABG HCO3 26 mEq/L (21-27); ABG Oxygen Saturation 95 % (95-98); ABG PCO2 63 mmHg (35-45); ABG PH 7.22 pH Units (7.32-7.45); ABG PO2 91 mmHg (85-104); ABG TCO2 28 mEq/L (20-26)
[2021-11-30] MEDS: Albumin 25% 25gram/100mL 25 GM/100 ML IV.SOLN IVPB SCH ×3 (01:28→16:55)
[2021-11-30] MEDS: *HR* Heparin 5,000 UNIT/ML VIAL SQ SCH ×3 (06:34→20:58)
[2021-11-30] MEDS: Insulin LISPRO 300 UNITS/3 ML VIAL SUBQ SCH ×4 (07:36→20:57)
[2021-11-30 08:28] LABS: Basophils % 0.1 %; Hematocrit 30.5 % (35.3-44.9); Hemoglobin 9.1 g/dL (11.5-15.4); Immature Granulocytes % 0.7 % (0-4); Lymphocytes # 0.6 K/mcL (0.6-4.6); Lymphocytes % 6.5 %; Mean Corpuscular HGB Conc 29.8 g/dL (31.6-35.5); Mean Corpuscular Hemoglobin 28.3 pg (28.0-33.3); Mean Platelet Volume 10.8 fL (9.4-12.4); Monocytes # 0.6 K/mcL (0.0-1.3); Monocytes % 5.9 %; Neutrophils # 8.4 K/mcL (1.6-8.9); Nucleated Red Blood Cells 0.2 /100 WBC (0); Platelet Count 218 K/mcL (140-400); Red Blood Count 3.21 M/mcL (3.82-4.97); Red Cell Distribution Width 15.5 % (11.5-14.5); Segmented Neutrophils % 86.8 %; White Blood Count 9.7 K/mcL (4.3-11.1)
[2021-11-30 08:47] LABS: Potassium 4.2 mEq/L (3.5-5.1)
[2021-11-30] MEDS: Nicotine 14 MG PATCH.TD24 TD SCH (09:22)
[2021-11-30] MEDS: Furosemide 40 MG/4 ML VIAL IVP SCH ×2 (09:22→17:41)
[2021-11-30] MEDS: calcitrioL 0.25 MCG CAPSULE PO SCH (09:22)
[2021-11-30] MEDS: Aspirin Enteric Coated 81 MG Tablet PO SCH (09:22)
[2021-11-30] MEDS: carvediloL 6.25 MG TABLET PO SCH ×2 (09:22→17:41)
[2021-11-30] MEDS: Doxycycline 100 MG CAPSULE PO SCH ×2 (09:23→20:57)
[2021-11-30] MEDS: Gabapentin 400 MG CAPSULE PO SCH ×2 (09:23→20:57)
[2021-11-30] MEDS ORDERED: *HR* Heparin 10,000 UNIT/10 ML VIAL IV PRN (10:05)
[2021-11-30] MEDS ORDERED: 0.9 % Sodium Chloride 250 ML IVC PRN (10:05)
[2021-11-30] MEDS ORDERED: 0.9 % Sodium Chloride 1,000 ML PRIME SCH (10:15)
[2021-11-30 11:30] LABS: Hepatitis B Surface Antibody < 3.10 mIU/mL
[2021-11-30 11:41] LABS: Hepatitis B Surface Antigen Nonreactive (Nonreactive)
[2021-11-30 13:14] LABS: Bilirubin,Urine Negative (Negative); Blood,Urine Trace (Negative); Clarity,Urine Clear (Clear); Color,Urine Light-Yellow (Yellow); Glucose,Urine (UA) 50 mg/dL (Normal); Hyaline Casts,Urine Moderate per lpf (None Seen); Ketones,Urine Negative (Negative); Leukocyte Esterase,Urine Negative (Negative); Mucus,Urine Few per lpf (None-Few); Nitrite,Urine Negative (Negative); Protein,Urine >=300 mg/dL (Neg-Trace); Specific Gravity,Urine 1.015 (1.010-1.025); Squamous Epithelial Cell,Urine Few per hpf (None-Few); Urobilinogen,Urine Normal (Normal); WBC,Urine 15-30 per hpf (0-3)
[2021-11-30] MEDS ORDERED: Heparin 1,000 UNITS/500 mL 500 ML ONE (13:29)
[2021-11-30] MEDS ORDERED: Lidocaine/EPI 1:100k 1% 50 ML VIAL ONE (13:29)
[2021-11-30] MEDS ORDERED: *HR* Heparin 5,000 UNIT/ML VIAL ONE (13:56)
[2021-11-30] MEDS: Ipratropium/Albuterol Neb 3 ML IH PRN (21:56)
[2021-12-01] MEDS: Albumin 25% 25gram/100mL 25 GM/100 ML IV.SOLN IVPB SCH ×4 (00:28→23:40)
[2021-12-01 05:48] LABS: Basophils % 0.1 %; Eosinophils % 0.1 %; Hematocrit 27.7 % (35.3-44.9); Hemoglobin 8.3 g/dL (11.5-15.4); Immature Granulocytes % 0.7 % (0-4); Lymphocytes # 0.7 K/mcL (0.6-4.6); Lymphocytes % 8.5 %; Mean Corpuscular Hemoglobin 28.2 pg (28.0-33.3); Mean Corpuscular Volume 94.2 fL (83.0-100.0); Mean Platelet Volume 11.3 fL (9.4-12.4); Monocytes # 0.6 K/mcL (0.0-1.3); Monocytes % 6.6 %; Neutrophils # 7.2 K/mcL (1.6-8.9); Platelet Count 200 K/mcL (140-400); Red Blood Count 2.94 M/mcL (3.82-4.97); Red Cell Distribution Width 15.7 % (11.5-14.5); White Blood Count 8.5 K/mcL (4.3-11.1)
[2021-12-01] MEDS: *HR* Heparin 5,000 UNIT/ML VIAL SQ SCH ×3 (05:57→19:53)
[2021-12-01 06:06] LABS: Calcium 8.9 mg/dL (8.6-10.3); Potassium 3.8 mEq/L (3.5-5.1)
[2021-12-01] MEDS ORDERED: *HR* Heparin 10,000 UNIT/10 ML VIAL IV PRN (09:05)
[2021-12-01] MEDS ORDERED: 0.9 % Sodium Chloride 250 ML IVC PRN (09:05)
[2021-12-01] MEDS: Insulin LISPRO 300 UNITS/3 ML VIAL SUBQ SCH ×4 (12:33→19:51)
[2021-12-01] MEDS: carvediloL 6.25 MG TABLET PO SCH ×2 (12:34→16:21)
[2021-12-01] MEDS: Furosemide 40 MG/4 ML VIAL IVP SCH ×2 (12:35→16:41)
[2021-12-01] MEDS: Gabapentin 400 MG CAPSULE PO SCH ×2 (12:36→19:51)
[2021-12-01] MEDS: Aspirin Enteric Coated 81 MG Tablet PO SCH (12:36)
[2021-12-01] MEDS: Doxycycline 100 MG CAPSULE PO SCH ×2 (12:36→19:51)
[2021-12-01] MEDS: calcitrioL 0.25 MCG CAPSULE PO SCH (12:36)
[2021-12-01] MEDS: Nicotine 14 MG PATCH.TD24 TD SCH (12:36)
[2021-12-01] MEDS: *HR* HYDROcodone/Acet 5/325 mg TABLET PO PRN (19:53)
[2021-12-02] MEDS: *HR* HYDROcodone/Acet 5/325 mg TABLET PO PRN ×2 (02:39→14:53)
[2021-12-02 03:25] LABS: Eosinophils # 0.1 K/mcL (0.0-0.6); Eosinophils % 0.6 %; Hematocrit 26.9 % (35.3-44.9); Hemoglobin 8.2 g/dL (11.5-15.4); Immature Granulocytes % 1.1 % (0-4); Lymphocytes # 0.9 K/mcL (0.6-4.6); Lymphocytes % 11.5 %; Mean Corpuscular HGB Conc 30.5 g/dL (31.6-35.5); Mean Corpuscular Volume 95.1 fL (83.0-100.0); Mean Platelet Volume 11.2 fL (9.4-12.4); Monocytes # 0.4 K/mcL (0.0-1.3); Monocytes % 5.3 %; Neutrophils # 6.5 K/mcL (1.6-8.9); Platelet Count 188 K/mcL (140-400); Red Blood Count 2.83 M/mcL (3.82-4.97); Red Cell Distribution Width 15.7 % (11.5-14.5); Segmented Neutrophils % 81.5 %
[2021-12-02 03:40] LABS: Calcium 9.3 mg/dL (8.6-10.3)
[2021-12-02] MEDS: *HR* Heparin 5,000 UNIT/ML VIAL SQ SCH ×3 (06:26→19:25)
[2021-12-02] MEDS ORDERED: 0.9 % Sodium Chloride 250 ML IVC PRN (07:00)
[2021-12-02] MEDS: Insulin LISPRO 300 UNITS/3 ML VIAL SUBQ SCH ×4 (07:18→21:56)
[2021-12-02] MEDS: carvediloL 6.25 MG TABLET PO SCH ×3 (08:49→17:21)
[2021-12-02] MEDS: calcitrioL 0.25 MCG CAPSULE PO SCH (09:04)
[2021-12-02] MEDS: Doxycycline 100 MG CAPSULE PO SCH ×2 (09:04→19:25)
[2021-12-02] MEDS: Gabapentin 400 MG CAPSULE PO SCH ×2 (09:04→19:25)
[2021-12-02] MEDS: Aspirin Enteric Coated 81 MG Tablet PO SCH (09:04)
[2021-12-02] MEDS: Albumin 25% 25gram/100mL 25 GM/100 ML IV.SOLN IVPB SCH ×2 (09:05→17:14)
[2021-12-02] MEDS: Nicotine 14 MG PATCH.TD24 TD SCH (09:05)
[2021-12-02] MEDS: Furosemide 40 MG/4 ML VIAL IVP SCH ×2 (09:05→17:17)
[2021-12-03 03:05] LABS: Basophils % 0.1 %; Eosinophils # 0.1 K/mcL (0.0-0.6); Eosinophils % 1.3 %; Hematocrit 27.9 % (35.3-44.9); Hemoglobin 8.2 g/dL (11.5-15.4); Immature Granulocytes % 0.5 % (0-4); Lymphocytes # 0.8 K/mcL (0.6-4.6); Lymphocytes % 10.9 %; Mean Corpuscular HGB Conc 29.4 g/dL (31.6-35.5); Mean Corpuscular Volume 95.2 fL (83.0-100.0); Mean Platelet Volume 11.1 fL (9.4-12.4); Monocytes # 0.4 K/mcL (0.0-1.3); Monocytes % 5.7 %; Neutrophils # 6.2 K/mcL (1.6-8.9); Platelet Count 194 K/mcL (140-400); Red Blood Count 2.93 M/mcL (3.82-4.97); Red Cell Distribution Width 15.8 % (11.5-14.5); Segmented Neutrophils % 81.5 %; White Blood Count 7.6 K/mcL (4.3-11.1)
[2021-12-03 03:12] LABS: Calcium 9.5 mg/dL (8.6-10.3)
[2021-12-03] MEDS: *HR* HYDROcodone/Acet 5/325 mg TABLET PO PRN ×3 (03:44→21:48)
[2021-12-03] MEDS: *HR* Heparin 5,000 UNIT/ML VIAL SQ SCH ×3 (05:47→21:02)
[2021-12-03] MEDS: Doxycycline 100 MG CAPSULE PO SCH ×2 (08:33→21:02)
[2021-12-03] MEDS: Aspirin Enteric Coated 81 MG Tablet PO SCH (08:33)
[2021-12-03] MEDS: calcitrioL 0.25 MCG CAPSULE PO SCH (08:33)
[2021-12-03] MEDS: Gabapentin 400 MG CAPSULE PO SCH ×2 (08:34→21:02)
[2021-12-03] MEDS: carvediloL 6.25 MG TABLET PO SCH ×2 (08:34→15:43)
[2021-12-03] MEDS: Insulin LISPRO 300 UNITS/3 ML VIAL SUBQ SCH ×3 (08:36→20:25)
[2021-12-03] MEDS: Furosemide 40 MG/4 ML VIAL IVP SCH ×2 (08:36→18:13)
[2021-12-03] MEDS: Nicotine 14 MG PATCH.TD24 TD SCH (08:37)
[2021-12-04] MEDS: ALPRAZolam 0.25 MG TABLET PO PRN ×2 (01:54→20:18)
[2021-12-04] MEDS: *HR* Heparin 5,000 UNIT/ML VIAL SQ SCH ×3 (05:35→20:19)
[2021-12-04] MEDS: *HR* HYDROcodone/Acet 5/325 mg TABLET PO PRN ×2 (05:38→20:26)
[2021-12-04] MEDS: Insulin LISPRO 300 UNITS/3 ML VIAL SUBQ SCH ×5 (08:52→20:15)
[2021-12-04] MEDS: carvediloL 6.25 MG TABLET PO SCH ×2 (09:09→18:12)
[2021-12-04] MEDS: Gabapentin 400 MG CAPSULE PO SCH ×2 (09:09→20:18)
[2021-12-04] MEDS: Doxycycline 100 MG CAPSULE PO SCH ×2 (09:09→20:18)
[2021-12-04] MEDS: calcitrioL 0.25 MCG CAPSULE PO SCH (09:09)
[2021-12-04] MEDS: Aspirin Enteric Coated 81 MG Tablet PO SCH (09:09)
[2021-12-04] MEDS: Furosemide 40 MG/4 ML VIAL IVP SCH ×2 (09:10→18:13)
[2021-12-04] MEDS: Nicotine 14 MG PATCH.TD24 TD SCH (09:10)
[2021-12-04 09:56] LABS: Calcium 9.2 mg/dL (8.6-10.3); Potassium 3.6 mEq/L (3.5-5.1)
[2021-12-04] MEDS: tiZANidine 4 MG TABLET PO PRN (20:26)
[2021-12-05] MEDS: *HR* HYDROcodone/Acet 5/325 mg TABLET PO PRN ×2 (02:35→20:20)
[2021-12-05 04:53] LABS: Basophils % 0.2 %; Eosinophils # 0.2 K/mcL (0.0-0.6); Hemoglobin 8.8 g/dL (11.5-15.4); Immature Granulocytes % 1.2 % (0-4); Lymphocytes % 19.6 %; Mean Corpuscular HGB Conc 30.3 g/dL (31.6-35.5); Mean Corpuscular Hemoglobin 28.7 pg (28.0-33.3); Mean Corpuscular Volume 94.5 fL (83.0-100.0); Mean Platelet Volume 11.7 fL (9.4-12.4); Monocytes # 0.5 K/mcL (0.0-1.3); Monocytes % 9.2 %; Neutrophils # 3.3 K/mcL (1.6-8.9); Platelet Count 179 K/mcL (140-400); Red Blood Count 3.07 M/mcL (3.82-4.97); Segmented Neutrophils % 65.8 %
[2021-12-05 05:13] LABS: Calcium 9.2 mg/dL (8.6-10.3); Potassium 3.8 mEq/L (3.5-5.1)
[2021-12-05] MEDS: *HR* Heparin 5,000 UNIT/ML VIAL SQ SCH ×3 (06:19→20:20)
[2021-12-05] MEDS: carvediloL 6.25 MG TABLET PO SCH ×2 (08:29→19:13)
[2021-12-05] MEDS: Doxycycline 100 MG CAPSULE PO SCH ×2 (08:30→20:20)
[2021-12-05] MEDS: Gabapentin 400 MG CAPSULE PO SCH ×2 (08:30→20:20)
[2021-12-05] MEDS: calcitrioL 0.25 MCG CAPSULE PO SCH (08:31)
[2021-12-05] MEDS: Aspirin Enteric Coated 81 MG Tablet PO SCH (08:31)
[2021-12-05] MEDS: Furosemide 40 MG/4 ML VIAL IVP SCH ×2 (08:31→19:12)
[2021-12-05] MEDS: Nicotine 14 MG PATCH.TD24 TD SCH (08:55)
[2021-12-05] MEDS: Insulin LISPRO 300 UNITS/3 ML VIAL SUBQ SCH ×4 (11:12→20:21)
[2021-12-05] MEDS ORDERED: *HR* FentaNYL (PF) 100 MCG/2 ML VIAL ONE ×2 (13:29→15:34)
[2021-12-05] MEDS ORDERED: *HR* Midazolam HCl 2 MG/2 ML VIAL ONE ×2 (13:30→15:34)
[2021-12-05] MEDS ORDERED: 0.9 % Sodium Chloride 2,000 ML ONE (15:34)
[2021-12-05] MEDS ORDERED: Heparin 1,000 UNITS/500 mL 500 ML ONE (15:34)
[2021-12-05] MEDS ORDERED: Nitroglycerin 1,000 MCG/5 ML VIAL IV ONE (15:34)
[2021-12-05] MEDS ORDERED: *HR* Heparin 10,000 UNIT/10 ML VIAL ONE (15:34)
[2021-12-05] MEDS ORDERED: ISOVUE-370 200 ML INFUS..BTL ONE (15:34)
[2021-12-05] MEDS ORDERED: 0.9 % Sodium Chloride 1,000 ML ONE (15:46)
[2021-12-05] MEDS ORDERED: methylPREDNISolone 125 MG/2 ML VIAL ONE (16:08)
[2021-12-05] MEDS ORDERED: *HR* Bivalirudin 250 MG VIAL IVC ONE (16:35)
[2021-12-05] MEDS: tiZANidine 4 MG TABLET PO PRN (20:20)
[2021-12-06] MEDS: ALPRAZolam 0.25 MG TABLET PO PRN ×3 (00:33→20:51)
[2021-12-06 03:57] LABS: Basophils % 0.2 %; Hemoglobin 9.3 g/dL (11.5-15.4); Immature Granulocytes % 1.3 % (0-4); Lymphocytes # 0.5 K/mcL (0.6-4.6); Lymphocytes % 11.1 %; Mean Corpuscular Hemoglobin 27.9 pg (28.0-33.3); Mean Corpuscular Volume 93.1 fL (83.0-100.0); Mean Platelet Volume 12.3 fL (9.4-12.4); Monocytes # 0.1 K/mcL (0.0-1.3); Monocytes % 1.8 %; Neutrophils # 3.9 K/mcL (1.6-8.9); Platelet Count 202 K/mcL (140-400); Red Blood Count 3.33 M/mcL (3.82-4.97); Red Cell Distribution Width 15.8 % (11.5-14.5); Segmented Neutrophils % 85.6 %; White Blood Count 4.5 K/mcL (4.3-11.1)
[2021-12-06 04:15] LABS: Calcium 9.2 mg/dL (8.6-10.3); Potassium 4.2 mEq/L (3.5-5.1)
[2021-12-06] MEDS: *HR* Heparin 5,000 UNIT/ML VIAL SQ SCH (06:03)
[2021-12-06] MEDS: *HR* HYDROcodone/Acet 5/325 mg TABLET PO PRN ×2 (06:08→16:20)
[2021-12-06] MEDS: carvediloL 6.25 MG TABLET PO SCH ×2 (10:30→16:13)
[2021-12-06] MEDS: Gabapentin 400 MG CAPSULE PO SCH ×2 (10:31→20:51)
[2021-12-06] MEDS: Doxycycline 100 MG CAPSULE PO SCH ×2 (10:31→20:51)
[2021-12-06] MEDS: Aspirin Enteric Coated 81 MG Tablet PO SCH (10:31)
[2021-12-06] MEDS: Furosemide 40 MG/4 ML VIAL IVP SCH ×2 (10:32→16:13)
[2021-12-06] MEDS: calcitrioL 0.25 MCG CAPSULE PO SCH (10:38)
[2021-12-06] MEDS: Nicotine 14 MG PATCH.TD24 TD SCH (10:38)
[2021-12-06] MEDS: Insulin LISPRO 300 UNITS/3 ML VIAL SUBQ SCH ×4 (10:46→20:51)
[2021-12-06 13:37] LABS: ABG Base Excess 1 mEq/L (-2 to 3); ABG HCO3 25 mEq/L (21-27); ABG Oxygen Saturation 94 % (95-98); ABG PCO2 39 mmHg (35-45); ABG PH 7.42 pH Units (7.32-7.45); ABG PO2 70 mmHg (85-104); ABG TCO2 27 mEq/L (20-26); Blood Gas FiO2 4.5 (1-15=lpm or21-100=%)
[2021-12-06] MEDS ORDERED: *HR* Heparin 5,000 UNIT/ML VIAL IVP PRN ×2 (14:03)
[2021-12-06 15:15] LABS: Albumin 3.6 g/dL (3.5-5.7); Albumin/Globulin Ratio 1.6 (1.1-2.2); Bilirubin,Direct 0.1 mg/dL (0.0-0.2); Bilirubin,Indirect 0.3 mg/dL (0.0-1.0); Bilirubin,Total 0.4 mg/dL (0.3-1.0); Globulin 2.3 g/dL (2.4-3.5); Total Protein 5.9 g/dL (6.4-8.9)
[2021-12-06] MEDS: Heparin 25,000UNIT/250ML 1/2NS 25,000 UNIT/250 ML IV.SOLN IVC SCH (16:13)
[2021-12-06 19:13] LABS: Hematocrit 27.5 % (35.3-44.9); Hemoglobin 8.3 g/dL (11.5-15.4); Mean Corpuscular HGB Conc 30.2 g/dL (31.6-35.5); Mean Corpuscular Volume 92.9 fL (83.0-100.0); Mean Platelet Volume 11.9 fL (9.4-12.4); Platelet Count 195 K/mcL (140-400); Red Blood Count 2.96 M/mcL (3.82-4.97); Red Cell Distribution Width 15.9 % (11.5-14.5)
[2021-12-06 19:14] LABS: White Blood Count 9.2 K/mcL (4.3-11.1)
[2021-12-06 19:19] LABS: Heparin anti-factor XA UFH 0.58 IU/mL (0.30-0.70)
[2021-12-06 19:20] LABS: INR 1.3; Prothrombin Time 14.1 Seconds (9.4-12.1)
[2021-12-06] MEDS: tiZANidine 4 MG TABLET PO PRN (20:51)
[2021-12-07] MEDS: ALPRAZolam 0.25 MG TABLET PO PRN (02:30)
[2021-12-07 04:13] LABS: Basophils % 0.1 %; Eosinophils # 0.1 K/mcL (0.0-0.6); Eosinophils % 0.7 %; Hematocrit 25.8 % (35.3-44.9); Hemoglobin 7.8 g/dL (11.5-15.4); Immature Granulocytes % 0.7 % (0-4); Lymphocytes # 1.9 K/mcL (0.6-4.6); Lymphocytes % 21.5 %; Mean Corpuscular HGB Conc 30.2 g/dL (31.6-35.5); Mean Corpuscular Hemoglobin 27.9 pg (28.0-33.3); Mean Corpuscular Volume 92.1 fL (83.0-100.0); Mean Platelet Volume 11.6 fL (9.4-12.4); Monocytes # 0.7 K/mcL (0.0-1.3); Monocytes % 7.4 %; Neutrophils # 6.1 K/mcL (1.6-8.9); Platelet Count 184 K/mcL (140-400); Segmented Neutrophils % 69.6 %; White Blood Count 8.8 K/mcL (4.3-11.1)
[2021-12-07 04:31] LABS: Calcium 8.9 mg/dL (8.6-10.3); Potassium 4.1 mEq/L (3.5-5.1)
[2021-12-07] MEDS ORDERED: 0.9 % Sodium Chloride 250 ML IVC PRN (07:33)
[2021-12-07] MEDS: Insulin LISPRO 300 UNITS/3 ML VIAL SUBQ SCH ×4 (07:49→22:02)
[2021-12-07] MEDS: Furosemide 40 MG/4 ML VIAL IVP SCH ×2 (07:49→17:54)
[2021-12-07] MEDS: *HR* HYDROcodone/Acet 5/325 mg TABLET PO PRN ×2 (07:50→17:53)
[2021-12-07] MEDS: carvediloL 6.25 MG TABLET PO SCH ×2 (07:50→17:54)
[2021-12-07] MEDS: calcitrioL 0.25 MCG CAPSULE PO SCH (08:07)
[2021-12-07] MEDS: Doxycycline 100 MG CAPSULE PO SCH ×2 (08:07→20:05)
[2021-12-07] MEDS: Aspirin Enteric Coated 81 MG Tablet PO SCH (08:07)
[2021-12-07] MEDS: Nicotine 14 MG PATCH.TD24 TD SCH (08:08)
[2021-12-07] MEDS: Gabapentin 400 MG CAPSULE PO SCH ×2 (08:08→20:05)
[2021-12-07] MEDS ORDERED: *HR* Heparin 10,000 UNIT/10 ML VIAL IV PRN (09:57)
[2021-12-07] MEDS ORDERED: Albumin 25% 25gram/100mL 25 GM/100 ML IV.SOLN IVPB ONE (12:57)
[2021-12-07] MEDS: Heparin 25,000UNIT/250ML 1/2NS 25,000 UNIT/250 ML IV.SOLN IVC SCH (20:04)
[2021-12-07] MEDS: Ondansetron 4 MG/2 ML VIAL IVP PRN (22:59)
[2021-12-08] MEDS: *HR* HYDROcodone/Acet 5/325 mg TABLET PO PRN (01:37)
[2021-12-08] MEDS: ALPRAZolam 0.25 MG TABLET PO PRN ×2 (01:37→21:12)
[2021-12-08 05:55] LABS: Basophils % 0.2 %; Eosinophils # 0.2 K/mcL (0.0-0.6); Eosinophils % 2.3 %; Hematocrit 26.2 % (35.3-44.9); Hemoglobin 7.8 g/dL (11.5-15.4); Immature Granulocytes % 0.6 % (0-4); Lymphocytes # 1.7 K/mcL (0.6-4.6); Lymphocytes % 21.1 %; Mean Corpuscular HGB Conc 29.8 g/dL (31.6-35.5); Mean Corpuscular Hemoglobin 28.3 pg (28.0-33.3); Mean Corpuscular Volume 94.9 fL (83.0-100.0); Mean Platelet Volume 11.6 fL (9.4-12.4); Monocytes # 0.6 K/mcL (0.0-1.3); Monocytes % 7.7 %; Neutrophils # 5.6 K/mcL (1.6-8.9); Platelet Count 179 K/mcL (140-400); Red Blood Count 2.76 M/mcL (3.82-4.97); Red Cell Distribution Width 16.2 % (11.5-14.5); Segmented Neutrophils % 68.1 %; White Blood Count 8.2 K/mcL (4.3-11.1)
[2021-12-08 06:14] LABS: Calcium 8.6 mg/dL (8.6-10.3); Potassium 4.1 mEq/L (3.5-5.1)
[2021-12-08] MEDS: Furosemide 40 MG/4 ML VIAL IVP SCH ×2 (08:03→17:32)
[2021-12-08] MEDS: calcitrioL 0.25 MCG CAPSULE PO SCH (08:06)
[2021-12-08] MEDS: Aspirin Enteric Coated 81 MG Tablet PO SCH (08:07)
[2021-12-08] MEDS: carvediloL 6.25 MG TABLET PO SCH ×2 (08:07→17:31)
[2021-12-08] MEDS: Doxycycline 100 MG CAPSULE PO SCH ×2 (08:07→21:12)
[2021-12-08] MEDS: Gabapentin 400 MG CAPSULE PO SCH ×2 (08:07→21:12)
[2021-12-08] MEDS: Nicotine 14 MG PATCH.TD24 TD SCH (08:07)
[2021-12-08] MEDS: Insulin LISPRO 300 UNITS/3 ML VIAL SUBQ SCH ×4 (08:16→21:12)
[2021-12-08] MEDS ORDERED: del Nido Cardioplegia Solution PF ONE ×2 (12:25)
[2021-12-08] MEDS ORDERED: Heparin 15,000 UNIT in 0.9 % Sodium Chloride 500 ML IV ONE (12:25)
[2021-12-08] MEDS ORDERED: Buckersberg's Blood Cardioplegia PF ONE (12:25)
[2021-12-08] MEDS ORDERED: Norepinephrine 4 MG in 0.9 % Sodium Chloride 250 ML IVC PRN (12:25)
[2021-12-08] MEDS: Ondansetron 4 MG/2 ML VIAL IVP PRN (21:12)
[2021-12-09] MEDS: Heparin 25,000UNIT/250ML 1/2NS 25,000 UNIT/250 ML IV.SOLN IVC SCH (00:32)
[2021-12-09] MEDS: Acetaminophen 325 MG TABLET PO PRN ×2 (03:14→21:26)
[2021-12-09] MEDS: tiZANidine 4 MG TABLET PO PRN (03:14)
[2021-12-09 04:00] LABS: Basophils % 0.3 %; Eosinophils # 0.2 K/mcL (0.0-0.6); Eosinophils % 2.4 %; Hematocrit 26.4 % (35.3-44.9); Immature Granulocytes % 0.6 % (0-4); Lymphocytes # 1.9 K/mcL (0.6-4.6); Lymphocytes % 23.8 %; Mean Corpuscular HGB Conc 30.3 g/dL (31.6-35.5); Mean Corpuscular Hemoglobin 28.9 pg (28.0-33.3); Mean Corpuscular Volume 95.3 fL (83.0-100.0); Mean Platelet Volume 11.4 fL (9.4-12.4); Monocytes # 0.6 K/mcL (0.0-1.3); Monocytes % 7.8 %; Neutrophils # 5.2 K/mcL (1.6-8.9); Platelet Count 168 K/mcL (140-400); Red Blood Count 2.77 M/mcL (3.82-4.97); Segmented Neutrophils % 65.1 %; White Blood Count 7.9 K/mcL (4.3-11.1)
[2021-12-09 04:17] LABS: Calcium 8.7 mg/dL (8.6-10.3); Potassium 4.5 mEq/L (3.5-5.1)
[2021-12-09] MEDS: Gabapentin 400 MG CAPSULE PO SCH ×2 (08:57→21:26)
[2021-12-09] MEDS: calcitrioL 0.25 MCG CAPSULE PO SCH (08:57)
[2021-12-09] MEDS: Doxycycline 100 MG CAPSULE PO SCH ×2 (08:57→21:26)
[2021-12-09] MEDS: Nicotine 14 MG PATCH.TD24 TD SCH (08:57)
[2021-12-09] MEDS: Aspirin Enteric Coated 81 MG Tablet PO SCH (08:57)
[2021-12-09] MEDS: Furosemide 40 MG/4 ML VIAL IVP SCH ×2 (09:06→17:06)
[2021-12-09] MEDS: carvediloL 6.25 MG TABLET PO SCH ×2 (09:06→17:06)
[2021-12-09] MEDS: Insulin LISPRO 300 UNITS/3 ML VIAL SUBQ SCH ×4 (09:07→21:11)
[2021-12-09 11:19] LABS: Heparin anti-factor XA UFH 0.49 IU/mL (0.30-0.70)
[2021-12-09 11:22] LABS: Activated Partial Thrombo Time 82.5 Seconds (26.0-36.0)
[2021-12-09] MEDS: ALPRAZolam 0.25 MG TABLET PO PRN (21:26)
[2021-12-10] MEDS: Heparin 25,000UNIT/250ML 1/2NS 25,000 UNIT/250 ML IV.SOLN IVC SCH (01:01)
[2021-12-10] MEDS: tiZANidine 4 MG TABLET PO PRN ×2 (01:01→22:06)
[2021-12-10] MEDS: Acetaminophen 325 MG TABLET PO PRN ×2 (06:22→19:04)
[2021-12-10] MEDS: Gabapentin 400 MG CAPSULE PO SCH ×2 (09:36→22:06)
[2021-12-10] MEDS: Insulin LISPRO 300 UNITS/3 ML VIAL SUBQ SCH ×4 (09:36→22:06)
[2021-12-10] MEDS: Nicotine 14 MG PATCH.TD24 TD SCH (09:36)
[2021-12-10] MEDS: Doxycycline 100 MG CAPSULE PO SCH (09:36)
[2021-12-10] MEDS: calcitrioL 0.25 MCG CAPSULE PO SCH (09:36)
[2021-12-10] MEDS: Aspirin Enteric Coated 81 MG Tablet PO SCH (09:36)
[2021-12-10] MEDS: Furosemide 40 MG/4 ML VIAL IVP SCH ×2 (09:38→18:59)
[2021-12-10] MEDS: carvediloL 6.25 MG TABLET PO SCH ×2 (09:38→18:59)
[2021-12-10] MEDS: ALPRAZolam 0.25 MG TABLET PO PRN (09:46)
[2021-12-10 12:15] LABS: Basophils % 0.4 %; Eosinophils # 0.3 K/mcL (0.0-0.6); Eosinophils % 3.2 %; Hematocrit 27.5 % (35.3-44.9); Hemoglobin 8.3 g/dL (11.5-15.4); Immature Granulocytes % 0.6 % (0-4); Lymphocytes # 2.2 K/mcL (0.6-4.6); Lymphocytes % 23.4 %; Mean Corpuscular HGB Conc 30.2 g/dL (31.6-35.5); Mean Corpuscular Hemoglobin 28.5 pg (28.0-33.3); Mean Corpuscular Volume 94.5 fL (83.0-100.0); Mean Platelet Volume 12.2 fL (9.4-12.4); Monocytes # 0.5 K/mcL (0.0-1.3); Monocytes % 4.9 %; Neutrophils # 6.3 K/mcL (1.6-8.9); Platelet Count 196 K/mcL (140-400); Red Blood Count 2.91 M/mcL (3.82-4.97); Red Cell Distribution Width 15.9 % (11.5-14.5); Segmented Neutrophils % 67.5 %; White Blood Count 9.4 K/mcL (4.3-11.1)
[2021-12-10 12:21] LABS: INR 1.1; Prothrombin Time 12.3 Seconds (9.4-12.1)
[2021-12-10 12:23] LABS: Activated Partial Thrombo Time 82.3 Seconds (26.0-36.0)
[2021-12-10 12:31] LABS: Chol/HDL Ratio 2.2 (0-4.9)
[2021-12-10] MEDS: Chlorhexidine Rinse 15 ML MOUTHWASH MM SCH (22:06)
[2021-12-11] MEDS: Heparin 25,000UNIT/250ML 1/2NS 25,000 UNIT/250 ML IV.SOLN IVC SCH (01:24)
[2021-12-11 02:41] LABS: Basophils % 0.4 %; Eosinophils # 0.3 K/mcL (0.0-0.6); Eosinophils % 3.1 %; Hematocrit 25.2 % (35.3-44.9); Hemoglobin 7.8 g/dL (11.5-15.4); Immature Granulocytes % 0.8 % (0-4); Lymphocytes # 1.5 K/mcL (0.6-4.6); Lymphocytes % 18.1 %; Mean Corpuscular Hemoglobin 29.3 pg (28.0-33.3); Mean Corpuscular Volume 94.7 fL (83.0-100.0); Mean Platelet Volume 12.3 fL (9.4-12.4); Monocytes # 0.4 K/mcL (0.0-1.3); Neutrophils # 6.1 K/mcL (1.6-8.9); Platelet Count 183 K/mcL (140-400); Red Blood Count 2.66 M/mcL (3.82-4.97); Red Cell Distribution Width 16.1 % (11.5-14.5); Segmented Neutrophils % 72.6 %; White Blood Count 8.4 K/mcL (4.3-11.1)
[2021-12-11 03:01] LABS: Calcium 9.4 mg/dL (8.6-10.3); Potassium 4.1 mEq/L (3.5-5.1)
[2021-12-11] MEDS: Ondansetron 4 MG/2 ML VIAL IVP PRN (03:48)
[2021-12-11] MEDS ORDERED: Papaverine 60 MG/2 ML VIAL IVP ONE (05:45)
[2021-12-11] MEDS: Chlorhexidine Rinse 15 ML MOUTHWASH MM SCH ×3 (05:59→20:27)
[2021-12-11] MEDS ORDERED: Aspirin 81 MG TAB.CHEW PO ONE ×2 (06:00→15:00)
[2021-12-11] MEDS ORDERED: Clindamycin 900 MG/50 ML 900 MG/50 ML IV.SOLN IVPB ONE (06:00)
[2021-12-11] MEDS ORDERED: DOBUTamine 1,000 MG/250 ML BAG ONE (06:09)
[2021-12-11] MEDS ORDERED: *HR* FentaNYL (PF) 1,000 MCG/20 ML VIAL ONE (06:13)
[2021-12-11] MEDS ORDERED: *HR* Propofol 200 MG/20 ML VIAL IVP ONE (06:13)
[2021-12-11] MEDS ORDERED: *HR* Midazolam HCl 5 MG/5 ML VIAL IVP ONE (06:13)
[2021-12-11] MEDS ORDERED: *HR* Rocuronium Bromide 50 MG/5 ML VIAL ONE ×2 (06:15→10:12)
[2021-12-11] MEDS ORDERED: Famotidine 20 MG/2 ML VIAL ONE (06:17)
[2021-12-11] MEDS ORDERED: Lidocaine 2% Syringe 100 MG/5 ML ONE (06:17)
[2021-12-11] MEDS ORDERED: *HR* Magnesium Sulfate 1 GM/2 ML VIAL ONE (06:20)
[2021-12-11] MEDS ORDERED: Buckersberg's Blood Cardioplegia PF ONE (07:00)
[2021-12-11] MEDS ORDERED: Heparin 15,000 UNIT in 0.9 % Sodium Chloride 500 ML IV ONE (07:00)
[2021-12-11] MEDS ORDERED: Norepinephrine 4 MG in 0.9 % Sodium Chloride 250 ML IVC PRN (07:00)
[2021-12-11] MEDS ORDERED: del Nido Cardioplegia Solution PF ONE ×2 (07:00)
[2021-12-11] MEDS ORDERED: Vancomycin 1,250 MG/262.5 ML IV.SOLN IVPB ONE (07:46)
[2021-12-11] MEDS ORDERED: *HR* Dextrose 50 % in Water (Syg) 50 ML SYRINGE IVP PRN (08:19)
[2021-12-11] MEDS ORDERED: Potassium Chloride 40 MEQ/200 ML BAG IVPB PRN (08:19)
[2021-12-11] MEDS ORDERED: Insulin Regular, Human 100 UNIT/ML IV PRN (08:19)
[2021-12-11] MEDS ORDERED: DESMOPRESSIN ACETATE IVPB ONE (08:42)
[2021-12-11] MEDS ORDERED: SODIUM CHLORIDE 0.9% IVPB ONE (08:42)
[2021-12-11 08:47] LABS: ABG Base Excess 0 mEq/L (-2 to 3); ABG Chloride 98 mEq/L (98-107); ABG Glucose 168 mg/dL (60-95); ABG HCO3 28 mEq/L (21-27); ABG Ionized Calcium 1.35 mmol/L (1.15-1.35); ABG Oxygen Saturation 100 % (95-98); ABG PCO2 65 mmHg (35-45); ABG PH 7.25 pH Units (7.32-7.45); ABG PO2 202 mmHg (85-104); ABG TCO2 30 mEq/L (20-26)
[2021-12-11] MEDS ORDERED: Calcium Gluconate 1gm/50mL 1 GM/50 ML BAG IVPB PRN (09:01)
[2021-12-11 09:35] LABS: ABG Base Excess -1 mEq/L (-2 to 3); ABG Chloride 100 mEq/L (98-107); ABG Glucose 172 mg/dL (60-95); ABG HCO3 24 mEq/L (21-27); ABG Ionized Calcium 1.23 mmol/L (1.15-1.35); ABG Oxygen Saturation 87 % (95-98); ABG PCO2 42 mmHg (35-45); ABG PH 7.37 pH Units (7.32-7.45); ABG PO2 55 mmHg (85-104); ABG TCO2 25 mEq/L (20-26)
[2021-12-11] MEDS ORDERED: Calcium Gluconate 1,000 MG/10 ML VIAL ONE (11:04)
[2021-12-11] MEDS ORDERED: Protamine Sulfate 250 MG/25 ML VIAL IVP ONE (11:04)
[2021-12-11 11:09] LABS: ABG Base Excess -2 mEq/L (-2 to 3); ABG Chloride 102 mEq/L (98-107); ABG Glucose 164 mg/dL (60-95); ABG HCO3 23 mEq/L (21-27); ABG Ionized Calcium 1.15 mmol/L (1.15-1.35); ABG Oxygen Saturation 89 % (95-98); ABG PCO2 40 mmHg (35-45); ABG PH 7.37 pH Units (7.32-7.45); ABG PO2 59 mmHg (85-104); ABG TCO2 25 mEq/L (20-26)
[2021-12-11 11:56] LABS: ABG Base Excess 0 mEq/L (-2 to 3); ABG HCO3 25 mEq/L (21-27); ABG Oxygen Saturation 100 % (95-98); ABG PCO2 40 mmHg (35-45); ABG PO2 246 mmHg (85-104); ABG TCO2 26 mEq/L (20-26); Blood Gas VT 450 cc
[2021-12-11 12:07] LABS: Basophils % 0.4 %; Eosinophils # 0.1 K/mcL (0.0-0.6); Eosinophils % 1.2 %; Hemoglobin 9.9 g/dL (11.5-15.4); Immature Granulocytes % 1.4 % (0-4); Lymphocytes # 0.8 K/mcL (0.6-4.6); Lymphocytes % 7.9 %; Mean Corpuscular HGB Conc 31.9 g/dL (31.6-35.5); Mean Corpuscular Hemoglobin 28.9 pg (28.0-33.3); Mean Corpuscular Volume 90.4 fL (83.0-100.0); Mean Platelet Volume 11.8 fL (9.4-12.4); Monocytes # 0.1 K/mcL (0.0-1.3); Monocytes % 1.3 %; Neutrophils # 9.1 K/mcL (1.6-8.9); Platelet Count 166 K/mcL (140-400); Red Blood Count 3.43 M/mcL (3.82-4.97); Red Cell Distribution Width 16.8 % (11.5-14.5); Segmented Neutrophils % 87.8 %; White Blood Count 10.4 K/mcL (4.3-11.1)
[2021-12-11 12:14] LABS: INR 1.3; Prothrombin Time 14.3 Seconds (9.4-12.1)
[2021-12-11 12:17] LABS: Activated Partial Thrombo Time 28.8 Seconds (26.0-36.0)
[2021-12-11 12:21] LABS: Calcium 9.1 mg/dL (8.6-10.3); Magnesium 1.4 mg/dL (1.6-2.6); Potassium 4.5 mEq/L (3.5-5.1)
[2021-12-11] MEDS: *HR* FentaNYL (PF) 100 MCG/2 ML VIAL IVP PRN ×2 (12:25→19:29)
[2021-12-11] MEDS: *HR* OxyCODONE/APAP 5/325 TABLET PO PRN ×2 (12:58→16:25)
[2021-12-11] MEDS: niCARdipine 20 MG/200 ML MLS IVC SCH ×4 (13:22→19:46)
[2021-12-11] MEDS: carvediloL 6.25 MG TABLET PO SCH (13:22)
[2021-12-11] MEDS: DOBUTamine 1,000 MG/250 ML BAG IVC SCH (13:22)
[2021-12-11] MEDS: Furosemide 40 MG/4 ML VIAL IVP SCH ×2 (13:22→16:25)
[2021-12-11] MEDS: Gabapentin 300 MG CAPSULE PO SCH ×3 (13:23→20:27)
[2021-12-11] MEDS: Norepinephrine 4 MG/254 ML IV.SOLN IVC SCH (13:23)
[2021-12-11] MEDS: Aspirin Enteric Coated 81 MG Tablet PO SCH (13:23)
[2021-12-11] MEDS: Nicotine 14 MG PATCH.TD24 TD SCH (13:24)
[2021-12-11] MEDS: calcitrioL 0.25 MCG CAPSULE PO SCH (13:24)
[2021-12-11] MEDS: Pantoprazole 40 MG VIAL IVP SCH (14:49)
[2021-12-11] MEDS: Clindamycin 900 MG/50 ML 900 MG/50 ML IV.SOLN IVPB SCH (16:26)
[2021-12-11 16:30] LABS: ABG Base Excess 0 mEq/L (-2 to 3); ABG HCO3 25 mEq/L (21-27); ABG Oxygen Saturation 95 % (95-98); ABG PCO2 45 mmHg (35-45); ABG PH 7.36 pH Units (7.32-7.45); ABG PO2 81 mmHg (85-104); ABG TCO2 27 mEq/L (20-26); Blood Gas VT 420 cc
[2021-12-11 18:19] LABS: ABG Base Excess -3 mEq/L (-2 to 3); ABG HCO3 27 mEq/L (21-27); ABG Oxygen Saturation 96 % (95-98); ABG PCO2 70 mmHg (35-45); ABG PH 7.19 pH Units (7.32-7.45); ABG PO2 99 mmHg (85-104); ABG TCO2 29 mEq/L (20-26); Blood Gas Pressure Support 5 cm H2O
[2021-12-11] MEDS: Insulin LISPRO 300 UNITS/3 ML VIAL SUBQ SCH (19:42)
[2021-12-11] MEDS: Albumin Human 5% 12.5 GM/250 ML IV.SOLN IVPB PRN ×2 (19:58→22:16)
[2021-12-11 20:26] LABS: ABG Base Excess -1 mEq/L (-2 to 3); ABG HCO3 26 mEq/L (21-27); ABG Oxygen Saturation 95 % (95-98); ABG PCO2 50 mmHg (35-45); ABG PH 7.32 pH Units (7.32-7.45); ABG PO2 85 mmHg (85-104); ABG TCO2 27 mEq/L (20-26); Blood Gas VT 420 cc
[2021-12-11] MEDS ORDERED: FentaNYL (PF) 1,000 MCG/100 ML IV.SOLN IVC SCH (20:45)
[2021-12-11] MEDS ORDERED: Dexmedetomidine HCl 400 MCG/100 ML MLS IVC SCH (20:45)
[2021-12-12] MEDS: Clindamycin 900 MG/50 ML 900 MG/50 ML IV.SOLN IVPB SCH ×3 (00:03→16:04)
[2021-12-12] MEDS: Norepinephrine 4 MG/254 ML IV.SOLN IVC SCH ×2 (00:26→15:52)
[2021-12-12] MEDS: niCARdipine 20 MG/200 ML MLS IVC SCH ×6 (00:28→21:00)
[2021-12-12 01:23] LABS: ABG Base Excess 0 mEq/L (-2 to 3); ABG HCO3 26 mEq/L (21-27); ABG Oxygen Saturation 93 % (95-98); ABG PCO2 51 mmHg (35-45); ABG PH 7.32 pH Units (7.32-7.45); ABG PO2 74 mmHg (85-104); ABG TCO2 28 mEq/L (20-26); Blood Gas VT 420 cc
[2021-12-12 03:46] LABS: ABG Base Excess 1 mEq/L (-2 to 3); ABG HCO3 26 mEq/L (21-27); ABG Oxygen Saturation 94 % (95-98); ABG PCO2 46 mmHg (35-45); ABG PH 7.36 pH Units (7.32-7.45); ABG PO2 72 mmHg (85-104); ABG TCO2 27 mEq/L (20-26); Blood Gas VT 420 cc
[2021-12-12 04:05] LABS: Basophils % 0.1 %; Hematocrit 23.1 % (35.3-44.9); Immature Granulocytes % 0.5 % (0-4); Lymphocytes % 7.3 %; Mean Corpuscular HGB Conc 31.2 g/dL (31.6-35.5); Mean Corpuscular Hemoglobin 28.1 pg (28.0-33.3); Mean Corpuscular Volume 90.2 fL (83.0-100.0); Mean Platelet Volume 11.8 fL (9.4-12.4); Monocytes # 0.8 K/mcL (0.0-1.3); Monocytes % 6.3 %; Neutrophils # 11.5 K/mcL (1.6-8.9); Platelet Count 181 K/mcL (140-400); Red Blood Count 2.56 M/mcL (3.82-4.97); Red Cell Distribution Width 17.5 % (11.5-14.5); Segmented Neutrophils % 85.8 %; White Blood Count 13.4 K/mcL (4.3-11.1)
[2021-12-12 04:08] LABS: Hemoglobin 7.2 g/dL (11.5-15.4)
[2021-12-12 04:14] LABS: INR 1.1; Prothrombin Time 12.4 Seconds (9.4-12.1)
[2021-12-12 04:16] LABS: Activated Partial Thrombo Time 27.8 Seconds (26.0-36.0)
[2021-12-12 04:23] LABS: Calcium 9.1 mg/dL (8.6-10.3); Potassium 4.3 mEq/L (3.5-5.1)
[2021-12-12] MEDS: *HR* OxyCODONE/APAP 5/325 TABLET PO PRN ×2 (04:41→10:44)
[2021-12-12 05:24] LABS: ABG Base Excess 0 mEq/L (-2 to 3); ABG HCO3 26 mEq/L (21-27); ABG Oxygen Saturation 93 % (95-98); ABG PCO2 48 mmHg (35-45); ABG PH 7.34 pH Units (7.32-7.45); ABG PO2 70 mmHg (85-104); ABG TCO2 28 mEq/L (20-26); Blood Gas Modality CPAP/PS; Blood Gas Pressure Support 6 cm H2O
[2021-12-12] MEDS: Chlorhexidine Rinse 15 ML MOUTHWASH MM SCH ×2 (07:45→21:00)
[2021-12-12] MEDS: Furosemide 40 MG/4 ML VIAL IVP SCH ×2 (07:45→16:51)
[2021-12-12] MEDS: Pantoprazole 40 MG VIAL IVP SCH (07:45)
[2021-12-12] MEDS: Gabapentin 300 MG CAPSULE PO SCH ×3 (07:45→21:00)
[2021-12-12] MEDS: Aspirin 81 MG TAB.CHEW PO SCH (07:45)
[2021-12-12] MEDS: Nicotine 14 MG PATCH.TD24 TD SCH (07:46)
[2021-12-12] MEDS: calcitrioL 0.25 MCG CAPSULE PO SCH (07:46)
[2021-12-12] MEDS: DOBUTamine 1,000 MG/250 ML BAG IVC SCH ×2 (07:47→23:21)
[2021-12-12 08:51] LABS: ABG Base Excess 1 mEq/L (-2 to 3); ABG HCO3 27 mEq/L (21-27); ABG Oxygen Saturation 94 % (95-98); ABG PCO2 49 mmHg (35-45); ABG PH 7.35 pH Units (7.32-7.45); ABG PO2 77 mmHg (85-104); ABG TCO2 28 mEq/L (20-26); Blood Gas Modality CPAP/PS; Blood Gas Pressure Support 6 cm H2O
[2021-12-12] MEDS ORDERED: *HR* Enoxaparin 30 MG/0.3 ML SYRINGE SQ ONE (09:31)
[2021-12-12 10:49] LABS: ABG Base Excess 1 mEq/L (-2 to 3); ABG HCO3 27 mEq/L (21-27); ABG Oxygen Saturation 94 % (95-98); ABG PCO2 50 mmHg (35-45); ABG PH 7.34 pH Units (7.32-7.45); ABG PO2 75 mmHg (85-104); ABG TCO2 28 mEq/L (20-26)
[2021-12-12] MEDS ORDERED: Dextrose Gel 15 GM/37.5 ML TUBE PO PRN ×2 (11:01)
[2021-12-12] MEDS ORDERED: *HR* Dextrose 50 % in Water (Syg) 50 ML SYRINGE IVP PRN (11:01)
[2021-12-12] MEDS ORDERED: D5% in Water 1,000 ML IVC PRN (11:01)
[2021-12-12] MEDS: Insulin LISPRO 300 UNITS/3 ML VIAL SUBQ SCH ×3 (11:08→21:01)
[2021-12-12] MEDS: Acetaminophen 325 MG TABLET PO PRN (15:51)
[2021-12-12] MEDS: carvediloL 6.25 MG TABLET PO SCH (16:50)
[2021-12-12] MEDS: tiZANidine 4 MG TABLET PO PRN (21:00)
[2021-12-13] MEDS: Clindamycin 900 MG/50 ML 900 MG/50 ML IV.SOLN IVPB SCH ×2 (00:16→07:53)
[2021-12-13] MEDS: niCARdipine 20 MG/200 ML MLS IVC SCH ×6 (00:17→19:49)
[2021-12-13] MEDS: *HR* OxyCODONE/APAP 5/325 TABLET PO PRN ×4 (04:02→19:53)
[2021-12-13 04:06] LABS: Basophils % 0.1 %; Eosinophils % 0.1 %; Hemoglobin 8.3 g/dL (11.5-15.4); Immature Granulocytes % 1.2 % (0-4); Lymphocytes # 1.1 K/mcL (0.6-4.6); Lymphocytes % 7.2 %; Mean Corpuscular HGB Conc 31.9 g/dL (31.6-35.5); Mean Corpuscular Hemoglobin 28.9 pg (28.0-33.3); Mean Corpuscular Volume 90.6 fL (83.0-100.0); Mean Platelet Volume 12.2 fL (9.4-12.4); Monocytes # 1.2 K/mcL (0.0-1.3); Monocytes % 8.4 %; Neutrophils # 12.2 K/mcL (1.6-8.9); Platelet Count 167 K/mcL (140-400); Red Blood Count 2.87 M/mcL (3.82-4.97); Red Cell Distribution Width 16.6 % (11.5-14.5); White Blood Count 14.6 K/mcL (4.3-11.1)
[2021-12-13 04:25] LABS: Calcium 8.8 mg/dL (8.6-10.3); Magnesium 2.1 mg/dL (1.6-2.6); Potassium 4.5 mEq/L (3.5-5.1)
[2021-12-13] MEDS: Norepinephrine 4 MG/254 ML IV.SOLN IVC SCH ×2 (05:58→17:31)
[2021-12-13] MEDS: *HR* Enoxaparin 30 MG/0.3 ML SYRINGE SQ SCH (06:00)
[2021-12-13] MEDS: Nicotine 14 MG PATCH.TD24 TD SCH (07:52)
[2021-12-13] MEDS: Aspirin 81 MG TAB.CHEW PO SCH (07:53)
[2021-12-13] MEDS: calcitrioL 0.25 MCG CAPSULE PO SCH (07:53)
[2021-12-13] MEDS: carvediloL 6.25 MG TABLET PO SCH ×2 (07:53→17:15)
[2021-12-13] MEDS: Pantoprazole 40 MG VIAL IVP SCH (07:54)
[2021-12-13] MEDS: Gabapentin 300 MG CAPSULE PO SCH ×3 (07:54→21:07)
[2021-12-13] MEDS: Furosemide 40 MG/4 ML VIAL IVP SCH ×2 (07:56→17:15)
[2021-12-13] MEDS: Chlorhexidine Rinse 15 ML MOUTHWASH MM SCH ×2 (07:56→21:08)
[2021-12-13] MEDS: Insulin LISPRO 300 UNITS/3 ML VIAL SUBQ SCH ×4 (07:57→21:08)
[2021-12-13] MEDS: Albumin Human 5% 12.5 GM/250 ML IV.SOLN IVPB PRN ×2 (09:15→09:41)
[2021-12-13 11:25] LABS: ABG Base Excess -2 mEq/L (-2 to 3); ABG Chloride 101 mEq/L (98-107); ABG Glucose 181 mg/dL (60-95); ABG HCO3 22 mEq/L (21-27); ABG Ionized Calcium 1.28 mmol/L (1.15-1.35); ABG Oxygen Saturation 100 % (95-98); ABG PCO2 30 mmHg (35-45); ABG PH 7.46 pH Units (7.32-7.45); ABG PO2 155 mmHg (85-104); ABG TCO2 22 mEq/L (20-26)
[2021-12-13] MEDS ORDERED: 0.9 % Sodium Chloride 250 ML ONE (15:27)
[2021-12-14] MEDS: niCARdipine 20 MG/200 ML MLS IVC SCH (01:33)
[2021-12-14 04:06] LABS: Calcium 8.5 mg/dL (8.6-10.3); Magnesium 1.9 mg/dL (1.6-2.6)
[2021-12-14] MEDS: *HR* OxyCODONE/APAP 5/325 TABLET PO PRN ×2 (04:22→14:26)
[2021-12-14 04:25] LABS: Basophils % 0.2 %; Eosinophils # 0.1 K/mcL (0.0-0.6); Eosinophils % 0.9 %; Hematocrit 25.2 % (35.3-44.9); Hemoglobin 8.2 g/dL (11.5-15.4); Immature Granulocytes % 0.8 % (0-4); Immature Platelets 8.9 % (1.1-6.1); Lymphocytes # 0.8 K/mcL (0.6-4.6); Lymphocytes % 7.1 %; Mean Corpuscular HGB Conc 32.5 g/dL (31.6-35.5); Mean Corpuscular Hemoglobin 29.8 pg (28.0-33.3); Mean Corpuscular Volume 91.6 fL (83.0-100.0); Mean Platelet Volume 11.9 fL (9.4-12.4); Monocytes # 0.7 K/mcL (0.0-1.3); Monocytes % 6.2 %; Neutrophils # 9.6 K/mcL (1.6-8.9); Platelet Count 122 K/mcL (140-400); Red Blood Count 2.75 M/mcL (3.82-4.97); Red Cell Distribution Width 16.6 % (11.5-14.5); Segmented Neutrophils % 84.8 %; White Blood Count 11.3 K/mcL (4.3-11.1)
[2021-12-14] MEDS: *HR* Enoxaparin 30 MG/0.3 ML SYRINGE SQ SCH (05:54)
[2021-12-14] MEDS: Insulin LISPRO 300 UNITS/3 ML VIAL SUBQ SCH ×5 (08:19→21:12)
[2021-12-14] MEDS: Gabapentin 300 MG CAPSULE PO SCH ×4 (08:24→21:12)
[2021-12-14] MEDS: calcitrioL 0.25 MCG CAPSULE PO SCH ×2 (08:24→10:01)
[2021-12-14] MEDS: Pantoprazole 40 MG VIAL IVP SCH ×2 (08:24→10:01)
[2021-12-14] MEDS: Chlorhexidine Rinse 15 ML MOUTHWASH MM SCH ×3 (08:24→21:11)
[2021-12-14] MEDS: Nicotine 14 MG PATCH.TD24 TD SCH ×2 (08:25→10:01)
[2021-12-14] MEDS: Aspirin 81 MG TAB.CHEW PO SCH ×2 (08:25→10:00)
[2021-12-14] MEDS: carvediloL 6.25 MG TABLET PO SCH (08:25)
[2021-12-14] MEDS: Furosemide 40 MG/4 ML VIAL IVP SCH ×3 (08:25→18:41)
[2021-12-14] MEDS ORDERED: Acetaminophen 325 MG TABLET PO PRN (08:57)
[2021-12-14] MEDS ORDERED: Naloxone 0.4 MG/ML INJ IVP PRN (08:57)
[2021-12-14] MEDS ORDERED: Ipratropium/Albuterol Neb 3 ML IH PRN (08:57)
[2021-12-14] MEDS ORDERED: Dextrose Gel 15 GM/37.5 ML TUBE PO PRN ×2 (08:57)
[2021-12-14] MEDS ORDERED: 0.9 % Sodium Chloride 250 ML IVC PRN (08:57)
[2021-12-14] MEDS ORDERED: 0.9 % Sodium Chloride 1,000 ML PRIME SCH (08:57)
[2021-12-14] MEDS ORDERED: *HR* Dextrose 50 % in Water (Syg) 50 ML SYRINGE IVP PRN (08:57)
[2021-12-14] MEDS ORDERED: Albumin Human 5% 12.5 GM/250 ML IV.SOLN IVPB PRN (08:57)
[2021-12-14] MEDS ORDERED: D5% in Water 1,000 ML IVC PRN (08:57)
[2021-12-14] MEDS ORDERED: *HR* Enoxaparin 40 MG/0.4 ML SYRINGE SQ SCH (09:00)
[2021-12-14] MEDS: tiZANidine 4 MG TABLET PO PRN (14:26)
[2021-12-14] MEDS ORDERED: carvediloL 6.25 MG TABLET PO SCH (17:00)
[2021-12-14] MEDS ORDERED: 0.9 % Sodium Chloride 500 ML IVC ONE (18:48)
[2021-12-14] MEDS: Albumin Human 5% 12.5 GM/250 ML IV.SOLN IVC SCH ×2 (19:42→20:03)
[2021-12-14] MEDS: DOBUTamine 1,000 MG/250 ML BAG IVC SCH (19:42)
[2021-12-14 20:09] LABS: Basophils % 0.1 %; Eosinophils # 0.1 K/mcL (0.0-0.6); Eosinophils % 1.6 %; Hematocrit 24.2 % (35.3-44.9); Hemoglobin 7.7 g/dL (11.5-15.4); Immature Granulocytes % 0.6 % (0-4); Lymphocytes # 1.1 K/mcL (0.6-4.6); Lymphocytes % 13.8 %; Mean Corpuscular HGB Conc 31.8 g/dL (31.6-35.5); Mean Corpuscular Hemoglobin 29.6 pg (28.0-33.3); Mean Corpuscular Volume 93.1 fL (83.0-100.0); Mean Platelet Volume 11.2 fL (9.4-12.4); Monocytes # 0.5 K/mcL (0.0-1.3); Monocytes % 6.1 %; Neutrophils # 6.2 K/mcL (1.6-8.9); Platelet Count 102 K/mcL (140-400); Red Cell Distribution Width 16.9 % (11.5-14.5); Segmented Neutrophils % 77.8 %; White Blood Count 7.9 K/mcL (4.3-11.1)
[2021-12-14] MEDS: Norepinephrine 4 MG/254 ML IV.SOLN IVC SCH (20:20)
[2021-12-15] MEDS: *HR* OxyCODONE/APAP 5/325 TABLET PO PRN ×4 (00:03→21:05)
[2021-12-15 03:37] LABS: Basophils % 0.2 %; Mean Corpuscular Hemoglobin 29.3 pg (28.0-33.3)
[2021-12-15 03:39] LABS: Eosinophils # 0.1 K/mcL (0.0-0.6); Eosinophils % 1.3 %; Hematocrit 31.5 % (35.3-44.9); Hemoglobin 10.2 g/dL (11.5-15.4); Immature Granulocytes % 0.9 % (0-4); Immature Platelets 9.9 % (1.1-6.1); Lymphocytes # 0.8 K/mcL (0.6-4.6); Lymphocytes % 8.1 %; Mean Corpuscular HGB Conc 32.4 g/dL (31.6-35.5); Mean Corpuscular Volume 90.5 fL (83.0-100.0); Mean Platelet Volume 11.7 fL (9.4-12.4); Monocytes # 0.6 K/mcL (0.0-1.3); Monocytes % 5.6 %; Neutrophils # 8.2 K/mcL (1.6-8.9); Platelet Count 141 K/mcL (140-400); Red Blood Count 3.48 M/mcL (3.82-4.97); Red Cell Distribution Width 16.7 % (11.5-14.5); Segmented Neutrophils % 83.9 %; White Blood Count 9.8 K/mcL (4.3-11.1)
[2021-12-15 03:51] LABS: Calcium 8.6 mg/dL (8.6-10.3); Magnesium 2.1 mg/dL (1.6-2.6); Potassium 3.9 mEq/L (3.5-5.1)
[2021-12-15] MEDS: *HR* Enoxaparin 30 MG/0.3 ML SYRINGE SQ SCH (05:23)
[2021-12-15] MEDS: DOBUTamine 1,000 MG/250 ML BAG IVC SCH ×2 (06:58→19:07)
[2021-12-15] MEDS: Norepinephrine 4 MG/254 ML IV.SOLN IVC SCH ×3 (06:58→19:07)
[2021-12-15] MEDS: Pantoprazole 40 MG VIAL IVP SCH (07:34)
[2021-12-15] MEDS: Gabapentin 300 MG CAPSULE PO SCH ×3 (07:35→20:03)
[2021-12-15] MEDS: Furosemide 40 MG/4 ML VIAL IVP SCH ×2 (07:35→16:05)
[2021-12-15] MEDS: calcitrioL 0.25 MCG CAPSULE PO SCH (07:35)
[2021-12-15] MEDS: Aspirin 81 MG TAB.CHEW PO SCH (07:35)
[2021-12-15] MEDS: Chlorhexidine Rinse 15 ML MOUTHWASH MM SCH ×2 (07:35→20:03)
[2021-12-15] MEDS: Nicotine 14 MG PATCH.TD24 TD SCH (07:36)
[2021-12-15] MEDS: Insulin LISPRO 300 UNITS/3 ML VIAL SUBQ SCH ×4 (07:45→20:04)
[2021-12-15] MEDS: Ondansetron 4 MG/2 ML VIAL IVP PRN ×2 (09:23→21:05)
[2021-12-15 09:39] LABS: Hematocrit 31.9 % (35.3-44.9); Hemoglobin 10.5 g/dL (11.5-15.4)
[2021-12-15] MEDS: niCARdipine 20 MG/200 ML MLS IVC SCH ×2 (11:56→11:57)
[2021-12-16 03:23] LABS: Basophils % 0.3 %; Eosinophils # 0.2 K/mcL (0.0-0.6); Eosinophils % 2.5 %; Hematocrit 31.8 % (35.3-44.9); Hemoglobin 10.1 g/dL (11.5-15.4); Immature Granulocytes % 0.7 % (0-4); Lymphocytes # 1.1 K/mcL (0.6-4.6); Lymphocytes % 15.4 %; Mean Corpuscular HGB Conc 31.8 g/dL (31.6-35.5); Mean Corpuscular Volume 91.4 fL (83.0-100.0); Mean Platelet Volume 11.6 fL (9.4-12.4); Monocytes # 0.5 K/mcL (0.0-1.3); Monocytes % 7.2 %; Platelet Count 155 K/mcL (140-400); Red Blood Count 3.48 M/mcL (3.82-4.97); Red Cell Distribution Width 16.8 % (11.5-14.5); Segmented Neutrophils % 73.9 %; White Blood Count 6.8 K/mcL (4.3-11.1)
[2021-12-16 03:43] LABS: Calcium 8.6 mg/dL (8.6-10.3); Magnesium 1.9 mg/dL (1.6-2.6); Potassium 4.1 mEq/L (3.5-5.1)
[2021-12-16] MEDS: *HR* Enoxaparin 30 MG/0.3 ML SYRINGE SQ SCH (05:25)
[2021-12-16] MEDS: Nicotine 14 MG PATCH.TD24 TD SCH (07:24)
[2021-12-16] MEDS: *HR* OxyCODONE/APAP 5/325 TABLET PO PRN (07:25)
[2021-12-16] MEDS: Ondansetron 4 MG/2 ML VIAL IVP PRN (07:26)
[2021-12-16] MEDS: calcitrioL 0.25 MCG CAPSULE PO SCH (07:26)
[2021-12-16] MEDS: Aspirin 81 MG TAB.CHEW PO SCH (07:26)
[2021-12-16] MEDS: Pantoprazole 40 MG VIAL IVP SCH (07:27)
[2021-12-16] MEDS: Gabapentin 300 MG CAPSULE PO SCH ×3 (07:27→19:54)
[2021-12-16] MEDS: Chlorhexidine Rinse 15 ML MOUTHWASH MM SCH ×2 (07:27→19:54)
[2021-12-16] MEDS: Insulin LISPRO 300 UNITS/3 ML VIAL SUBQ SCH ×4 (07:28→19:45)
[2021-12-16] MEDS: Furosemide 40 MG/4 ML VIAL IVP SCH ×2 (07:28→15:13)
[2021-12-16] MEDS: Norepinephrine 4 MG/254 ML IV.SOLN IVC SCH ×2 (10:44→19:55)
[2021-12-16] MEDS: DOBUTamine 1,000 MG/250 ML BAG IVC SCH (11:18)
[2021-12-17 02:29] LABS: Basophils % 0.3 %; Eosinophils # 0.2 K/mcL (0.0-0.6); Eosinophils % 3.5 %; Hematocrit 34.1 % (35.3-44.9); Hemoglobin 10.8 g/dL (11.5-15.4); Immature Granulocytes % 0.7 % (0-4); Lymphocytes # 0.9 K/mcL (0.6-4.6); Lymphocytes % 15.2 %; Mean Corpuscular HGB Conc 31.7 g/dL (31.6-35.5); Mean Corpuscular Volume 91.7 fL (83.0-100.0); Mean Platelet Volume 10.7 fL (9.4-12.4); Monocytes # 0.5 K/mcL (0.0-1.3); Monocytes % 7.9 %; Neutrophils # 4.2 K/mcL (1.6-8.9); Platelet Count 184 K/mcL (140-400); Red Blood Count 3.72 M/mcL (3.82-4.97); Red Cell Distribution Width 16.1 % (11.5-14.5); Segmented Neutrophils % 72.4 %; White Blood Count 5.7 K/mcL (4.3-11.1)
[2021-12-17 02:49] LABS: Calcium 8.9 mg/dL (8.6-10.3); Magnesium 1.8 mg/dL (1.6-2.6); Potassium 4.2 mEq/L (3.5-5.1)
[2021-12-17] MEDS: *HR* Enoxaparin 30 MG/0.3 ML SYRINGE SQ SCH (05:01)
[2021-12-17] MEDS: Nicotine 14 MG PATCH.TD24 TD SCH (07:32)
[2021-12-17] MEDS: Pantoprazole 40 MG VIAL IVP SCH (07:34)
[2021-12-17] MEDS: Ondansetron 4 MG/2 ML VIAL IVP PRN ×3 (07:34→23:03)
[2021-12-17] MEDS: Chlorhexidine Rinse 15 ML MOUTHWASH MM SCH ×2 (07:34→19:59)
[2021-12-17] MEDS: Furosemide 40 MG/4 ML VIAL IVP SCH (07:34)
[2021-12-17] MEDS: calcitrioL 0.25 MCG CAPSULE PO SCH (07:35)
[2021-12-17] MEDS: *HR* OxyCODONE/APAP 5/325 TABLET PO PRN ×3 (07:36→19:59)
[2021-12-17] MEDS: Aspirin 81 MG TAB.CHEW PO SCH (07:36)
[2021-12-17] MEDS: Insulin LISPRO 300 UNITS/3 ML VIAL SUBQ SCH ×4 (07:37→19:59)
[2021-12-17] MEDS: Gabapentin 300 MG CAPSULE PO SCH (07:37)
[2021-12-17] MEDS ORDERED: Gabapentin 100 MG CAPSULE PO ONE (10:00)
[2021-12-17] MEDS: Norepinephrine 4 MG/254 ML IV.SOLN IVC SCH (14:04)
[2021-12-17] MEDS: DOBUTamine 1,000 MG/250 ML BAG IVC SCH (16:35)
[2021-12-17] MEDS: carvediloL 6.25 MG TABLET PO SCH (16:37)
[2021-12-17] MEDS: Gabapentin 400 MG CAPSULE PO SCH (19:59)
[2021-12-18] MEDS: tiZANidine 4 MG TABLET PO PRN (01:48)
[2021-12-18 03:55] LABS: Hematocrit 32.2 % (35.3-44.9); Hemoglobin 10.3 g/dL (11.5-15.4); Mean Corpuscular Hemoglobin 29.3 pg (28.0-33.3); Mean Corpuscular Volume 91.7 fL (83.0-100.0); Mean Platelet Volume 10.8 fL (9.4-12.4); Platelet Count 197 K/mcL (140-400); Red Blood Count 3.51 M/mcL (3.82-4.97); Red Cell Distribution Width 15.8 % (11.5-14.5); White Blood Count 5.5 K/mcL (4.3-11.1)
[2021-12-18 04:26] LABS: Calcium 8.8 mg/dL (8.6-10.3); Magnesium 1.7 mg/dL (1.6-2.6); Potassium 4.2 mEq/L (3.5-5.1)
[2021-12-18] MEDS: *HR* Enoxaparin 30 MG/0.3 ML SYRINGE SQ SCH (06:14)
[2021-12-18] MEDS ORDERED: Furosemide 40 MG TABLET PO SCH (08:00)
[2021-12-18] MEDS: calcitrioL 0.25 MCG CAPSULE PO SCH (08:07)
[2021-12-18] MEDS: Insulin LISPRO 300 UNITS/3 ML VIAL SUBQ SCH ×4 (08:07→19:36)
[2021-12-18] MEDS: Gabapentin 400 MG CAPSULE PO SCH ×2 (08:08→19:35)
[2021-12-18] MEDS: carvediloL 6.25 MG TABLET PO SCH ×2 (08:08→16:37)
[2021-12-18] MEDS: Nicotine 14 MG PATCH.TD24 TD SCH (08:09)
[2021-12-18] MEDS: Aspirin 81 MG TAB.CHEW PO SCH (08:09)
[2021-12-18] MEDS: Chlorhexidine Rinse 15 ML MOUTHWASH MM SCH ×2 (08:10→19:38)
[2021-12-18] MEDS: Furosemide 40 MG/4 ML VIAL IVP SCH (08:11)
[2021-12-18] MEDS ORDERED: Furosemide 40 MG/4 ML VIAL IVP SCH (09:00)
[2021-12-18] MEDS: *HR* OxyCODONE/APAP 5/325 TABLET PO PRN ×2 (10:29→16:37)
[2021-12-19 04:32] LABS: Hematocrit 36.3 % (35.3-44.9); Hemoglobin 11.3 g/dL (11.5-15.4); Mean Corpuscular HGB Conc 31.1 g/dL (31.6-35.5); Mean Corpuscular Volume 93.3 fL (83.0-100.0); Mean Platelet Volume 10.8 fL (9.4-12.4); Platelet Count 213 K/mcL (140-400); Red Blood Count 3.89 M/mcL (3.82-4.97); Red Cell Distribution Width 15.8 % (11.5-14.5); White Blood Count 5.6 K/mcL (4.3-11.1)
[2021-12-19 04:48] LABS: Calcium 9.3 mg/dL (8.6-10.3); Magnesium 1.6 mg/dL (1.6-2.6); Potassium 4.4 mEq/L (3.5-5.1)
[2021-12-19] MEDS: *HR* Enoxaparin 30 MG/0.3 ML SYRINGE SQ SCH (05:42)
[2021-12-19] MEDS: calcitrioL 0.25 MCG CAPSULE PO SCH (08:15)
[2021-12-19] MEDS: carvediloL 6.25 MG TABLET PO SCH ×2 (08:16→18:28)
[2021-12-19] MEDS: Nicotine 14 MG PATCH.TD24 TD SCH (08:17)
[2021-12-19] MEDS: Aspirin 81 MG TAB.CHEW PO SCH (08:17)
[2021-12-19] MEDS: Chlorhexidine Rinse 15 ML MOUTHWASH MM SCH (08:17)
[2021-12-19] MEDS: Gabapentin 400 MG CAPSULE PO SCH ×2 (08:17→20:17)
[2021-12-19] MEDS: Furosemide 40 MG/4 ML VIAL IVP SCH (08:18)
[2021-12-19] MEDS: Insulin LISPRO 300 UNITS/3 ML VIAL SUBQ SCH ×4 (08:19→20:17)
[2021-12-19] MEDS: lisinopriL 20 MG TABLET PO SCH (09:24)
[2021-12-19] MEDS: Spironolactone 25 MG TABLET PO SCH (09:24)
[2021-12-19 15:46] LABS: Lactate Dehydrogenase 170 Units/L (140-271); Total Protein 5.5 g/dL (6.4-8.9)
[2021-12-19] MEDS: *HR* OxyCODONE/APAP 5/325 TABLET PO PRN (23:49)
[2021-12-20 02:05] LABS: Hematocrit 35.5 % (35.3-44.9); Hemoglobin 11.1 g/dL (11.5-15.4); Mean Corpuscular HGB Conc 31.3 g/dL (31.6-35.5); Mean Corpuscular Hemoglobin 28.8 pg (28.0-33.3); Mean Corpuscular Volume 92.2 fL (83.0-100.0); Mean Platelet Volume 10.9 fL (9.4-12.4); Platelet Count 226 K/mcL (140-400); Red Blood Count 3.85 M/mcL (3.82-4.97); Red Cell Distribution Width 15.9 % (11.5-14.5); White Blood Count 5.5 K/mcL (4.3-11.1)
[2021-12-20 02:22] LABS: Calcium 9.4 mg/dL (8.6-10.3); Magnesium 1.5 mg/dL (1.6-2.6); Potassium 4.5 mEq/L (3.5-5.1)
[2021-12-20] MEDS: Ondansetron 4 MG/2 ML VIAL IVP PRN (02:52)
[2021-12-20] MEDS: *HR* Enoxaparin 30 MG/0.3 ML SYRINGE SQ SCH (06:06)
[2021-12-20] MEDS: Spironolactone 25 MG TABLET PO SCH (07:55)
[2021-12-20] MEDS: Insulin LISPRO 300 UNITS/3 ML VIAL SUBQ SCH ×4 (07:55→20:48)
[2021-12-20] MEDS: Aspirin 81 MG TAB.CHEW PO SCH (07:56)
[2021-12-20] MEDS: carvediloL 6.25 MG TABLET PO SCH ×2 (07:56→17:14)
[2021-12-20] MEDS: Gabapentin 400 MG CAPSULE PO SCH ×2 (07:56→20:45)
[2021-12-20] MEDS: calcitrioL 0.25 MCG CAPSULE PO SCH (07:56)
[2021-12-20] MEDS: lisinopriL 20 MG TABLET PO SCH (07:56)
[2021-12-20] MEDS: Furosemide 40 MG/4 ML VIAL IVP SCH (07:57)
[2021-12-20] MEDS: Nicotine 14 MG PATCH.TD24 TD SCH (07:58)
[2021-12-20] MEDS: *HR* OxyCODONE/APAP 5/325 TABLET PO PRN ×3 (10:35→23:40)
[2021-12-21 02:51] LABS: Hematocrit 32.5 % (35.3-44.9); Hemoglobin 10.2 g/dL (11.5-15.4); Mean Corpuscular HGB Conc 31.4 g/dL (31.6-35.5); Mean Corpuscular Volume 92.3 fL (83.0-100.0); Mean Platelet Volume 10.9 fL (9.4-12.4); Platelet Count 224 K/mcL (140-400); Red Blood Count 3.52 M/mcL (3.82-4.97); Red Cell Distribution Width 15.9 % (11.5-14.5); White Blood Count 5.3 K/mcL (4.3-11.1)
[2021-12-21 03:06] LABS: Calcium 9.1 mg/dL (8.6-10.3); Magnesium 1.5 mg/dL (1.6-2.6); Potassium 4.5 mEq/L (3.5-5.1)
[2021-12-21] MEDS: *HR* OxyCODONE/APAP 5/325 TABLET PO PRN ×2 (04:02→12:10)
[2021-12-21] MEDS: *HR* Enoxaparin 30 MG/0.3 ML SYRINGE SQ SCH (06:08)
[2021-12-21] MEDS: Insulin LISPRO 300 UNITS/3 ML VIAL SUBQ SCH ×2 (07:48→12:10)
[2021-12-21] MEDS: Aspirin 81 MG TAB.CHEW PO SCH (08:49)
[2021-12-21] MEDS: Spironolactone 25 MG TABLET PO SCH (08:49)
[2021-12-21] MEDS: calcitrioL 0.25 MCG CAPSULE PO SCH (08:49)
[2021-12-21] MEDS: lisinopriL 20 MG TABLET PO SCH (08:50)
[2021-12-21] MEDS: Gabapentin 400 MG CAPSULE PO SCH (08:50)
[2021-12-21] MEDS: Furosemide 40 MG/4 ML VIAL IVP SCH (08:51)
[2021-12-21] MEDS: Nicotine 14 MG PATCH.TD24 TD SCH (08:51)
[2021-12-21] MEDS: carvediloL 6.25 MG TABLET PO SCH (08:51)
[2021-12-21] MEDS ORDERED: Magnesium Oxide 400 MG TABLET PO SCH (10:30)
[2021-12-21 12:08] VITALS: BP 141/62; PULSE 60; TEMP 97.6; O2SAT 98
[2021-12-21 12:36] LABS: Adenovirus Not Detected (Not Detect); Bordetella Pertussis Not Detected (Not Detect); Chlamydophila pneumoniae Not Detected (Not Detect); Coronavirus 229E Not Detected (Not Detect); Coronavirus HKU1 Not Detected (Not Detect); Coronavirus NL63 Not Detected (Not Detect); Coronavirus OC43 Not Detected (Not Detect); Human Metapneumovirus Not Detected (Not Detect); Human Rhinovirus/Enterovirus Not Detected (Not Detect); Influenza A Subtype 2009 H1 Not Detected (Not Detect); Influenza B Not Detected (Not Detect); Mycoplasma pneumoniae Not Detected (Not Detect); Parainfluenza Virus 1 Not Detected (Not Detect); Parainfluenza Virus 2 Not Detected (Not Detect); Parainfluenza Virus 3 Not Detected (Not Detect); Parainfluenza Virus 4 Not Detected (Not Detect); Respiratory Syncytial Virus Not Detected (Not Detect); SARS-CoV-2 Not Detected (Not Detect)
[2021-12-21] MEDS ORDERED: Furosemide 20 MG/2 ML VIAL IVP SCH (21:00)
== END 2021-12-21 15:25 | DRG 233 ==
LOC: 2ANU 12:23 → EMEROOARM 12:23 → SUATTDRO 14:19 → 2ANU 15:35 → SUATTDRO 17:57 → 3NENU 11-30 16:41 → ICNU 12-11 08:56 → 2NNU 12-17 16:04
PROVIDERS: ADMIT Pharmacist; ATTEND Internal Medicine

== ENCOUNTER 2022-01-28 10:47 | Inpatient (IN) ==
[2022-01-28 12:14] LABS: Bacteria,Urine Few per hpf (None-Few); Bilirubin,Urine Negative (Negative); Blood,Urine Small (Negative); Clarity,Urine Clear (Clear); Color,Urine Light-Yellow (Yellow); Glucose,Urine (UA) 50 mg/dL (Normal); Hyaline Casts,Urine Few per lpf (None Seen); Ketones,Urine Negative (Negative); Leukocyte Esterase,Urine Negative (Negative); Mucus,Urine Few per lpf (None-Few); Nitrite,Urine Negative (Negative); Protein,Urine >=300 mg/dL (Neg-Trace); RBC,Urine 15-30 per hpf (0-3); Specific Gravity,Urine 1.015 (1.010-1.025); Squamous Epithelial Cell,Urine Few per hpf (None-Few); Urobilinogen,Urine Normal (Normal); WBC,Urine 0-3 per hpf (0-3)
[2022-01-28 12:33] LABS: Basophils % 0.6 %; Eosinophils # 0.5 K/mcL (0.0-0.6); Eosinophils % 7.5 %; Hematocrit 29.4 % (35.3-44.9); Hemoglobin 9.1 g/dL (11.5-15.4); Immature Granulocytes % 0.2 % (0-4); Lymphocytes # 1.5 K/mcL (0.6-4.6); Lymphocytes % 24.4 %; Mean Corpuscular Hemoglobin 29.7 pg (28.0-33.3); Mean Corpuscular Volume 96.1 fL (83.0-100.0); Mean Platelet Volume 10.7 fL (9.4-12.4); Monocytes # 0.6 K/mcL (0.0-1.3); Monocytes % 9.8 %; Neutrophils # 3.6 K/mcL (1.6-8.9); Platelet Count 199 K/mcL (140-400); Red Blood Count 3.06 M/mcL (3.82-4.97); Red Cell Distribution Width 15.3 % (11.5-14.5); Segmented Neutrophils % 57.5 %; White Blood Count 6.2 K/mcL (4.3-11.1)
[2022-01-28 12:53] LABS: Calcium 8.5 mg/dL (8.6-10.3); Potassium 5.7 mEq/L (3.5-5.1)
[2022-01-28] MEDS ORDERED: Naloxone 0.4 MG/ML INJ IVP PRN (13:48)
[2022-01-28] MEDS ORDERED: Ondansetron 4 MG/2 ML VIAL IVP PRN (13:48)
[2022-01-28 14:05] LABS: Creatinine,Urine 75 mg/dL; Microalbumin,Urine > 1350 mg/L; Sodium, Urine 29.4 mEq/L
[2022-01-28] MEDS: 0.9 % Sodium Chloride 1,000 ML IVC SCH (15:18)
[2022-01-28] MEDS ORDERED: carvediloL 6.25 MG TABLET PO SCH (17:00)
[2022-01-29 02:07] LABS: Basophils % 0.6 %; Eosinophils # 0.4 K/mcL (0.0-0.6); Eosinophils % 7.7 %; Hematocrit 28.5 % (35.3-44.9); Hemoglobin 8.9 g/dL (11.5-15.4); Immature Granulocytes % 0.2 % (0-4); Lymphocytes # 1.1 K/mcL (0.6-4.6); Mean Corpuscular HGB Conc 31.2 g/dL (31.6-35.5); Mean Corpuscular Hemoglobin 29.7 pg (28.0-33.3); Mean Platelet Volume 10.4 fL (9.4-12.4); Monocytes # 0.5 K/mcL (0.0-1.3); Monocytes % 9.6 %; Platelet Count 181 K/mcL (140-400); Red Cell Distribution Width 15.2 % (11.5-14.5); Segmented Neutrophils % 59.9 %; White Blood Count 5.1 K/mcL (4.3-11.1)
[2022-01-29 02:26] LABS: Calcium 8.4 mg/dL (8.6-10.3); Magnesium 1.9 mg/dL (1.6-2.6); Potassium 5.8 mEq/L (3.5-5.1)
[2022-01-29] MEDS: 0.9 % Sodium Chloride 1,000 ML IVC SCH (05:26)
[2022-01-29] MEDS ORDERED: *HR* HYDROcodone/Acet 10/325 mg TABLET PO ONE (05:32)
[2022-01-29] MEDS: carvediloL 6.25 MG TABLET PO SCH ×2 (08:31→17:25)
[2022-01-29] MEDS: Aspirin Enteric Coated 81 MG Tablet PO SCH (08:31)
[2022-01-29] MEDS: Sodium Bicarbonate 50 MEQ in 0.45 % Sodium Chloride 1,000 ML IVC SCH (12:14)
[2022-01-29] MEDS: SODIUM ZIRCONIUM CYCLOSILICATE 5 GM POWD.PACK PO SCH (12:59)
[2022-01-29] MEDS ORDERED: ALPRAZolam 0.25 MG TABLET PO PRN (15:00)
[2022-01-29] MEDS: Colestipol Hcl [Colestid] 1 GM PO SCH (20:21)
[2022-01-29] MEDS: Magnesium Oxide 400 MG TABLET PO SCH (20:21)
[2022-01-30] MEDS: Sodium Bicarbonate 50 MEQ in 0.45 % Sodium Chloride 1,000 ML IVC SCH ×3 (00:51→20:53)
[2022-01-30] MEDS: *HR* HYDROcodone/Acet 10/325 mg TABLET PO PRN ×3 (06:12→20:52)
[2022-01-30 06:51] LABS: Calcium 8.3 mg/dL (8.6-10.3); Potassium 5.1 mEq/L (3.5-5.1)
[2022-01-30] MEDS: carvediloL 6.25 MG TABLET PO SCH ×2 (08:41→16:32)
[2022-01-30] MEDS: Colestipol Hcl [Colestid] 1 GM PO SCH ×2 (08:50→20:53)
[2022-01-30] MEDS: Aspirin Enteric Coated 81 MG Tablet PO SCH (08:50)
[2022-01-30] MEDS: Magnesium Oxide 400 MG TABLET PO SCH ×2 (08:50→20:52)
[2022-01-30] MEDS: SODIUM ZIRCONIUM CYCLOSILICATE 5 GM POWD.PACK PO SCH (08:50)
[2022-01-31 02:19] LABS: Calcium 8.3 mg/dL (8.6-10.3); Potassium 4.8 mEq/L (3.5-5.1)
[2022-01-31] MEDS: Colestipol Hcl [Colestid] 1 GM PO SCH (07:37)
[2022-01-31] MEDS: Magnesium Oxide 400 MG TABLET PO SCH (07:46)
[2022-01-31] MEDS: Aspirin Enteric Coated 81 MG Tablet PO SCH (07:46)
[2022-01-31] MEDS: carvediloL 6.25 MG TABLET PO SCH (07:46)
[2022-01-31] MEDS: SODIUM ZIRCONIUM CYCLOSILICATE 5 GM POWD.PACK PO SCH (07:47)
[2022-01-31] MEDS: Sodium Bicarbonate 50 MEQ in 0.45 % Sodium Chloride 1,000 ML IVC SCH (07:54)
[2022-01-31 11:03] VITALS: BP 176/76; PULSE 70; TEMP 99.3
[2022-01-31 14:04] VITALS: O2SAT 87
== END 2022-01-31 15:58 | disposition home or self-care (01) | DRG 682 ==
LOC: 2ANU 10:47 → EMEROOARM 10:47 → 2ANU 14:19 → SUATTDRO 14:43
PROVIDERS: ADMIT Family Medicine; ATTEND Internal Medicine